=== PATIENT | female | born 1945 ===

== ENCOUNTER 2020-07-29 18:34 | Inpatient (IN) | payer MEDICARE ==
[2020-07-29] MEDS ORDERED: SODIUM CHLORIDE 0.9% 500 ML 500 ML IV STA (19:30)
[2020-07-29] MEDS ORDERED: DILTIAZEM DRIP BOLUS FROM BAG 1 MG SOLN IV ONE (19:31)
[2020-07-29] MEDS ORDERED: HEPARIN SODIUM,PORCINE 5,000 UNIT/ML 1 ML VIAL IV PRN (19:37)
--- NOTE | 2020-07-29 19:37 | ED ---
Weakness HPI - General Chief complaint: Weakness Stated complaint: AFIB Time Seen by Provider: 07/29/20 18:34 Source: patient, EMS Mode of arrival: EMS - History of Present Illness Initial comments: This is a 75-year-old female who was transferred from [facility] after presenting with complaints of progressive weakness going on for the past couple weeks. She hadn't previously been diagnosed with a urinary tract infection was placed on Augmentin and it turns out she was not taking her medication. She did have a cough generally wasn't feeling well. She was short of breath somewhat. Cough is nonproductive. No chest pain. Also sprained some lightheadedness but no syncopal events. No headache or myalgias no fevers chills or sweats. She is found upon evaluation to be in atrial fibrillation with a rapid ventricular response. Additionally she is also found have Covid 19 with the typical imaging findings of bilateral pneumonia. Additionally she was found to be hypoxemic. She was transferred here for further evaluation for both of the above diagnoses. The patient was started on a Cardizem drip was also anticoagulated with heparin and given Rocephin 1 g Complaint: generalized weakness - Related Data Home Medications Medication Instructions Recorded Confirmed Levothyroxine Sodium [Synthroid] 75 mcg PO DAILY 07/29/20 07/29/20 amLODIPine [Norvasc] 5 mg PO DAILY 07/29/20 07/29/20 Allergies Allergy/AdvReac Type Severity Reaction Status Date / Time No Known Allergies Allergy Verified 07/29/20 19:50 Review of Systems ROS Statement: Those systems with pertinent positive or pertinent negative responses have been documented in the HPI. ROS Other: All systems not noted in ROS Statement are negative. Past Medical History Past Medical History: Hypertension, Thyroid Disorder History of Any Multi-Drug Resistant Organisms: None Reported Additional Past Surgical History / Comment(s): colon resection Smoking Status: Never smoker Past Alcohol Use History: None Reported Past Drug Use History: None Reported General Exam - General Exam Comments Initial Comments: This is a well-developed asthenic appearing female who is awake alert oriented 3 General appearance: alert, in no apparent distress Head exam: Present: atraumatic, normocephalic, normal inspection Eye exam: Present: normal appearance, PERRL, EOMI. Absent: scleral icterus, conjunctival injection, periorbital swelling ENT exam: Present: mucous membranes dry Neck exam: Present: normal inspection. Absent: tenderness, meningismus, lymphadenopathy Respiratory exam: Present: decreased breath sounds. Absent: respiratory distress, wheezes, rales, rhonchi, stridor Cardiovascular Exam: Present: tachycardia, irregular rhythm. Absent: systolic murmur, diastolic murmur, rubs, gallop, clicks GI/Abdominal exam: Present: soft, normal bowel sounds. Absent: distended, tenderness, guarding, rebound, rigid Extremities exam: Present: normal inspection, full ROM, normal capillary refill. Absent: tenderness, pedal edema, joint swelling, calf tenderness Back exam: Present: normal inspection Neurological exam: Present: alert, oriented X3, CN II-XII intact Psychiatric exam: Present: normal affect, normal mood Skin exam: Present: warm, dry, intact, normal color. Absent: rash Course Vital Signs 07/29/20 18:40 Temperature 98.0 F Pulse Rate 142 H Respiratory 18 Rate Blood Pressure 93/73 - Reevaluation(s) Reevaluation #1: 07/29/20 20:17 Reevaluation patient patient does have some improvement in her heart rate over the oxygen saturation is still not improved the. Medical Decision Making - Medical Decision Making I did review the materials presented from the sending facility. I did discuss the case with Dr. Harkins's practitioner Quentin also with Dr. Mobley. The patient will be admitted ICU for more intensive therapy cardiology will be consulted - Lab Data Result diagrams: 07/29/20 20:07 Lab Results 07/29/20 Range/Units 20:07 WBC 14.0 H (3.8-10.6) k/uL RBC 4.13 (3.80-5.40) m/uL Hgb 12.0 (11.4-16.0) gm/dL Hct 36.1 (34.0-46.0) % MCV 87.5 (80.0-100.0) fL MCH 29.0 (25.0-35.0) pg MCHC 33.2 (31.0-37.0) g/dL RDW 13.8 (11.5-15.5) % Plt Count 276 (150-450) k/uL MPV 7.9 Neutrophils % 90 % Lymphocytes % 7 % Monocytes % 1 % Eosinophils % 1 % Basophils % 0 % Neutrophils # 12.6 H (1.3-7.7) k/uL Lymphocytes # 1.0 (1.0-4.8) k/uL Monocytes # 0.1 (0-1.0) k/uL Eosinophils # 0.2 (0-0.7) k/uL Basophils # 0.0 (0-0.2) k/uL Critical Care Time Critical Care Time: Yes Total Critical Care Time: 35 Critical Care Time: This is included the initial presentation history physical review of old charting. Also reevaluation the patient's response to therapy assessed with the admitting physician service as well as pulmonary consultation. Initial orders documentation the above Disposition Clinical Impression: Rapid atrial fibrillation, COVID-19, Bilateral pneumonia, Hypoxemia Disposition: ADMITTED IP TO THIS [facility] Condition: Serious Referrals: Gaudencio Mart MD [REFERRING] - 1-2 days
[2020-07-29] MEDS: DILTIAZEM 125 MG in SODIUM CHLORIDE 0.9% 100 ML IV SCH (19:48)
[2020-07-29] MEDS: HEPARIN SOD,PORK IN 0.45% NACL 25,000 UNIT in 0.45% NACL 1 250ML.BAG IV SCH (19:55)
[2020-07-29] MEDS ORDERED: ALBUTEROL HFA INHALER INHALATION STA (20:09)
[2020-07-29 20:15] LABS: Basophils % (A) 0 %; Eosinophils # (A) 0.2 k/uL (0-0.7); Eosinophils % (A) 1 %; HCT 36.1 % (34.0-46.0); Lymphocytes % (A) 7 %; MCHC 33.2 g/dL (31.0-37.0); MCV 87.5 fL (80.0-100.0); Mean Platelet Volume 7.9; Monocytes # (A) 0.1 k/uL (0-1.0); Monocytes % (A) 1 %; Neutrophils # (A) 12.6 k/uL (1.3-7.7); Neutrophils % (A) 90 %; Platelet Count 276 k/uL (150-450); RBC 4.13 m/uL (3.80-5.40); RDW 13.8 % (11.5-15.5)
[2020-07-29] MEDS ORDERED: NALOXONE 0.4 MG/ML 1 ML VIAL IV PRN (20:22)
[2020-07-29] MEDS ORDERED: ACETAMINOPHEN TAB 325 MG TAB PO PRN (20:22)
[2020-07-29 20:46] LABS: INR 1.2 (<1.2); Prothrombin Time 12.1 sec (9.0-12.0)
[2020-07-29 20:51] LABS: Partial Thromboplastin Time 118.7 sec (22.0-30.0)
[2020-07-29] MEDS: SODIUM CHLORIDE 0.9% 1,000 ML IV SCH (21:02)
--- NOTE | 2020-07-29 21:32 | XR ---
EXAMINATION TYPE: XR chest 1V portable DATE OF EXAM: 07/29/2020 COMPARISON: NONE HISTORY: Short of breath TECHNIQUE: Single view FINDINGS: There is diffuse pulmonary airspace edema. Heart size is fairly normal. There is no definit e pleural effusion. There are no hilar masses. There are chest leads. IMPRESSION: Severe pulmonary edema could relate to RDS and is similar to the CT scan earlier today.
[2020-07-30] MEDS ORDERED: ALBUTEROL HFA INHALER INHALATION SCH
[2020-07-30 03:27] LABS: Basophils % (A) 0 %; Eosinophils # (A) 0.1 k/uL (0-0.7); Eosinophils % (A) 1 %; HCT 37.4 % (34.0-46.0); HGB 12.1 gm/dL (11.4-16.0); Lymphocytes # (A) 1.2 k/uL (1.0-4.8); Lymphocytes % (A) 13 %; MCH 28.9 pg (25.0-35.0); MCHC 32.5 g/dL (31.0-37.0); Mean Platelet Volume 8.1; Monocytes # (A) 0.2 k/uL (0-1.0); Monocytes % (A) 2 %; Neutrophils # (A) 8.1 k/uL (1.3-7.7); Neutrophils % (A) 84 %; Platelet Count 232 k/uL (150-450); RDW 13.9 % (11.5-15.5); WBC 9.7 k/uL (3.8-10.6)
[2020-07-30] MEDS: LEVOTHYROXINE 75 MCG TAB PO SCH (07:37)
[2020-07-30] MEDS: ALBUTEROL HFA INHALER INHALATION SCH ×4 (08:23→19:14)
[2020-07-30] MEDS: amLODIPine 5 MG TAB PO SCH (08:44)
[2020-07-30] MEDS ORDERED: FUROSEMIDE 10 MG/ML 4 ML VIAL IV STA (09:43)
[2020-07-30] MEDS: DILTIAZEM 125 MG in SODIUM CHLORIDE 0.9% 100 ML IV SCH ×2 (12:11→21:08)
[2020-07-30] MEDS: SODIUM CHLORIDE 0.9% 1,000 ML IV SCH (12:12)
--- NOTE | 2020-07-30 16:12 | P.CNPUL ---
History of Present Illness Consult date: 07/30/20 Requesting physician: Esther Harkins Reason for consult: pneumonia, other (Covid 19 pneumonitis) Chief complaint: Weakness and shortness of breath. History of present illness: This is a 75-year-old female transferred last night from [facility], patient presented to the hospital with 2 weeks history of progressive weakness, shortness of breath, patient was recently diagnosed with urinary tract infection, and treated recently with Augmentin. Patient has not been taking her medications. In [place], the patient was having some pulmonary symptoms including cough and congestion, cough is described as nonproductive, she had no headaches, no myalgia, no syncopal episodes, no fevers or chills. While in [place], patient developed atrial fibrillation with RVR, and she also tested positive for Covid 19 pneumonitis. Chest x-ray clearly showed extensive bilateral peripheral infiltrates and consolidations. Patient was transferred to [facility], she was treated in the ER with Cardizem drip, patient is waiting for a bed to be admitted to the ICU, she is presently on 15 L high flow nasal cannula, patient converted to sinus rhythm apparently earlier today, she is hemodynamically stable, but considering her oxygen requirement and have significantly abnormal chest x-ray, waiting for a bed to be admitted to the ICU. Patient is not a great historian. WBC count today is 9.7 hemoglobin is 12.1. Influenza screen was negative. Her PTT is 70.5, therapeutic. patient is on heparin because of her atrial fibrillation. Review of Systems Constitutional: Weakness fatigue no fever no chills. HEENT: Negative. Pulmonary: Cough and shortness of breath Cardiac: Palpitations, no chest pain, no syncope. GI: Negative. Genitourinary: Negative. Musculoskeletal: Negative Endocrine: Negative Hematologic: Negative Psychiatric: Negative Neurologic: Negative Skin: Negative Past Medical History Past Medical History: Hypertension, Thyroid Disorder History of Any Multi-Drug Resistant Organisms: None Reported Additional Past Surgical History / Comment(s): colon resection Smoking Status: Never smoker Past Alcohol Use History: None Reported Past Drug Use History: None Reported Medications and Allergies Home Medications Medication Instructions Recorded Confirmed Type Levothyroxine Sodium [Synthroid] 75 mcg PO DAILY 07/29/20 07/29/20 History amLODIPine [Norvasc] 5 mg PO DAILY 07/29/20 07/29/20 History Allergies Allergy/AdvReac Type Severity Reaction Status Date / Time No Known Allergies Allergy Verified 07/29/20 19:50 Physical Exam Vitals: Vital Signs Temp Pulse Resp BP Pulse Ox 07/30/20 13:00 66 28 H 91 L 07/30/20 12:00 120/49 82 L 07/30/20 11:00 116/53 96 07/30/20 10:00 65 30 H 116/94 85 L 07/30/20 09:00 63 29 H 107/53 92 L 07/30/20 08:00 61 24 107/46 90 L 07/30/20 07:00 20 L 24 113/56 93 L 07/30/20 06:15 63 18 113/56 95 07/30/20 04:00 61 18 115/53 95 07/30/20 02:55 62 20 116/57 95 07/30/20 01:53 68 20 115/62 07/30/20 01:09 69 22 118/76 91 L 07/29/20 22:44 66 18 112/65 94 L 07/29/20 19:37 18 07/29/20 18:40 98.0 F 142 H 18 93/73 Intake and Output 07/30/20 07/30/20 07/30/20 06:59 14:59 22:59 Intake Total 393.062 Output Total 970 Balance -576.938 Intake: Intake, IV Titration 193.062 Amount Diltiazem 125 mg In 68.5 Sodium Chloride 0.9% 100 ml @ 10 MG/HR 10 mls/hr IV .[id number] [facility] Rx#: [id number] Heparin Sod,Pork in 0.45% 124.562 NaCl 25,000 unit In 0.45 % NaCl 1 250ml.bag @ 12 UNITS/KG/HR 7.32 mls/hr IV .Q24H [facility] Rx#: [id number] Oral 200 Output: Urine 970 Physical Exam: Revealed a 75-year-old female in no distress. However she is on 15 L high flow nasal cannula. Head: Atraumatic, normocephalic. HEENT:[Neck is supple.] [No neck masses.] [No thyromegaly.] [No JVD.] Chest: [Symmetrical chest expansion, crackles at the bases. Cardiac Exam: [Normal S1 and S2, no S3 gallop, 2/6 systolic murmur thought the precordium.] Abdomen: [Soft, nontender, no megaly, no rebound, no guarding, normal bowel sounds.] Extremities: [No clubbing, trace of bipedal edema, no cyanosis.] Neurological Exam: Alert and oriented 3, no gross focal neurologic deficits. Psychiatric: Normal mood, affect and normal mental status examination. Skin: No rashes. Results - Laboratory Findings CBC and BMP: 07/30/20 02:54 PT/INR, D-dimer PT 12.1 sec (9.0-12.0) H 07/29/20 20:07 INR 1.2 (<1.2) H 07/29/20 20:07 Abnormal lab findings: Abnormal Labs 07/29/20 07/29/20 07/29/20 20:07 20:07 20:07 WBC 14.0 H Neutrophils # 12.6 H PT 12.1 H INR 1.2 H APTT 118.7 H* Troponin I 0.174 H* 07/30/20 07/30/20 07/30/20 02:54 02:54 11:19 WBC Neutrophils # 8.1 H PT INR APTT 80.4 H 70.5 H Troponin I - Diagnostic Findings Chest x-ray: image reviewed (As noted in HPI.) Assessment and Plan Assessment: Impression: Acute hypoxic respiratory failure secondary to CoVID 19 pneumonitis New onset atrial fibrillation with RVR, converted to sinus rhythm while in the emergency room. History of hypertension. History of hypothyroidism. Lifelong nonsmoker. Recommendation: Continue high flow oxygen, and titrate accordingly. Admit to ICU once a bed is available. Covid 19 pneumonitis cocktail. Patient is beyond her period to qualify for him to severe. Continue Decadron. Continue vitamin C and vitamin D. Continue zinc. Continue heparin. Based on the chest x-ray findings, prognosis is guarded, and poor. We'll continue to follow. Time with Patient: Greater than 30
[2020-07-30] MEDS: ASCORBIC ACID 500 MG TAB PO SCH (16:49)
[2020-07-30] MEDS: FAMOTIDINE 20 MG TAB PO SCH (16:49)
[2020-07-30] MEDS: CHOLECALCIFEROL 1,000 UNIT TAB PO SCH (16:50)
[2020-07-30] MEDS: ZINC SULFATE 220 MG CAP PO SCH (16:50)
[2020-07-30] MEDS: DEXAMETHASONE SOD PHOSPHATE 10 MG/ML 1 ML VIAL IV SCH (16:50)
--- NOTE | 2020-07-30 19:33 | P.HPIM ---
History of Present Illness This is a pleasant 75 years old female with past medical history of hypertension, hypothyroidism. Patient could not provide much information so it was taken From staff and records. She presents to [facility]'s with respiratory symptoms and dyspnea associated with some complaint but no chest pain. There she was treated for atrial fibrillation with RVR and she was found to have positive covid 19 test. Patient is afebrile, she is tachypneic with respiratory rate about 26-27, hypoxic with oxygen saturation of 99% on 15 L via nasal cannula. Blood pressure is 106/89. CBC from today is unremarkable. Troponin is elevated 0.17. High lactate dehydrogenase 1276 and C-reactive protein 256. And once is negative. Chest x- ray showing severe pulmonary edema could relate to RDS and is similar to a computed tomography scan earlier today Review of Systems CONSTITUTIONAL: No fever, no malaise, no fatigue. HEENT: No recent visual problems or hearing problems. Denied any sore throat. CARDIOVASCULAR: No orthopnea, PND, no palpitations, no syncope. PULMONARY: No chest wall tenderness, no hemoptysis. GASTROINTESTINAL: No diarrhea, no nausea, no vomiting, no abdominal pain. Normoactive bowel sounds. NEUROLOGICAL: No headaches, no weakness, no numbness. HEMATOLOGICAL: Denies any bleeding or petechiae. GENITOURINARY: Denies any burning micturition, frequency, or urgency. MUSCULOSKELETAL/RHEUMATOLOGICAL: Denies any joint pain, swelling, or any muscle pain. ENDOCRINE: Denies any polyuria or polydipsia. Past Medical History Past Medical History: Hypertension, Thyroid Disorder History of Any Multi-Drug Resistant Organisms: None Reported Additional Past Surgical History / Comment(s): colon resection Smoking Status: Never smoker Past Alcohol Use History: None Reported Past Drug Use History: None Reported Medications and Allergies Home Medications Medication Instructions Recorded Confirmed Type Levothyroxine Sodium [Synthroid] 75 mcg PO DAILY 07/29/20 07/29/20 History amLODIPine [Norvasc] 5 mg PO DAILY 07/29/20 07/29/20 History Allergies Allergy/AdvReac Type Severity Reaction Status Date / Time No Known Allergies Allergy Verified 07/29/20 19:50 Physical Exam Vitals: Vital Signs Temp Pulse Resp BP Pulse Ox 07/30/20 10:00 65 30 H 116/94 85 L 07/30/20 09:00 63 29 H 107/53 92 L 07/30/20 08:00 61 24 107/46 90 L 07/30/20 07:00 20 L 24 113/56 93 L 07/30/20 06:15 63 18 113/56 95 07/30/20 04:00 61 18 115/53 95 07/30/20 02:55 62 20 116/57 95 07/30/20 01:53 68 20 115/62 07/30/20 01:09 69 22 118/76 91 L 07/29/20 22:44 66 18 112/65 94 L 07/29/20 19:37 18 07/29/20 18:40 98.0 F 142 H 18 93/73 Intake and Output 07/29/20 07/30/20 07/30/20 22:59 06:59 14:59 Intake Total 26.833 Output Total 600 Balance 26.833 -600 Intake: Intake, IV Titration 26.833 Amount Diltiazem 125 mg In 26.833 Sodium Chloride 0.9% 100 ml @ 10 MG/HR 10 mls/hr IV .[id number] [facility] Rx#: [id number] Output: Urine 600 Other: Weight 61 kg GENERAL: The patient is alert and lethargic, not in any acute distress. Well developed, well nourished. HEENT: Pupils are round and equally reacting to light. EOMI. No scleral icterus. No conjunctival pallor. Normocephalic, atraumatic. No pharyngeal erythema. No thyromegaly. CARDIOVASCULAR: S1 and S2 present. No murmurs, rubs, or gallops. -PULMONARY: Chest is clear to auscultation, no wheezing. Bilateral crepitation ABDOMEN: Soft, nontender, nondistended, normoactive bowel sounds. No palpable organomegaly. MUSCULOSKELETAL: No joint swelling or deformity. EXTREMITIES: No cyanosis, clubbing, or pedal edema. NEUROLOGICAL: Gross neurological examination did not reveal any focal deficits. SKIN: No rashes. No petechiae Results CBC & Chem 7: 07/30/20 02:54 Labs: Abnormal Lab Results - Last 24 Hours (Table) 07/29/20 07/29/20 07/29/20 Range/Units 20:07 20:07 20:07 WBC 14.0 H (3.8-10.6) k/uL Neutrophils # 12.6 H (1.3-7.7) k/uL PT 12.1 H (9.0-12.0) sec INR 1.2 H (<1.2) APTT 118.7 H* (22.0-30.0) sec Troponin I 0.174 H* (0.000-0.034) ng/mL 07/30/20 07/30/20 Range/Units 02:54 02:54 WBC (3.8-10.6) k/uL Neutrophils # 8.1 H (1.3-7.7) k/uL PT (9.0-12.0) sec INR (<1.2) APTT 80.4 H (22.0-30.0) sec Troponin I (0.000-0.034) ng/mL Assessment and Plan Assessment: -Bilateral Covid 19 pneumonia: Continue with dexamethasone, vitamin C, ascorbic acid,remdesivir and anticoagulation. Pulmonary consult. Patient will be admitted to the ICU for further monitoring and management -Acute hypoxic respiratory failure secondary to above -A. fib and RVR: Continue with heparin drip, currently patient is sinus rhythm. Cardiology consult -Increased inflammatory markers secondary to above and infection -Hypertension -Hypothyroidism DVT prophylaxis on heparin GI prophylaxis: Protonix Prognosis is guarded
[2020-07-30 19:45] LABS: Glucose,Whole Blood 168 mg/dL (75-99)
[2020-07-31] MEDS: HEPARIN SOD,PORK IN 0.45% NACL 25,000 UNIT in 0.45% NACL 1 250ML.BAG IV SCH ×2 (00:30→01:58)
[2020-07-31] MEDS: SODIUM CHLORIDE 0.9% 1,000 ML IV SCH (00:30)
[2020-07-31] MEDS: DILTIAZEM 125 MG in SODIUM CHLORIDE 0.9% 100 ML IV SCH (00:30)
[2020-07-31] MEDS: AZITHROMYCIN 500 MG in SODIUM CHLORIDE 0.9% 250 ML IVPB SCH (02:27)
[2020-07-31 03:26] LABS: ABG HCO3 20 mmol/L (21-25); ABG Oxygen Saturation 81.7 % (94-97); ABG PCO2 31 mmHg (35-45); ABG PH 7.43 (7.35-7.45); ABG TCO2 21 mmol/L (19-24)
[2020-07-31 03:35] LABS: Allen Test Performed? yes
[2020-07-31] MEDS ORDERED: propofoL 100 ML IV ONE (03:38)
[2020-07-31] MEDS ORDERED: NOREPINEPHRIN 4 MG-0.9% NS PMX 4 MG/250 ML ML IV ONE (04:21)
[2020-07-31] MEDS: NOREPINEPHRINE 4 MG in SODIUM CHLORIDE 0.9% 250 ML IV SCH (05:00)
[2020-07-31 05:24] LABS: ABG Base Excess -4.5 mmol/L; ABG HCO3 21 mmol/L (21-25); ABG Oxygen Saturation 94.6 % (94-97); ABG PCO2 36 mmHg (35-45); ABG PH 7.37 (7.35-7.45); ABG PO2 71 mmHg (83-108); ABG TCO2 22 mmol/L (19-24)
[2020-07-31 05:31] LABS: Basophils # (A) 0.1 k/uL (0-0.2); Basophils % (A) 0 %; Eosinophils # (A) 0.2 k/uL (0-0.7); Eosinophils % (A) 1 %; HCT 33.1 % (34.0-46.0); HGB 11.2 gm/dL (11.4-16.0); Lymphocytes # (A) 0.8 k/uL (1.0-4.8); Lymphocytes % (A) 4 %; MCH 29.3 pg (25.0-35.0); MCHC 33.9 g/dL (31.0-37.0); MCV 86.6 fL (80.0-100.0); Mean Platelet Volume 8.1; Monocytes # (A) 0.6 k/uL (0-1.0); Monocytes % (A) 2 %; Neutrophils # (A) 21.5 k/uL (1.3-7.7); Neutrophils % (A) 92 %; Platelet Count 297 k/uL (150-450); RBC 3.82 m/uL (3.80-5.40); RDW 13.6 % (11.5-15.5); WBC 23.3 k/uL (3.8-10.6)
[2020-07-31 06:31] LABS: Allen Test Performed? no
[2020-07-31 06:42] LABS: Calcium 8.1 mg/dL (8.4-10.2); Potassium 2.9 mmol/L (3.5-5.1)
[2020-07-31] MEDS: LEVOTHYROXINE 75 MCG TAB PO SCH (06:56)
[2020-07-31] MEDS: ALBUTEROL HFA INHALER INHALATION SCH ×4 (07:23→20:37)
[2020-07-31] MEDS ORDERED: Potassium Replacement Protocol 1 EACH MISC MISCELLANE PRN ×2 (07:24→18:39)
[2020-07-31] MEDS ORDERED: PANTOPRAZOLE 40 MG/10 ML VIAL IVP SCH (09:00)
[2020-07-31] MEDS: POTASSIUM BICARBONATE/CIT AC 20 MEQ TABLET.EFF NG-TUBE SCH ×3 (09:05→11:19)
[2020-07-31] MEDS: CISATRACURIUM 200 MG in SODIUM CHLORIDE 0.9% 180 ML IV SCH (09:05)
[2020-07-31] MEDS: amLODIPine 5 MG TAB PO SCH (09:05)
[2020-07-31] MEDS: CHOLECALCIFEROL 1,000 UNIT TAB PO SCH (09:06)
[2020-07-31] MEDS: FAMOTIDINE 20 MG TAB PO SCH (09:06)
[2020-07-31] MEDS: ASCORBIC ACID 500 MG TAB PO SCH (09:06)
[2020-07-31] MEDS: CHLORHEXIDINE GLUCONATE 15 ML CUP MUCOUS MEM SCH ×2 (09:06→20:13)
[2020-07-31] MEDS: DEXAMETHASONE SOD PHOSPHATE 10 MG/ML 1 ML VIAL IV SCH (09:06)
[2020-07-31] MEDS: ZINC SULFATE 220 MG CAP PO SCH (09:07)
--- NOTE | 2020-07-31 10:39 | ECHOF ---
Referral Reason:atr fib MEASUREMENTS -------- HEIGHT: 154.9 cm WEIGHT: 55.8 kg BP: 114/49 IVSd: 1.2 cm (0.6 - 1.1) LVIDd: 3.8 cm (3.9 - 5.3) LVPWd: 1.1 cm (0.6 - 1.1) EDV(Teich): 63 ml IVSs: 1.7 cm LVIDs: 2.4 cm LVPWs: 1.7 cm %IVS Thck: 42 % ESV(Teich): 20 ml EF(Teich): 68 % %FS: 37 % SV(Teich): 43 ml LA Diam: 2.8 cm (2.7 - 3.8) RVIDd: 2.8 cm (< 3.3) IVC: 22.13 mm LALs A4C: 5.3 cm LAAs A4C: 13.3 cm LAESV A-L A4C: 28 ml LAESV MOD A4C: 25 ml LALs A2C: 5.4 cm LAAs A2C: 15.3 cm LAESV A-L A2C: 37 ml LAESV MOD A2C: 34 ml LAESV(A-L): 33 ml LAESV Index (A-L): 21.15 ml/m Ao Diam: 3.0 cm (2.0 - 3.7) AV Cusp: 2.1 cm (1.5 - 2.6) EPSS: 0.5 cm MV E Kenny: 0.75 m/s MV DecT: 294 ms MV Dec [place]: 2.6 m/s MV A Kenny: 0.70 m/s MV E/A Ratio: 1.07 MV PHT: 85 ms AV Vmax: 1.08 m/s AV maxP.63 mmHg TR Vmax: 3.20 m/s TR maxP.92 mmHg RAP: 15.00 mmHg RVSP: 55.92 mmHg MV EF SLOPE: 61.12 mm/s (70 - 150) MV EXCURSION: 12.41 mm (> 18.000) FINDINGS -------- Sinus rhythm. This was a technically adequate study. The left ventricular size is normal. There is borderline concentric left ventricular hypertrophy. Overall left ventricular systolic function is low-normal with, an EF between 50 - 55 %. The right ventricle is normal in size. Normal LA size by volume 22+/-6 ml/m2. The right atrial size is normal. Interatrial and interventricular septum intact. The aortic valve is trileaflet, and appears structurally normal. No aortic stenosis or regurgitation. Mild mitral annular calcification present. Moderate mitral regurgitation is present. Moderate tricuspid regurgitation present. There is moderate to severe pulmonary hypertension. The right ventricular systolic pressure, as measured by Doppler, is 55.92mmHg. There is no pulmonic regurgitation present. The aortic root size is normal. The inferior vena cava is dilated with no significant inspiratory collapse which is consistent estima annika right atrial pressure of >15 mmHg. Echo free space may represent effusion or a pericardial fat pad. CONCLUSIONS -------- 1. There is borderline concentric left ventricular hypertrophy. 2. Overall left ventricular systolic function is low-normal with, an EF between 50 - 55 %. 3. Normal LA size by volume 22+/-6 ml/m2. 4. The aortic valve is trileaflet, and appears structurally normal. No aortic stenosis or regurgitati on. 5. Mild mitral annular calcification present. 6. Moderate mitral regurgitation is present. 7. Moderate tricuspid regurgitation present. 8. There is moderate to severe pulmonary hypertension. 9. The inferior vena cava is dilated with no significant inspiratory collapse which is consistent est imated right atrial pressure of >15 mmHg. 10. Echo free space may represent effusion or a pericardial fat pad. KINESIOLOGIST: Concetta Higuera RDCS
[2020-07-31] MEDS: FUROSEMIDE 10 MG/ML 2 ML VIAL IV SCH (10:48)
--- NOTE | 2020-07-31 10:49 | XR ---
EXAMINATION TYPE: XR chest 1V portable DATE OF EXAM: 07/31/2020 CLINICAL HISTORY: Intubation. TECHNIQUE: Portable frontal view of the chest. COMPARISON: 07/29/2020 chest radiograph FINDINGS: Endotracheal tube distal tip 1.8 cm from the evelyn. Enteric tube distal tip over the proj ected area of the stomach, with the side-port near the level of the GE junction. The cardiomediastina l silhouette is within normal limits for size. Diffuse hazy airspace opacities are not significantly changed from 07/29/2020. No pleural effusion. No sizable pneumothorax seen, although the superiormost aspect of the lung apices are at the outer margins of the image. Degenerative changes of the spine. IMPRESSION: 1. Endotracheal tube distal tip 1.8 cm from the evelyn. 2. Enteric tube distal tip over the stomach, with side-port near the level of the GE junction. 3. Diffuse hazy airspace opacities and/or pulmonary edema not significantly changed from 07/29/2020.
--- NOTE | 2020-07-31 11:11 | XR ---
EXAMINATION TYPE: XR chest 1V portable DATE OF EXAM: 07/31/2020 CLINICAL HISTORY: s/p rt ij central line placement. TECHNIQUE: Portable semiupright view of the chest. COMPARISON: 07/31/2020 6:14 AM chest radiograph FINDINGS: The endotracheal tube distal tip is just below the level of the evelyn and overlies the pr oximal left mainstem bronchus. Enteric tube distal tip and side-port overlie the left upper quadrant over the projected area of the stomach. Interval placement of right internal jugular central venous c atheter with distal tip overlying the right atrium. No pneumothorax. No pleural effusion. Unchanged d iffuse hazy airspace opacities of the bilateral lungs. Cardiomediastinal silhouette normal. IMPRESSION: 1. Endotracheal tube distal tip is overlying the proximal left mainstem bronchus. Consider approximat micaela 3.0 cm of retraction. 2. Right internal jugular central venous catheter distal tip overlies the right atrium. Consider retr action. No pneumothorax. 3. Enteric tube distal tip and side-port overlie the stomach. 4. Unchanged bilateral airspace opacities, which may represent pulmonary edema. Dr. Mamta Berkowitz discussed findings with Samantha Jimenez RN, on 07/31/2020 at 11:00 AM, and resul ts were acknowledged.
--- NOTE | 2020-07-31 12:04 | P.CRDCN ---
History of Present Illness Consult date: 07/31/20 History of present illness: This is a 75-year-old female who was transferred from [facility] with complaints of 2 weeks of progressive weakness, shortness of breath and diagnosed to have COVID pneumonia. Prior to that patient was being treated for unit tract infection. While at [facility], patient developed atrial fibrillation with rapid ventricular response. Her chest. Echo showed bilateral infiltrates and consolidation. Patient was intubated in ICU. Subsequently she converted back to sinus rhythm. She is maintaining sinus rhythm. She is off Cardizem drip. She was on Norvasc prior to the admission for high blood pressure, which is being held. Once blood pressure stabilizes, we can start her back on metoprolol 25 mg by mouth twice a day. Patient also may be considered for anticoagulation therapy after all the central lines are placed. Echocardiogram showed normal LV function with moderate mitral and tricuspid regurgitation and moderate to severe pulmonary hypertension. May also consider adding LEANN inhibitor R's, once blood pressure stabilized. This patient is not personally examined. Most of the information is gathered from the nurses and charts and testing results. Review of Systems As per the chart Past Medical History Past Medical History: Hypertension, Thyroid Disorder History of Any Multi-Drug Resistant Organisms: None Reported Additional Past Surgical History / Comment(s): colon resection Smoking Status: Never smoker Past Alcohol Use History: None Reported Past Drug Use History: None Reported Medications and Allergies Home Medications Medication Instructions Recorded Confirmed Type Levothyroxine Sodium [Synthroid] 75 mcg PO DAILY 07/29/20 07/29/20 History amLODIPine [Norvasc] 5 mg PO DAILY 07/29/20 07/29/20 History Allergies Allergy/AdvReac Type Severity Reaction Status Date / Time No Known Allergies Allergy Verified 07/29/20 19:50 Physical Exam Vitals: Vital Signs Temp Pulse Resp BP Pulse Ox 07/31/20 11:00 50 L 20 100 07/31/20 10:45 47 L 34 H 100 07/31/20 10:30 49 L 20 99 07/31/20 10:15 47 L 20 99 07/31/20 10:00 47 L 20 99 07/31/20 09:45 46 L 20 98 07/31/20 09:30 50 L 20 98 07/31/20 09:15 46 L 20 99 07/31/20 09:00 47 L 20 99 07/31/20 08:45 48 L 20 99 07/31/20 08:30 48 L 20 98 07/31/20 08:15 48 L 19 99 07/31/20 08:00 97.5 F L 50 L 7 L 98 07/31/20 07:45 51 L 20 99 07/31/20 07:30 51 L 20 98 07/31/20 07:15 53 L 20 98 07/31/20 07:00 56 L 20 98 07/31/20 06:45 59 L 20 98 07/31/20 06:30 59 L 20 101/52 98 07/31/20 06:15 79 20 101/52 98 07/31/20 06:00 71 12 101/52 07/31/20 05:45 63 2 L 101/52 100 07/31/20 05:30 67 13 100/55 100 07/31/20 05:15 71 20 99/49 99 07/31/20 05:00 76 20 120/55 96 07/31/20 04:45 80 20 110/57 86 L 07/31/20 04:30 85 23 78/67 75 L 07/31/20 04:15 86 26 H 123/50 75 L 07/31/20 04:00 92 20 131/62 73 L 07/31/20 03:45 95 30 H 131/62 84 L 07/31/20 03:30 83 37 H 131/62 85 L 07/31/20 03:00 89 42 H 125/82 84 L 07/31/20 02:00 116 H 38 H 134/80 76 L 07/31/20 01:00 89 32 H 126/60 87 L 07/31/20 00:00 97.6 F 87 30 H 105/55 87 L 07/30/20 23:00 85 12 88 L 07/30/20 22:00 87 33 H 92 L 07/30/20 21:00 80 31 H 90 L 07/30/20 20:24 97.4 F L 80 33 H 124/85 93 L 07/30/20 19:00 97.4 F L 80 47 H 106/89 07/30/20 18:00 97.5 F L 74 27 H 106/89 86 L 07/30/20 17:00 80 43 H 123/63 85 L 07/30/20 16:00 71 26 H 118/72 93 L 07/30/20 15:00 79 120/61 89 L 07/30/20 14:00 66 109/84 92 L 07/30/20 13:00 66 28 H 91 L 07/30/20 12:00 120/49 82 L Intake and Output 07/30/20 07/31/20 07/31/20 22:59 06:59 14:59 Intake Total 84.75 284.117 203.950 Output Total 795 540 375 Balance -710.25 -255.883 -171.050 Intake: IV 40 160 109 Pressure Bag 9 Sodium Chloride 0.9% 1, 40 160 100 000 ml @ 20 mls/hr IV . Q24H RODRIGO Rx#:[id number] Intake, IV Titration 44.75 124.117 94.950 Amount Diltiazem 125 mg In 44.75 44.333 Sodium Chloride 0.9% 100 ml @ 10 MG/HR 10 mls/hr IV .[id number] RODRIGO Rx#: [id number] Heparin Sod,Pork in 0.45% 79.504 NaCl 25,000 unit In 0.45 % NaCl 1 250ml.bag @ 12 UNITS/KG/HR 7.32 mls/hr IV .Q24H RODRIGO Rx#: [id number] Norepinephrine 4 mg In 79.41 Sodium Chloride 0.9% 250 ml @ 0.05 MCG/KG/MIN 11. 621 mls/hr IV .[id number] R[facility]RIGO Rx#:[id number] propofoL 1,000 mg In 0.28 15.540 Empty Bag 1 bag @ Titrate IV .Q0M RODRIGO Rx#: [id number] Output: Urine 795 540 375 Other: Voiding Method Indwelling Catheter Indwelling Catheter Weight 56 kg ABP, PAP, CO, CI - Last 8 Hours Arterial Blood Pressure 111/50 Arterial Blood Pressure 114/52 Arterial Blood Pressure 121/57 Arterial Blood Pressure 110/48 Arterial Blood Pressure 109/48 Arterial Blood Pressure 107/46 Arterial Blood Pressure 109/47 Arterial Blood Pressure 110/46 Arterial Blood Pressure 107/47 Arterial Blood Pressure 107/45 Arterial Blood Pressure 121/50 Arterial Blood Pressure 117/49 Arterial Blood Pressure 110/50 Arterial Blood Pressure 106/48 Arterial Blood Pressure 104/48 Arterial Blood Pressure 103/48 Arterial Blood Pressure 102/47 Arterial Blood Pressure 103/48 Arterial Blood Pressure 114/49 Arterial Blood Pressure 158/67 Arterial Blood Pressure 126/41 Arterial Blood Pressure 114/48 This patient is not personally examined. Patient is intubated and sedated. Lungs apparently show diminished breath sounds. Heart rhythm is ,at this time, regular Results 07/31/20 05:07 07/31/20 05:07 Cardiac Enzymes 07/30/20 Range/Units 02:54 Lactate Dehydrogenase 1276 H (313-618) U/L Coagulation 07/30/20 07/30/20 07/31/20 Range/Units 11:19 20:05 05:07 APTT 70.5 H 47.0 H 46.1 H (22.0-30.0) sec CBC 07/31/20 Range/Units 05:07 WBC 23.3 H (3.8-10.6) k/uL RBC 3.82 (3.80-5.40) m/uL Hgb 11.2 L (11.4-16.0) gm/dL Hct 33.1 L (34.0-46.0) % Plt Count 297 (150-450) k/uL Comprehensive Metabolic Panel 07/31/20 Range/Units 05:07 Sodium 141 (137-145) mmol/L Potassium 2.9 L (3.5-5.1) mmol/L Chloride 113 H (98-107) mmol/L Carbon Dioxide 19 L (22-30) mmol/L BUN 30 H (7-17) mg/dL Creatinine 0.77 (0.52-1.04) mg/dL Glucose 148 H (74-99) mg/dL Calcium 8.1 L (8.4-10.2) mg/dL Current Medications Generic Name Dose Route Start Last Admin Trade Name Freq PRN Reason Stop Dose Admin Acetaminophen 650 mg 07/29/20 20:22 Acetaminophen Tab 325 Mg Tab PO Q4HR PRN Fever and/or Mild Pain Albuterol Sulfate 2 puff 07/30/20 08:00 07/31/20 11:06 Albuterol Hfa Inhaler INHALATION 2 puff RT-QID RODRIGO Administration Apixaban 5 mg 07/31/20 21:00 Apixaban 5 Mg Tab PO BID RODRIGO Ascorbic Acid 500 mg 07/30/20 16:15 07/31/20 09:06 Ascorbic Acid 500 Mg Tab PO 500 mg DAILY RODRIGO Administration Chlorhexidine Gluconate 15 ml 07/31/20 09:00 07/31/20 09:06 Chlorhexidine Gluconate 15 Ml Cup MUCOUS MEM 15 ml BID RODRIGO Administration Cholecalciferol 2,000 unit 07/30/20 16:15 07/31/20 09:06 Cholecalciferol 1,000 Unit Tab PO 2,000 unit DAILY RODRIGO Administration Dexamethasone Sodium Phosphate 6 mg 07/30/20 16:15 07/31/20 09:06 Dexamethasone Sod Phosphate 10 Mg/Ml 1 Ml Vial IV 6 mg DAILY RODRIGO Administration Famotidine 20 mg 07/30/20 16:15 07/31/20 09:06 Famotidine 20 Mg Tab PO 20 mg DAILY RODRIGO Administration Furosemide 20 mg 07/31/20 09:30 07/31/20 10:48 Furosemide 10 Mg/Ml 2 Ml Vial IV 20 mg DAILY RODRIGO Administration Diltiazem HCl 125 mg/ Sodium 125 mls @ 10 mls/hr 07/29/20 19:45 07/31/20 06:00 Chloride IV 0 mg/hr .[id number] RODRIGO 0 mls/hr Infusion 10 MG/HR Sodium Chloride 1,000 mls @ 20 mls/hr 07/29/20 20:30 07/31/20 00:30 Saline 0.9% IV Not Given .Q24H R[facility]RIGO Ceftriaxone Sodium 1 gm/ 50 mls @ 100 mls/hr 07/31/20 01:00 07/31/20 01:57 Sodium Chloride IVPB 100 mls/hr Q24H RODRIGO Administration Azithromycin 500 mg/ Sodium 250 mls @ 250 mls/hr 07/31/20 01:00 07/31/20 02:27 Chloride IVPB 250 mls/hr Q24H RODRIGO Administration Norepinephrine Bitartrate 4 mg 254 mls @ 11.621 mls/hr 07/31/20 05:00 07/31/20 11:50 / Sodium Chloride IV 0.03 mcg/kg/min .[id number] RODRIGO 6.972 mls/hr Titration Protocol 0.05 MCG/KG/MIN Cisatracurium Besylate 200 mg/ 200 mls @ 3.66 mls/hr 07/31/20 05:00 07/31/20 09:05 Sodium Chloride IV Not Given .Q24H RODRIGO Protocol 1 MCG/KG/MIN Propofol 1,000 mg/ IV Solution 100 mls @ 0 mls/hr 07/31/20 03:45 07/31/20 08:21 IV 50 mcg/kg/min .Q0M RODRIGO 16.8 mls/hr Administration Protocol Titrate Levothyroxine Sodium 75 mcg 07/30/20 06:30 07/31/20 06:56 Levothyroxine 75 Mcg Tab PO Not Given DAILY@0630 [facility] Miscellaneous Information 1 each 07/31/20 07:24 Potassium Replacement Protocol 1 Each Misc MISCELLANE DAILY PRN Per Protocol Protocol Naloxone HCl 0.2 mg 07/29/20 20:22 Naloxone 0.4 Mg/Ml 1 Ml Vial IV Q2M PRN Opioid Reversal Pantoprazole Sodium 40 mg 07/31/20 09:00 07/31/20 09:06 Pantoprazole 40 Mg/10 Ml Vial IVP 40 mg DAILY RODRIGO Administration Zinc Sulfate 220 mg 07/30/20 16:15 07/31/20 09:07 Zinc Sulfate 220 Mg Cap PO 220 mg DAILY RODRIGO Administration Intake and Output 07/30/20 07/31/20 07/31/20 22:59 06:59 14:59 Intake Total 84.75 284.117 203.950 Output Total 795 540 375 Balance -710.25 -255.883 -171.050 Intake: IV 40 160 109 Pressure Bag 9 Sodium Chloride 0.9% 1, 40 160 100 000 ml @ 20 mls/hr IV . Q24H [facility]IG[facility] Rx#:[id number] Intake, IV Titration 44.75 124.117 94.950 Amount Diltiazem 125 mg In 44.75 44.333 Sodium Chloride 0.9% 100 ml @ 10 MG/HR 10 mls/hr IV .[id number] R[facility]IG[facility] Rx#: [id number] Heparin Sod,Pork in 0.45% 79.504 NaCl 25,000 unit In 0.45 % NaCl 1 250ml.bag @ 12 UNITS/KG/HR 7.32 mls/hr IV .Q24H [facility]IGO Rx#: [id number] Norepinephrine 4 mg In 79.41 Sodium Chloride 0.9% 250 ml @ 0.05 MCG/KG/MIN 11. 621 mls/hr IV .[id number] [facility] Rx#:[id number] propofoL 1,000 mg In 0.28 15.540 Empty Bag 1 bag @ Titrate IV .Q0M RODRIGO Rx#: [id number] Output: Urine 799 540 375 Other: Voiding Method Indwelling Catheter Indwelling Catheter Weight 56 kg 07/31/20 05:07 07/31/20 05:07 EKG Interpretations (text) Sinus rhythm Assessment and Plan (1) Bilateral pneumonia Current Visit: Yes Status: Acute Code(s): J18.9 - PNEUMONIA, UNSPECIFIED ORGANISM SNOMED Code(s): 884804507 (2) COVID-19 Current Visit: Yes Status: Acute Code(s): U07.1 - COVID-19 SNOMED Code(s): 128244244 (3) Rapid atrial fibrillation Current Visit: Yes Status: Acute Code(s): I48.91 - UNSPECIFIED ATRIAL FIBRI LLATION SNOMED Code(s): 736165699 Plan: Back in sinus rhythm. LV function is preserved. There is evidence of moderate mitral and tricuspid regurgitation and moderate to severe pulmonary hypertension. Suggest that patient may be started on combination of the metoprolol 25 mg by mouth twice a day and lisinopril 5 mg once daily. Once her blood pressure stabilized, She may also be considered for anti-cognition therapy with heparin or oral anticoagulants
--- NOTE | 2020-07-31 15:45 | P.PN ---
Subjective Progress Note Date: 07/31/20 Principal diagnosis: Acute hypoxic respiratory failure secondary to Covid 19 pneumonitis This is a 75-year-old female transferred last night from [facility], patient presented to the hospital with 2 weeks history of progressive weakness, shortness of breath, patient was recently diagnosed with urinary tract infection, and treated recently with Augmentin. Patient has not been taking her medications. In [place], the patient was having some pulmonary symptoms including cough and congestion, cough is described as nonproductive, she had no headaches, no myalgia, no syncopal episodes, no fevers or chills. While in [place], patient developed atrial fibrillation with RVR, and she also tested positive for Covid 19 pneumonitis. Chest x-ray clearly showed extensive b ilateral peripheral infiltrates and consolidations. Patient was transferred to [facility], she was treated in the ER with Cardizem drip, patient is waiting for a bed to be admitted to the ICU, she is presently on 15 L high flow nasal cannula, patient converted to sinus rhythm apparently earlier today, she is hemodynamically stable, but considering her oxygen requirement and have significantly abnormal chest x-ray, waiting for a bed to be admitted to the ICU. Patient is not a great historian. WBC count today is 9.7 hemoglobin is 12.1. Influenza screen was negative. Her PTT is 70.5, therapeutic. patient is on heparin because of her atrial fibrillation. Patient was reevaluated today on 07/31/20, intubated and mechanically ventilated. Her clinical condition deteriorated yesterday, patient had to be intubated and ventilated. Presently on assist control rate of 20, tidal volume is 400, FiO2 is 100%, and PEEP is 10. ABG showed a pO2 of 71 pCO2 of 36 pH of 7.37. Drips include Propofol at 50 mcg/kg/m, heparin drip, 0.9 normal saline at 20 mL per hour, and norepinephrine at 0.05 mcg/kg/m. Presently off Nimbex. No specific changes were made with her ventilator settings. May consider increasing the PEEP. And the patient will receive a unit of convalescent plasma today. Chest x-ray showed bilateral interstitial infiltrates, and the tube was noted to be close to the evelyn, and this will be adjusted accordingly. Right IJ central line was placed and the patient today since she had very poor IV access. WBC count today is 23.3 hemoglobin is 11.2 electrolytes were noted and she had a low potassium of 2.9, being corrected as per protocol. Prior to intubation yesterday, her pO2 was 44 pCO2 was 31 and pH of 7.4 3. Objective - Vital Signs Vital signs: Vital Signs Temp 97.4 F L 07/31/20 15:26 Pulse 54 L 07/31/20 15:26 Resp 20 07/31/20 15:26 BP 121/60 07/31/20 15:26 Pulse Ox 100 07/31/20 15:15 Intake & Output 07/30/20 07/31/20 07/31/20 18:59 06:59 18:59 Intake Total 393.062 368.867 545.630 Output Total 1645 660 455 Balance -1251.938 -291.133 90.630 Weight 56 kg Intake: IV 200 155 Pressure Bag 15 Sodium Chloride 0.9% 1, 200 140 000 ml @ 20 mls/hr IV . Q24H [facility]O Rx#:[id number] Intake, IV Titration 193.062 168.867 194.630 Amount Diltiazem 125 mg In 68.5 89.083 Sodium Chloride 0.9% 100 ml @ 10 MG/HR 10 mls/hr IV .[id number] R[facility]RIGO Rx#: [id number] Heparin Sod,Pork in 0.45% 124.562 79.504 NaCl 25,000 unit In 0.45 % NaCl 1 250ml.bag @ 12 UNITS/KG/HR 7.32 mls/hr IV .Q24H RODRIGO Rx#: [id number] Norepinephrine 4 mg In 79.41 Sodium Chloride 0.9% 250 ml @ 0.05 MCG/KG/MIN 11. 621 mls/hr IV .[id number] R[facility] Rx#:[id number] propofoL 1,000 mg In 0.28 115.220 Empty Bag 1 bag @ Titrate IV .Q0M RODRIGO Rx#: [id number] Oral 200 Blood Product 196 Ffp Pher Conval Covid19 196 Acda 3 Unit [id number] Output: Urine 1645 660 455 Other: Voiding Method Indwelling Catheter Indwelling Catheter ABP, PAP, CO, CI - Last Documented Arterial Blood Pressure 115/52 - Exam Physical Exam: Revealed a 75-year-old female , on mechanical ventilation. Sedated. Head: Atraumatic, normocephalic. Endotracheal tube and orogastric tubes are intact. HEENT:[Neck is supple.] [No neck masses.] [No thyromegaly.] [No JVD.] Chest: [Symmetrical chest expansion, crackles at the bases. Cardiac Exam: Irregular irregular rhythm. [Normal S1 and S2, no S3 gallop, 2/6 systolic murmur thought the precordium.] Abdomen: [Soft, nontender, no megaly, no rebound, no guarding, normal bowel sounds.] Extremities: [No clubbing, trace of bipedal edema, no cyanosis.] Neurological Exam: Sedated, on propofol, could not assess. Psychiatric: Sedated, on propofol, could not assess Skin: No rashes. - Labs CBC & Chem 7: 07/31/20 05:07 07/31/20 05:07 Labs: Abnormal Lab Results - Last 24 Hours (Table) 07/30/20 07/30/20 07/30/20 Range/Units 02:54 02:54 19:43 WBC (3.8-10.6) k/uL Hgb (11.4-16.0) gm/dL Hct (34.0-46.0) % Neutrophils # (1.3-7.7) k/uL Lymphocytes # (1.0-4.8) k/uL APTT (22.0-30.0) sec ABG pCO2 (35-45) mmHg ABG pO2 (83-108) mmHg ABG HCO3 (21-25) mmol/L ABG O2 Saturation (94-97) % Potassium (3.5-5.1) mmol/L Chloride (98-107) mmol/L Carbon Dioxide (22-30) mmol/L BUN (7-17) mg/dL Glucose (74-99) mg/dL POC Glucose (mg/dL) 168 H (75-99) mg/dL Calcium (8.4-10.2) mg/dL Lactate Dehydrogenase 1276 H (313-618) U/L C-Reactive Protein 256.0 H (<10.0) mg/L Procalcitonin 0.84 H (0.02-0.09) ng/mL 07/30/20 07/31/20 07/31/20 Range/Units 20:05 03:19 05:07 WBC 23.3 H (3.8-10.6) k/uL Hgb 11.2 L (11.4-16.0) gm/dL Hct 33.1 L (34.0-46.0) % Neutrophils # 21.5 H (1.3-7.7) k/uL Lymphocytes # 0.8 L (1.0-4.8) k/uL APTT 47.0 H (22.0-30.0) sec ABG pCO2 31 L (35-45) mmHg ABG pO2 44 L* (83-108) mmHg ABG HCO3 20 L (21-25) mmol/L ABG O2 Saturation 81.7 L (94-97) % Potassium (3.5-5.1) mmol/L Chloride (98-107) mmol/L Carbon Dioxide (22-30) mmol/L BUN (7-17) mg/dL Glucose (74-99) mg/dL POC Glucose (mg/dL) (75-99) mg/dL Calcium (8.4-10.2) mg/dL Lactate Dehydrogenase (313-618) U/L C-Reactive Protein (<10.0) mg/L Procalcitonin (0.02-0.09) ng/mL 07/31/20 07/31/20 07/31/20 Range/Units 05:07 05:07 05:22 WBC (3.8-10.6) k/uL Hgb (11.4-16.0) gm/dL Hct (34.0-46.0) % Neutrophils # (1.3-7.7) k/uL Lymphocytes # (1.0-4.8) k/uL APTT 46.1 H (22.0-30.0) sec ABG pCO2 (35-45) mmHg ABG pO2 71 L (83-108) mmHg ABG HCO3 (21-25) mmol/L ABG O2 Saturation (94-97) % Potassium 2.9 L (3.5-5.1) mmol/L Chloride 113 H (98-107) mmol/L Carbon Dioxide 19 L (22-30) mmol/L BUN 30 H (7-17) mg/dL Glucose 148 H (74-99) mg/dL POC Glucose (mg/dL) (75-99) mg/dL Calcium 8.1 L (8.4-10.2) mg/dL Lactate Dehydrogenase (313-618) U/L C-Reactive Protein (<10.0) mg/L Procalcitonin (0.02-0.09) ng/mL Assessment and Plan Assessment: Impression: Acute hypoxic respiratory failure secondary to CoVID 19 pneumonitis, required intubation and mechanical ventilation on 07/30/20. New onset atrial fibrillation with RVR, converted to sinus rhythm while in the emergency room. History of hypertension. History of hypothyroidism. Lifelong nonsmoker. Recommendation: Continue ventilatory support. Continue hemodynamic support. Nutritional support. Transition heparin to Eliquis. Continue the Covid 19 cocktail. Patient is beyond the period to qualify for remdsivir Continue Decadron. Continue vitamin C and vitamin D. Continue zinc. We'll continue to follow. Critical care time is over 30 minutes, not including time for procedures. Time with Patient: Greater than 30
[2020-07-31 16:54] LABS: Glucose,Whole Blood 145 mg/dL (75-99)
--- NOTE | 2020-07-31 17:18 | PCN ---
PROCEDURE NOTE PLACEMENT OF THE RIGHT INTERNAL JUGULAR TRIPLE-LUMEN CATHETER: PREOPERATIVE DIAGNOSIS: Acute hypoxic respiratory failure and COVID-19 pneumonitis. POSTOPERATIVE DIAGNOSIS: Acute hypoxic respiratory failure and COVID-19 pneumonitis. ANESTHESIA USED: Two mL of 1% lidocaine. PROCEDURE: The patient was placed in a supine position, the area of the right cervical region was prepared in a sterile fashion and drapes applied. The area behind the posterior belly of the sternocleidomastoid was anesthetized using lidocaine. Then, a right internal jugular vein was easily cannulated using the posterior approach and a guidewire was placed. The area around the guidewire was dilated. Then a triple-lumen catheter was inserted over the guidewire, and the guidewire was removed. Adequate blood flow was noted in the 3 different ports of the triple-lumen catheter; however, followup chest x- ray showed a triple-lumen catheter was going down into the right atrium, possibly into the right ventricle, hence after the procedure, the catheter was pulled out about 5 cm, secured, sterile dressing applied, no evidence of any complications. MMODL / IJN: [id number] /
[2020-07-31] MEDS ORDERED: POTASSIUM BICARBONATE/CIT AC 20 MEQ TABLET.EFF NG-TUBE SCH (19:00)
[2020-07-31] MEDS: APIXABAN 5 MG TAB PO SCH (20:13)
--- NOTE | 2020-07-31 21:18 | P.PN ---
Subjective This is a pleasant 75 years old female with past medical history of hypertension, hypothyroidism. Patient could not provide much information so it was taken From staff and records. She presents to [facility]'s with respiratory symptoms and dyspnea associated with some complaint but no chest pain. There she was treated for atrial fibrillation with RVR and she was found to have positive covid 19 test. Patient is afebrile, she is tachypneic with respiratory rate about 26-27, hypoxic with oxygen saturation of 99% on 15 L via nasal cannula. Blood pressure is 106/89. CBC from today is unremarkable. Troponin is elevated 0.17. High lactate dehydrogenase 1276 and C-reactive protein 256. And once is negative. Chest x- ray showing severe pulmonary edema could relate to RDS and is similar to a computed tomography scan earlier today 07/31/2020 Patient was admitted with Covid pneumonia and respiratory failure, her condition got deteriorated yesterday and she got intubated and now she is on mechanical ventilation was pulmonary/critical care team monitor and carefully. Also she had A. fib with RVR and converted to sinus rhythm, her Cardizem drip was stopped and her heparin drip was switched liquids. She continued to be on Zithromax and ceftriaxone and vitamins C and zinc Review of systems: N/a Active Medications Generic Name Dose Route Start Last Admin Trade Name Freq PRN Reason Stop Dose Admin Acetaminophen 650 mg 07/29/20 20:22 Acetaminophen Tab 325 Mg Tab PO Q4HR PRN Fever and/or Mild Pain Albuterol Sulfate 2 puff 07/30/20 08:00 07/31/20 20:37 Albuterol Hfa Inhaler INHALATION 2 puff RT-QID RODRIGO Administration Apixaban 5 mg 07/31/20 21:00 07/31/20 20:13 Apixaban 5 Mg Tab PO 5 mg BID RODRIGO Administration Ascorbic Acid 500 mg 07/30/20 16:15 07/31/20 09:06 Ascorbic Acid 500 Mg Tab PO 500 mg DAILY RODRIGO Administration Chlorhexidine Gluconate 15 ml 07/31/20 09:00 07/31/20 20:13 Chlorhexidine Gluconate 15 Ml Cup MUCOUS MEM 15 ml BID RODRIGO Administration Cholecalciferol 2,000 unit 07/30/20 16:15 07/31/20 09:06 Cholecalciferol 1,000 Unit Tab PO 2,000 unit DAILY RODRIGO Administration Dexamethasone Sodium Phosphate 6 mg 07/30/20 16:15 07/31/20 09:06 Dexamethasone Sod Phosphate 10 Mg/Ml 1 Ml Vial IV 6 mg DAILY RODRIGO Administration Famotidine 20 mg 07/30/20 16:15 07/31/20 09:06 Famotidine 20 Mg Tab PO 20 mg DAILY RODRIGO Administration Furosemide 20 mg 07/31/20 09:30 07/31/20 10:48 Furosemide 10 Mg/Ml 2 Ml Vial IV 20 mg DAILY RODRIGO Administration Diltiazem HCl 125 mg/ Sodium 125 mls @ 10 mls/hr 07/29/20 19:45 07/31/20 06:00 Chloride IV 0 mg/hr .[id number] RODRIGO 0 mls/hr Infusion 10 MG/HR Sodium Chloride 1,000 mls @ 20 mls/hr 07/29/20 20:30 07/31/20 00:30 Saline 0.9% IV Not Given .Q24H RODRIGO Ceftriaxone Sodium 1 gm/ 50 mls @ 100 mls/hr 07/31/20 01:00 07/31/20 01:57 Sodium Chloride IVPB 100 mls/hr Q24H RODRIGO Administration Azithromycin 500 mg/ Sodium 250 mls @ 250 mls/hr 07/31/20 01:00 07/31/20 02:27 Chloride IVPB 250 mls/hr Q24H RODRIGO Administration Norepinephrine Bitartrate 4 mg 254 mls @ 11.621 mls/hr 07/31/20 05:00 07/31/20 11:50 / Sodium Chloride IV 0.03 mcg/kg/min .[id number] RODRIGO 6.972 mls/hr Titration Protocol 0.05 MCG/KG/MIN Cisatracurium Besylate 200 mg/ 200 mls @ 3.66 mls/hr 07/31/20 05:00 07/31/20 09:05 Sodium Chloride IV Not Given .Q24H RODRIGO Protocol 1 MCG/KG/MIN Propofol 1,000 mg/ IV Solution 100 mls @ 0 mls/hr 07/31/20 03:45 07/31/20 20:12 IV 50 mcg/kg/min .Q0M RODRIGO 16.8 mls/hr Administration Protocol Titrate Levothyroxine Sodium 75 mcg 07/30/20 06:30 07/31/20 06:56 Levothyroxine 75 Mcg Tab PO Not Given DAILY@0630 [facility] Miscellaneous Information 1 each 07/31/20 07:24 Potassium Replacement Protocol 1 Each Misc MISCELLANE DAILY PRN Per Protocol Protocol Miscellaneous Information 1 each 07/31/20 18:39 Potassium Replacement Protocol 1 Each Misc MISCELLANE DAILY PRN Per Protocol Protocol Naloxone HCl 0.2 mg 07/29/20 20:22 Naloxone 0.4 Mg/Ml 1 Ml Vial IV Q2M PRN Opioid Reversal Zinc Sulfate 220 mg 07/30/20 16:15 07/31/20 09:07 Zinc Sulfate 220 Mg Cap PO 220 mg DAILY RODRIGO Administration Objective - Vital Signs Vital signs: Vital Signs Temp 97.5 F L 07/31/20 08:00 Pulse 50 L 07/31/20 11:00 Resp 20 07/31/20 11:00 BP 101/52 07/31/20 06:30 Pulse Ox 100 07/31/20 11:00 Intake & Output 07/30/20 07/31/20 07/31/20 18:59 06:59 18:59 Intake Total 393.062 368.867 203.950 Output Total 1645 660 375 Balance -1251.938 -291.133 -171.050 Weight 56 kg Intake: IV 200 109 Pressure Bag 9 Sodium Chloride 0.9% 1, 200 100 000 ml @ 20 mls/hr IV . Q24H RODRIGO Rx#:[id number] Intake, IV Titration 193.062 168.867 94.950 Amount Diltiazem 125 mg In 68.5 89.083 Sodium Chloride 0.9% 100 ml @ 10 MG/HR 10 mls/hr IV .[id number] RODRIGO Rx#: [id number] Heparin Sod,Pork in 0.45% 124.562 79.504 NaCl 25,000 unit In 0.45 % NaCl 1 250ml.bag @ 12 UNITS/KG/HR 7.32 mls/hr IV .Q24H RODRIGO Rx#: [id number] Norepinephrine 4 mg In 79.41 Sodium Chloride 0.9% 250 ml @ 0.05 MCG/KG/MIN 11. 621 mls/hr IV .[id number] RODRIGO Rx#:[id number] propofoL 1,000 mg In 0.28 15.540 Empty Bag 1 bag @ Titrate IV .Q0M RODRIGO Rx#: [id number] Oral 200 Output: Urine 1645 660 375 Other: Voiding Method Indwelling Catheter Indwelling Catheter ABP, PAP, CO, CI - Last Documented Arterial Blood Pressure 111/50 - Exam GENERAL: The patient is intubated and sedated HEENT: Pupils are round and equally reacting to light. EOMI. No scleral icterus. No conjunctival pallor. Normocephalic, atraumatic. No pharyngeal erythema. No thyromegaly. CARDIOVASCULAR: S1 and S2 present. No murmurs, rubs, or gallops. PULMONARY: Chest is clear to auscultation, no wheezing or crackles. ABDOMEN: Soft, nontender, nondistended, normoactive bowel sounds. No palpable organomegaly. MUSCULOSKELETAL: No joint swelling or deformity. EXTREMITIES: No cyanosis, clubbing, or pedal edema. NEUROLOGICAL: Gross neurological examination did not reveal any focal deficits. SKIN: No rashes. no petechiae. - Labs CBC & Chem 7: 07/31/20 05:07 07/31/20 18:03 Labs: Abnormal Lab Results - Last 24 Hours (Table) 07/30/20 07/30/20 07/30/20 Range/Units 02:54 02:54 11:19 WBC (3.8-10.6) k/uL Hgb (11.4-16.0) gm/dL Hct (34.0-46.0) % Neutrophils # (1.3-7.7) k/uL Lymphocytes # (1.0-4.8) k/uL APTT 70.5 H (22.0-30.0) sec ABG pCO2 (35-45) mmHg ABG pO2 (83-108) mmHg ABG HCO3 (21-25) mmol/L ABG O2 Saturation (94-97) % Potassium (3.5-5.1) mmol/L Chloride (98-107) mmol/L Carbon Dioxide (22-30) mmol/L BUN (7-17) mg/dL Glucose (74-99) mg/dL POC Glucose (mg/dL) (75-99) mg/dL Calcium (8.4-10.2) mg/dL Lactate Dehydrogenase 1276 H (313-618) U/L C-Reactive Protein 256.0 H (<10.0) mg/L Procalcitonin 0.84 H (0.02-0.09) ng/mL 07/30/20 07/30/20 07/31/20 Range/Units 19:43 20:05 03:19 WBC (3.8-10.6) k/uL Hgb (11.4-16.0) gm/dL Hct (34.0-46.0) % Neutrophils # (1.3-7.7) k/uL Lymphocytes # (1.0-4.8) k/uL APTT 47.0 H (22.0-30.0) sec ABG pCO2 31 L (35-45) mmHg ABG pO2 44 L* (83-108) mmHg ABG HCO3 20 L (21-25) mmol/L ABG O2 Saturation 81.7 L (94-97) % Potassium (3.5-5.1) mmol/L Chloride (98-107) mmol/L Carbon Dioxide (22-30) mmol/L BUN (7-17) mg/dL Glucose (74-99) mg/dL POC Glucose (mg/dL) 168 H (75-99) mg/dL Calcium (8.4-10.2) mg/dL Lactate Dehydrogenase (313-618) U/L C-Reactive Protein (<10.0) mg/L Procalcitonin (0.02-0.09) ng/mL 07/31/20 07/31/20 07/31/20 Range/Units 05:07 05:07 05:07 WBC 23.3 H (3.8-10.6) k/uL Hgb 11.2 L (11.4-16.0) gm/dL Hct 33.1 L (34.0-46.0) % Neutrophils # 21.5 H (1.3-7.7) k/uL Lymphocytes # 0.8 L (1.0-4.8) k/uL APTT 46.1 H (22.0-30.0) sec ABG pCO2 (35-45) mmHg ABG pO2 (83-108) mmHg ABG HCO3 (21-25) mmol/L ABG O2 Saturation (94-97) % Potassium 2.9 L (3.5-5.1) mmol/L Chloride 113 H (98-107) mmol/L Carbon Dioxide 19 L (22-30) mmol/L BUN 30 H (7-17) mg/dL Glucose 148 H (74-99) mg/dL POC Glucose (mg/dL) (75-99) mg/dL Calcium 8.1 L (8.4-10.2) mg/dL Lactate Dehydrogenase (313-618) U/L C-Reactive Protein (<10.0) mg/L Procalcitonin (0.02-0.09) ng/mL 07/31/20 Range/Units 05:22 WBC (3.8-10.6) k/uL Hgb (11.4-16.0) gm/dL Hct (34.0-46.0) % Neutrophils # (1.3-7.7) k/uL Lymphocytes # (1.0-4.8) k/uL APTT (22.0-30.0) sec ABG pCO2 (35-45) mmHg ABG pO2 71 L (83-108) mmHg ABG HCO3 (21-25) mmol/L ABG O2 Saturation (94-97) % Potassium (3.5-5.1) mmol/L Chloride (98-107) mmol/L Carbon Dioxide (22-30) mmol/L BUN (7-17) mg/dL Glucose (74-99) mg/dL POC Glucose (mg/dL) (75-99) mg/dL Calcium (8.4-10.2) mg/dL Lactate Dehydrogenase (313-618) U/L C-Reactive Protein (<10.0) mg/L Procalcitonin (0.02-0.09) ng/mL Assessment and Plan Assessment: -Bilateral Covid 19 pneumonia: Continue with dexamethasone, vitamin C, ascorbic acid,remdesivir and anticoagulation. Pulmonary consult. Patient will be admitted to the ICU for further monitoring and management -Acute hypoxic respiratory failure secondary to above, she is status post intubation and mechanical ventilation with pulmonary team following closely -A. fib and RVR: Continue with heparin drip, currently patient is sinus rhythm. Cardiology consult. Continue with Eliquis per the recommendation -Increased inflammatory markers secondary to above and infection -Hypertension -Hypothyroidism DVT prophylaxis on heparin GI prophylaxis: Protonix Prognosis is guarded
[2020-08-01] MEDS: AZITHROMYCIN 500 MG in SODIUM CHLORIDE 0.9% 250 ML IVPB SCH (01:11)
[2020-08-01] MEDS: DILTIAZEM 125 MG in SODIUM CHLORIDE 0.9% 100 ML IV SCH ×2 (03:11→15:18)
[2020-08-01 04:36] LABS: Basophils # (A) 0.1 k/uL (0-0.2); Basophils % (A) 0 %; Eosinophils # (A) 0.2 k/uL (0-0.7); Eosinophils % (A) 1 %; HCT 31.3 % (34.0-46.0); HGB 10.5 gm/dL (11.4-16.0); Lymphocytes % (A) 7 %; MCH 29.2 pg (25.0-35.0); MCHC 33.6 g/dL (31.0-37.0); MCV 86.8 fL (80.0-100.0); Mean Platelet Volume 8.2; Monocytes # (A) 0.2 k/uL (0-1.0); Monocytes % (A) 2 %; Neutrophils # (A) 12.8 k/uL (1.3-7.7); Neutrophils % (A) 89 %; Platelet Count 266 k/uL (150-450); RDW 14.3 % (11.5-15.5); WBC 14.4 k/uL (3.8-10.6)
[2020-08-01 04:50] LABS: Calcium 7.7 mg/dL (8.4-10.2); Magnesium 2.4 mg/dL (1.6-2.3)
[2020-08-01 05:10] LABS: ABG Base Excess -1.3 mmol/L; ABG HCO3 23 mmol/L (21-25); ABG Oxygen Saturation 99.3 % (94-97); ABG PCO2 34 mmHg (35-45); ABG PH 7.44 (7.35-7.45); ABG PO2 108 mmHg (83-108); ABG TCO2 24 mmol/L (19-24); Allen Test Performed? Yes
--- NOTE | 2020-08-01 06:28 | XR ---
EXAMINATION TYPE: XR chest 1V portable DATE OF EXAM: 08/01/2020 CLINICAL HISTORY: Difficulty breathing progress study. TECHNIQUE: Single AP portable semiupright view of the chest is obtained. COMPARISON: Chest x-ray from one day earlier and older studies. FINDINGS: Slightly improved positioning endotracheal tube currently at aortic knob level approximate ly 2 cm above the evelyn. Consider pulling back 2 to 3 cm to be more ideal position. Stable orogastri c tube. Right internal jugular central venous catheter has been retracted, tip is at cavoatrial junct ion. Persistent mid to lower lung bilateral airspace opacities. No pleural effusion or pneumothorax seen b ilaterally. Cardiac silhouette size stable and within normal limits with atherosclerotic change in th e aortic knob. Osseous structures are intact. IMPRESSION: Persistent bilateral mid to lower lung acute infiltrates and/or edema. No significant gisela nge from one day earlier.
[2020-08-01] MEDS: CISATRACURIUM 200 MG in SODIUM CHLORIDE 0.9% 180 ML IV SCH (06:50)
[2020-08-01] MEDS: NOREPINEPHRINE 4 MG in SODIUM CHLORIDE 0.9% 250 ML IV SCH (06:51)
[2020-08-01] MEDS: ALBUTEROL HFA INHALER INHALATION SCH ×4 (08:10→21:00)
[2020-08-01] MEDS: CHLORHEXIDINE GLUCONATE 15 ML CUP MUCOUS MEM SCH ×2 (08:29→20:10)
[2020-08-01] MEDS: DEXAMETHASONE SOD PHOSPHATE 10 MG/ML 1 ML VIAL IV SCH (08:29)
[2020-08-01] MEDS: ASCORBIC ACID 500 MG TAB PO SCH (08:30)
[2020-08-01] MEDS: APIXABAN 5 MG TAB PO SCH ×2 (08:30→20:10)
[2020-08-01] MEDS: LEVOTHYROXINE 75 MCG TAB PO SCH (08:30)
[2020-08-01] MEDS: FUROSEMIDE 10 MG/ML 2 ML VIAL IV SCH (08:30)
[2020-08-01] MEDS: ZINC SULFATE 220 MG CAP PO SCH (08:30)
[2020-08-01] MEDS: FAMOTIDINE 20 MG TAB PO SCH (08:30)
[2020-08-01] MEDS: CHOLECALCIFEROL 1,000 UNIT TAB PO SCH (08:30)
--- NOTE | 2020-08-01 09:20 | P.PN ---
Subjective Progress Note Date: 08/01/20 Is a 75-year-old female is admitted to the hospital with COVID pneumonia. Patient had a bout of atrial fibrillation with rapid ventricular response. Patient converted back to sinus rhythm. She is maintaining sinus rhythm. Her echocardiogram showed evidence of moderate pulmonary hypertension and moderate mitral regurgitation. The patient was initiated on beta blockers and LEANN inhibitor along with anticoagulant. We'll continue current medical therapy. Chest x-ray continues to show bilateral pneumonia Objective - Vital Signs Vital signs: Vital Signs Temp 97.9 F 08/01/20 04:00 Pulse 47 L 08/01/20 06:00 Resp 20 08/01/20 06:00 BP 112/56 08/01/20 04:30 Pulse Ox 99 08/01/20 06:00 Intake & Output 07/31/20 08/01/20 08/01/20 18:59 06:59 18:59 Intake Total 660.630 749.84 98.28 Output Total 845 330 Balance -184.370 419.84 98.28 Weight 59 kg Intake: IV 270 507 Azithromycin 500 mg In 250 Sodium Chloride 0.9% 250 ml @ 250 mls/hr IVPB Q24H RODRIGO Rx#:[id number] Pressure Bag 30 27 Sodium Chloride 0.9% 1, 240 180 000 ml @ 20 mls/hr IV . Q24H RODRIGO Rx#:[id number] cefTRIAXone 1 gm In 50 Sodium Chloride 0.9% 50 ml @ 100 mls/hr IVPB Q24H RODRIGO Rx#:[id number] Intake, IV Titration 194.630 182.84 98.28 Amount Norepinephrine 4 mg In 79.41 Sodium Chloride 0.9% 250 ml @ 0.05 MCG/KG/MIN 11. 621 mls/hr IV .[id number] RODRIGO Rx#:[id number] propofoL 1,000 mg In 115.220 182.84 98.28 Empty Bag 1 bag @ Titrate IV .Q0M RODRIGO Rx#: [id number] Blood Product 196 Ffp Pher Conval Covid19 196 Acda 3 Unit [id number] Other 60 Output: Urine 845 330 Other: Voiding Method Indwelling Catheter Indwelling Catheter ABP, PAP, CO, CI - Last Documented Arterial Blood Pressure 123/50 - Exam Patient is now possible examined. Patient is intubated and sedated. Heart rhythm is regular - Labs CBC & Chem 7: 08/01/20 04:12 08/01/20 04:12 Labs: Abnormal Lab Results - Last 24 Hours (Table) 07/31/20 08/01/20 08/01/20 Range/Units 16:51 04:12 04:12 WBC 14.4 H (3.8-10.6) k/uL RBC 3.60 L (3.80-5.40) m/uL Hgb 10.5 L (11.4-16.0) gm/dL Hct 31.3 L (34.0-46.0) % Neutrophils # 12.8 H (1.3-7.7) k/uL ABG pCO2 (35-45) mmHg ABG O2 Saturation (94-97) % Chloride 114 H (98-107) mmol/L BUN 37 H (7-17) mg/dL Glucose 139 H (74-99) mg/dL POC Glucose (mg/dL) 145 H (75-99) mg/dL Calcium 7.7 L (8.4-10.2) mg/dL Magnesium 2.4 H (1.6-2.3) mg/dL 08/01/20 Range/Units 05:06 WBC (3.8-10.6) k/uL RBC (3.80-5.40) m/uL Hgb (11.4-16.0) gm/dL Hct (34.0-46.0) % Neutrophils # (1.3-7.7) k/uL ABG pCO2 34 L (35-45) mmHg ABG O2 Saturation 99.3 H (94-97) % Chloride (98-107) mmol/L BUN (7-17) mg/dL Glucose (74-99) mg/dL POC Glucose (mg/dL) (75-99) mg/dL Calcium (8.4-10.2) mg/dL Magnesium (1.6-2.3) mg/dL Assessment and Plan (1) Bilateral pneumonia Current Visit: Yes Status: Acute Code(s): J18.9 - PNEUMONIA, UNSPECIFIED ORGANISM SNOMED Code(s): 814615293 (2) COVID-19 Current Visit: Yes Status: Acute Code(s): U07.1 - COVID-19 SNOMED Code(s): 563625335 (3) Rapid atrial fibrillation Current Visit: Yes Status: Acute Code(s): I48.91 - UNSPECIFIED ATRIAL FIBRILLATION SNOMED Code(s): 074887882 Plan: Continue current medical medical treatment. Patient is intubated and on ventilator support. Getting cocktail for COVID. Prognosis is guarded
--- NOTE | 2020-08-01 14:31 | P.PN ---
Subjective Progress Note Date: 08/01/20 Principal diagnosis: Acute hypoxic respiratory failure secondary to Covid 19 pneumonitis This is a 75-year-old female transferred last night from [facility], patient presented to the hospital with 2 weeks history of progressive weakness, shortness of breath, patient was recently diagnosed with urinary tract infection, and treated recently with Augmentin. Patient has not been taking her medications. In [place], the patient was having some pulmonary symptoms including cough and congestion, cough is described as nonproductive, she had no headaches, no myalgia, no syncopal episodes, no fevers or chills. While in [place], patient developed atrial fibrillation with RVR, and she also tested positive for Covid 19 pneumonitis. Chest x-ray clearly showed extensive b ilateral peripheral infiltrates and consolidations. Patient was transferred to [facility], she was treated in the ER with Cardizem drip, patient is waiting for a bed to be admitted to the ICU, she is presently on 15 L high flow nasal cannula, patient converted to sinus rhythm apparently earlier today, she is hemodynamically stable, but considering her oxygen requirement and have significantly abnormal chest x-ray, waiting for a bed to be admitted to the ICU. Patient is not a great historian. WBC count today is 9.7 hemoglobin is 12.1. Influenza screen was negative. Her PTT is 70.5, therapeutic. patient is on heparin because of her atrial fibrillation. Patient was reevaluated today on 07/31/20, intubated and mechanically ventilated. Her clinical condition deteriorated yesterday, patient had to be intubated and ventilated. Presently on assist control rate of 20, tidal volume is 400, FiO2 is 100%, and PEEP is 10. ABG showed a pO2 of 71 pCO2 of 36 pH of 7.37. Drips include Propofol at 50 mcg/kg/m, heparin drip, 0.9 normal saline at 20 mL per hour, and norepinephrine at 0.05 mcg/kg/m. Presently off Nimbex. No specific changes were made with her ventilator settings. May consider increasing the PEEP. And the patient will receive a unit of convalescent plasma today. Chest x-ray showed bilateral interstitial infiltrates, and the tube was noted to be close to the evelyn, and this will be adjusted accordingly. Right IJ central line was placed and the patient today since she had very poor IV access. WBC count today is 23.3 hemoglobin is 11.2 electrolytes were noted and she had a low potassium of 2.9, being corrected as per protocol. Prior to intubation yesterday, her pO2 was 44 pCO2 was 31 and pH of 7.4 3. Reevaluated today on 08/01/20, remains in the ICU, intubated and mechanically ventilated. Her ventilator settings are assist control rate of 20 tidal volume is 400 FiO2 is 60% and PEEP is 12. ABG showed a pO2 of 108 pCO2 of 34 pH of 7.44 hence cut down her FiO2 to 50%. Patient remains on propofol at 50 mcg/kg/m, patient is off norepinephrine since 7 AM. IV fluids at KVO, patient is receiving enteral feeding. Lasix was given 20 mg IV push for low urine output. Reviewed chest x-ray today, continues to have bilateral interstitial in filtrates especially at the bases bilaterally right more so than left. CBC today showed leukocytosis with WBC of 14.4 hemoglobin is 10.5. Lactulose abnormal BUN is 37 creatinine 0.91. Objective - Vital Signs Vital signs: Vital Signs Temp 97.5 F L 08/01/20 12:00 Pulse 48 L 08/01/20 14:00 Resp 20 08/01/20 14:00 BP 116/55 08/01/20 14:00 Pulse Ox 100 08/01/20 14:00 Intake & Output 07/31/20 08/01/20 08/01/20 18:59 06:59 18:59 Intake Total 660.630 749.84 349.32 Output Total 845 330 615 Balance -184.370 419.84 -265.68 Weight 59 kg 59 kg Intake: IV 270 507 161 Azithromycin 500 mg In 250 Sodium Chloride 0.9% 250 ml @ 250 mls/hr IVPB Q24H RODRIGO Rx#:[id number] Pressure Bag 30 27 21 Sodium Chloride 0.9% 1, 240 180 140 000 ml @ 20 mls/hr IV . Q24H RODRIGO Rx#:[id number] cefTRIAXone 1 gm In 50 Sodium Chloride 0.9% 50 ml @ 100 mls/hr IVPB Q24H RODRIGO Rx#:[id number] Intake, IV Titration 194.630 182.84 173.32 Amount Norepinephrine 4 mg In 79.41 Sodium Chloride 0.9% 250 ml @ 0.05 MCG/KG/MIN 11. 621 mls/hr IV .[id number] RODRIGO Rx#:[id number] propofoL 1,000 mg In 115.220 182.84 173.32 Empty Bag 1 bag @ Titrate IV .Q0M RODRIGO Rx#: [id number] Tube Feeding 15 Blood Product 196 Ffp Pher Conval Covid19 196 Acda 3 Unit [id number] Other 60 Output: Urine 845 330 615 Other: Voiding Method Indwelling Catheter Indwelling Catheter Indwelling Catheter ABP, PAP, CO, CI - Last Documented Arterial Blood Pressure 121/48 - Exam Physical Exam: Revealed a 75-year-old female , on mechanical ventilation. Sedated. Head: Atraumatic, normocephalic. Endotracheal tube and orogastric tubes are intact. HEENT:[Neck is supple.] [No neck masses.] [No thyromegaly.] [No JVD.] Chest: [Symmetrical chest expansion, crackles at the bases. Cardiac Exam: Irregular irregular rhythm. [Normal S1 and S2, no S3 gallop, 2/6 systolic murmur thought the precordium.] Abdomen: [Soft, nontender, no megaly, no rebound, no guarding, normal bowel sounds.] Extremities: [No clubbing, trace of bipedal edema, no cyanosis.] Neurological Exam: Sedated, on propofol, could not assess. Psychiatric: Sedated, on propofol, could not assess Skin: No rashes. - Labs CBC & Chem 7: 08/01/20 04:12 08/01/20 04:12 Labs: Abnormal Lab Results - Last 24 Hours (Table) 07/31/20 08/01/20 08/01/20 Range/Units 16:51 04:12 04:12 WBC 14.4 H (3.8-10.6) k/uL RBC 3.60 L (3.80-5.40) m/uL Hgb 10.5 L (11.4-16.0) gm/dL Hct 31.3 L (34.0-46.0) % Neutrophils # 12.8 H (1.3-7.7) k/uL ABG pCO2 (35-45) mmHg ABG O2 Saturation (94-97) % Chloride 114 H (98-107) mmol/L BUN 37 H (7-17) mg/dL Glucose 139 H (74-99) mg/dL POC Glucose (mg/dL) 145 H (75-99) mg/dL Calcium 7.7 L (8.4-10.2) mg/dL Magnesium 2.4 H (1.6-2.3) mg/dL 08/01/20 Range/Units 05:06 WBC (3.8-10.6) k/uL RBC (3.80-5.40) m/uL Hgb (11.4-16.0) gm/dL Hct (34.0-46.0) % Neutrophils # (1.3-7.7) k/uL ABG pCO2 34 L (35-45) mmHg ABG O2 Saturation 99.3 H (94-97) % Chloride (98-107) mmol/L BUN (7-17) mg/dL Glucose (74-99) mg/dL POC Glucose (mg/dL) (75-99) mg/dL Calcium (8.4-10.2) mg/dL Magnesium (1.6-2.3) mg/dL Assessment and Plan Assessment: Impression: Acute hypoxic respiratory failure secondary to CoVID 19 pneumonitis, required intubation and mechanical ventilation on 07/30/20. New onset atrial fibrillation with RVR, converted to sinus rhythm while in the emergency room. History of hypertension. History of hypothyroidism. Lifelong nonsmoker. Recommendation: Continue ventilatory support. Continue Nutritional support. Continue Eliquis Continue the Covid 19 cocktail. Patient is beyond the period to qualify for remdsivir Continue Decadron. Continue vitamin C and vitamin D. Continue zinc. We'll continue to follow, critical care time is over 30 minutes Time with Patient: Greater than 30
[2020-08-01] MEDS: SODIUM CHLORIDE 0.9% 1,000 ML IV SCH (15:29)
[2020-08-02] MEDS: DILTIAZEM 125 MG in SODIUM CHLORIDE 0.9% 100 ML IV SCH ×2 (01:07→14:03)
[2020-08-02] MEDS: NOREPINEPHRINE 4 MG in SODIUM CHLORIDE 0.9% 250 ML IV SCH ×2 (01:08→23:25)
[2020-08-02] MEDS: AZITHROMYCIN 500 MG in SODIUM CHLORIDE 0.9% 250 ML IVPB SCH (01:48)
--- NOTE | 2020-08-02 04:03 | P.PN ---
Subjective This is a pleasant 75 years old female with past medical history of hypertension, hypothyroidism. Patient could not provide much information so it was taken From staff and records. She presents to [facility]'s with respiratory symptoms and dyspnea associated with some complaint but no chest pain. There she was treated for atrial fibrillation with RVR and she was found to have positive covid 19 test. Patient is afebrile, she is tachypneic with respiratory rate about 26-27, hypoxic with oxygen saturation of 99% on 15 L via nasal cannula. Blood pressure is 106/89. CBC from today is unremarkable. Troponin is elevated 0.17. High lactate dehydrogenase 1276 and C-reactive protein 256. And once is negative. Chest x- ray showing severe pulmonary edema could relate to RDS and is similar to a computed tomography scan earlier today 07/31/2020 Patient was admitted with Covid pneumonia and respiratory failure, her condition got deteriorated yesterday and she got intubated and now she is on mechanical ventilation was pulmonary/critical care team monitor and carefully. Also she had A. fib with RVR and converted to sinus rhythm, her Cardizem drip was stopped and her heparin drip was switched liquids. She continued to be on Zithromax and ceftriaxone and vitamins C and zinc 08/01/2020 Patient is admitted with Covid pneumonia and course is complicated by A. fib and RVR. Patient remains in the ICU in critical condition, she is intubated and on mechanical ventilation with pulmonary/critical care team on the case. Also cartilage informed the case closely Treatments and dexamethasone, liquids, zinc, vitamin C, antibiotics with Zithromax and ceftriaxone. No reemdesivir as per pulmonary team recommendation Today I was contacted by the socially responsible investment adviser and stop that the patient and daughter works in [place] they want patient to be transferred upon the request to [facility] I discussed the case with who declined To accept the patient to be transferred to [facility] Review of systems: N/a Active Medications Generic Name Dose Route Start Last Admin Trade Name Freq PRN Reason Stop Dose Admin Acetaminophen 650 mg 07/29/20 20:22 Acetaminophen Tab 325 Mg Tab PO Q4HR PRN Fever and/or Mild Pain Albuterol Sulfate 2 puff 07/30/20 08:00 08/01/20 21:00 Albuterol Hfa Inhaler INHALATION 2 puff RT-QID RODRIGO Administration Apixaban 5 mg 07/31/20 21:00 08/01/20 20:10 Apixaban 5 Mg Tab PO 5 mg BID RODRIGO Administration Ascorbic Acid 500 mg 07/30/20 16:15 08/01/20 08:30 Ascorbic Acid 500 Mg Tab PO 500 mg DAILY RODRIGO Administration Chlorhexidine Gluconate 15 ml 07/31/20 09:00 08/01/20 20:10 Chlorhexidine Gluconate 15 Ml Cup MUCOUS MEM 15 ml BID RODRIGO Administration Cholecalciferol 2,000 unit 07/30/20 16:15 08/01/20 08:30 Cholecalciferol 1,000 Unit Tab PO 2,000 unit DAILY RODRIGO Administration Dexamethasone Sodium Phosphate 6 mg 07/30/20 16:15 08/01/20 08:29 Dexamethasone Sod Phosphate 10 Mg/Ml 1 Ml Vial IV 6 mg DAILY RODRIGO Administration Famotidine 20 mg 07/30/20 16:15 08/01/20 08:30 Famotidine 20 Mg Tab PO 20 mg DAILY RODRIGO Administration Furosemide 20 mg 07/31/20 09:30 08/01/20 08:30 Furosemide 10 Mg/Ml 2 Ml Vial IV 20 mg DAILY RODRIGO Administration Diltiazem HCl 125 mg/ Sodium 125 mls @ 10 mls/hr 07/29/20 19:45 08/02/20 01:07 Chloride IV Not Given .[id number] RODRIGO 10 MG/HR Sodium Chloride 1,000 mls @ 20 mls/hr 07/29/20 20:30 08/01/20 15:29 Saline 0.9% IV 20 mls/hr .Q24H RODRIGO Administration Ceftriaxone Sodium 1 gm/ 50 mls @ 100 mls/hr 07/31/20 01:00 08/02/20 01:06 Sodium Chloride IVPB 100 mls/hr Q24H RODRIGO Administration Azithromycin 500 mg/ Sodium 250 mls @ 250 mls/hr 07/31/20 01:00 08/02/20 01:48 Chloride IVPB 250 mls/hr Q24H RODRIGO Administration Norepinephrine Bitartrate 4 mg 254 mls @ 11.621 mls/hr 07/31/20 05:00 08/02/20 01:08 / Sodium Chloride IV Not Given .[id number] RODRIGO Protocol 0.05 MCG/KG/MIN Cisatracurium Besylate 200 mg/ 200 mls @ 3.66 mls/hr 07/31/20 05:00 08/01/20 06:50 Sodium Chloride IV Not Given .Q24H RODRIGO Protocol 1 MCG/KG/MIN Propofol 1,000 mg/ IV Solution 100 mls @ 0 mls/hr 07/31/20 03:45 08/02/20 01:52 IV 45 mcg/kg/min .Q0M RODRIGO 15.93 mls/hr Administration Protocol Titrate Levothyroxine Sodium 75 mcg 07/30/20 06:30 08/01/20 08:30 Levothyroxine 75 Mcg Tab PO 75 mcg DAILY@0630 RODRIGO Administration Miscellaneous Information 1 each 07/31/20 07:24 Potassium Replacement Protocol 1 Each Misc MISCELLANE DAILY PRN Per Protocol Protocol Miscellaneous Information 1 each 07/31/20 18:39 Potassium Replacement Protocol 1 Each Misc MISCELLANE DAILY PRN Per Protocol Protocol Naloxone HCl 0.2 mg 07/29/20 20:22 Naloxone 0.4 Mg/Ml 1 Ml Vial IV Q2M PRN Opioid Reversal Zinc Sulfate 220 mg 07/30/20 16:15 08/01/20 08:30 Zinc Sulfate 220 Mg Cap PO 220 mg DAILY RODRIGO Administration Objective - Vital Signs Vital signs: Vital Signs Temp 97.5 F L 08/01/20 12:00 Pulse 51 L 08/01/20 13:00 Resp 20 08/01/20 13:00 BP 116/55 08/01/20 13:00 Pulse Ox 99 08/01/20 13:00 Intake & Output 07/31/20 08/01/20 08/01/20 18:59 06:59 18:59 Intake Total 660.630 749.84 311.32 Output Total 845 330 515 Balance -184.370 419.84 -203.68 Weight 59 kg 59 kg Intake: IV 270 507 138 Azithromycin 500 mg In 250 Sodium Chloride 0.9% 250 ml @ 250 mls/hr IVPB Q24H RODRIGO Rx#:[id number] Pressure Bag 30 27 18 Sodium Chloride 0.9% 1, 240 180 120 000 ml @ 20 mls/hr IV . Q24H RODRIGO Rx#:[id number] cefTRIAXone 1 gm In 50 Sodium Chloride 0.9% 50 ml @ 100 mls/hr IVPB Q24H RODRIGO Rx#:[id number] Intake, IV Titration 194.630 182.84 173.32 Amount Norepinephrine 4 mg In 79.41 Sodium Chloride 0.9% 250 ml @ 0.05 MCG/KG/MIN 11. 621 mls/hr IV .[id number] RODRIGO Rx#:[id number] propofoL 1,000 mg In 115.220 182.84 173.32 Empty Bag 1 bag @ Titrate IV .Q0M RODRIGO Rx#: [id number] Blood Product 196 Ffp Pher Conval Covid19 196 Acda 3 Unit [id number] Other 60 Output: Urine 845 330 515 Other: Voiding Method Indwelling Catheter Indwelling Catheter Indwelling Catheter ABP, PAP, CO, CI - Last Documented Arterial Blood Pressure 121/48 - Exam GENERAL: The patient is intubated and sedated HEENT: Pupils are round and equally reacting to light. EOMI. No scleral icterus. No conjunctival pallor. Normocephalic, atraumatic. No pharyngeal erythema. No thyromegaly. CARDIOVASCULAR: S1 and S2 present. No murmurs, rubs, or gallops. PULMONARY: Chest is clear to auscultation, no wheezing or crackles. ABDOMEN: Soft, nontender, nondistended, normoactive bowel sounds. No palpable organomegaly. MUSCULOSKELETAL: No joint swelling or deformity. EXTREMITIES: No cyanosis, clubbing, or pedal edema. NEUROLOGICAL: Gross neurological examination did not reveal any focal deficits. SKIN: No rashes. no petechiae. - Labs CBC & Chem 7: 08/01/20 04:12 08/01/20 04:12 Labs: Abnormal Lab Results - Last 24 Hours (Table) 07/31/20 08/01/20 08/01/20 Range/Units 16:51 04:12 04:12 WBC 14.4 H (3.8-10.6) k/uL RBC 3.60 L (3.80-5.40) m/uL Hgb 10.5 L (11.4-16.0) gm/dL Hct 31.3 L (34.0-46.0) % Neutrophils # 12.8 H (1.3-7.7) k/uL ABG pCO2 (35-45) mmHg ABG O2 Saturation (94-97) % Chloride 114 H (98-107) mmol/L BUN 37 H (7-17) mg/dL Glucose 139 H (74-99) mg/dL POC Glucose (mg/dL) 145 H (75-99) mg/dL Calcium 7.7 L (8.4-10.2) mg/dL Magnesium 2.4 H (1.6-2.3) mg/dL 08/01/20 Range/Units 05:06 WBC (3.8-10.6) k/uL RBC (3.80-5.40) m/uL Hgb (11.4-16.0) gm/dL Hct (34.0-46.0) % Neutrophils # (1.3-7.7) k/uL ABG pCO2 34 L (35-45) mmHg ABG O2 Saturation 99.3 H (94-97) % Chloride (98-107) mmol/L BUN (7-17) mg/dL Glucose (74-99) mg/dL POC Glucose (mg/dL) (75-99) mg/dL Calcium (8.4-10.2) mg/dL Magnesium (1.6-2.3) mg/dL Assessment and Plan Assessment: -Bilateral Covid 19 pneumonia: Continue with dexamethasone, vitamin C, ascorbic acid,remdesivir and anticoagulation. Pulmonary consult. Patient will be admitted to the ICU for further monitoring and management -Acute hypoxic respiratory failure secondary to above, she is status post intubation and mechanical ventilation with pulmonary team following closely -A. fib and RVR: Continue with heparin drip, currently patient is sinus rhythm. Cardiology consult. Continue with Eliquis per the recommendation -Increased inflammatory markers secondary to above and infection -Hypertension -Hypothyroidism DVT prophylaxis on heparin GI prophylaxis: Protonix Prognosis is guarded
[2020-08-02 04:24] LABS: Basophils # (A) 0.1 k/uL (0-0.2); Basophils % (A) 1 %; Eosinophils # (A) 0.1 k/uL (0-0.7); Eosinophils % (A) 0 %; HCT 28.3 % (34.0-46.0); HGB 9.9 gm/dL (11.4-16.0); Lymphocytes # (A) 0.9 k/uL (1.0-4.8); Lymphocytes % (A) 8 %; MCH 30.1 pg (25.0-35.0); MCHC 34.9 g/dL (31.0-37.0); MCV 86.2 fL (80.0-100.0); Monocytes # (A) 0.3 k/uL (0-1.0); Monocytes % (A) 3 %; Neutrophils # (A) 10.8 k/uL (1.3-7.7); Neutrophils % (A) 87 %; Platelet Count 251 k/uL (150-450); RBC 3.29 m/uL (3.80-5.40); RDW 13.8 % (11.5-15.5); WBC 12.4 k/uL (3.8-10.6)
[2020-08-02 04:34] LABS: Potassium 3.2 mmol/L (3.5-5.1)
[2020-08-02 05:28] LABS: ABG Base Excess 1.6 mmol/L; ABG HCO3 25 mmol/L (21-25); ABG Oxygen Saturation 92.4 % (94-97); ABG PCO2 33 mmHg (35-45); ABG PH 7.49 (7.35-7.45); ABG TCO2 26 mmol/L (19-24); Allen Test Performed? Yes
[2020-08-02 05:32] LABS: ABG PO2 58 mmHg (83-108)
[2020-08-02] MEDS: CISATRACURIUM 200 MG in SODIUM CHLORIDE 0.9% 180 ML IV SCH (06:39)
[2020-08-02] MEDS: LEVOTHYROXINE 75 MCG TAB PO SCH (06:40)
[2020-08-02] MEDS: SODIUM CHLORIDE 0.9% 1,000 ML IV SCH (06:42)
[2020-08-02] MEDS: POTASSIUM BICARBONATE/CIT AC 20 MEQ TABLET.EFF NG-TUBE SCH ×2 (06:43→07:55)
--- NOTE | 2020-08-02 07:15 | XR ---
EXAMINATION TYPE: XR chest 1V portable DATE OF EXAM: 08/02/2020 CLINICAL HISTORY: Difficulty breathing progress study. TECHNIQUE: Single AP portable semiupright view of the chest is obtained. COMPARISON: Chest x-ray from one day earlier and older studies. FINDINGS: Stable low lying endotracheal tube. Stable orogastric tube. Stable Right internal jugular central venous catheter . Persistent bilateral mid to lower lung reticular and alveolar increased opacities. No pleural effusio n or pneumothorax seen bilaterally. Cardiac silhouette size stable and within normal limits with athe rosclerotic change in the aortic knob. Osseous structures are intact. IMPRESSION: Persistent bilateral mid to lower lung acute infiltrates and/or edema. No significant gisela nge from one day earlier.
[2020-08-02] MEDS: ALBUTEROL HFA INHALER INHALATION SCH ×4 (07:46→20:02)
[2020-08-02] MEDS: APIXABAN 5 MG TAB PO SCH ×2 (08:04→20:35)
[2020-08-02] MEDS: DEXAMETHASONE SOD PHOSPHATE 10 MG/ML 1 ML VIAL IV SCH (08:05)
[2020-08-02] MEDS: ASCORBIC ACID 500 MG TAB PO SCH (08:05)
[2020-08-02] MEDS: FAMOTIDINE 20 MG TAB PO SCH (08:05)
[2020-08-02] MEDS: FUROSEMIDE 10 MG/ML 2 ML VIAL IV SCH (08:05)
[2020-08-02] MEDS: CHLORHEXIDINE GLUCONATE 15 ML CUP MUCOUS MEM SCH ×2 (08:05→20:34)
[2020-08-02] MEDS: ZINC SULFATE 220 MG CAP PO SCH (08:05)
[2020-08-02] MEDS: CHOLECALCIFEROL 1,000 UNIT TAB PO SCH (08:05)
--- NOTE | 2020-08-02 09:22 | P.PN ---
Subjective Progress Note Date: 08/02/20 Is a 75-year-old female is admitted to the hospital with COVID pneumonia. Patient had a bout of atrial fibrillation with rapid ventricular response. Patient converted back to sinus rhythm. She is maintaining sinus rhythm. Her echocardiogram showed evidence of moderate pulmonary hypertension and moderate mitral regurgitation. The patient was initiated on beta blockers and LEANN inhibitor along with anticoagulant. We'll continue current medical therapy. Chest x-ray continues to show bilateral pneumonia. 08/02/2020: Patient is admitted to [facility]. Evaluated for management of atrial fibrillation. Patient is intubated and sedated. His blood pressure stable. Heart rate in the 50s. Chest x-ray continues show bilateral infiltrates. Echo Cardigan showed normal LV function. Patient will continue current medical therapy. We'll continue to follow Objective - Vital Signs Vital signs: Vital Signs Temp 97.6 F 08/02/20 08:00 Pulse 49 L 08/02/20 09:00 Resp 20 08/02/20 09:00 BP 110/57 08/02/20 05:00 Pulse Ox 98 08/02/20 09:00 Intake & Output 08/01/20 08/02/20 08/02/20 18:59 06:59 18:59 Intake Total 955.710 1650.246 438.563 Output Total 955 370 120 Balance -328.464 647.246 318.563 Weight 59 kg Intake: IV 253 576 69 Azithromycin 500 mg In 250 Sodium Chloride 0.9% 250 ml @ 250 mls/hr IVPB Q24H RODRIGO Rx#:[id number] Pressure Bag 33 36 9 Sodium Chloride 0.9% 1, 220 240 60 000 ml @ 20 mls/hr IV . Q24H RODRIGO Rx#:[id number] cefTRIAXone 1 gm In 50 Sodium Chloride 0.9% 50 ml @ 100 mls/hr IVPB Q24H RODRIGO Rx#:[id number] Intake, IV Titration 298.536 141.246 99.563 Amount Norepinephrine 4 mg In 32.536 Sodium Chloride 0.9% 250 ml @ 0.05 MCG/KG/MIN 11. 621 mls/hr IV .[id number] RODRIGO Rx#:[id number] propofoL 1,000 mg In 266.00 141.246 99.563 Empty Bag 1 bag @ Titrate IV .Q0M RODRIGO Rx#: [id number] Oral 150 Tube Feeding 75 240 90 Other 60 30 Output: Urine 955 370 120 Other: Voiding Method Indwelling Catheter Indwelling Catheter ABP, PAP, CO, CI - Last Documented Arterial Blood Pressure 123/51 - Exam Patient is now possible examined. Patient is intubated and sedated. Heart rhythm is regular - Labs CBC & Chem 7: 08/02/20 04:00 08/02/20 04:35 Labs: Abnormal Lab Results - Last 24 Hours (Table) 08/02/20 08/02/20 08/02/20 Range/Units 04:00 04:00 05:24 WBC 12.4 H (3.8-10.6) k/uL RBC 3.29 L (3.80-5.40) m/uL Hgb 9.9 L (11.4-16.0) gm/dL Hct 28.3 L (34.0-46.0) % Neutrophils # 10.8 H (1.3-7.7) k/uL Lymphocytes # 0.9 L (1.0-4.8) k/uL ABG pH 7.49 H (7.35-7.45) ABG pCO2 33 L (35-45) mmHg ABG pO2 58 L* (83-108) mmHg ABG Total CO2 26 H (19-24) mmol/L ABG O2 Saturation 92.4 L (94-97) % Potassium 3.2 L (3.5-5.1) mmol/L Chloride 117 H (98-107) mmol/L BUN 42 H (7-17) mg/dL Glucose 144 H (74-99) mg/dL Calcium 7.0 L (8.4-10.2) mg/dL Assessment and Plan (1) Bilateral pneumonia Current Visit: Yes Status: Acute Code(s): J18.9 - PNEUMONIA, UNSPECIFIED ORGANISM SNOMED Code(s): 910371967 (2) COVID-19 Current Visit: Yes Status: Acute Code(s): U07.1 - COVID-19 SNOMED Code(s): 627771095 (3) Rapid atrial fibrillation Current Visit: Yes Status: Acute Code(s): I48.91 - UNSPECIFIED ATRIAL FIBRILLATION SNOMED Code(s): 408037307 Plan: Patient is still intubated and sedated. Chest x-ray shows bilateral pneumonia. Blood pressure and heart rate of stable. LV function is preserved. Continue current medical therapy
--- NOTE | 2020-08-02 13:19 | P.PN ---
Subjective Progress Note Date: 08/02/20 Principal diagnosis: Acute hypoxic respiratory failure secondary to Covid 19 pneumonitis This is a 75-year-old female transferred last night from [facility], patient presented to the hospital with 2 weeks history of progressive weakness, shortness of breath, patient was recently diagnosed with urinary tract infection, and treated recently with Augmentin. Patient has not been taking her medications. In [place], the patient was having some pulmonary symptoms including cough and congestion, cough is described as nonproductive, she had no headaches, no myalgia, no syncopal episodes, no fevers or chills. While in [place], patient developed atrial fibrillation with RVR, and she also tested positive for Covid 19 pneumonitis. Chest x-ray clearly showed extensive b ilateral peripheral infiltrates and consolidations. Patient was transferred to [facility], she was treated in the ER with Cardizem drip, patient is waiting for a bed to be admitted to the ICU, she is presently on 15 L high flow nasal cannula, patient converted to sinus rhythm apparently earlier today, she is hemodynamically stable, but considering her oxygen requirement and have significantly abnormal chest x-ray, waiting for a bed to be admitted to the ICU. Patient is not a great historian. WBC count today is 9.7 hemoglobin is 12.1. Influenza screen was negative. Her PTT is 70.5, therapeutic. patient is on heparin because of her atrial fibrillation. Patient was reevaluated today on 07/31/20, intubated and mechanically ventilated. Her clinical condition deteriorated yesterday, patient had to be intubated and ventilated. Presently on assist control rate of 20, tidal volume is 400, FiO2 is 100%, and PEEP is 10. ABG showed a pO2 of 71 pCO2 of 36 pH of 7.37. Drips include Propofol at 50 mcg/kg/m, heparin drip, 0.9 normal saline at 20 mL per hour, and norepinephrine at 0.05 mcg/kg/m. Presently off Nimbex. No specific changes were made with her ventilator settings. May consider increasing the PEEP. And the patient will receive a unit of convalescent plasma today. Chest x-ray showed bilateral interstitial infiltrates, and the tube was noted to be close to the evelyn, and this will be adjusted accordingly. Right IJ central line was placed and the patient today since she had very poor IV access. WBC count today is 23.3 hemoglobin is 11.2 electrolytes were noted and she had a low potassium of 2.9, being corrected as per protocol. Prior to intubation yesterday, her pO2 was 44 pCO2 was 31 and pH of 7.4 3. Reevaluated today on 08/01/20, remains in the ICU, intubated and mechanically ventilated. Her ventilator settings are assist control rate of 20 tidal volume is 400 FiO2 is 60% and PEEP is 12. ABG showed a pO2 of 108 pCO2 of 34 pH of 7.44 hence cut down her FiO2 to 50%. Patient remains on propofol at 50 mcg/kg/m, patient is off norepinephrine since 7 AM. IV fluids at KVO, patient is receiving enteral feeding. Lasix was given 20 mg IV push for low urine output. Reviewed chest x-ray today, continues to have bilateral interstitial in filtrates especially at the bases bilaterally right more so than left. CBC today showed leukocytosis with WBC of 14.4 hemoglobin is 10.5. Lactulose abnormal BUN is 37 creatinine 0.91. Reevaluated today on 08/02/20, patient remains in the ICU, intubated and mechanically ventilated. Her ventilator settings are assist control rate of 20 tidal volume is 400 FiO2 is 50% and PEEP is 12. ABG today showed a pO2 of 58 pCO2 of 33 pH of 7.49 hence FiO2 was increased to 55%. Patient remains on propofol at 25 mcg/kg/m, she is on enteral feeding vital HP30/30. Peak airway pressure is in the mid 30s, static pressures 27. Chest x-ray continues to show bilateral infiltrates, right more so than left. Echocardiogram showed good LV function. She is now maintaining sinus rhythm, although on admission she came in with atrial fibrillation and RVR. Her echo showed evidence of moderate pulmonary hypertension and moderate mitral regurgitation. Objective - Vital Signs Vital signs: Vital Signs Temp 97.6 F 08/02/20 08:00 Pulse 53 L 08/02/20 11:00 Resp 22 08/02/20 11:00 BP 110/57 08/02/20 05:00 Pulse Ox 96 08/02/20 11:00 Intake & Output 08/01/20 08/02/20 08/02/20 18:59 06:59 18:59 Intake Total 812.612 0706.246 484.563 Output Total 955 370 470 Balance -328.464 647.246 14.563 Weight 59 kg Intake: IV 253 576 115 Azithromycin 500 mg In 250 Sodium Chloride 0.9% 250 ml @ 250 mls/hr IVPB Q24H RODRIGO Rx#:[id number] Pressure Bag 33 36 15 Sodium Chloride 0.9% 1, 220 240 100 000 ml @ 20 mls/hr IV . Q24H RODRIGO Rx#:[id number] cefTRIAXone 1 gm In 50 Sodium Chloride 0.9% 50 ml @ 100 mls/hr IVPB Q24H RODRIGO Rx#:[id number] Intake, IV Titration 298.536 141.246 99.563 Amount Norepinephrine 4 mg In 32.536 Sodium Chloride 0.9% 250 ml @ 0.05 MCG/KG/MIN 11. 621 mls/hr IV .[id number] RODRIGO Rx#:[id number] propofoL 1,000 mg In 266.00 141.246 99.563 Empty Bag 1 bag @ Titrate IV .Q0M RODRIGO Rx#: [id number] Oral 150 Tube Feeding 75 240 90 Other 60 30 Output: Urine 955 370 470 Other: Voiding Method Indwelling Catheter Indwelling Catheter Indwelling Catheter ABP, PAP, CO, CI - Last Documented Arterial Blood Pressure 129/58 - Exam Physical Exam: Revealed a 75-year-old female , on mechanical ventilation. Sedated. Head: Atraumatic, normocephalic. Endotracheal tube and orogastric tubes are in tact. Right IJ central line is intact. HEENT:[Neck is supple.] [No neck masses.] [No thyromegaly.] [No JVD.] Chest: [Symmetrical chest expansion, crackles at the bases. Cardiac Exam: Regular rhythm [Normal S1 and S2, no S3 gallop, 2/6 systolic murmur thought the precordium.] Abdomen: [Soft, nontender, no megaly, no rebound, no guarding, normal bowel sounds.] Extremities: [No clubbing, trace of bipedal edema, no cyanosis.] Neurological Exam: Sedated, on propofol, could not assess. Psychiatric: Sedated, on propofol, could not assess Skin: No rashes. - Labs CBC & Chem 7: 08/02/20 04:00 08/02/20 04:35 Labs: Abnormal Lab Results - Last 24 Hours (Table) 08/02/20 08/02/20 08/02/20 Range/Units 04:00 04:00 05:24 WBC 12.4 H (3.8-10.6) k/uL RBC 3.29 L (3.80-5.40) m/uL Hgb 9.9 L (11.4-16.0) gm/dL Hct 28.3 L (34.0-46.0) % Neutrophils # 10.8 H (1.3-7.7) k/uL Lymphocytes # 0.9 L (1.0-4.8) k/uL ABG pH 7.49 H (7.35-7.45) ABG pCO2 33 L (35-45) mmHg ABG pO2 58 L* (83-108) mmHg ABG Total CO2 26 H (19-24) mmol/L ABG O2 Saturation 92.4 L (94-97) % Potassium 3.2 L (3.5-5.1) mmol/L Chloride 117 H (98-107) mmol/L BUN 42 H (7-17) mg/dL Glucose 144 H (74-99) mg/dL Calcium 7.0 L (8.4-10.2) mg/dL Assessment and Plan Assessment: Impression: Acute hypoxic respiratory failure secondary to CoVID 19 pneumonitis, required intubation and mechanical ventilation on 07/30/20. New onset atrial fibrillation with RVR, converted to sinus rhythm while in the emergency room. Remains in normal sinus rhythm. History of hypertension. History of hypothyroidism. Lifelong nonsmoker. Recommendation: Continue ventilatory support. Continue Nutritional support. Continue Eliquis Continue the Covid 19 cocktail. Patient is beyond the period to qualify for remdsivir Continue Decadron. Continue vitamin C and vitamin D. Continue zinc. Continue GI and DVT prophylaxis. Apparently patient was being considered for transfer to the [facility] because of a granddaughter who works there, and transfer was denied based on the fact that treatment would not change. We'll continue to follow, critical care time is over 30 minutes Time with Patient: Greater than 30
[2020-08-02] MEDS: AZITHROMYCIN 500 MG TAB PO SCH (20:35)
[2020-08-03 04:44] LABS: ABG Base Excess 2.4 mmol/L; ABG HCO3 26 mmol/L (21-25); ABG Oxygen Saturation 98.7 % (94-97); ABG PCO2 34 mmHg (35-45); ABG PH 7.49 (7.35-7.45); ABG PO2 92 mmHg (83-108); ABG TCO2 27 mmol/L (19-24); Allen Test Performed? Yes
[2020-08-03 05:08] LABS: HCT 28.3 % (34.0-46.0); HGB 9.8 gm/dL (11.4-16.0); MCH 30.3 pg (25.0-35.0); MCHC 34.8 g/dL (31.0-37.0); MCV 87.2 fL (80.0-100.0); Platelet Count 243 k/uL (150-450); RBC 3.24 m/uL (3.80-5.40); RDW 14.1 % (11.5-15.5); WBC 12.5 k/uL (3.8-10.6)
[2020-08-03 05:38] LABS: Calcium 7.8 mg/dL (8.4-10.2); Potassium 3.7 mmol/L (3.5-5.1)
[2020-08-03] MEDS ORDERED: POTASSIUM BICARBONATE/CIT AC 20 MEQ TABLET.EFF NG-TUBE SCH (07:00)
[2020-08-03] MEDS: ALBUTEROL HFA INHALER INHALATION SCH ×4 (07:16→21:20)
--- NOTE | 2020-08-03 07:32 | XR ---
EXAMINATION TYPE: XR chest 1V portable DATE OF EXAM: 08/03/2020 COMPARISON: 08/02/2020 HISTORY: Tube placed TECHNIQUE: Single frontal view of the chest is obtained. FINDINGS: ET and NG tube stable. Bilateral patchy infiltrates are stable. No sizable pleural effusio n or pneumothorax. Central line stable. Heart size normal. IMPRESSION: Bilateral multifocal patchy infiltrates are stable.
[2020-08-03] MEDS: FUROSEMIDE 10 MG/ML 2 ML VIAL IV SCH (08:53)
[2020-08-03] MEDS: CHLORHEXIDINE GLUCONATE 15 ML CUP MUCOUS MEM SCH ×2 (08:53→20:10)
[2020-08-03] MEDS: ZINC SULFATE 220 MG CAP PO SCH (08:54)
[2020-08-03] MEDS: FAMOTIDINE 20 MG TAB PO SCH (08:54)
[2020-08-03] MEDS: LEVOTHYROXINE 75 MCG TAB PO SCH (08:54)
[2020-08-03] MEDS: ASCORBIC ACID 500 MG TAB PO SCH (08:54)
[2020-08-03] MEDS: APIXABAN 5 MG TAB PO SCH ×2 (08:54→20:10)
[2020-08-03] MEDS: CHOLECALCIFEROL 1,000 UNIT TAB PO SCH (08:54)
[2020-08-03] MEDS: DEXAMETHASONE SOD PHOSPHATE 10 MG/ML 1 ML VIAL IV SCH (08:55)
[2020-08-03] MEDS: SODIUM CHLORIDE 0.9% 1,000 ML IV SCH ×2 (08:55→20:11)
--- NOTE | 2020-08-03 09:08 | CDI ---
persistent atrial fib Documentation Clarification Form Date: 08/03/2020 08:35:12 AM From: Tameka Sommers RN, CCDS Admit Date: 07/29/2020 08:22:00 PM Patient Name: Janna Tineo Visit Number: [id number] Discharge Date: ATTENTION: The Clinical Documentation Specialists (CDI) and [facility] Coding Staff appreciate your assistance in clarifying documentation. Please respond to the clarification below the line at the bottom and electronically sign. The CDI & [facility] Coding staff will review the response and follow-up if needed. Please note: Queries are made part of the Legal Health Record. If you have any questions, please contact the author of this message via ITS. Dr. Gayla Delgado Atrial Fibrillation is documented in the ED, H/P and Cardiology consult and subsequent progress notes. Please provide your professional opinion on the type of atrial fibrillation you are treating if known. History/Risk Factors: COVID-19 positive, UTI, Hypertension, Thyroid disorder Clinical Indicators: 75-year-old female transferred to [facility] from [facility] with complaints of progressive weakness, shortness of breath, cough is nonproductive. No chest pain. She is found upon evaluation to be in atrial fibrillation with a rapid ventricular response. She was hypoxemic. 07/29 Vital signs on admission: 93/73 142 18 98.0 07/31 ECHO: Sinus rhythm. There is borderline concentric left ventricular hypertrophy. Overall left ventricular systolic function is low-normal with, an EF between 50-55 % There is moderate to severe pulmonary hypertension. Treatment: ICU/Telemetry monitoring .9NS 500mls bolus Cardizem drip 06/28 (DC) Heparin drip 06/28 (DC) Eliquis 5 mg po BID 07/31-9 In your professional opinion, can you please clarify the type of Atrial Fibrillation, if known? Chronic/Permanent Paroxysmal Persistent Other, please specify Unable to determine (Last Revision: December 2017) MTDD
[2020-08-03] MEDS: NOREPINEPHRINE 4 MG in SODIUM CHLORIDE 0.9% 250 ML IV SCH (15:20)
--- NOTE | 2020-08-03 16:36 | P.PN ---
Subjective Progress Note Date: 08/03/20 Is a 75-year-old female is admitted to the hospital with COVID pneumonia. Patient had a bout of atrial fibrillation with rapid ventricular response. Patient converted back to sinus rhythm. She is maintaining sinus rhythm. Her echocardiogram showed evidence of moderate pulmonary hypertension and moderate mitral regurgitation. The patient was initiated on beta blockers and LEANN inhibitor along with anticoagulant. We'll continue current medical therapy. Chest x-ray continues to show bilateral pneumonia. 08/02/2020: Patient is admitted to [facility] pneumonia. Evaluated for management of atrial fibrillation. Patient is intubated and sedated. His blood pressure stable. Heart rate in the 50s. Chest x-ray continues show bilateral infiltrates. Echo Cardigan showed normal LV function. Patient will continue current medical therapy. We'll continue to follow. 08/03/2020: This patient is being treated for covid pneumonia and respiratory failure. Patient had a bout of persistent atrial fibrillation which was acute. Patient is in sinus rhythm and has been sinus bradycardia. Patient is off rate control medication . Patient is on and decortication therapy. Prognosis is guarded. We'll follow as needed Objective - Vital Signs Vital signs: Vital Signs Temp 97.9 F 08/03/20 12:00 Pulse 50 L 08/03/20 16:00 Resp 20 08/03/20 16:00 BP 110/57 08/02/20 05:00 Pulse Ox 99 08/03/20 16:00 Intake & Output 08/02/20 08/03/20 08/03/20 18:59 06:59 18:59 Intake Total 985.563 943.968 840 Output Total 865 360 615 Balance 120.563 583.968 225 Weight 59 kg Intake: IV 276 326 230 Pressure Bag 36 36 30 Sodium Chloride 0.9% 1, 240 240 200 000 ml @ 20 mls/hr IV . Q24H [facility] Rx#:[id number] cefTRIAXone 1 gm In 50 Sodium Chloride 0.9% 50 ml @ 100 mls/hr IVPB Q24H [facility] Rx#:[id number] Intake, IV Titration 199.563 167.968 100 Amount propofoL 1,000 mg In 199.563 167.968 100 Empty Bag 1 bag @ Titrate IV .Q0M [facility] Rx#: [id number] Oral 150 150 Tube Feeding 300 360 300 Other 60 90 60 Output: Urine 865 360 615 Other: Voiding Method Indwelling Catheter Indwelling Catheter ABP, PAP, CO, CI - Last Documented Arterial Blood Pressure 150/61 - Labs CBC & Chem 7: 08/03/20 04:25 08/03/20 04:25 Labs: Abnormal Lab Results - Last 24 Hours (Table) 08/03/20 08/03/20 08/03/20 Range/Units 04:25 04:25 04:38 WBC 12.5 H (3.8-10.6) k/uL RBC 3.24 L (3.80-5.40) m/uL Hgb 9.8 L (11.4-16.0) gm/dL Hct 28.3 L (34.0-46.0) % ABG pH 7.49 H (7.35-7.45) ABG pCO2 34 L (35-45) mmHg ABG HCO3 26 H (21-25) mmol/L ABG Total CO2 27 H (19-24) mmol/L ABG O2 Saturation 98.7 H (94-97) % Chloride 114 H (98-107) mmol/L BUN 56 H (7-17) mg/dL Glucose 134 H (74-99) mg/dL Calcium 7.8 L (8.4-10.2) mg/dL Assessment and Plan (1) Bilateral pneumonia Current Visit: Yes Status: Acute Code(s): J18.9 - PNEUMONIA, UNSPECIFIED ORGANISM SNOMED Code(s): 838038062 (2) COVID-19 Current Visit: Yes Status: Acute Code(s): U07.1 - COVID-19 SNOMED Code(s): 112923787 (3) Rapid atrial fibrillation Current Visit: Yes Status: Acute Code(s): I48.91 - UNSPECIFIED ATRIAL FIBRILLATION SNOMED Code(s): 480213270 Plan: Patient was admitted with pneumonia and persistent atrial fibrillation. Back in sinus rhythm. Still on ventilatory support. It. Prognosis is guarded. We'll follow as needed
--- NOTE | 2020-08-03 18:42 | PN ---
PROGRESS NOTE PULMONARY/CRITICAL CARE PROGRESS NOTE: DATE OF SERVICE: August 03, 2020 Critical care time 34 minutes. INTERVAL HISTORY: This is a 75-year-old female who was admitted on July 29 for Covid pneumonia, and also atrial fibrillation with rapid ventricular response. Because of worsening respiratory status and hypoxemia, she was intubated on July 31. She remains on the ventilator. She is on volume assist-control mode rate of 20, tidal volume 400, FiO2 50%, PEEP of 12. Blood gases show pO2 of 92, pCO2 of 34, and a pH 7.49. Gases are consistent with a mild respiratory alkalosis. The patient is on propofol 40 mcg/kg per minute, saline at 20 mL an hour and Vital high-protein at 30 which is goal. The patient did receive convalescence plasma on July 31. She did not receive Remdesivir. Today, we are going to drop the PEEP from 12-8. Currently, she had an uneventful night according to the nurse. In addition, she has a history of hypothyroidism, essential hypertension, and atrial fibrillation with RVR. PHYSICAL EXAMINATION: VITAL SIGNS: Current vital signs are reviewed. Temp is 97.8, heart rate 50, respiratory rate 20. Blood pressure 115/48, saturations are 98%. GENERAL: Appears in no acute distress. HEENT: Examination is grossly unremarkable. There is an orally placed endotracheal tube and NG tube. NECK: Supple. Full range of motion. No adenopathy, thyromegaly or neck vein distention. CARDIOVASCULAR: Examination reveals regular rhythm and rate. Heart rate 50 beats per minute. S1, S2 normal. Heart sounds are distant. LUNGS: Reveal diffuse coarse rhonchi. Breath sounds equal. No wheezes or crackles. ABDOMEN: Soft. Bowel sounds are heard. EXTREMITIES are intact. No cyanosis, clubbing, or edema. SKIN: Without rash. NEUROLOGIC: Examination cannot be adequately assessed. LABS: Reviewed. White count 12.5, hemoglobin 9.8, hematocrit 28.3, platelet count 343,000, PO2 92, pCO2 of 34, and pH 7.49. Sodium 142, potassium 3.7, chloride 114, CO2 26, anion gap is 3, BUN and creatinine 56 and 0.5, suggesting prerenal azotemia. Microbiology is currently negative. The most recent chest x-ray dated August 03 shows bilateral multifocal patchy airspace disease. CURRENT MEDICATIONS: Reviewed. The patient is on Tylenol, albuterol inhaler, Eliquis, vitamin C, Zithromax, Rocephin, chlorhexidine, vitamin D3, Decadron, Pepcid, Lasix, levothyroxine, Narcan, norepinephrine, potassium replacement, propofol, saline IV and zinc. ASSESSMENT: 1. Acute hypoxemic respiratory failure secondary to COVID-19 pneumonitis and pneumonia, status post intubation and mechanical ventilation on July 31. 2. New onset atrial fibrillation with RVR, well controlled. 3. History of hypertension. 4. Hypothyroidism. 5. Lifelong nonsmoker. 6. Mild respiratory alkalosis. PLAN: The patient will continue on the ventilatory support. The PEEP was dropped from 12-8. Tomorrow we will go ahead and try some pressors support and CPAP. Additional recommendations and suggestions are forthcoming. The patient has received convalescence plasma. She did not receive Remdesivir. Additional recommendations and suggestions are forthcoming. Unnecessary medications were discontinued. We will continue to follow. MMODL / IJN: [id number] /
--- NOTE | 2020-08-03 19:12 | P.PN ---
Subjective This is a pleasant 75 years old female with past medical history of hypertension, hypothyroidism. Patient could not provide much information so it was taken From staff and records. She presents to [facility]'s with respiratory symptoms and dyspnea associated with some complaint but no chest pain. There she was treated for atrial fibrillation with RVR and she was found to have positive covid 19 test. Patient is afebrile, she is tachypneic with respiratory rate about 26-27, hypoxic with oxygen saturation of 99% on 15 L via nasal cannula. Blood pressure is 106/89. CBC from today is unremarkable. Troponin is elevated 0.17. High lactate dehydrogenase 1276 and C-reactive protein 256. And once is negative. Chest x- ray showing severe pulmonary edema could relate to RDS and is similar to a computed tomography scan earlier today 07/31/2020 Patient was admitted with Covid pneumonia and respiratory failure, her condition got deteriorated yesterday and she got intubated and now she is on mechanical ventilation was pulmonary/critical care team monitor and carefully. Also she had A. fib with RVR and converted to sinus rhythm, her Cardizem drip was stopped and her heparin drip was switched liquids. She continued to be on Zithromax and ceftriaxone and vitamins C and zinc 08/01/2020 Patient is admitted with Covid pneumonia and course is complicated by A. fib and RVR. Patient remains in the ICU in critical condition, she is intubated and on mechanical ventilation with pulmonary/critical care team on the case. Also cartilage informed the case closely Treatments and dexamethasone, liquids, zinc, vitamin C, antibiotics with Zithromax and ceftriaxone. No reemdesivir as per pulmonary team recommendation Today I was contacted by the social welfare clerk and stop that the patient and daughter works in [place] they want patient to be transferred upon the request to [facility] I discussed the case with who declined To accept the patient to be transferred to [facility] 08/02/2020 Patient is in the ICU for bilateral covid Pneumonia, she is intubated and on mechanical ventilation. Her heart rate atrial fibrillation was converted to sinus rhythm and currently her own in the low 50s. Blood pressure is just above 100. Patient does not need support by pressors. Leukocytosis is improving, BMP is unremarkable. Influenza virus is negative. Chest x-ray showed persistent bilateral mid to lower lung acute infiltrate and/or edema. No significant change from one day earlier Patient remains on dexamethasone, Eliquis and broad-spectrum antibiotics. Review of systems: N/a Active Medications Generic Name Dose Route Start Last Admin Trade Name Freq PRN Reason Stop Dose Admin Acetaminophen 650 mg 07/29/20 20:22 Acetaminophen Tab 325 Mg Tab PO Q4HR PRN Fever and/or Mild Pain Albuterol Sulfate 2 puff 07/30/20 08:00 08/01/20 21:00 Albuterol Hfa Inhaler INHALATION 2 puff RT-QID [facility] Administration Apixaban 5 mg 07/31/20 21:00 08/01/20 20:10 Apixaban 5 Mg Tab PO 5 mg BID R[facility]RIGO Administration Ascorbic Acid 500 mg 07/30/20 16:15 08/01/20 08:30 Ascorbic Acid 500 Mg Tab PO 500 mg DAILY R[facility]O Administration Chlorhexidine Gluconate 15 ml 07/31/20 09:00 08/01/20 20:10 Chlorhexidine Gluconate 15 Ml Cup MUCOUS MEM 15 ml BID R[facility]RIGO Administration Cholecalciferol 2,000 unit 07/30/20 16:15 08/01/20 08:30 Cholecalciferol 1,000 Unit Tab PO 2,000 unit DAILY R[facility]RIGO Administration Dexamethasone Sodium Phosphate 6 mg 07/30/20 16:15 08/01/20 08:29 Dexamethasone Sod Phosphate 10 Mg/Ml 1 Ml Vial IV 6 mg DAILY [facility]O Administration Famotidine 20 mg 07/30/20 16:15 08/01/20 08:30 Famotidine 20 Mg Tab PO 20 mg DAILY [facility]RIGO Administration Furosemide 20 mg 07/31/20 09:30 08/01/20 08:30 Furosemide 10 Mg/Ml 2 Ml Vial IV 20 mg DAILY R[facility]IGO Administration Diltiazem HCl 125 mg/ Sodium 125 mls @ 10 mls/hr 07/29/20 19:45 08/02/20 01 :07 Chloride IV Not Given .[id number] [facility]O 10 MG/HR Sodium Chloride 1,000 mls @ 20 mls/hr 07/29/20 20:30 08/01/20 15:29 Saline 0.9% IV 20 mls/hr .Q24H [facility]O Administration Ceftriaxone Sodium 1 gm/ 50 mls @ 100 mls/hr 07/31/20 01:00 08/02/20 01:06 Sodium Chloride IVPB 100 mls/hr Q24H [facility] Administration Azithromycin 500 mg/ Sodium 250 mls @ 250 mls/hr 07/31/20 01:00 08/02/20 01:48 Chloride IVPB 250 mls/hr Q24H [facility] Administration Norepinephrine Bitartrate 4 mg 254 mls @ 11.621 mls/hr 07/31/20 05:00 08/02/20 01:08 / Sodium Chloride IV Not Given .[id number] [facility] Protocol 0.05 MCG/KG/MIN Cisatracurium Besylate 200 mg/ 200 mls @ 3.66 mls/hr 07/31/20 05:00 08/01/20 06:50 Sodium Chloride IV Not Given .Q24H [facility] Protocol 1 MCG/KG/MIN Propofol 1,000 mg/ IV Solution 100 mls @ 0 mls/hr 07/31/20 03:45 08/02/20 01:52 IV 45 mcg/kg/min .Q0M [facility] 15.93 mls/hr Administration Protocol Titrate Levothyroxine Sodium 75 mcg 07/30/20 06:30 08/01/20 08:30 Levothyroxine 75 Mcg Tab PO 75 mcg DAILY@0630 R[facility]RIGO Administration Miscellaneous Information 1 each 07/31/20 07:24 Potassium Replacement Protocol 1 Each Misc MISCELLANE DAILY PRN Per Protocol Protocol Miscellaneous Information 1 each 07/31/20 18:39 Potassium Replacement Protocol 1 Each Misc MISCELLANE DAILY PRN Per Protocol Protocol Naloxone HCl 0.2 mg 07/29/20 20:22 Naloxone 0.4 Mg/Ml 1 Ml Vial IV Q2M PRN Opioid Reversal Zinc Sulfate 220 mg 07/30/20 16:15 08/01/20 08:30 Zinc Sulfate 220 Mg Cap PO 220 mg DAILY R[facility]IGO Administration Objective - Vital Signs Vital signs: Vital Signs Temp 98.1 F 08/02/20 16:00 Pulse 48 L 08/02/20 16:00 Resp 20 08/02/20 16:00 BP 110/57 08/02/20 05:00 Pulse Ox 95 08/02/20 16:00 Intake & Output 08/01/20 08/02/20 08/02/20 18:59 06:59 18:59 Intake Total 893.397 7162.246 879.563 Output Total 955 370 775 Balance -328.464 647.246 104.563 Weight 59 kg 59 kg Intake: IV 253 576 230 Azithromycin 500 mg In 250 Sodium Chloride 0.9% 250 ml @ 250 mls/hr IVPB Q24H [facility] Rx#:[id number] Pressure Bag 33 36 30 Sodium Chloride 0.9% 1, 220 240 200 000 ml @ 20 mls/hr IV . Q24H [facility] Rx#:[id number] cefTRIAXone 1 gm In 50 Sodium Chloride 0.9% 50 ml @ 100 mls/hr IVPB Q24H [facility] Rx#:[id number] Intake, IV Titration 298.536 141.246 199.563 Amount Norepinephrine 4 mg In 32.536 Sodium Chloride 0.9% 250 ml @ 0.05 MCG/KG/MIN 11. 621 mls/hr IV .[id number] [facility] Rx#:[id number] propofoL 1,000 mg In 266.00 141.246 199.563 Empty Bag 1 bag @ Titrate IV .Q0M [facility] Rx#: [id number] Oral 150 Tube Feeding 75 240 240 Other 60 60 Output: Urine 955 370 775 Other: Voiding Method Indwelling Catheter Indwelling Catheter Indwelling Catheter ABP, PAP, CO, CI - Last Documented Arterial Blood Pressure 114/51 - Exam GENERAL: The patient is intubated and sedated HEENT: Pupils are round and equally reacting to light. EOMI. No scleral icterus. No conjunctival pallor. Normocephalic, atraumatic. No pharyngeal erythema. No thyromegaly. CARDIOVASCULAR: S1 and S2 present. No murmurs, rubs, or gallops. PULMONARY: Chest is clear to auscultation, no wheezing or crackles. ABDOMEN: Soft, nontender, nondistended, normoactive bowel sounds. No palpable organomegaly. MUSCULOSKELETAL: No joint swelling or deformity. EXTREMITIES: No cyanosis, clubbing, or pedal edema. NEUROLOGICAL: Gross neurological examination did not reveal any focal deficits. SKIN: No rashes. no petechiae. - Labs CBC & Chem 7: 08/03/20 04:25 08/03/20 04:25 Labs: Abnormal Lab Results - Last 24 Hours (Table) 08/02/20 08/02/20 08/02/20 Range/Units 04:00 04:00 05:24 WBC 12.4 H (3.8-10.6) k/uL RBC 3.29 L (3.80-5.40) m/uL Hgb 9.9 L (11.4-16.0) gm/dL Hct 28.3 L (34.0-46.0) % Neutrophils # 10.8 H (1.3-7.7) k/uL Lymphocytes # 0.9 L (1.0-4.8) k/uL ABG pH 7.49 H (7.35-7.45) ABG pCO2 33 L (35-45) mmHg ABG pO2 58 L* (83-108) mmHg ABG Total CO2 26 H (19-24) mmol/L ABG O2 Saturation 92.4 L (94-97) % Potassium 3.2 L (3.5-5.1) mmol/L Chloride 117 H (98-107) mmol/L BUN 42 H (7-17) mg/dL Glucose 144 H (74-99) mg/dL Calcium 7.0 L (8.4-10.2) mg/dL Assessment and Plan Assessment: -Bilateral Covid 19 pneumonia: Continue with dexamethasone, vitamin C, ascorbic acid,remdesivir and anticoagulation. Pulmonary consult. Patient will be admitted to the ICU for further monitoring and management -Acute hypoxic respiratory failure secondary to above, she is status post intubation and mechanical ventilation with pulmonary team following closely -A. fib and RVR: Continue with heparin drip, currently patient is sinus rhythm. Cardiology consult. Continue with Eliquis per the recommendation -Increased inflammatory markers secondary to above and infection -Hypertension -Hypothyroidism DVT prophylaxis on heparin GI prophylaxis: Protonix Prognosis is guarded
--- NOTE | 2020-08-03 19:16 | P.PN ---
Subjective This is a pleasant 75 years old female with past medical history of hypertension, hypothyroidism. Patient could not provide much information so it was taken From staff and records. She presents to [facility]'s with respiratory symptoms and dyspnea associated with some complaint but no chest pain. There she was treated for atrial fibrillation with RVR and she was found to have positive covid 19 test. Patient is afebrile, she is tachypneic with respiratory rate about 26-27, hypoxic with oxygen saturation of 99% on 15 L via nasal cannula. Blood pressure is 106/89. CBC from today is unremarkable. Troponin is elevated 0.17. High lactate dehydrogenase 1276 and C-reactive protein 256. And once is negative. Chest x- ray showing severe pulmonary edema could relate to RDS and is similar to a computed tomography scan earlier today 07/31/2020 Patient was admitted with Covid pneumonia and respiratory failure, her condition got deteriorated yesterday and she got intubated and now she is on mechanical ventilation was pulmonary/critical care team monitor and carefully. Also she had A. fib with RVR and converted to sinus rhythm, her Cardizem drip was stopped and her heparin drip was switched liquids. She continued to be on Zithromax and ceftriaxone and vitamins C and zinc 08/01/2020 Patient is admitted with Covid pneumonia and course is complicated by A. fib and RVR. Patient remains in the ICU in critical condition, she is intubated and on mechanical ventilation with pulmonary/critical care team on the case. Also cartilage informed the case closely Treatments and dexamethasone, liquids, zinc, vitamin C, antibiotics with Zithromax and ceftriaxone. No reemdesivir as per pulmonary team recommendation Today I was contacted by the social media specialist and stop that the patient and daughter works in [place] they want patient to be transferred upon the request to [facility] I discussed the case with who declined To accept the patient to be transferred to [facility] 08/02/2020 Patient is in the ICU for bilateral covid Pneumonia, she is intubated and on mechanical ventilation. Her heart rate atrial fibrillation was converted to sinus rhythm and currently her own in the low 50s. Blood pressure is just above 100. Patient does not need support by pressors. Leukocytosis is improving, BMP is unremarkable. Influenza virus is negative. Chest x-ray showed persistent bilateral mid to lower lung acute infiltrate and/or edema. No significant change from one day earlier Patient remains on dexamethasone, Eliquis and broad-spectrum antibiotics. Patient in the ICU intubated, pulmonary/critical care team are planning CPAP tomorrow, PEEP dropped. Other than that, change from yesterday, her heart rate shown bradycardia although in sinus rhythm therefore Cardizem and beta blockers were stopped, patient kept on Eliquis for her A. fib and cardiology team signed off. Patient on Zithromax, ceftriaxone, dexamethasone no remdesivir . she is status convescalnet plasam as well Review of systems: N/a Active Medications Generic Name Dose Route Start Last Admin Trade Name Freq PRN Reason Stop Dose Admin Acetaminophen 650 mg 07/29/20 20:22 Acetaminophen Tab 325 Mg Tab PO Q4HR PRN Fever and/or Mild Pain Albuterol Sulfate 2 puff 07/30/20 08:00 08/03/20 15:54 Albuterol Hfa Inhaler INHALATION 2 puff RT-QID RODRIGO Administration Apixaban 5 mg 07/31/20 21:00 08/03/20 08:54 Apixaban 5 Mg Tab PO 5 mg BID RODRIGO Administration Ascorbic Acid 500 mg 07/30/20 16:15 08/03/20 08:54 Ascorbic Acid 500 Mg Tab PO 500 mg DAILY RODRIGO Administration Azithromycin 500 mg 08/02/20 21:00 08/02/20 20:35 Azithromycin 500 Mg Tab PO 500 mg HS RODRIGO Administration Chlorhexidine Gluconate 15 ml 07/31/20 09:00 08/03/20 08:53 Chlorhexidine Gluconate 15 Ml Cup MUCOUS MEM 15 ml BID RODRIGO Administration Cholecalciferol 2,000 unit 07/30/20 16:15 08/03/20 08:54 Cholecalciferol 1,000 Unit Tab PO 2,000 unit DAILY RODRIGO Administration Dexamethasone Sodium Phosphate 6 mg 07/30/20 16:15 08/03/20 08:55 Dexamethasone Sod Phosphate 10 Mg/Ml 1 Ml Vial IV 6 mg DAILY RODRIGO Administration Famotidine 20 mg 07/30/20 16:15 08/03/20 08:54 Famotidine 20 Mg Tab PO 20 mg DAILY RODRIGO Administration Furosemide 20 mg 07/31/20 09:30 08/03/20 08:53 Furosemide 10 Mg/Ml 2 Ml Vial IV 20 mg DAILY RODRIGO Administration Sodium Chloride 1,000 mls @ 20 mls/hr 07/29/20 20:30 08/03/20 08:55 Saline 0.9% IV 20 mls/hr .Q24H R[facility]O Administration Ceftriaxone Sodium 1 gm/ 50 mls @ 100 mls/hr 07/31/20 01:00 08/03/20 00:25 Sodium Chloride IVPB 100 mls/hr Q24H R[facility]O Administration Propofol 1,000 mg/ IV Solution 100 mls @ 0 mls/hr 07/31/20 03:45 08/03/20 15:55 IV 40 mcg/kg/min .Q0M RODRIGO 14.16 mls/hr Administration Protocol Titrate Levothyroxine Sodium 75 mcg 07/30/20 06:30 08/03/20 08:54 Levothyroxine 75 Mcg Tab PO 75 mcg DAILY@0630 RODRIGO Administration Miscellaneous Information 1 each 07/31/20 07:24 Potassium Replacement Protocol 1 Each Misc MISCELLANE DAILY PRN Per Protocol Protocol Miscellaneous Information 1 each 07/31/20 18:39 Potassium Replacement Protocol 1 Each Misc MISCELLANE DAILY PRN Per Protocol Protocol Naloxone HCl 0.2 mg 07/29/20 20:22 Naloxone 0.4 Mg/Ml 1 Ml Vial IV Q2M PRN Opioid Reversal Zinc Sulfate 220 mg 07/30/20 16:15 08/03/20 08:54 Zinc Sulfate 220 Mg Cap PO 220 mg DAILY RODRIGO Administration Objective - Vital Signs Vital signs: Vital Signs Temp 97.9 F 08/03/20 12:00 Pulse 47 L 08/03/20 18:00 Resp 20 08/03/20 18:00 BP 110/57 08/02/20 05:00 Pulse Ox 99 08/03/20 18:00 Intake & Output 08/03/20 08/03/20 08/04/20 06:59 18:59 06:59 Intake Total 943.968 946 Output Total 360 690 Balance 583.968 256 Intake: IV 326 276 Pressure Bag 36 36 Sodium Chloride 0.9% 1, 240 240 000 ml @ 20 mls/hr IV . Q24H [facility] Rx#:[id number] cefTRIAXone 1 gm In 50 Sodium Chloride 0.9% 50 ml @ 100 mls/hr IVPB Q24H [facility] Rx#:[id number] Intake, IV Titration 167.968 100 Amount propofoL 1,000 mg In 167.968 100 Empty Bag 1 bag @ Titrate IV .Q0M [facility] Rx#: [id number] Oral 150 Tube Feeding 360 360 Other 90 60 Output: Urine 360 690 Other: Voiding Method Indwelling Catheter Indwelling Catheter ABP, PAP, CO, CI - Last Documented Arterial Blood Pressure 138/55 - Exam GENERAL: The patient is intubated and sedated HEENT: Pupils are round and equally reacting to light. EOMI. No scleral icterus. No conjunctival pallor. Normocephalic, atraumatic. No pharyngeal erythema. No thyromegaly. CARDIOVASCULAR: S1 and S2 present. No murmurs, rubs, or gallops. PULMONARY: Chest is clear to auscultation, no wheezing or crackles. ABDOMEN: Soft, nontender, nondistended, normoactive bowel sounds. No palpable organomegaly. MUSCULOSKELETAL: No joint swelling or deformity. EXTREMITIES: No cyanosis, clubbing, or pedal edema. NEUROLOGICAL: Gross neurological examination did not reveal any focal deficits. SKIN: No rashes. no petechiae. - Labs CBC & Chem 7: 08/03/20 04:25 08/03/20 04:25 Labs: Abnormal Lab Results - Last 24 Hours (Table) 08/03/20 08/03/20 08/03/20 Range/Units 04:25 04:25 04:38 WBC 12.5 H (3.8-10.6) k/uL RBC 3.24 L (3.80-5.40) m/uL Hgb 9.8 L (11.4-16.0) gm/dL Hct 28.3 L (34.0-46.0) % ABG pH 7.49 H (7.35-7.45) ABG pCO2 34 L (35-45) mmHg ABG HCO3 26 H (21-25) mmol/L ABG Total CO2 27 H (19-24) mmol/L ABG O2 Saturation 98.7 H (94-97) % Chloride 114 H (98-107) mmol/L BUN 56 H (7-17) mg/dL Glucose 134 H (74-99) mg/dL Calcium 7.8 L (8.4-10.2) mg/dL Assessment and Plan Assessment: -Bilateral Covid 19 pneumonia: Continue with dexamethasone, vitamin C, ascorbic acid,remdesivir and anticoagulation. Pulmonary consult. Patient will be admitted to the ICU for further monitoring and management -Acute hypoxic respiratory failure secondary to above, she is status post intubation and mechanical ventilation with pulmonary team following closely -A. fib and RVR: Continue with heparin drip, currently patient is sinus rhythm. Cardiology consult. Continue with Eliquis per the recommendation -Increased inflammatory markers secondary to above and infection -Hypertension -Hypothyroidism DVT prophylaxis on heparin GI prophylaxis: Protonix Prognosis is guarded
[2020-08-03] MEDS: AZITHROMYCIN 500 MG TAB PO SCH (20:10)
[2020-08-03] MEDS ORDERED: POTASSIUM CHLORIDE 20 MEQ in WATER FOR INJECTION 1 100ML.BAG IVPB STA (21:51)
[2020-08-04 00:13] LABS: Glucose,Whole Blood 120 mg/dL (75-99)
[2020-08-04 04:34] LABS: HCT 28.6 % (34.0-46.0); MCH 30.9 pg (25.0-35.0); MCHC 34.8 g/dL (31.0-37.0); MCV 88.8 fL (80.0-100.0); Mean Platelet Volume 7.8; Platelet Count 227 k/uL (150-450); RBC 3.22 m/uL (3.80-5.40); RDW 14.6 % (11.5-15.5); WBC 12.7 k/uL (3.8-10.6)
[2020-08-04 04:51] LABS: ALT 51 U/L (4-34); AST 70 U/L (14-36); African American GFR (CKD) >90 (>60 ml/min/1.73 sqM); Albumin 2.2 g/dL (3.5-5.0); Alkaline Phosphatase 150 U/L (38-126); Anion Gap 0 mmol/L; Blood Urea Nitrogen 50 mg/dL (7-17); Calcium 7.7 mg/dL (8.4-10.2); Carbon Dioxide 28 mmol/L (22-30); Chloride 116 mmol/L (98-107); Glucose 94 mg/dL (74-99); Non-African American GFR(CKD) 84 (>60 ml/min/1.73 sqM); Sodium 144 mmol/L (137-145); Total Bilirubin 0.2 mg/dL (0.2-1.3); Total Protein 4.9 g/dL (6.3-8.2)
[2020-08-04 05:37] LABS: ABG HCO3 28 mmol/L (21-25); ABG Oxygen Saturation 97.4 % (94-97); ABG PCO2 37 mmHg (35-45); ABG PH 7.48 (7.35-7.45); ABG PO2 80 mmHg (83-108); ABG TCO2 29 mmol/L (19-24); Allen Test Performed? Yes
[2020-08-04] MEDS: LEVOTHYROXINE 75 MCG TAB PO SCH (06:07)
[2020-08-04] MEDS: ALBUTEROL HFA INHALER INHALATION SCH ×4 (07:40→21:33)
[2020-08-04] MEDS: FAMOTIDINE 20 MG TAB PO SCH (07:54)
[2020-08-04] MEDS: APIXABAN 5 MG TAB PO SCH ×2 (07:54→19:51)
[2020-08-04] MEDS: ZINC SULFATE 220 MG CAP PO SCH (07:54)
[2020-08-04] MEDS: CHOLECALCIFEROL 1,000 UNIT TAB PO SCH (07:54)
[2020-08-04] MEDS: CHLORHEXIDINE GLUCONATE 15 ML CUP MUCOUS MEM SCH ×2 (07:54→19:51)
[2020-08-04] MEDS: ASCORBIC ACID 500 MG TAB PO SCH (07:55)
[2020-08-04] MEDS: DEXAMETHASONE SOD PHOSPHATE 10 MG/ML 1 ML VIAL IV SCH (07:55)
[2020-08-04] MEDS: FUROSEMIDE 10 MG/ML 2 ML VIAL IV SCH (07:55)
--- NOTE | 2020-08-04 08:19 | XR ---
EXAMINATION TYPE: XR chest 1V portable DATE OF EXAM: 08/04/2020 COMPARISON: Prior chest x-ray 08/03/2020 HISTORY: Intubated TECHNIQUE: Single frontal view of the chest is obtained. FINDINGS: Endotracheal tube and NG tube are overlying appropriate positions. Bilateral airspace dise ase persists. Right jugular central venous catheter shows the distal tip near the cavoatrial junction level. No evident pneumothorax or sizable effusion. Cardiac mediastinal silhouette, pulmonary vascul arity and richard are unchanged. Aorta is dense. IMPRESSION: Correlate for pneumonia, edema
[2020-08-04 08:39] LABS: ABG PO2 44 mmHg (83-108)
--- NOTE | 2020-08-04 11:49 | PN ---
PROGRESS NOTE PULMONARY/CRITICAL CARE PROGRESS NOTE: DATE OF SERVICE: 08/04/2020 Critical care time is 33 minutes. This is a 75-year-old female who was admitted back on July 29 for COVID pneumonia and also atrial fibrillation with RVR. Because of worsening respiratory status and hypoxemia, she was intubated 2 days later on July 31. Today we did a daily interruption of sedation with a spontaneous breathing trial at PSV 8, CPAP of 5. Unfortunately she failed. Currently, she remains on the volume assist-control mode, rate of 20, tidal volume 400, FiO2 of 50%, PEEP of 8. Blood gases show a PO2 of 80, pCO2 of 37, pH of 7.45. Currently, the patient is on propofol at 30 mcg/kg per minute, saline at 20 mL an hour and Vital high-protein at goal which is 30 mL an hour. All-in-all, the patient is doing reasonably well. She did receive convalescent plasma on July 31. She did not receive Remdesivir. Current vital signs are reviewed, temperature is 97.7, heart rate 64, respiratory rate 22, blood pressure 137/52, and saturations are 96%. Appears in no acute distress. HEENT: Examination is grossly unremarkable. NECK: Supple, full range of motion. No adenopathy. Neck veins are flat. She does have an orally placed endotracheal tube and NG tube. CARDIOVASCULAR: Examination reveals regular rhythm and rate. Heart rate 64. S1, S2 normal. Heart sounds are distant. LUNGS: Reveal diffuse coarse rhonchi. Breath sounds equal. No crackles. ABDOMEN: Soft, bowel sounds are heard. EXTREMITIES: Intact. No edema. SKIN: Without rash. NEUROLOGIC: Examination is difficult to assess given her current level of sedation. LABS: Reviewed. White count 12.7, hemoglobin 10, hematocrit 28.6, platelet count normal, blood gases have been noted. PO2 of 80, pCO2 of 37, pH of 7.45. Sodium 144, potassium chloride 116, CO2 is 28, anion gap is 0. BUN and creatinine were 15 and 0.7. Microbiology is currently negative. The most recent chest x-ray from the first shows bilateral airspace disease. CURRENT MEDICATIONS: Reviewed. She is currently on Tylenol, albuterol inhaler, Eliquis, vitamin C, Zithromax, Rocephin, chlorhexidine, vitamin D3, Decadron, famotidine, Lasix, levothyroxine, Narcan, potassium replacement, Diprivan, and zinc. ASSESSMENT: 1. Acute hypoxemic respiratory failure, secondary to COVID-19 pneumonitis and pneumonia, status post intubation and mechanical ventilation on July 31, 2020. 2. New onset atrial fibrillation, with RVR, controlled. 3. Failed spontaneous breathing trial, August 04, 2020. 4. History of hypertension. 5. Hypothyroidism. 6. Lifelong nonsmoker. 7. Mild respiratory alkalosis. PLAN: The patient's PEEP was dropped yesterday from 12 down to 8. She did have a spontaneous breathing trial today. Unfortunately, she did not do very well. Will continue to follow. She is on enteral nutrition at goal. Propofol is being used for sedation. Blood gases are reasonable. Electrolytes and other blood tests are reviewed. Additional recommendations and suggestions are forthcoming. Prognosis is guarded. Critical care time 33 minutes. MMODL / IJN: [id number] /
--- NOTE | 2020-08-04 19:44 | P.PN ---
Subjective This is a pleasant 75 years old female with past medical history of hypertension, hypothyroidism. Patient could not provide much information so it was taken From staff and records. She presents to [facility]'s with respiratory symptoms and dyspnea associated with some complaint but no chest pain. There she was treated for atrial fibrillation with RVR and she was found to have positive covid 19 test. Patient is afebrile, she is tachypneic with respiratory rate about 26-27, hypoxic with oxygen saturation of 99% on 15 L via nasal cannula. Blood pressure is 106/89. CBC from today is unremarkable. Troponin is elevated 0.17. High lactate dehydrogenase 1276 and C-reactive protein 256. And once is negative. Chest x- ray showing severe pulmonary edema could relate to RDS and is similar to a computed tomography scan earlier today 07/31/2020 Patient was admitted with Covid pneumonia and respiratory failure, her condition got deteriorated yesterday and she got intubated and now she is on mechanical ventilation was pulmonary/critical care team monitor and carefully. Also she had A. fib with RVR and converted to sinus rhythm, her Cardizem drip was stopped and her heparin drip was switched liquids. She continued to be on Zithromax and ceftriaxone and vitamins C and zinc 08/01/2020 Patient is admitted with Covid pneumonia and course is complicated by A. fib and RVR. Patient remains in the ICU in critical condition, she is intubated and on mechanical ventilation with pulmonary/critical care team on the case. Also cartilage informed the case closely Treatments and dexamethasone, liquids, zinc, vitamin C, antibiotics with Zithromax and ceftriaxone. No reemdesivir as per pulmonary team recommendation Today I was contacted by the social work nurse and stop that the patient and daughter works in [place] they want patient to be transferred upon the request to [facility] I discussed the case with who declined To accept the patient to be transferred to [facility] 08/02/2020 Patient is in the ICU for bilateral covid Pneumonia, she is intubated and on mechanical ventilation. Her heart rate atrial fibrillation was converted to sinus rhythm and currently her own in the low 50s. Blood pressure is just above 100. Patient does not need support by pressors. Leukocytosis is improving, BMP is unremarkable. Influenza virus is negative. Chest x-ray showed persistent bilateral mid to lower lung acute infiltrate and/or edema. No significant change from one day earlier Patient remains on dexamethasone, Eliquis and broad-spectrum antibiotics. Patient in the ICU intubated, pulmonary/critical care team are planning CPAP tomorrow, PEEP dropped. Other than that, change from yesterday, her heart rate shown bradycardia although in sinus rhythm therefore Cardizem and beta blockers were stopped, patient kept on Eliquis for her A. fib and cardiology team signed off. Patient on Zithromax, ceftriaxone, dexamethasone no remdesivir . she is status convescalnet plasam as well 08/04/20 Patient is still on mechanical ventilation, pulmonary/critical care team trying breathing for the patient but with no success today Other than that She'll continue with same treatment of steroids, Eliquis, azithromycin and ceftriaxone. No Cardizem or beta blockers for bradycardia. However heart rate is improved today to 60-70. WBC trending down to 12 K Review of systems: N/a Active Medications Generic Name Dose Route Start Last Admin Trade Name Freq PRN Reason Stop Dose Admin Acetaminophen 650 mg 07/29/20 20:22 Acetaminophen Tab 325 Mg Tab PO Q4HR PRN Fever and/or Mild Pain Albuterol Sulfate 2 puff 07/30/20 08:00 08/04/20 16:16 Albuterol Hfa Inhaler INHALATION 2 puff RT-QID RODRIGO Administration Apixaban 5 mg 07/31/20 21:00 08/04/20 07:54 Apixaban 5 Mg Tab PO 5 mg BID RODRIGO Administration Ascorbic Acid 500 mg 07/30/20 16:15 08/04/20 07:55 Ascorbic Acid 500 Mg Tab PO 500 mg DAILY RODRIGO Administration Azithromycin 500 mg 08/02/20 21:00 08/03/20 20:10 Azithromycin 500 Mg Tab PO 500 mg HS RODRIGO Administration Chlorhexidine Gluconate 15 ml 07/31/20 09:00 08/04/20 07:54 Chlorhexidine Gluconate 15 Ml Cup MUCOUS MEM 15 ml BID RODRIGO Administration Cholecalciferol 2,000 unit 07/30/20 16:15 08/04/20 07:54 Cholecalciferol 1,000 Unit Tab PO 2,000 unit DAILY RODRIGO Administration Dexamethasone Sodium Phosphate 6 mg 07/30/20 16:15 08/04/20 07:55 Dexamethasone Sod Phosphate 10 Mg/Ml 1 Ml Vial IV 6 mg DAILY RODRIGO Administration Famotidine 20 mg 07/30/20 16:15 08/04/20 07:54 Famotidine 20 Mg Tab PO 20 mg DAILY RODRIGO Administration Furosemide 20 mg 07/31/20 09:30 08/04/20 07:55 Furosemide 10 Mg/Ml 2 Ml Vial IV 20 mg DAILY RODRIGO Administration Sodium Chloride 1,000 mls @ 20 mls/hr 07/29/20 20:30 08/03/20 20:11 Saline 0.9% IV 20 mls/hr .Q24H RODRIGO Administration Ceftriaxone Sodium 1 gm/ 50 mls @ 100 mls/hr 07/31/20 01:00 08/04/20 00:37 Sodium Chloride IVPB 100 mls/hr Q24H RODRIGO Administration Propofol 1,000 mg/ IV Solution 100 mls @ 0 mls/hr 07/31/20 03:45 08/04/20 12 :35 IV 30 mcg/kg/min .Q0M RODRIGO 10.62 mls/hr Administration Protocol Titrate Levothyroxine Sodium 75 mcg 07/30/20 06:30 08/04/20 06:07 Levothyroxine 75 Mcg Tab PO 75 mcg DAILY@0630 RODRIGO Administration Miscellaneous Information 1 each 07/31/20 07:24 Potassium Replacement Protocol 1 Each Misc MISCELLANE DAILY PRN Per Protocol Protocol Miscellaneous Information 1 each 07/31/20 18:39 Potassium Replacement Protocol 1 Each Misc MISCELLANE DAILY PRN Per Protocol Protocol Naloxone HCl 0.2 mg 07/29/20 20:22 Naloxone 0.4 Mg/Ml 1 Ml Vial IV Q2M PRN Opioid Reversal Zinc Sulfate 220 mg 07/30/20 16:15 08/04/20 07:54 Zinc Sulfate 220 Mg Cap PO 220 mg DAILY RODRIGO Administration Objective - Vital Signs Vital signs: Vital Signs Temp 97.6 F 08/04/20 16:00 Pulse 70 08/04/20 18:00 Resp 20 08/04/20 18:00 BP 110/57 08/02/20 05:00 Pulse Ox 99 08/04/20 18:00 Intake & Output 08/03/20 08/04/20 08/04/20 18:59 06:59 18:59 Intake Total 946 913.32 533.532 Output Total 690 555 925 Balance 256 358.32 -391.468 Weight 59 kg 59 kg Intake: IV 276 276 184 Pressure Bag 36 36 24 Sodium Chloride 0.9% 1, 240 240 160 000 ml @ 20 mls/hr IV . Q24H RODRIGO Rx#:[id number] Intake, IV Titration 100 187.32 79.532 Amount propofoL 1,000 mg In 100 187.32 79.532 Empty Bag 1 bag @ Titrate IV .Q0M RODRIGO Rx#: [id number] Oral 150 Tube Feeding 360 360 210 Other 60 90 60 Output: Urine 690 555 925 Other: Voiding Method Indwelling Catheter Indwelling Catheter Indwelling Catheter ABP, PAP, CO, CI - Last Documented Arterial Blood Pressure 115/51 - Exam GENERAL: The patient is intubated and sedated HEENT: Pupils are round and equally reacting to light. EOMI. No scleral icterus. No conjunctival pallor. Normocephalic, atraumatic. No pharyngeal erythema. No thyromegaly. CARDIOVASCULAR: S1 and S2 present. No murmurs, rubs, or gallops. PULMONARY: Chest is clear to auscultation, no wheezing or crackles. ABDOMEN: Soft, nontender, nondistended, normoactive bowel sounds. No palpable organomegaly. MUSCULOSKELETAL: No joint swelling or deformity. EXTREMITIES: No cyanosis, clubbing, or pedal edema. NEUROLOGICAL: Gross neurological examination did not reveal any focal deficits. SKIN: No rashes. no petechiae. - Labs CBC & Chem 7: 08/04/20 03:45 08/04/20 03:45 Labs: Abnormal Lab Results - Last 24 Hours (Table) 07/31/20 08/04/20 08/04/20 Range/Units 03:19 00:12 03:45 WBC 12.7 H (3.8-10.6) k/uL RBC 3.22 L (3.80-5.40) m/uL Hgb 10.0 L (11.4-16.0) gm/dL Hct 28.6 L (34.0-46.0) % ABG pH (7.35-7.45) ABG pO2 44 L* (83-108) mmHg ABG HCO3 (21-25) mmol/L ABG Total CO2 (19-24) mmol/L ABG O2 Saturation (94-97) % Chloride (98-107) mmol/L BUN (7-17) mg/dL POC Glucose (mg/dL) 120 H (75-99) mg/dL Calcium (8.4-10.2) mg/dL AST (14-36) U/L ALT (4-34) U/L Alkaline Phosphatase (38-126) U/L Total Protein (6.3-8.2) g/dL Albumin (3.5-5.0) g/dL 08/04/20 08/04/20 Range/Units 03:45 05:30 WBC (3.8-10.6) k/uL RBC (3.80-5.40) m/uL Hgb (11.4-16.0) gm/dL Hct (34.0-46.0) % ABG pH 7.48 H (7.35-7.45) ABG pO2 80 L (83-108) mmHg ABG HCO3 28 H (21-25) mmol/L ABG Total CO2 29 H (19-24) mmol/L ABG O2 Saturation 97.4 H (94-97) % Chloride 116 H (98-107) mmol/L BUN 50 H (7-17) mg/dL POC Glucose (mg/dL) (75-99) mg/dL Calcium 7.7 L (8.4-10.2) mg/dL AST 70 H (14-36) U/L ALT 51 H (4-34) U/L Alkaline Phosphatase 150 H (38-126) U/L Total Protein 4.9 L (6.3-8.2) g/dL Albumin 2.2 L (3.5-5.0) g/dL Assessment and Plan Assessment: -Bilateral Covid 19 pneumonia: Continue with dexamethasone, vitamin C, ascorbic acid,remdesivir and anticoagulation. Pulmonary consult. Patient will be admitted to the ICU for further monitoring and management -Acute hypoxic respiratory failure secondary to above, she is status post intubation and mechanical ventilation with pulmonary team following closely -A. fib and RVR: Continue with heparin drip, currently patient is sinus rhythm. Cardiology consult. Continue with Eliquis per the recommendation -Increased inflammatory markers secondary to above and infection -Hypertension -Hypothyroidism DVT prophylaxis on heparin GI prophylaxis: Protonix Prognosis is guarded
[2020-08-04] MEDS: AZITHROMYCIN 500 MG TAB PO SCH (19:51)
[2020-08-04] MEDS: SODIUM CHLORIDE 0.9% 1,000 ML IV SCH (19:52)
[2020-08-05 04:25] LABS: Basophils # (A) 0.1 k/uL (0-0.2); Basophils % (A) 1 %; Eosinophils # (A) 0.2 k/uL (0-0.7); Eosinophils % (A) 1 %; HCT 29.6 % (34.0-46.0); HGB 9.8 gm/dL (11.4-16.0); Lymphocytes # (A) 1.7 k/uL (1.0-4.8); Lymphocytes % (A) 11 %; MCH 29.5 pg (25.0-35.0); MCV 89.4 fL (80.0-100.0); Mean Platelet Volume 8.2; Monocytes # (A) 0.4 k/uL (0-1.0); Monocytes % (A) 3 %; Neutrophils # (A) 12.2 k/uL (1.3-7.7); Neutrophils % (A) 83 %; Platelet Count 267 k/uL (150-450); RBC 3.31 m/uL (3.80-5.40); RDW 15.4 % (11.5-15.5); WBC 14.8 k/uL (3.8-10.6)
[2020-08-05 04:35] LABS: ALT 47 U/L (4-34); AST 52 U/L (14-36); African American GFR (CKD) >90 (>60 ml/min/1.73 sqM); Albumin 2.3 g/dL (3.5-5.0); Alkaline Phosphatase 133 U/L (38-126); Anion Gap 0 mmol/L; Blood Urea Nitrogen 45 mg/dL (7-17); Calcium 7.8 mg/dL (8.4-10.2); Carbon Dioxide 30 mmol/L (22-30); Chloride 116 mmol/L (98-107); Glucose 96 mg/dL (74-99); LDH 974 U/L (313-618); Non-African American GFR(CKD) 82 (>60 ml/min/1.73 sqM); Potassium 3.7 mmol/L (3.5-5.1); Sodium 146 mmol/L (137-145); Total Bilirubin 0.3 mg/dL (0.2-1.3); Total Protein 5.1 g/dL (6.3-8.2)
[2020-08-05] MEDS ORDERED: POTASSIUM BICARBONATE/CIT AC 20 MEQ TABLET.EFF PO ONE (05:01)
[2020-08-05] MEDS: LEVOTHYROXINE 75 MCG TAB PO SCH (05:33)
[2020-08-05 05:54] LABS: ABG Base Excess 4.4 mmol/L; ABG HCO3 28 mmol/L (21-25); ABG Oxygen Saturation 96.2 % (94-97); ABG PCO2 38 mmHg (35-45); ABG PH 7.48 (7.35-7.45); ABG PO2 73 mmHg (83-108); ABG TCO2 29 mmol/L (19-24); Allen Test Performed? Yes
[2020-08-05 06:57] LABS: C Reactive Protein 59.5 mg/L (<10.0)
[2020-08-05] MEDS: ALBUTEROL HFA INHALER INHALATION SCH ×4 (07:57→20:59)
--- NOTE | 2020-08-05 08:46 | XR ---
EXAMINATION TYPE: XR chest 1V portable DATE OF EXAM: 08/05/2020 COMPARISON: 08/04/2020 HISTORY: Tube placement TECHNIQUE: Single frontal view of the chest is obtained. FINDINGS: ET and NG tube stable. Central line stable. A patchy bilateral areas of infiltrate are see n with the heart size normal. Hypertrophic change of the spine. No pneumothorax. Tiny bilateral effus ions not excluded. IMPRESSION: Stable x-ray demonstrating patchy bilateral infiltrates correlate for pneumonia.
[2020-08-05] MEDS: CHOLECALCIFEROL 1,000 UNIT TAB PO SCH (08:58)
[2020-08-05] MEDS: FUROSEMIDE 10 MG/ML 2 ML VIAL IV SCH (08:58)
[2020-08-05] MEDS: ASCORBIC ACID 500 MG TAB PO SCH (08:58)
[2020-08-05] MEDS: FAMOTIDINE 20 MG TAB PO SCH (08:58)
[2020-08-05] MEDS: ZINC SULFATE 220 MG CAP PO SCH (08:58)
[2020-08-05] MEDS: APIXABAN 5 MG TAB PO SCH (08:58)
[2020-08-05] MEDS: CHLORHEXIDINE GLUCONATE 15 ML CUP MUCOUS MEM SCH (08:59)
[2020-08-05] MEDS: DEXAMETHASONE SOD PHOSPHATE 10 MG/ML 1 ML VIAL IV SCH (08:59)
--- NOTE | 2020-08-05 10:06 | P.PN ---
Subjective Progress Note Date: 08/05/20 Principal diagnosis: Acute hypoxic respiratory failure secondary to CoVID 19 pneumonitis This is a 75-year-old female transferred last night from [facility], patient presented to the hospital with 2 weeks history of progressive weakness, shortness of breath, patient was recently diagnosed with urinary tract infection, and treated recently with Augmentin. Patient has not been taking her medications. In [place], the patient was having some pulmonary symptoms including cough and congestion, cough is described as nonproductive, she had no headaches, no myalgia, no syncopal episodes, no fevers or chills. While in [place], patient developed atrial fibrillation with RVR, and she also tested positive for Covid 19 pneumonitis. Chest x-ray clearly showed extensive b ilateral peripheral infiltrates and consolidations. Patient was transferred to [facility], she was treated in the ER with Cardizem drip, patient is waiting for a bed to be admitted to the ICU, she is presently on 15 L high flow nasal cannula, patient converted to sinus rhythm apparently earlier today, she is hemodynamically stable, but considering her oxygen requirement and have significantly abnormal chest x-ray, waiting for a bed to be admitted to the ICU. Patient is not a great historian. WBC count today is 9.7 hemoglobin is 12.1. Influenza screen was negative. Her PTT is 70.5, therapeutic. patient is on heparin because of her atrial fibrillation. Patient was reevaluated today on 07/31/20, intubated and mechanically ventilated. Her clinical condition deteriorated yesterday, patient had to be intubated and ventilated. Presently on assist control rate of 20, tidal volume is 400, FiO2 is 100%, and PEEP is 10. ABG showed a pO2 of 71 pCO2 of 36 pH of 7.37. Drips include Propofol at 50 mcg/kg/m, heparin drip, 0.9 normal saline at 20 mL per hour, and norepinephrine at 0.05 mcg/kg/m. Presently off Nimbex. No specific changes were made with her ventilator settings. May consider increasing the PEEP. And the patient will receive a unit of convalescent plasma today. Chest x-ray showed bilateral interstitial infiltrates, and the tube was noted to be close to the evelyn, and this will be adjusted accordingly. Right IJ central line was placed and the patient today since she had very poor IV access. WBC count today is 23.3 hemoglobin is 11.2 electrolytes were noted and she had a low potassium of 2.9, being corrected as per protocol. Prior to intubation yesterday, her pO2 was 44 pCO2 was 31 and pH of 7.4 3. Reevaluated today on 08/01/20, remains in the ICU, intubated and mechanically ventilated. Her ventilator settings are assist control rate of 20 tidal volume is 400 FiO2 is 60% and PEEP is 12. ABG showed a pO2 of 108 pCO2 of 34 pH of 7.44 hence cut down her FiO2 to 50%. Patient remains on propofol at 50 mcg/kg/m, patient is off norepinephrine since 7 AM. IV fluids at KVO, patient is receiving enteral feeding. Lasix was given 20 mg IV push for low urine output. Reviewed chest x-ray today, continues to have bilateral interstitial in filtrates especially at the bases bilaterally right more so than left. CBC today showed leukocytosis with WBC of 14.4 hemoglobin is 10.5. Lactulose abnormal BUN is 37 creatinine 0.91. Reevaluated today on 08/02/20, patient remains in the ICU, intubated and mechanically ventilated. Her ventilator settings are assist control rate of 20 tidal volume is 400 FiO2 is 50% and PEEP is 12. ABG today showed a pO2 of 58 pCO2 of 33 pH of 7.49 hence FiO2 was increased to 55%. Patient remains on propofol at 25 mcg/kg/m, she is on enteral feeding vital HP30/30. Peak airway pressure is in the mid 30s, static pressures 27. Chest x-ray continues to show bilateral infiltrates, right more so than left. Echocardiogram showed good LV function. She is now maintaining sinus rhythm, although on admission she came in with atrial fibrillation and RVR. Her echo showed evidence of moderate pulmonary hypertension and moderate mitral regurgitation. The patient is seen today 08/05/2020 in follow-up in the intensive care unit. She remains intubated on the mechanical ventilator settings of assist control at a rate of 20, tidal volume 400, FiO2 50% and a PEEP of 8. Morning blood gases reveal a pO2 of 73, pCO2 38, pH 7.48. Sedated on propofol at 25 mcg/kg/m. 0.9 normal saline at 20 ML's per hour. She is being nourished with vital HP at 37 mL per hour which is goal. She has been receiving daily interruption of sedation and spontaneous breathing trials. She'll be placed on pressure support of 8 and a CPAP of 5. White count 14.8. Hemoglobin 9.8. Sodium 146. Potassium 3.7. Creatinine 0.72. Currently on ceftriaxone and azithromycin. Anticoagulated with Eliquis. Remains on vitamins C, D, Decadron, Pepcid, zinc Objective - Vital Signs Vital signs: Vital Signs Temp 98.4 F 08/05/20 04:00 Pulse 71 08/05/20 07:00 Resp 22 08/05/20 07:00 BP 110/57 08/02/20 05:00 Pulse Ox 93 L 08/05/20 07:00 Intake & Output 08/04/20 08/05/20 08/05/20 18:59 06:59 18:59 Intake Total 773.532 970.893 112.923 Output Total 1115 680 80 Balance -341.468 290.893 32.923 Weight 59 kg 57.5 kg Intake: IV 276 276 23 Pressure Bag 36 36 3 Sodium Chloride 0.9% 1, 240 240 20 000 ml @ 20 mls/hr IV . Q24H RODRIGO Rx#:[id number] Intake, IV Titration 79.532 160.893 52.923 Amount propofoL 1,000 mg In 79.532 160.893 52.923 Empty Bag 1 bag @ Titrate IV .Q0M RODRIGO Rx#: [id number] Tube Feeding 358 444 37 Other 60 90 Output: Urine 1115 680 80 Other: Voiding Method Indwelling Catheter Indwelling Catheter ABP, PAP, CO, CI - Last Documented Arterial Blood Pressure 120/42 - Exam GENERAL EXAM: Intubated, sedated 75-year-old female patient, in no apparent distress. HEAD: Normocephalic. EYES: Sluggish reaction of pupils, equal size. NOSE: Clear with pink turbinates. THROAT: Oral endotracheal and gastric tube secured in place No erythema or exudates. NECK: No masses, no JVD. CHEST: No chest wall deformity. LUNGS: Equal air entry with basilar crackles CVS: S1 and S2 normal with no audible murmur, regular rhythm. ABDOMEN: No hepatosplenomegaly, normal bowel sounds, no guarding or rigidity. SPINE: No scoliosis or deformity SKIN: No rashes CENTRAL NERVOUS SYSTEM: Intubated, sedated. No focal deficits, tone is normal in all 4 extremities. EXTREMITIES: There is no peripheral edema. No clubbing, no cyanosis. Peripheral pulses are intact. - Labs CBC & Chem 7: 08/05/20 03:40 08/05/20 03:40 Labs: Abnormal Lab Results - Last 24 Hours (Table) 08/04/20 08/05/20 08/05/20 Range/Units 03:45 03:40 03:40 WBC 14.8 H (3.8-10.6) k/uL RBC 3.31 L (3.80-5.40) m/uL Hgb 9.8 L (11.4-16.0) gm/dL Hct 29.6 L (34.0-46.0) % Neutrophils # 12.2 H (1.3-7.7) k/uL ABG pH (7.35-7.45) ABG pO2 (83-108) mmHg ABG HCO3 (21-25) mmol/L ABG Total CO2 (19-24) mmol/L Sodium 146 H (137-145) mmol/L Chloride 116 H (98-107) mmol/L BUN 45 H (7-17) mg/dL Calcium 7.8 L (8.4-10.2) mg/dL AST 52 H (14-36) U/L ALT 47 H (4-34) U/L Alkaline Phosphatase 133 H (38-126) U/L Lactate Dehydrogenase 974 H (313-618) U/L C-Reactive Protein 59.5 H (<10.0) mg/L Total Protein 5.1 L (6.3-8.2) g/dL Albumin 2.3 L (3.5-5.0) g/dL Procalcitonin 0.14 H (0.02-0.09) ng/mL 08/05/20 Range/Units 05:48 WBC (3.8-10.6) k/uL RBC (3.80-5.40) m/uL Hgb (11.4-16.0) gm/dL Hct (34.0-46.0) % Neutrophils # (1.3-7.7) k/uL ABG pH 7.48 H (7.35-7.45) ABG pO2 73 L (83-108) mmHg ABG HCO3 28 H (21-25) mmol/L ABG Total CO2 29 H (19-24) mmol/L Sodium (137-145) mmol/L Chloride (98-107) mmol/L BUN (7-17) mg/dL Calcium (8.4-10.2) mg/dL AST (14-36) U/L ALT (4-34) U/L Alkaline Phosphatase (38-126) U/L Lactate Dehydrogenase (313-618) U/L C-Reactive Protein (<10.0) mg/L Total Protein (6.3-8.2) g/dL Albumin (3.5-5.0) g/dL Procalcitonin (0.02-0.09) ng/mL Assessment and Plan Assessment: Acute hypoxic respiratory failure secondary to CoVID 19 pneumonitis, required intubation and mechanical ventilation on 07/30/20. She was beyond the window to be qualified for Remdesivir. Did receive convalescent plasma New onset atrial fibrillation with RVR, converted to sinus rhythm while in the emergency room. Remains in normal sinus rhythm. History of hypertension. History of hypothyroidism. Lifelong nonsmoker. Plan: The patient was seen and evaluated by Dr. Watson Chest x-ray, ABGs and labs reviewed Tidal volume decreased to 350 We'll give a daily interruption of sedation Plan for weaning trial and a pressure support of 8 and CPAP of 5 We'll continue to follow and make further recommendations based on her clinical status Critical care time 38 minutes I, the cosigning physician, performed a history & physical examination of the patient. Lungs sounds with crackles in the bilateral posterior bases. Maintaining good O2 saturations in the 90s on 50% FiO2 and a PEEP of 8 I discussed the assessment and plan of care with my nurse practitioner, Jesenia Varma. I attest to the above note as dictated by her.
[2020-08-05 11:25] LABS: Ferritin 328.5 ng/mL (10.0-291.0)
[2020-08-05 11:38] LABS: ABG Base Excess 6.6 mmol/L; ABG HCO3 29 mmol/L (21-25); ABG Oxygen Saturation 97.1 % (94-97); ABG PCO2 36 mmHg (35-45); ABG PH 7.52 (7.35-7.45); ABG PO2 77 mmHg (83-108); ABG TCO2 31 mmol/L (19-24)
[2020-08-05 11:39] LABS: Allen Test Performed? no
[2020-08-05 15:23] LABS: Glucose,Whole Blood 135 mg/dL (75-99)
[2020-08-05] MEDS ORDERED: CLEVIDIPINE BUTYRATE 25 MG/50 ML VIAL IV ONE (15:35)
[2020-08-05] MEDS: CLEVIDIPINE BUTYRATE 25 MG in EMPTY BAG 1 BAG IV SCH (16:19)
--- NOTE | 2020-08-05 16:30 | CT ---
EXAMINATION TYPE: CT brain wo con DATE OF EXAM: 08/05/2020 COMPARISON: None HISTORY: 75-year-old female New onset left sided weakness and facial droop. TECHNIQUE: Examination was done in axial plane without intravenous contrast. Coronal and sagittal r econstructions performed. CT DLP: 1231.4 mGycm Automated exposure control for dose reduction was used. FINDINGS: There is focal hypodensity within the right cerebellar hemisphere, asymmetric to the other side, uncl ear if this represents skull base artifact. Refer to axial image 24. There is no evidence of acute intracranial hemorrhage, mass, mass-effect, or extra-axial fluid colle ction. There is no effacement of cerebral sulci or basal subarachnoid cisterns. Mild ventricular prominence, Art ratio at 0.29, likely secondary to central cerebral atrophy. There is no midline shift. Perez-white matter distinction is preserved. Moderate patchy periventricular white matter hypodensities. Mild cerebral cortical volume loss. There are mild atherosclerotic calcifications within the carotid siphons. Partially empty sella incid entally noted. Paranasal sinuses and mastoid air cells well pneumatized. Orbits and globes are intact. IMPRESSION: 1. Asymmetric hypodensity within the right cerebellar hemisphere may reflect skull base artifact rath er than subacute infarct. Given patient's symptoms, consider MRI. 2. Mild generalized atrophy and mild to moderate burden of chronic small vessel ischemic disease. No acute intracranial hemorrhage or midline shift.
--- NOTE | 2020-08-05 18:41 | P.PN ---
Subjective This is a pleasant 75 years old female with past medical history of hypertension, hypothyroidism. Patient could not provide much information so it was taken From staff and records. She presents to [facility] with respiratory symptoms and dyspnea associated with some complaint but no chest pain. There she was treated for atrial fibrillation with RVR and she was found to have positive covid 19 test. Patient is afebrile, she is tachypneic with respiratory rate about 26-27, hypoxic with oxygen saturation of 99% on 15 L via nasal cannula. Blood pressure is 106/89. CBC from today is unremarkable. Troponin is elevated 0.17. High lactate dehydrogenase 1276 and C-reactive protein 256. And once is negative. Chest x- ray showing severe pulmonary edema could relate to RDS and is similar to a computed tomography scan earlier today 07/31/2020 Patient was admitted with Covid pneumonia and respiratory failure, her condition got deteriorated yesterday and she got intubated and now she is on mechanical ventilation was pulmonary/critical care team monitor and carefully. Also she had A. fib with RVR and converted to sinus rhythm, her Cardizem drip was stopped and her heparin drip was switched liquids. She continued to be on Zithromax and ceftriaxone and vitamins C and zinc 08/01/2020 Patient is admitted with Covid pneumonia and course is complicated by A. fib and RVR. Patient remains in the ICU in critical condition, she is intubated and on mechanical ventilation with pulmonary/critical care team on the case. Also cartilage informed the case closely Treatments and dexamethasone, liquids, zinc, vitamin C, antibiotics with Zithromax and ceftriaxone. No reemdesivir as per pulmonary team recommendation Today I was contacted by the social work assistant and stop that the patient and daughter works in [place] they want patient to be transferred upon the request to [facility] I discussed the case with who declined To accept the patient to be transferred to [facility] 08/02/2020 Patient is in the ICU for bilateral covid Pneumonia, she is intubated and on mechanical ventilation. Her heart rate atrial fibrillation was converted to sinus rhythm and currently her own in the low 50s. Blood pressure is just above 100. Patient does not need support by pressors. Leukocytosis is improving, BMP is unremarkable. Influenza virus is negative. Chest x-ray showed persistent bilateral mid to lower lung acute infiltrate and/or edema. No significant change from one day earlier Patient remains on dexamethasone, Eliquis and broad-spectrum antibiotics. Patient in the ICU intubated, pulmonary/critical care team are planning CPAP tomorrow, PEEP dropped. Other than that, change from yesterday, her heart rate shown bradycardia although in sinus rhythm therefore Cardizem and beta blockers were stopped, patient kept on Eliquis for her A. fib and cardiology team signed off. Patient on Zithromax, ceftriaxone, dexamethasone no remdesivir . she is status convescalnet plasam as well 08/04/20 Patient is still on mechanical ventilation, pulmonary/critical care team trying breathing for the patient but with no success today Other than that She'll continue with same treatment of steroids, Eliquis, azithromycin and ceftriaxone. No Cardizem or beta blockers for bradycardia. However heart rate is improved today to 60-70. WBC trending down to 12 K 08/05/20 pt is extubated today by pulmonary team , after extubation she started having stroke like ,left arm weakness, lip and left eye droop , and possible leg weakness, CT of brain is negative for stroke and CTA of the brain is ordered and is pending , neurologist was consulted who ordered MRI of the brain tomorrow. pt is currently saturating on 5 L/m of oxygen Eliquis was held by consultants while she remains on dexamethasone, stress and Zithromax. Chest x-ray looks stable Patient is followed closely by pulmonary/critical care team Review of systems: N/a Active Medications Generic Name Dose Route Start Last Admin Trade Name Freq PRN Reason Stop Dose Admin Acetaminophen 650 mg 07/29/20 20:22 Acetaminophen Tab 325 Mg Tab PO Q4HR PRN Fever and/or Mild Pain Albuterol Sulfate 2 puff 07/30/20 08:00 08/05/20 16:30 Albuterol Hfa Inhaler INHALATION 2 puff RT-QID RODRIGO Administration Ascorbic Acid 500 mg 07/30/20 16:15 08/05/20 08:58 Ascorbic Acid 500 Mg Tab PO 500 mg DAILY RODRIGO Administration Azithromycin 500 mg 08/02/20 21:00 08/04/20 19:51 Azithromycin 500 Mg Tab PO 500 mg HS RODRIGO Administration Cholecalciferol 2,000 unit 07/30/20 16:15 08/05/20 08:58 Cholecalciferol 1,000 Unit Tab PO 2,000 unit DAILY RODIRGO Administration Dexamethasone Sodium Phosphate 6 mg 07/30/20 16:15 08/05/20 08:59 Dexamethasone Sod Phosphate 10 Mg/Ml 1 Ml Vial IV 6 mg DAILY RODRIGO Administration Famotidine 20 mg 07/30/20 16:15 08/05/20 08:58 Famotidine 20 Mg Tab PO 20 mg DAILY RODRIGO Administration Furosemide 20 mg 07/31/20 09:30 08/05/20 08:58 Furosemide 10 Mg/Ml 2 Ml Vial IV 20 mg DAILY RODRIGO Administration Sodium Chloride 1,000 mls @ 20 mls/hr 07/29/20 20:30 08/04/20 19:52 Saline 0.9% IV 20 mls/hr .Q24H RODRIGO Administration Ceftriaxone Sodium 1 gm/ 50 mls @ 100 mls/hr 07/31/20 01:00 08/05/20 00:23 Sodium Chloride IVPB 100 mls/hr Q24H RODRIGO Administration Clevidipine 25 mg/ IV Solution 50 mls @ 2 mls/hr 08/05/20 15:45 08/05/20 16:19 IV Not Given .Q24H RODRIGO Protocol 1 MG/HR Levothyroxine Sodium 75 mcg 07/30/20 06:30 08/05/20 05:33 Levothyroxine 75 Mcg Tab PO 75 mcg DAILY@0630 RODRIGO Administration Miscellaneous Information 1 each 07/31/20 07:24 Potassium Replacement Protocol 1 Each Misc MISCELLANE DAILY PRN Per Protocol Protocol Miscellaneous Information 1 each 07/31/20 18:39 Potassium Replacement Protocol 1 Each Misc MISCELLANE DAILY PRN Per Protocol Protocol Naloxone HCl 0.2 mg 07/29/20 20:22 Naloxone 0.4 Mg/Ml 1 Ml Vial IV Q2M PRN Opioid Reversal Zinc Sulfate 220 mg 07/30/20 16:15 08/05/20 08:58 Zinc Sulfate 220 Mg Cap PO 220 mg DAILY RODRIGO Administration Objective - Vital Signs Vital signs: Vital Signs Temp 98.3 F 08/05/20 16:15 Pulse 86 08/05/20 16:15 Resp 18 08/05/20 16:15 BP 127/50 08/05/20 16:15 Pulse Ox 94 L 08/05/20 16:15 Intake & Output 08/04/20 08/05/20 08/05/20 18:59 06:59 18:59 Intake Total 773.532 970.893 444.349 Output Total 2459 215 9533 Balance -341.468 290.893 -1225.651 Weight 59 kg 57.5 kg Intake: IV 276 276 230 Pressure Bag 36 36 30 Sodium Chloride 0.9% 1, 240 240 200 000 ml @ 20 mls/hr IV . Q24H RODRIGO Rx#:[id number] Intake, IV Titration 79.532 160.893 66.349 Amount propofoL 1,000 mg In 79.532 160.893 66.349 Empty Bag 1 bag @ Titrate IV .Q0M RODRIGO Rx#: [id number] Tube Feeding 358 444 148 Other 60 90 Output: Urine 9675 921 5762 Other: Voiding Method Indwelling Catheter Indwelling Catheter Indwelling Catheter ABP, PAP, CO, CI - Last Documented Arterial Blood Pressure 147/58 - Exam -GENERAL: The patient is generally weak HEENT: Pupils are round and equally reacting to light. EOMI. No scleral icterus. No conjunctival pallor. Normocephalic, atraumatic. No pharyngeal erythema. No thyromegaly. CARDIOVASCULAR: S1 and S2 present. No murmurs, rubs, or gallops. PULMONARY: Chest is clear to auscultation, no wheezing or crackles. ABDOMEN: Soft, nontender, nondistended, normoactive bowel sounds. No palpable organomegaly. MUSCULOSKELETAL: No joint swelling or deformity. EXTREMITIES: No cyanosis, clubbing, or pedal edema. -NEUROLOGICAL: Left facial droop with left arm weakness. SKIN: No rashes. no petechiae. - Labs CBC & Chem 7: 08/05/20 03:40 08/05/20 03:40 Labs: Abnormal Lab Results - Last 24 Hours (Table) 08/04/20 08/05/20 08/05/20 Range/Units 03:45 03:40 03:40 WBC 14.8 H (3.8-10.6) k/uL RBC 3.31 L (3.80-5.40) m/uL Hgb 9.8 L (11.4-16.0) gm/dL Hct 29.6 L (34.0-46.0) % Neutrophils # 12.2 H (1.3-7.7) k/uL ABG pH (7.35-7.45) ABG pO2 (83-108) mmHg ABG HCO3 (21-25) mmol/L ABG Total CO2 (19-24) mmol/L ABG O2 Saturation (94-97) % Sodium 146 H (137-145) mmol/L Chloride 116 H (98-107) mmol/L BUN 45 H (7-17) mg/dL POC Glucose (mg/dL) (75-99) mg/dL Calcium 7.8 L (8.4-10.2) mg/dL Ferritin 328.5 H (10.0-291.0) ng/mL AST 52 H (14-36) U/L ALT 47 H (4-34) U/L Alkaline Phosphatase 133 H (38-126) U/L Lactate Dehydrogenase 974 H (313-618) U/L C-Reactive Protein 59.5 H (<10.0) mg/L Total Protein 5.1 L (6.3-8.2) g/dL Albumin 2.3 L (3.5-5.0) g/dL Procalcitonin 0.14 H (0.02-0.09) ng/mL 08/05/20 08/05/20 08/05/20 Range/Units 05:48 11:36 15:21 WBC (3.8-10.6) k/uL RBC (3.80-5.40) m/uL Hgb (11.4-16.0) gm/dL Hct (34.0-46.0) % Neutrophils # (1.3-7.7) k/uL ABG pH 7.48 H 7.52 H (7.35-7.45) ABG pO2 73 L 77 L (83-108) mmHg ABG HCO3 28 H 29 H (21-25) mmol/L ABG Total CO2 29 H 31 H (19-24) mmol/L ABG O2 Saturation 97.1 H (94-97) % Sodium (137-145) mmol/L Chloride (98-107) mmol/L BUN (7-17) mg/dL POC Glucose (mg/dL) 135 H (75-99) mg/dL Calcium (8.4-10.2) mg/dL Ferritin (10.0-291.0) ng/mL AST (14-36) U/L ALT (4-34) U/L Alkaline Phosphatase (38-126) U/L Lactate Dehydrogenase (313-618) U/L C-Reactive Protein (<10.0) mg/L Total Protein (6.3-8.2) g/dL Albumin (3.5-5.0) g/dL Procalcitonin (0.02-0.09) ng/mL Assessment and Plan Assessment: -Bilateral Covid 19 pneumonia: Continue with dexamethasone, vitamin C, ascorbic acid,remdesivir and anticoagulation. Pulmonary consult. She is status post extubation -Acute hypoxic respiratory failure secondary to above -Possible stroke with left arm and left eye and lip droop -A. fib and RVR, patient rate is controlled. [facility] -Increased inflammatory markers secondary to above and infection -Hypertension -Hypothyroidism DVT prophylaxis. Eliquis is on hold GI prophylaxis: Protonix Prognosis is guarded
--- NOTE | 2020-08-05 19:06 | CT ---
EXAMINATION TYPE: CT angio head neck DATE OF EXAM: 08/05/2020 COMPARISON: None HISTORY: Left sided weakness and speech. CT DLP: 366.9 mGycm Automated exposure control for dose reduction was used. CONTRAST: Performed with IV Contrast, patient injected with 65 mL of Isovue 370. There are 3-D post processed images. There is normal branching pattern of the great vessels on the aortic arch. Thoracic aorta is atheroma tous. There is variable plaque formation at the aortic arch. There is arterial flow in both subclavia n arteries. There is arterial flow in the common internal and external carotid arteries bilaterally. There is wide patency of the carotid artery bifurcations. There is arterial flow in both vertebral ar teries. There is arterial flow in the vertebrobasilar artery system. There is no evidence of carotid or vertebral artery aneurysm or dissection. There is arterial flow in the anterior middle and posterior cerebral arteries. There is no evidence o f intracranial aneurysm or neovascularity. There is no mass effect. There is no evidence of intracran ial arterial stenosis. There is normal contrast opacification of the venous sinuses. IMPRESSION: Negative CT angiogram of the neck. Negative CT angiogram of the brain.
--- NOTE | 2020-08-05 19:32 | P.CNNES ---
History of Present Illness Consult date: 08/05/20 Requesting physician: Lennox Watson Reason for Consult: left facial droop and arm weakness History of Present Illness: This is a 75-year-old woman with medical history of hypertension, hypothyroidism who was transferred from to [facility] for the escalation of treatment for atrial fibrillation with RVR on 07/29/20. As well as that she was recently tested positive for Covid 19 pneumonitis at outside facility. History was obtained from medical records since on able to obtain it from the patient. She initially presented to outside hospital ([facility]) with history of progressive weakness, shortness of breath and was recently diagnosed with urinary tract infection. In [facility], the patient was having some pulmonary symptoms and she was tested positive for COVID 19 pneumonitis. She also develop ed atrial fibrillation with RVR. Neurology is consulted because of new onset weakness over the face and arm noticed around 320 on the 08/05/2020. Per the patient nurse the patient was intubated on a ventilator and her last neuro exam was around 1155 where she was extubated around that time. At that time she had no focal deficit but she sounded a horse and her language could not be understood unknown if it's a result of her extubation and that she was on the intubated for a period of time are not. Around 320pm today, the nurse noticed that that the patient was having left-sided weakness including the face. CT of the head was ordered by the ICU team and it was reported as asymmetric hypodensity within the right cerebellar hemisphere may reflect skull base artifact rather than subacute infarct. Given the patient's symptoms consider MRI. Mild generalized atrophy and mild to moderate burden of chronic small vessel ischemic disease. No acute intracranial hemorrhage or midline shift. Patient was on Eliquis 5 mg twice a day and her last dose was today at 858. As a result the ICU team decided not to the activity the stroke pager. Echocardiogram on 07/31/2020 is a reported as left ventricle systolic function is low normal with ejection fraction of 50-55%. A borderline concentric left ventricular hypertrophy. Normal left atrial size. Moderate severe pulmonary hypertension. Workup in the hospital: Patient's hemoglobin on presentation was 5.0 and the last hemoglobin was today is 9.8. P serum glucose today is 96 at. Last serum glucose around 1521 is 135. AST today is 52 ALT is 47 TT last 3 days 46.1 which was on the 07 31 2020 Review of Systems Review of system is limited but the per positive and negative per HPI. Past Medical History Past Medical History: Hypertension, Thyroid Disorder History of Any Multi-Drug Resistant Organisms: None Reported Additional Past Surgical History / Comment(s): colon resection Smoking Status: Never smoker Past Alcohol Use History: None Reported Past Drug Use History: None Reported Medications and Allergies Home Medications Medication Instructions Recorded Confirmed Type Levothyroxine Sodium [Synthroid] 75 mcg PO DAILY 07/29/20 07/29/20 History amLODIPine [Norvasc] 5 mg PO DAILY 07/29/20 07/29/20 History Allergies Allergy/AdvReac Type Severity Reaction Status Date / Time No Known Allergies Allergy Verified 07/29/20 19:50 Physical Examination - Vital Signs Vital Signs: Vital Signs Temp Pulse Resp BP Pulse Ox 08/05/20 16:15 98.3 F 86 18 127/50 94 L 08/05/20 15:45 98 22 90 L 08/05/20 15:30 111 H 24 93 L 08/05/20 15:15 81 19 94 L 08/05/20 15:00 86 12 92 L 08/05/20 14:00 76 14 95 08/05/20 13:00 79 13 94 L 08/05/20 12:00 36.7 F L 96 27 H 94 L 08/05/20 11:00 92 26 H 93 L 08/05/20 10:00 79 28 H 95 08/05/20 09:00 81 21 94 L 08/05/20 08:00 98.4 F 64 20 95 08/05/20 07:00 71 22 93 L 08/05/20 06:00 65 21 96 08/05/20 05:00 65 20 96 08/05/20 04:00 98.4 F 60 20 97 08/05/20 03:00 64 22 97 08/05/20 02:00 56 L 20 95 08/05/20 01:00 68 26 H 99 08/05/20 00:17 60 20 99 08/05/20 00:00 98.2 F 63 20 97 08/04/20 23:00 60 20 96 08/04/20 22:00 66 21 98 08/04/20 21:00 56 L 20 98 08/04/20 20:00 98 F 53 L 20 99 Intake and Output 12/02/20 12/02/20 12/02/20 06:59 14:59 22:59 Intake Total 623.19 398.349 46 Output Total 495 1550 120 Balance 128.19 -1151.651 -74 Intake: IV 184 184 46 Pressure Bag 24 24 6 Sodium Chloride 0.9% 1, 160 160 40 000 ml @ 20 mls/hr IV . Q24H RODRIGO Rx#:[id number] Intake, IV Titration 83.19 66.349 Amount propofoL 1,000 mg In 83.19 66.349 Empty Bag 1 bag @ Titrate IV .Q0M RODRIGO Rx#: [id number] Tube Feeding 296 148 Other 60 Output: Urine 495 1550 120 Other: Voiding Method Indwelling Catheter Indwelling Catheter Indwelling Catheter Weight 57.5 kg ABP, PAP, CO, CI - Last 8 Hours Arterial Blood Pressure 147/58 Arterial Blood Pressure 164/68 Arterial Blood Pressure 172/72 Arterial Blood Pressure 160/63 Arterial Blood Pressure 151/58 Arterial Blood Pressure 141/55 Arterial Blood Pressure 144/56 Arterial Blood Pressure 155/64 GENERAL: The patient is lying in bed and is not in acute distress. CHEST: The heart rate is regular rate rhythm. No murmurs to auscultation. LUNG: Clear to auscultation bilaterally no wheezing noted throughout. Not labored breathing. ABDOMEN/GI: Bowel sounds present in all 4 quadrants. No tenderness to palpation throughout. NEUROLOGICAL: Higher mental function: The patient is awake, alert, oriented to self and time. I was not responding for me upon asked her where she was at. Patient is following commands. No neglect. Regarding the ACAs it was really hard the the determine but that she was a vocalizing but very slow. She wasn't making paraphasic error again the language was limited. Cranial nerves: The pupils are round, equal 3-4mm and reactive to ligh. Visual barrera are full to confrontation throughout. Extraocular movement is intact no nystagmus is noted. Could not assess the patient facial sensation because of lack of cooperation. There appears to be mild left nasolabial flattening. Has significant dysarthria (not sure if due to stroke or extubation). Motor: Gait is deferred that. The strength and she was able to lift up upper and lower extremity above gravity without any drift and it was symmetrical. Handgrip does seem 5 out of 5 bilaterally. Normal tone and bulk. Cerebellum: Unable to assess because of cooperation. Sensation: Unable to assess because of coopeation. Reflexes (right/left): 1+ throughout. Plantars are mute bilaterally. NIH stroke scale: 4 (1 left facial, 1 language, 2 dysarthria, sensation unbale to assess and ataxia unable to assess because lack of cooperation) Results - Laboratory Findings CBC and BMP: 08/05/20 03:40 08/05/20 03:40 Abnormal Lab Findings: Abnormal Labs 07/29/20 07/29/20 07/29/20 20:07 20:07 20:07 WBC 14.0 H RBC Hgb Hct Neutrophils # 12.6 H Lymphocytes # PT 12.1 H INR 1.2 H APTT 118.7 H* ABG pH ABG pCO2 ABG pO2 ABG HCO3 ABG Total CO2 ABG O2 Saturation Sodium Potassium Chloride Carbon Dioxide BUN Glucose POC Glucose (mg/dL) Calcium Magnesium Ferritin AST ALT Alkaline Phosphatase Lactate Dehydrogenase Troponin I 0.174 H* C-Reactive Protein Total Protein Albumin Procalcitonin 07/30/20 07/30/20 07/30/20 02:54 02:54 02:54 WBC RBC Hgb Hct Neutrophils # 8.1 H Lymphocytes # PT INR APTT 80.4 H ABG pH ABG pCO2 ABG pO2 ABG HCO3 ABG Total CO2 ABG O2 Saturation Sodium Potassium Chloride Carbon Dioxide BUN Glucose POC Glucose (mg/dL) Calcium Magnesium Ferritin AST ALT Alkaline Phosphatase Lactate Dehydrogenase Troponin I C-Reactive Protein Total Protein Albumin Procalcitonin 0.84 H 07/30/20 07/30/20 07/30/20 02:54 11:19 19:43 WBC RBC Hgb Hct Neutrophils # Lymphocytes # PT INR APTT 70.5 H ABG pH ABG pCO2 ABG pO2 ABG HCO3 ABG Total CO2 ABG O2 Saturation Sodium Potassium Chloride Carbon Dioxide BUN Glucose POC Glucose (mg/dL) 168 H Calcium Magnesium Ferritin AST ALT Alkaline Phosphatase Lactate Dehydrogenase 1276 H Troponin I C-Reactive Protein 256.0 H Total Protein Albumin Procalcitonin 07/30/20 07/31/20 07/31/20 20:05 03:19 05:07 WBC 23.3 H RBC Hgb 11.2 L Hct 33.1 L Neutrophils # 21.5 H Lymphocytes # 0.8 L PT INR APTT 47.0 H ABG pH ABG pCO2 31 L ABG pO2 44 L* ABG HCO3 20 L ABG Total CO2 ABG O2 Saturation 81.7 L Sodium Potassium Chloride Carbon Dioxide BUN Glucose POC Glucose (mg/dL) Calcium Magnesium Ferritin AST ALT Alkaline Phosphatase Lactate Dehydrogenase Troponin I C-Reactive Protein Total Protein Albumin Procalcitonin 07/31/20 07/31/20 07/31/20 05:07 05:07 05:22 WBC RBC Hgb Hct Neutrophils # Lymphocytes # PT INR APTT 46.1 H ABG pH ABG pCO2 ABG pO2 71 L ABG HCO3 ABG Total CO2 ABG O2 Saturation Sodium Potassium 2.9 L Chloride 113 H Carbon Dioxide 19 L BUN 30 H Glucose 148 H POC Glucose (mg/dL) Calcium 8.1 L Magnesium Ferritin AST ALT Alkaline Phosphatase Lactate Dehydrogenase Troponin I C-Reactive Protein Total Protein Albumin Procalcitonin 07/31/20 08/01/20 08/01/20 16:51 04:12 04:12 WBC 14.4 H RBC 3.60 L Hgb 10.5 L Hct 31.3 L Neutrophils # 12.8 H Lymphocytes # PT INR APTT ABG pH ABG pCO2 ABG pO2 ABG HCO3 ABG Total CO2 ABG O2 Saturation Sodium Potassium Chloride 114 H Carbon Dioxide BUN 37 H Glucose 139 H POC Glucose (mg/dL) 145 H Calcium 7.7 L Magnesium 2.4 H Ferritin AST ALT Alkaline Phosphatase Lactate Dehydrogenase Troponin I C-Reactive Protein Total Protein Albumin Procalcitonin 08/01/20 08/02/20 08/02/20 05:06 04:00 04:00 WBC 12.4 H RBC 3.29 L Hgb 9.9 L Hct 28.3 L Neutrophils # 10.8 H Lymphocytes # 0.9 L PT INR APTT ABG pH ABG pCO2 34 L ABG pO2 ABG HCO3 ABG Total CO2 ABG O2 Saturation 99.3 H Sodium Potassium 3.2 L Chloride 117 H Carbon Dioxide BUN 42 H Glucose 144 H POC Glucose (mg/dL) Calcium 7.0 L Magnesium Ferritin AST ALT Alkaline Phosphatase Lactate Dehydrogenase Troponin I C-Reactive Protein Total Protein Albumin Procalcitonin 08/02/20 08/03/20 08/03/20 05:24 04:25 04:25 WBC 12.5 H RBC 3.24 L Hgb 9.8 L Hct 28.3 L Neutrophils # Lymphocytes # PT INR APTT ABG pH 7.49 H ABG pCO2 33 L ABG pO2 58 L* ABG HCO3 ABG Total CO2 26 H ABG O2 Saturation 92.4 L Sodium Potassium Chloride 114 H Carbon Dioxide BUN 56 H Glucose 134 H POC Glucose (mg/dL) Calcium 7.8 L Magnesium Ferritin AST ALT Alkaline Phosphatase Lactate Dehydrogenase Troponin I C-Reactive Protein Total Protein Albumin Procalcitonin 08/03/20 08/04/20 08/04/20 04:38 00:12 03:45 WBC 12.7 H RBC 3.22 L Hgb 10.0 L Hct 28.6 L Neutrophils # Lymphocytes # PT INR APTT ABG pH 7.49 H ABG pCO2 34 L ABG pO2 ABG HCO3 26 H ABG Total CO2 27 H ABG O2 Saturation 98.7 H Sodium Potassium Chloride Carbon Dioxide BUN Glucose POC Glucose (mg/dL) 120 H Calcium Magnesium Ferritin AST ALT Alkaline Phosphatase Lactate Dehydrogenase Troponin I C-Reactive Protein Total Protein Albumin Procalcitonin 08/04/20 08/04/20 08/04/20 03:45 03:45 05:30 WBC RBC Hgb Hct Neutrophils # Lymphocytes # PT INR APTT ABG pH 7.48 H ABG pCO2 ABG pO2 80 L ABG HCO3 28 H ABG Total CO2 29 H ABG O2 Saturation 97.4 H Sodium Potassium Chloride 116 H Carbon Dioxide BUN 50 H Glucose POC Glucose (mg/dL) Calcium 7.7 L Magnesium Ferritin AST 70 H ALT 51 H Alkaline Phosphatase 150 H Lactate Dehydrogenase Troponin I C-Reactive Protein Total Protein 4.9 L Albumin 2.2 L Procalcitonin 0.14 H 08/05/20 08/05/20 08/05/20 03:40 03:40 05:48 WBC 14.8 H RBC 3.31 L Hgb 9.8 L Hct 29.6 L Neutrophils # 12.2 H Lymphocytes # PT INR APTT ABG pH 7.48 H ABG pCO2 ABG pO2 73 L ABG HCO3 28 H ABG Total CO2 29 H ABG O2 Saturation Sodium 146 H Potassium Chloride 116 H Carbon Dioxide BUN 45 H Glucose POC Glucose (mg/dL) Calcium 7.8 L Magnesium Ferritin 328.5 H AST 52 H ALT 47 H Alkaline Phosphatase 133 H Lactate Dehydrogenase 974 H Troponin I C-Reactive Protein 59.5 H Total Protein 5.1 L Albumin 2.3 L Procalcitonin 08/05/20 08/05/20 11:36 15:21 WBC RBC Hgb Hct Neutrophils # Lymphocytes # PT INR APTT ABG pH 7.52 H ABG pCO2 ABG pO2 77 L ABG HCO3 29 H ABG Total CO2 31 H ABG O2 Saturation 97.1 H Sodium Potassium Chloride Carbon Dioxide BUN Glucose POC Glucose (mg/dL) 135 H Calcium Magnesium Ferritin AST ALT Alkaline Phosphatase Lactate Dehydrogenase Troponin I C-Reactive Protein Total Protein Albumin Procalcitonin Assessment and Plan Assessment: This is a 75-year-old woman that was transferred from outside facility because of the escalation of treatment for atrial fibrillation with RVR as well as that she had a positive Covid 19. Acute left sided weakness---improving except for possible left nasolabial flattening. Likely due to ischemic stroke especially with a history of atrial fibrillation. Dysarthria and unsure due to patient being intubated for a period of time and goes a extubated today versus stroke Atrial fibrillation on the Eliquis 5mg bid Covid 19 pneumonitis History of hypothyroidism History of hypertension Lifelong nonsmoker Plan: Ordered CTA of the head and neck stat. Patient did not receive that TPA since the patient was on Eliquis annular symptoms were improving. I ordered the urgent MRI of the brain. I I stopped Eliquis 5 mg twice a day because of concern of a stroke. And I'll start the patient on aspirin 81 mg and Plavix 75 mg. If MRI the brain is negative for stroke then we'll restart the patient on Eliquis. I started the patient on Lipitor 40 mg daily PT/OT and TOWN MANAGER are consulted. Orderd Lipid panel. The plan was discussed with the patient nurse. Thank you for the consultation. Giorgi Watson M.D. Neuro-hospitalist
[2020-08-05] MEDS ORDERED: ATORVASTATIN 40 MG TAB PO SCH (21:00)
[2020-08-05] MEDS: AZITHROMYCIN 500 MG TAB PO SCH (21:01)
[2020-08-06] MEDS: SODIUM CHLORIDE 0.9% 1,000 ML IV SCH (00:31)
[2020-08-06 05:11] LABS: Basophils # (A) 0.1 k/uL (0-0.2); Basophils % (A) 1 %; Eosinophils # (A) 0.1 k/uL (0-0.7); Eosinophils % (A) 1 %; HCT 29.7 % (34.0-46.0); HGB 10.2 gm/dL (11.4-16.0); Lymphocytes # (A) 1.4 k/uL (1.0-4.8); Lymphocytes % (A) 9 %; MCH 30.4 pg (25.0-35.0); MCHC 34.2 g/dL (31.0-37.0); MCV 88.9 fL (80.0-100.0); Mean Platelet Volume 7.6; Monocytes # (A) 0.4 k/uL (0-1.0); Monocytes % (A) 3 %; Neutrophils # (A) 13.8 k/uL (1.3-7.7); Neutrophils % (A) 86 %; Platelet Count 255 k/uL (150-450); RBC 3.35 m/uL (3.80-5.40)
[2020-08-06 05:20] LABS: D-Dimer 2.9 mg/L FEU (<0.60)
[2020-08-06 05:29] LABS: ALT 50 U/L (4-34); AST 70 U/L (14-36); African American GFR (CKD) >90 (>60 ml/min/1.73 sqM); Albumin 2.8 g/dL (3.5-5.0); Alkaline Phosphatase 160 U/L (38-126); Anion Gap 2 mmol/L; Blood Urea Nitrogen 28 mg/dL (7-17); Calcium 8.6 mg/dL (8.4-10.2); Carbon Dioxide 31 mmol/L (22-30); Chloride 109 mmol/L (98-107); Glucose 91 mg/dL (74-99); LDH 1637 U/L (313-618); Non-African American GFR(CKD) 88 (>60 ml/min/1.73 sqM); Potassium 3.7 mmol/L (3.5-5.1); Sodium 142 mmol/L (137-145); Total Bilirubin 0.4 mg/dL (0.2-1.3); Total Protein 5.9 g/dL (6.3-8.2)
[2020-08-06 05:32] LABS: Cholesterol 190 mg/dL (<200); HDL Cholesterol 34 mg/dL (40-60); LDL Cholesterol,Calculated 101 mg/dL (0-99); Triglycerides 273 mg/dL (<150)
[2020-08-06 05:44] LABS: C Reactive Protein 185.5 mg/L (<10.0)
[2020-08-06] MEDS: LEVOTHYROXINE 75 MCG TAB PO SCH (06:55)
[2020-08-06] MEDS ORDERED: Potassium Replacement Protocol 1 EACH MISC MISCELLANE PRN (07:41)
[2020-08-06] MEDS: ALBUTEROL HFA INHALER INHALATION SCH ×5 (08:05→22:17)
[2020-08-06] MEDS ORDERED: CLOPIDOGREL 75 MG TAB PO SCH (09:00)
[2020-08-06] MEDS ORDERED: ASPIRIN 81 MG PO SCH (09:00)
--- NOTE | 2020-08-06 09:09 | XR ---
EXAMINATION TYPE: XR chest 1V portable DATE OF EXAM: 08/06/2020 COMPARISON: Prior chest x-ray 08/05/2020 HISTORY: Extubated, abnormal chest x-ray TECHNIQUE: Single frontal view of the chest is obtained. FINDINGS: Endotracheal tube and NG tube have been removed. Right jugular central venous catheter is stable. Bilateral patchy airspace disease persists. Heart size is stable. No evident pneumothorax or pleural effusion. Aorta is dense. IMPRESSION: Interval extubation, correlate for pneumonia.
[2020-08-06] MEDS ORDERED: ACETAMINOPHEN IV (For NPO) 1,000 MG in EMPTY BAG 1 BAG IVPB PRN (09:20)
[2020-08-06] MEDS: POTASSIUM CHLORIDE 10 MEQ in WATER FOR INJECTION 1 100ML.BAG IVPB SCH ×2 (09:40→10:38)
[2020-08-06 09:56] LABS: Ferritin 457.4 ng/mL (10.0-291.0)
--- NOTE | 2020-08-06 10:29 | P.PN ---
Subjective Progress Note Date: 08/06/20 Principal diagnosis: Acute hypoxic respiratory failure secondary to CoVID 19 pneumonitis This is a 75-year-old female transferred last night from [facility], patient presented to the hospital with 2 weeks history of progressive weakness, shortness of breath, patient was recently diagnosed with urinary tract infection, and treated recently with Augmentin. Patient has not been taking her medications. In [place], the patient was having some pulmonary symptoms including cough and congestion, cough is described as nonproductive, she had no headaches, no myalgia, no syncopal episodes, no fevers or chills. While in [place], patient developed atrial fibrillation with RVR, and she also tested positive for Covid 19 pneumonitis. Chest x-ray clearly showed extensive b ilateral peripheral infiltrates and consolidations. Patient was transferred to [facility], she was treated in the ER with Cardizem drip, patient is waiting for a bed to be admitted to the ICU, she is presently on 15 L high flow nasal cannula, patient converted to sinus rhythm apparently earlier today, she is hemodynamically stable, but considering her oxygen requirement and have significantly abnormal chest x-ray, waiting for a bed to be admitted to the ICU. Patient is not a great historian. WBC count today is 9.7 hemoglobin is 12.1. Influenza screen was negative. Her PTT is 70.5, therapeutic. patient is on heparin because of her atrial fibrillation. Patient was reevaluated today on 07/31/20, intubated and mechanically ventilated. Her clinical condition deteriorated yesterday, patient had to be intubated and ventilated. Presently on assist control rate of 20, tidal volume is 400, FiO2 is 100%, and PEEP is 10. ABG showed a pO2 of 71 pCO2 of 36 pH of 7.37. Drips include Propofol at 50 mcg/kg/m, heparin drip, 0.9 normal saline at 20 mL per hour, and norepinephrine at 0.05 mcg/kg/m. Presently off Nimbex. No specific changes were made with her ventilator settings. May consider increasing the PEEP. And the patient will receive a unit of convalescent plasma today. Chest x-ray showed bilateral interstitial infiltrates, and the tube was noted to be close to the evelyn, and this will be adjusted accordingly. Right IJ central line was placed and the patient today since she had very poor IV access. WBC count today is 23.3 hemoglobin is 11.2 electrolytes were noted and she had a low potassium of 2.9, being corrected as per protocol. Prior to intubation yesterday, her pO2 was 44 pCO2 was 31 and pH of 7.4 3. Reevaluated today on 08/01/20, remains in the ICU, intubated and mechanically ventilated. Her ventilator settings are assist control rate of 20 tidal volume is 400 FiO2 is 60% and PEEP is 12. ABG showed a pO2 of 108 pCO2 of 34 pH of 7.44 hence cut down her FiO2 to 50%. Patient remains on propofol at 50 mcg/kg/m, patient is off norepinephrine since 7 AM. IV fluids at KVO, patient is receiving enteral feeding. Lasix was given 20 mg IV push for low urine output. Reviewed chest x-ray today, continues to have bilateral interstitial in filtrates especially at the bases bilaterally right more so than left. CBC today showed leukocytosis with WBC of 14.4 hemoglobin is 10.5. Lactulose abnormal BUN is 37 creatinine 0.91. Reevaluated today on 08/02/20, patient remains in the ICU, intubated and mechanically ventilated. Her ventilator settings are assist control rate of 20 tidal volume is 400 FiO2 is 50% and PEEP is 12. ABG today showed a pO2 of 58 pCO2 of 33 pH of 7.49 hence FiO2 was increased to 55%. Patient remains on propofol at 25 mcg/kg/m, she is on enteral feeding vital HP30/30. Peak airway pressure is in the mid 30s, static pressures 27. Chest x-ray continues to show bilateral infiltrates, right more so than left. Echocardiogram showed good LV function. She is now maintaining sinus rhythm, although on admission she came in with atrial fibrillation and RVR. Her echo showed evidence of moderate pulmonary hypertension and moderate mitral regurgitation. The patient is seen today 08/05/2020 in follow-up in the intensive care unit. She remains intubated on the mechanical ventilator settings of assist control at a rate of 20, tidal volume 400, FiO2 50% and a PEEP of 8. Morning blood gases reveal a pO2 of 73, pCO2 38, pH 7.48. Sedated on propofol at 25 mcg/kg/m. 0.9 normal saline at 20 ML's per hour. She is being nourished with vital HP at 37 mL per hour which is goal. She has been receiving daily interruption of sedation and spontaneous breathing trials. She'll be placed on pressure support of 8 and a CPAP of 5. White count 14.8. Hemoglobin 9.8. Sodium 146. Potassium 3.7. Creatinine 0.72. Currently on ceftriaxone and azithromycin. Anticoagulated with Eliquis. Remains on vitamins C, D, Decadron, Pepcid, zinc The patient is seen today 08/06/2020 in follow-up in the intensive care unit. She was extubated yesterday. She is currently on 6 L high flow nasal cannula maintain O2 saturations in the 90s. Chest x-ray continues to revealed bilateral patchy airspace disease. No evidence of pneumothorax. She is 0.9 and 20 ML's per hour. [place] proximal at 1 mg per hour. There was some concerns regarding left-sided weakness and facial droop yesterday. CT of the brain reveals asy mmetric hypodensity within the right cerebellar hemisphere possibly reflecting artifact versus subacute infarct. CT angiogram was negative of the neck and brain. MRI is pending. Neurology had been consulted. She did this daily swallow evaluation as well. White count 16.0. Hemoglobin 10.2. D-dimer 2.90. Sodium 142. Potassium 3.7. Creatinine 0.62. Ferritin 457. LDH 1637. C- reactive protein 185. Objective - Vital Signs Vital signs: Vital Signs Temp 97.6 F 08/06/20 04:00 Pulse 70 08/06/20 07:00 Resp 19 08/06/20 07:00 BP 132/53 08/06/20 07:00 Pulse Ox 92 L 08/06/20 07:00 Intake & Output 08/05/20 08/06/20 08/06/20 18:59 06:59 18:59 Intake Total 490.349 326 23 Output Total 1870 1175 125 Balance -1379.651 -849 -102 Weight 53.5 kg Intake: IV 276 326 23 Ceftriaxone (Rocephin 50 50 ml) Pressure Bag 36 36 3 Sodium Chloride 0.9% 1, 240 240 20 000 ml @ 20 mls/hr IV . Q24H RODRIGO Rx#:[id number] Intake, IV Titration 66.349 Amount propofoL 1,000 mg In 66.349 Empty Bag 1 bag @ Titrate IV .Q0M RODRIGO Rx#: [id number] Tube Feeding 148 Output: Urine 1870 1175 125 Other: Voiding Method Indwelling Catheter Indwelling Catheter ABP, PAP, CO, CI - Last Documented Arterial Blood Pressure 148/60 - Exam GENERAL EXAM: Alert, extremely weak 75-year-old female patient, on 6 L nasal cannula, in no apparent distress. HEAD: Normocephalic. EYES: Sluggish reaction of pupils, equal size. NOSE: Clear with pink turbinates. THROAT: Oral endotracheal and gastric tube secured in place No erythema or exudates. NECK: No masses, no JVD. CHEST: No chest wall deformity. LUNGS: Equal air entry with basilar crackles CVS: S1 and S2 normal with no audible murmur, regular rhythm. ABDOMEN: No hepatosplenomegaly, normal bowel sounds, no guarding or rigidity. SPINE: No scoliosis or deformity SKIN: No rashes CENTRAL NERVOUS SYSTEM: Extremely weak with left-sided facial droop, bilateral weakness, tone is normal in all 4 extremities. EXTREMITIES: There is no peripheral edema. No clubbing, no cyanosis. Peripheral pulses are intact. - Labs CBC & Chem 7: 08/06/20 04:40 08/06/20 04:40 Labs: Abnormal Lab Results - Last 24 Hours (Table) 08/05/20 08/05/20 08/05/20 Range/Units 03:40 11:36 15:21 WBC (3.8-10.6) k/uL RBC (3.80-5.40) m/uL Hgb (11.4-16.0) gm/dL Hct (34.0-46.0) % Neutrophils # (1.3-7.7) k/uL Fibrinogen (200-500) mg/dL D-Dimer (<0.60) mg/L FEU ABG pH 7.52 H (7.35-7.45) ABG pO2 77 L (83-108) mmHg ABG HCO3 29 H (21-25) mmol/L ABG Total CO2 31 H (19-24) mmol/L ABG O2 Saturation 97.1 H (94-97) % Chloride (98-107) mmol/L Carbon Dioxide (22-30) mmol/L BUN (7-17) mg/dL POC Glucose (mg/dL) 135 H (75-99) mg/dL Ferritin 328.5 H (10.0-291.0) ng/mL AST (14-36) U/L ALT (4-34) U/L Alkaline Phosphatase (38-126) U/L Lactate Dehydrogenase (313-618) U/L C-Reactive Protein (<10.0) mg/L Total Protein (6.3-8.2) g/dL Albumin (3.5-5.0) g/dL Triglycerides (<150) mg/dL LDL Cholesterol, Calc (0-99) mg/dL HDL Cholesterol (40-60) mg/dL 08/06/20 08/06/20 08/06/20 Range/Units 04:40 04:40 04:40 WBC 16.0 H (3.8-10.6) k/uL RBC 3.35 L (3.80-5.40) m/uL Hgb 10.2 L (11.4-16.0) gm/dL Hct 29.7 L (34.0-46.0) % Neutrophils # 13.8 H (1.3-7.7) k/uL Fibrinogen 565 H (200-500) mg/dL D-Dimer 2.90 H (<0.60) mg/L FEU ABG pH (7.35-7.45) ABG pO2 (83-108) mmHg ABG HCO3 (21-25) mmol/L ABG Total CO2 (19-24) mmol/L ABG O2 Saturation (94-97) % Chloride (98-107) mmol/L Carbon Dioxide (22-30) mmol/L BUN (7-17) mg/dL POC Glucose (mg/dL) (75-99) mg/dL Ferritin (10.0-291.0) ng/mL AST (14-36) U/L ALT (4-34) U/L Alkaline Phosphatase (38-126) U/L Lactate Dehydrogenase (313-618) U/L C-Reactive Protein (<10.0) mg/L Total Protein (6.3-8.2) g/dL Albumin (3.5-5.0) g/dL Triglycerides 273 H (<150) mg/dL LDL Cholesterol, Calc 101 H (0-99) mg/dL HDL Cholesterol 34 L (40-60) mg/dL 08/06/20 Range/Units 04:40 WBC (3.8-10.6) k/uL RBC (3.80-5.40) m/uL Hgb (11.4-16.0) gm/dL Hct (34.0-46.0) % Neutrophils # (1.3-7.7) k/uL Fibrinogen (200-500) mg/dL D-Dimer (<0.60) mg/L FEU ABG pH (7.35-7.45) ABG pO2 (83-108) mmHg ABG HCO3 (21-25) mmol/L ABG Total CO2 (19-24) mmol/L ABG O2 Saturation (94-97) % Chloride 109 H (98-107) mmol/L Carbon Dioxide 31 H (22-30) mmol/L BUN 28 H (7-17) mg/dL POC Glucose (mg/dL) (75-99) mg/dL Ferritin 457.4 H (10.0-291.0) ng/mL AST 70 H (14-36) U/L ALT 50 H (4-34) U/L Alkaline Phosphatase 160 H (38-126) U/L Lactate Dehydrogenase 1637 H (313-618) U/L C-Reactive Protein 185.5 H (<10.0) mg/L Total Protein 5.9 L (6.3-8.2) g/dL Albumin 2.8 L (3.5-5.0) g/dL Triglycerides (<150) mg/dL LDL Cholesterol, Calc (0-99) mg/dL HDL Cholesterol (40-60) mg/dL Assessment and Plan Assessment: Acute hypoxic respiratory failure secondary to CoVID 19 pneumonitis, required intubation and mechanical ventilation on 07/30/20. She was beyond the window to be qualified for Remdesivir. Did receive convalescent plasma. Extubated on 08/05/2020, currently on 6 L nasal cannula. Chest x-ray continues to show bilateral patchy infiltrates Altered mental status with extreme weakness more so on the left, being evaluated by neurology. MRI of the brain pending. New onset atrial fibrillation with RVR, converted to sinus rhythm while in the e mergency room. Remains in normal sinus rhythm. History of hypertension. History of hypothyroidism. Lifelong nonsmoker. Plan: The patient was seen and evaluated by Dr. Watson Chest x-ray and labs reviewed Extubated yesterday On 6 L nasal cannula Titrate the FiO2 as tolerated IV fluids to D5.9 at 75 ML's per hour as the patient is unable to swallow at this point Neurology is on the case, MRI of the brain pending Prognosis is guarded We'll continue to follow and make further recommendations based on her clinical status Critical care time 38 minutes I, the cosigning physician, performed a history & physical examination of the patient. Lungs sounds with crackles in the bilateral posterior bases. Maintaining good O2 saturations in the 90s on 6 L/m per nasal cannula I di scussed the assessment and plan of care with my nurse practitioner, Jesenia Varma. I attest to the above note as dictated by her.
[2020-08-06] MEDS: DEXTROSE 5%-0.9% NACL 1,000 ML IV SCH (10:39)
[2020-08-06] MEDS: DEXAMETHASONE SOD PHOSPHATE 10 MG/ML 1 ML VIAL IV SCH (10:39)
[2020-08-06] MEDS: FUROSEMIDE 10 MG/ML 2 ML VIAL IV SCH (10:39)
[2020-08-06] MEDS: FAMOTIDINE 20 MG/2 ML VIAL IV SCH ×2 (10:42→20:18)
[2020-08-06] MEDS: LEVOTHYROXINE IVP 100 MCG/5 ML VIAL IV SCH (10:42)
[2020-08-06] MEDS ORDERED: LORazepam 2 MG/ML INJ IV ONE (11:30)
--- NOTE | 2020-08-06 13:16 | MR ---
MR brain without contrast HISTORY: Left-sided weakness Multiplanar multisequence imaging through the brain Correlation CT brain 08/05/2020 There is no restricted diffusion. Cortical atrophy is noted. Periventricular white matter shows hyper intensity on inversion recovery T2-weighted sequences, some additional scattered hyperintensities are present in the subcortical white matter towards the convexities. No hemorrhage or hydrocephalus. Orb its show symmetric appearance. Paranasal sinuses and mastoid air cells are remarkable for minimal inf lammatory change in the mastoids on the right. The corpus callosum, cervical medullary junction, cere bellopontine angles are within normal limits. There is a partially empty sella. There are normal vasc ular flow voids. IMPRESSION: Age-related atrophy and chronic small vessel ischemic changes. Additional findings above.
--- NOTE | 2020-08-06 16:24 | P.PN ---
Subjective Progress Note Date: 08/06/20 Patient was seen at bedside. The per the patient nurse and she stated that the patient has no focal deficits that she noticed. She said that she got a hold of family members and that she was told that the patient had that scarring in her throat as a result she has difficulty speaking and the has dysarthria as a result. Objective - Vital Signs Vital signs: Vital Signs Temp 98.6 F 08/06/20 16:00 Pulse 60 08/06/20 16:00 Resp 22 08/06/20 16:00 BP 121/46 08/06/20 11:00 Pulse Ox 99 08/06/20 16:00 Intake & Output 08/05/20 08/06/20 08/06/20 18:59 06:59 18:59 Intake Total 490.349 326 737 Output Total 1870 1175 785 Balance -1379.651 -849 -48 Weight 53.5 kg Intake: IV 276 326 737 Ceftriaxone (Rocephin 50 50 ml) Dextrose 5%-0.9% NaCl 1, 450 000 ml @ 75 mls/hr IV . [id number] RODRIGO Rx#:[id number] Potassium Chloride 10 meq 200 In Water For Injection 1 100ml.bag @ 100 mls/hr IVPB Q1H RODRIGO Rx#: [id number] Pressure Bag 36 36 27 Sodium Chloride 0.9% 1, 240 240 60 000 ml @ 20 mls/hr IV . Q24H RODRIGO Rx#:[id number] Intake, IV Titration 66.349 Amount propofoL 1,000 mg In 66.349 Empty Bag 1 bag @ Titrate IV .Q0M RODRIGO Rx#: [id number] Tube Feeding 148 Output: Urine 1870 1175 785 Other: Voiding Method Indwelling Catheter Indwelling Catheter Indwelling Catheter ABP, PAP, CO, CI - Last Documented Arterial Blood Pressure 157/64 - Exam GENERAL: The patient is lying in bed and not in acute distress. NEUROLOGICAL: Higher mental function: The patient is awake, alert, oriented to self and time. Patient is following simple commands but seems to be slow in responding to questions.. Patient is a hypophonic. She has a hard time getting the words out (per the patient's nurse family members notified her that the patient has scarring in her throat and as a result she has a difficulty in the verbalizing the). No neglect. Cranial nerves: The pupils are round, equal 3-4mm and reactive to light. Visual barrera are full to confrontation throughout. Extraocular movement is intact and no nystagmus is noted. No facial weakness is noted the bilaterally. Has moderate dysarthria. Motor: Gait is deferred that. The strength and she was able to lift up upper and lower extremity above gravity without any drift and it was symmetrical. Handgrip does seem 5 out of 5 bilaterally. Patient's tones seems to be decreased throughout. Cerebellum: Unable to assess because of cooperation. Sensation: Unable to assess because of coopeation. Reflexes (right/left): 1+ throughout. Plantars are mute bilaterally. - Labs CBC & Chem 7: 08/06/20 04:40 08/06/20 04:40 Labs: Abnormal Lab Results - Last 24 Hours (Table) 08/06/20 08/06/20 08/06/20 Range/Units 04:40 04:40 04:40 WBC 16.0 H (3.8-10.6) k/uL RBC 3.35 L (3.80-5.40) m/uL Hgb 10.2 L (11.4-16.0) gm/dL Hct 29.7 L (34.0-46.0) % Neutrophils # 13.8 H (1.3-7.7) k/uL Fibrinogen 565 H (200-500) mg/dL D-Dimer 2.90 H (<0.60) mg/L FEU Chloride (98-107) mmol/L Carbon Dioxide (22-30) mmol/L BUN (7-17) mg/dL Ferritin (10.0-291.0) ng/mL AST (14-36) U/L ALT (4-34) U/L Alkaline Phosphatase (38-126) U/L Lactate Dehydrogenase (313-618) U/L C-Reactive Protein (<10.0) mg/L Total Protein (6.3-8.2) g/dL Albumin (3.5-5.0) g/dL Triglycerides 273 H (<150) mg/dL LDL Cholesterol, Calc 101 H (0-99) mg/dL HDL Cholesterol 34 L (40-60) mg/dL 08/06/20 Range/Units 04:40 WBC (3.8-10.6) k/uL RBC (3.80-5.40) m/uL Hgb (11.4-16.0) gm/dL Hct (34.0-46.0) % Neutrophils # (1.3-7.7) k/uL Fibrinogen (200-500) mg/dL D-Dimer (<0.60) mg/L FEU Chloride 109 H (98-107) mmol/L Carbon Dioxide 31 H (22-30) mmol/L BUN 28 H (7-17) mg/dL Ferritin 457.4 H (10.0-291.0) ng/mL AST 70 H (14-36) U/L ALT 50 H (4-34) U/L Alkaline Phosphatase 160 H (38-126) U/L Lactate Dehydrogenase 1637 H (313-618) U/L C-Reactive Protein 185.5 H (<10.0) mg/L Total Protein 5.9 L (6.3-8.2) g/dL Albumin 2.8 L (3.5-5.0) g/dL Triglycerides (<150) mg/dL LDL Cholesterol, Calc (0-99) mg/dL HDL Cholesterol (40-60) mg/dL Assessment and Plan Assessment: This is a 75-year-old woman that was transferred from outside facility because of the escalation of treatment for atrial fibrillation with RVR as well as that she had a positive Covid 19. Transient ischemic attack: Acute left sided weakness. Etiology: cardioemoblic especially with a history of atrial fibrillation. Dysarthria, hypophonia and limited language (per family members that she had an old scar in the throat and that relayed to Patient's nurse) Atrial fibrillation on the Eliquis 5mg bid Covid 19 pneumonitis History of hypothyroidism History of hypertension Lifelong nonsmoker Plan: CTA of the head and neck: Reported as negative CT angiogram of the the brain and the neck. MR the brain is reported as no restricted diffusion. Age-related atrophy and chronic small vessel ischemic changes at. Additional finding above. Patient did not receive that TPA since the patient was on Eliquis annular symptoms were improving. Yesterday I stopped Eliquis 5 mg twice a day because of the concern of stroke. And I started the patient on aspirin and Plavix 75 mg daily. Because the patient did not have any stroke on the MRI I recommended the for the Eliquis to be restarted. And as a result he stopped the aspirin and Plavix since the Eliquis was restarted. Notified that the cardiology team to reevaluate the patient and the patient possibly had transischemic attack. I recommend either a change in anticoagula tion to the different one or consider adding aspirin in addition to the Eliquis but will defer the management to the cardiology team. Continue Lipitor 40 mg daily PT/OT and PROGRAM PROPOSALS COORDINATOR are consulted. Lipid panel: Triglyceride is 273, cholesterol is 190, LDLs 101 and HDL is 34. LDL goal for stroke is the less than 70. Upon discharge the patient is to follow up with a neurologist within the 2 weeks. The plan was discussed with the patient nurse. Giorgi Watson M.D. Neuro-hospitalist Time with Patient: Less than 30
[2020-08-06] MEDS: CLEVIDIPINE BUTYRATE 25 MG in EMPTY BAG 1 BAG IV SCH ×2 (16:29→22:07)
[2020-08-06] MEDS ORDERED: HEPARIN SODIUM,PORCINE 5,000 UNIT/ML 1 ML VIAL IV ONE (18:28)
[2020-08-06] MEDS ORDERED: HEPARIN SODIUM,PORCINE 5,000 UNIT/ML 1 ML VIAL IV PRN (18:28)
[2020-08-06 19:11] LABS: Basophils % (A) 0 %; Eosinophils % (A) 0 %; HCT 30.7 % (34.0-46.0); HGB 10.1 gm/dL (11.4-16.0); Lymphocytes # (A) 0.8 k/uL (1.0-4.8); Lymphocytes % (A) 6 %; MCH 29.4 pg (25.0-35.0); MCHC 32.9 g/dL (31.0-37.0); MCV 89.3 fL (80.0-100.0); Mean Platelet Volume 7.6; Monocytes # (A) 0.3 k/uL (0-1.0); Monocytes % (A) 2 %; Neutrophils # (A) 12.4 k/uL (1.3-7.7); Neutrophils % (A) 91 %; Platelet Count 256 k/uL (150-450); RBC 3.44 m/uL (3.80-5.40); RDW 14.9 % (11.5-15.5); WBC 13.6 k/uL (3.8-10.6)
[2020-08-06 19:20] LABS: INR 0.9 (<1.2); Partial Thromboplastin Time 23.7 sec (22.0-30.0); Prothrombin Time 9.5 sec (9.0-12.0)
[2020-08-06] MEDS: HEPARIN SOD,PORK IN 0.45% NACL 25,000 UNIT in 0.45% NACL 1 250ML.BAG IV SCH (20:20)
[2020-08-06] MEDS ORDERED: APIXABAN 2.5 MG TABLET PO SCH (21:00)
--- NOTE | 2020-08-06 22:29 | P.PN ---
Subjective This is a pleasant 75 years old female with past medical history of hypertension, hypothyroidism. Patient could not provide much information so it was taken From staff and records. She presents to [facility] with respiratory symptoms and dyspnea associated with some complaint but no chest pain. There she was treated for atrial fibrillation with RVR and she was found to have positive covid 19 test. Patient is afebrile, she is tachypneic with respiratory rate about 26-27, hypoxic with oxygen saturation of 99% on 15 L via nasal cannula. Blood pressure is 106/89. CBC from today is unremarkable. Troponin is elevated 0.17. High lactate dehydrogenase 1276 and C-reactive protein 256. And once is negative. Chest x- ray showing severe pulmonary edema could relate to RDS and is similar to a computed tomography scan earlier today 07/31/2020 Patient was admitted with Covid pneumonia and respiratory failure, her condition got deteriorated yesterday and she got intubated and now she is on mechanical ventilation was pulmonary/critical care team monitor and carefully. Also she had A. fib with RVR and converted to sinus rhythm, her Cardizem drip was stopped and her heparin drip was switched liquids. She continued to be on Zithromax and ceftriaxone and vitamins C and zinc 08/01/2020 Patient is admitted with Covid pneumonia and course is complicated by A. fib and RVR. Patient remains in the ICU in critical condition, she is intubated and on mechanical ventilation with pulmonary/critical care team on the case. Also cartilage informed the case closely Treatments and dexamethasone, liquids, zinc, vitamin C, antibiotics with Zithromax and ceftriaxone. No reemdesivir as per pulmonary team recommendation Today I was contacted by the social media intern and stop that the patient and daughter works in [place] they want patient to be transferred upon the request to [facility] I discussed the case with who declined To accept the patient to be transferred to [facility] 08/02/2020 Patient is in the ICU for bilateral covid Pneumonia, she is intubated and on mechanical ventilation. Her heart rate atrial fibrillation was converted to sinus rhythm and currently her own in the low 50s. Blood pressure is just above 100. Patient does not need support by pressors. Leukocytosis is improving, BMP is unremarkable. Influenza virus is negative. Chest x-ray showed persistent bilateral mid to lower lung acute infiltrate and/or edema. No significant change from one day earlier Patient remains on dexamethasone, Eliquis and broad-spectrum antibiotics. Patient in the ICU intubated, pulmonary/critical care team are planning CPAP tomorrow, PEEP dropped. Other than that, change from yesterday, her heart rate shown bradycardia although in sinus rhythm therefore Cardizem and beta blockers were stopped, patient kept on Eliquis for her A. fib and cardiology team signed off. Patient on Zithromax, ceftriaxone, dexamethasone no remdesivir . she is status convescalnet plasam as well 08/04/20 Patient is still on mechanical ventilation, pulmonary/critical care team trying breathing for the patient but with no success today Other than that She'll continue with same treatment of steroids, Eliquis, azithromycin and ceftriaxone. No Cardizem or beta blockers for bradycardia. However heart rate is improved today to 60-70. WBC trending down to 12 K 08/05/20 pt is extubated today by pulmonary team , after extubation she started having stroke like ,left arm weakness, lip and left eye droop , and possible leg weakness, CT of brain is negative for stroke and CTA of the brain is ordered and is pending , neurologist was consulted who ordered MRI of the brain tomorrow. pt is currently saturating on 5 L/m of oxygen Eliquis was held by consultants while she remains on dexamethasone, stress and Zithromax. Chest x-ray looks stable Patient is followed closely by pulmonary/critical care team 08/06/2020 Patient is status extubation currently on 6 L oxygen. Pulmonary team discontinue with vitamin C and zinc and this continue with Zithromax and ceftriaxone. Patient is kept on dexamethasone Her left side weakness improved, neurology on the case MRI of the brain did not show stroke. Anticoagulation resumed with heparin drip per cardiology team for now D-dimer is 2.9, WBC 13 K. Heart rate is 60-70 sinus rhythm. Review of systems CONSTITUTIONAL: No fever, no malaise, no fatigue. HEENT: No recent visual problems or hearing problems. Denied any sore throat. CARDIOVASCULAR: No orthopnea, PND, no palpitations, no syncope. PULMONARY: No shortness of breath, no cough, no hemoptysis. GASTROINTESTINAL: No diarrhea, no nausea, no vomiting, no abdominal pain. Normoactive bowel sounds. NEUROLOGICAL: No headaches, no weakness, no numbness. Active Medications Generic Name Dose Route Start Last Admin Trade Name Freq PRN Reason Stop Dose Admin Albuterol Sulfate 2 puff 07/30/20 08:00 08/06/20 22:17 Albuterol Hfa Inhaler INHALATION Not Given RT-QID RODRIGO Dexamethasone Sodium Phosphate 6 mg 07/30/20 16:15 08/06/20 10:39 Dexamethasone Sod Phosphate 10 Mg/Ml 1 Ml Vial IV 6 mg DAILY RODRIGO Administration Famotidine 20 mg 08/06/20 09:30 08/06/20 20:18 Famotidine 20 Mg/2 Ml Vial IV 20 mg Q12HR RODRIGO Administration Furosemide 20 mg 07/31/20 09:30 08/06/20 10:39 Furosemide 10 Mg/Ml 2 Ml Vial IV 20 mg DAILY RODRIGO Administration Heparin Sodium (Porcine) 0 unit 08/06/20 18:28 Heparin Sodium,Porcine 5,000 Unit/Ml 1 Ml Vial IV PER PROTOCOL PRN Low PTT Protocol Clevidipine 25 mg/ IV Solution 50 mls @ 2 mls/hr 08/05/20 15:45 08/06/20 22:07 IV 2 mg/hr .Q24H RODRIGO 4 mls/hr Administration Protocol 1 MG/HR Acetaminophen 1,000 mg/ IV 100 mls @ 400 mls/hr 08/06/20 09:20 Solution IVPB 08/07/20 06:14 Q6HR PRN Fever and/ or Pain Dextrose/Sodium Chloride 1,000 mls @ 75 mls/hr 08/06/20 09:30 08/06/20 10:39 Dextrose 5%-Ns Iv Soln IV 75 mls/hr .[id number] RODRIGO Administration Heparin Sodium/Sodium Chloride 250 mls @ 6.42 mls/hr 08/06/20 18:30 08/06/20 20:20 25,000 unit/ Sodium Chloride IV 12 units/kg/hr .Q24H RODRIGO 6.42 mls/hr Administration Protocol 12 UNITS/KG/HR Levothyroxine Sodium 50 mcg 08/06/20 09:30 08/06/20 10:42 Levothyroxine Ivp 100 Mcg/5 Ml Vial IV 50 mcg DAILY RODRIGO Administration Miscellaneous Information 1 each 07/31/20 07:24 Potassium Replacement Protocol 1 Each Misc MISCELLANE DAILY PRN Per Protocol Protocol Miscellaneous Information 1 each 07/31/20 18:39 Potassium Replacement Protocol 1 Each [facility] MISCELLANE DAILY PRN Per Protocol Protocol Miscellaneous Information 1 each 08/06/20 07:41 Potassium Replacement Protocol 1 Each [facility] MISCELLANE DAILY PRN Per Protocol Protocol Objective - Vital Signs Vital signs: Vital Signs Temp 98.1 F 08/06/20 13:00 Pulse 65 08/06/20 15:00 Resp 30 H 08/06/20 15:00 BP 121/46 08/06/20 11:00 Pulse Ox 99 08/06/20 15:00 Intake & Output 08/05/20 08/06/20 08/06/20 18:59 06:59 18:59 Intake Total 490.349 326 737 Output Total 1870 1175 785 Balance -1379.651 -849 -48 Weight 53.5 kg Intake: IV 276 326 737 Ceftriaxone (Rocephin 50 50 ml) Dextrose 5%-0.9% NaCl 1, 450 000 ml @ 75 mls/hr IV . [id number] RODRIGO Rx#:[id number] Potassium Chloride 10 meq 200 In Water For Injection 1 100ml.bag @ 100 mls/hr IVPB Q1H RODRIGO Rx#: [id number] Pressure Bag 36 36 27 Sodium Chloride 0.9% 1, 240 240 60 000 ml @ 20 mls/hr IV . Q24H RODRIGO Rx#:[id number] Intake, IV Titration 66.349 Amount propofoL 1,000 mg In 66.349 Empty Bag 1 bag @ Titrate IV .Q0M RODRIGO Rx#: [id number] Tube Feeding 148 Output: Urine 1870 1175 785 Other: Voiding Method Indwelling Catheter Indwelling Catheter ABP, PAP, CO, CI - Last Documented Arterial Blood Pressure 155/65 - Exam -GENERAL: The patient is generally weak HEENT: Pupils are round and equally reacting to light. EOMI. No scleral icterus. No conjunctival pallor. Normocephalic, atraumatic. No pharyngeal erythema. No thyromegaly. CARDIOVASCULAR: S1 and S2 present. No murmurs, rubs, or gallops. PULMONARY: Chest is clear to auscultation, no wheezing or crackles. ABDOMEN: Soft, nontender, nondistended, normoactive bowel sounds. No palpable organomegaly. MUSCULOSKELETAL: No joint swelling or deformity. EXTREMITIES: No cyanosis, clubbing, or pedal edema. -NEUROLOGICAL: Left facial droop with left arm weakness. SKIN: No rashes. no petechiae. - Labs CBC & Chem 7: 08/06/20 18:45 08/06/20 04:40 Labs: Abnormal Lab Results - Last 24 Hours (Table) 08/06/20 08/06/20 08/06/20 Range/Units 04:40 04:40 04:40 WBC 16.0 H (3.8-10.6) k/uL RBC 3.35 L (3.80-5.40) m/uL Hgb 10.2 L (11.4-16.0) gm/dL Hct 29.7 L (34.0-46.0) % Neutrophils # 13.8 H (1.3-7.7) k/uL Fibrinogen 565 H (200-500) mg/dL D-Dimer 2.90 H (<0.60) mg/L FEU Chloride (98-107) mmol/L Carbon Dioxide (22-30) mmol/L BUN (7-17) mg/dL Ferritin (10.0-291.0) ng/mL AST (14-36) U/L ALT (4-34) U/L Alkaline Phosphatase (38-126) U/L Lactate Dehydrogenase (313-618) U/L C-Reactive Protein (<10.0) mg/L Total Protein (6.3-8.2) g/dL Albumin (3.5-5.0) g/dL Triglycerides 273 H (<150) mg/dL LDL Cholesterol, Calc 101 H (0-99) mg/dL HDL Cholesterol 34 L (40-60) mg/dL 08/06/20 Range/Units 04:40 WBC (3.8-10.6) k/uL RBC (3.80-5.40) m/uL Hgb (11.4-16.0) gm/dL Hct (34.0-46.0) % Neutrophils # (1.3-7.7) k/uL Fibrinogen (200-500) mg/dL D-Dimer (<0.60) mg/L FEU Chloride 109 H (98-107) mmol/L Carbon Dioxide 31 H (22-30) mmol/L BUN 28 H (7-17) mg/dL Ferritin 457.4 H (10.0-291.0) ng/mL AST 70 H (14-36) U/L ALT 50 H (4-34) U/L Alkaline Phosphatase 160 H (38-126) U/L Lactate Dehydrogenase 1637 H (313-618) U/L C-Reactive Protein 185.5 H (<10.0) mg/L Total Protein 5.9 L (6.3-8.2) g/dL Albumin 2.8 L (3.5-5.0) g/dL Triglycerides (<150) mg/dL LDL Cholesterol, Calc (0-99) mg/dL HDL Cholesterol (40-60) mg/dL Assessment and Plan Assessment: -Bilateral Covid 19 pneumonia: Continue with dexamethasone, and anticoagulation. Pulmonary consult. She is status post extubation -Acute hypoxic respiratory failure secondary to above -TIA with left arm and left eye and lip droop . -A. fib and RVR, patient rate is controlled. Currently on heparin drip -Increased inflammatory markers secondary to above and infection -Hypertension -Hypothyroidism DVT prophylaxis. Eliquis is on hold, and patient is currently on heparin drip GI prophylaxis: Protonix Prognosis is guarded
[2020-08-07 04:21] LABS: Basophils # (A) 0.1 k/uL (0-0.2); Basophils % (A) 0 %; Eosinophils # (A) 0.1 k/uL (0-0.7); Eosinophils % (A) 1 %; HCT 30.3 % (34.0-46.0); HGB 10.5 gm/dL (11.4-16.0); Lymphocytes # (A) 1.5 k/uL (1.0-4.8); Lymphocytes % (A) 9 %; MCH 30.9 pg (25.0-35.0); MCHC 34.8 g/dL (31.0-37.0); MCV 88.8 fL (80.0-100.0); Mean Platelet Volume 7.8; Monocytes # (A) 0.4 k/uL (0-1.0); Monocytes % (A) 3 %; Neutrophils # (A) 14.4 k/uL (1.3-7.7); Neutrophils % (A) 87 %; Platelet Count 264 k/uL (150-450); RBC 3.41 m/uL (3.80-5.40); RDW 14.9 % (11.5-15.5); WBC 16.6 k/uL (3.8-10.6)
[2020-08-07 04:34] LABS: D-Dimer 1.97 mg/L FEU (<0.60); Partial Thromboplastin Time 56.5 sec (22.0-30.0)
[2020-08-07 04:57] LABS: ALT 40 U/L (4-34); AST 52 U/L (14-36); African American GFR (CKD) >90 (>60 ml/min/1.73 sqM); Albumin 2.8 g/dL (3.5-5.0); Alkaline Phosphatase 146 U/L (38-126); Anion Gap 1 mmol/L; Blood Urea Nitrogen 23 mg/dL (7-17); Calcium 8.4 mg/dL (8.4-10.2); Carbon Dioxide 30 mmol/L (22-30); Chloride 108 mmol/L (98-107); Glucose 109 mg/dL (74-99); Non-African American GFR(CKD) >90 (>60 ml/min/1.73 sqM); Potassium 3.6 mmol/L (3.5-5.1); Sodium 139 mmol/L (137-145); Total Bilirubin 0.4 mg/dL (0.2-1.3); Total Protein 6.2 g/dL (6.3-8.2)
[2020-08-07 05:08] LABS: LDH 1839 U/L (313-618)
[2020-08-07 05:50] LABS: C Reactive Protein 201.8 mg/L (<10.0)
[2020-08-07] MEDS: POTASSIUM CHLORIDE 10 MEQ in WATER FOR INJECTION 1 100ML.BAG IVPB SCH ×2 (07:18→08:02)
[2020-08-07] MEDS: DEXTROSE 5%-0.9% NACL 1,000 ML IV SCH ×2 (07:59→17:51)
[2020-08-07] MEDS: FAMOTIDINE 20 MG/2 ML VIAL IV SCH ×2 (08:03→20:25)
[2020-08-07] MEDS: FUROSEMIDE 10 MG/ML 2 ML VIAL IV SCH (08:03)
[2020-08-07] MEDS: DEXAMETHASONE SOD PHOSPHATE 10 MG/ML 1 ML VIAL IV SCH (08:03)
[2020-08-07] MEDS: LEVOTHYROXINE IVP 100 MCG/5 ML VIAL IV SCH (08:03)
[2020-08-07] MEDS: ALBUTEROL HFA INHALER INHALATION SCH ×4 (08:05→20:29)
--- NOTE | 2020-08-07 09:15 | XR ---
EXAMINATION TYPE: XR chest 1V portable DATE OF EXAM: 08/07/2020 COMPARISON: Prior chest x-ray 08/06/2020 HISTORY: Pneumonia TECHNIQUE: Single frontal view of the chest is obtained. FINDINGS: Bilateral airspace disease shows a similar appearance. Central venous catheter is stable. No pneumothorax or pleural effusion. Heart is stable. IMPRESSION: Essentially stable exam. Correlate for pneumonia.
[2020-08-07 09:52] LABS: Ferritin 565.9 ng/mL (10.0-291.0)
--- NOTE | 2020-08-07 10:50 | PN ---
PROGRESS NOTE PULMONARY/CRITICAL CARE PROGRESS NOTE: DATE OF SERVICE: 08/07/2020 This is a 75-year-old female who was initially admitted to the hospital on July 29, 2020. She was admitted with a diagnosis of COVID-19 pneumonitis/pneumonia with severe hypoxemic respiratory failure. She was intubated on July 30. She was successfully extubated on August 05. Currently, she is resting comfortably in the ICU. Unfortunately, her oxygen requirements have gone up. She is on 10 L high flow. Her chest x-ray has worsened. She is on Cleviprex for blood pressure control, 2 mg an hour. She is getting D5 of 0.9 at 75 mL an hour and heparin via weight-based protocol. She did have an MRI yesterday which showed no acute abnormalities. Currently, she is profoundly weak. The patient is poorly responsive, but does respond appropriately. I did ask her about return to mechanical ventilation. She said she would not want to be on mechanical ventilation. In addition, she has a history of new onset atrial fibrillation with RVR, hypertension, hypothyroidism, and she is a lifelong nonsmoker. Current vital signs are reviewed, temperature 97.9, heart rate 64, respiratory rate 18, blood pressure 120/43, saturations 97% on the 10 L high flow. Appears quite lethargic and sleepy. Very weak appearing. HEENT: Examination is grossly unremarkable. Nasal cannula in place. NECK: Supple, full range of motion. No adenopathy. Neck veins are flat. CARDIOVASCULAR: Examination reveals regular rhythm and rate. Heart rate 70 beats per minute. S1, S2 normal. LUNGS: Reveal coarse rhonchi. Breath sounds are diminished. ABDOMEN: Soft, bowel sounds are heard. EXTREMITIES: Intact. Mild edema. SKIN: Without rash. NEUROLOGIC: Examination is difficult to assess. She does have profound muscle weakness of all 4 extremities. She does respond appropriately when spoken to. LABS: Reviewed. White count 16.6, hemoglobin 10.5, hematocrit 30.3, platelet count 264,000, PT, INR, PTT normal. Most recent PTT is 56.5. Her D-dimer is 1.97. Sodium 139, potassium 3.6, chloride is 108, CO2 is 30, anion gap is 1. BUN and creatinine were 23 and 0.56. AST 52, ALT 40, LDH is 18 39. C-reactive protein 201.8 . Microbiology is negative. Chest x-ray shows diffuse bilateral infiltrates, likely a bit worse than they were the day before. CURRENT MEDICATIONS: Reviewed. The patient is on albuterol inhaler, Cleviprex, Decadron, IV fluids, Pepcid, Lasix, IV heparin, levothyroxine, Ativan, and potassium replacement. ASSESSMENT: 1. Acute hypoxemic respiratory failure secondary to COVID-19 pneumonitis, with admission on July 29, intubation for respiratory failure on 07/30, and successful extubation on August 05, 2020. 2. Bilateral patchy infiltrates consistent with COVID-19 pneumonitis, a bit worse, with worsening oxygen requirement. 3. Mental status changes, which may relate to metabolic encephalopathy. 4. New onset atrial fibrillation, currently on IV heparin. 5. Essential hypertension. 6. Hypothyroidism. 7. Lifelong nonsmoker. PLAN: The patient's oxygen requirements have gone up. Her x-ray is a bit worse. She is profoundly weak. When I asked her about whether or not she wants to go back on life support, she states no. She is currently on Cleviprex for blood pressure control. The patient has profound muscle weakness of all 4 extremities. She remains on IV heparin. I did try calling Marixa, the granddaughter to speak more about code status with her. Apparently she is the medical decision maker for this patient. We left a message to call the ICU. No additional recommendations are made. MRA showed nothing acute. MMODL / IJN: [id number] /
--- NOTE | 2020-08-07 13:16 | P.PN ---
Subjective Progress Note Date: 08/07/20 He was seen at bedside and the she is about the same the headache compared to yesterday. There is no further left-sided weakness or any new weakness. No facial weakness noted by the nurse. Objective - Vital Signs Vital signs: Vital Signs Temp 97.9 F 08/07/20 08:00 Pulse 68 08/07/20 10:00 Resp 16 08/07/20 10:00 BP 121/46 08/06/20 11:00 Pulse Ox 98 08/07/20 10:00 Intake & Output 08/06/20 08/07/20 08/07/20 18:59 06:59 18:59 Intake Total 1055 897.333 490 Output Total 965 965 685 Balance 90 -67.667 -195 Weight 64 kg 64 kg Intake: IV 1055 858 490 Dextrose 5%-0.9% NaCl 1, 750 825 375 000 ml @ 75 mls/hr IV . [id number] RODRIGO Rx#:[id number] Potassium Chloride 10 meq 200 100 In Water For Injection 1 100ml.bag @ 100 mls/hr IVPB Q1H RODRIGO Rx#: [id number] Pressure Bag 45 33 15 Sodium Chloride 0.9% 1, 60 000 ml @ 20 mls/hr IV . Q24H RODRIGO Rx#:[id number] Intake, IV Titration 39.333 Amount Clevidipine Butyrate 25 39.333 mg In Empty Bag 1 bag @ 1 MG/HR 2 mls/hr IV .Q24H RODRIGO Rx#:[id number] Output: Urine 965 965 685 Other: Voiding Method Indwelling Catheter Indwelling Catheter Indwelling Catheter ABP, PAP, CO, CI - Last Documented Arterial Blood Pressure 123/45 - Exam GENERAL: The patient is lying in bed and not in acute distress. NEUROLOGICAL: Higher mental function: The patient is drowsy but awake and able to voice. O riented to self and time. Not place. Patient is following simple commands but s slow in responding to questions (slightly better today compared to yesterday).. Patient is a hypophonic. She has a hard time getting the words out (per the patient's nurse family members notified her that the patient has scarring in her throat and as a result she has a difficulty in the verbalizing the). No neglect. Cranial nerves: The pupils are round, equal 3-4mm and reactive to light. Visual barrera are full to confrontation throughout. Extraocular movement is intact and no nystagmus is noted. No facial weakness is noted the bilaterally. Has moderate dysarthria. Motor: Gait is deferred that. The strength and she was able to lift up upper and lower extremity above gravity without any drift and it was symmetrical. Handgrip does seem 5 out of 5 bilaterally. Palate patient had the a slight wrist drop but was able to lift it up above gravity and had a strength of a 4+. No spontaneous movement noted. Cerebellum: Unable to assess because of cooperation. Sensation: Unable to assess because of coopeation. Reflexes (right/left): 1+ throughout. Plantars are mute bilaterally. - Labs CBC & Chem 7: 08/07/20 04:00 08/07/20 04:00 Labs: Abnormal Lab Results - Last 24 Hours (Table) 08/06/20 08/06/20 08/07/20 Range/Units 18:45 23:45 04:00 WBC 13.6 H 16.6 H (3.8-10.6) k/uL RBC 3.44 L 3.41 L (3.80-5.40) m/uL Hgb 10.1 L 10.5 L (11.4-16.0) gm/dL Hct 30.7 L 30.3 L (34.0-46.0) % Neutrophils # 12.4 H 14.4 H (1.3-7.7) k/uL Lymphocytes # 0.8 L (1.0-4.8) k/uL APTT (22.0-30.0) sec D-Dimer (<0.60) mg/L FEU Chloride (98-107) mmol/L BUN (7-17) mg/dL Glucose (74-99) mg/dL Ferritin (10.0-291.0) ng/mL AST (14-36) U/L ALT (4-34) U/L Alkaline Phosphatase (38-126) U/L Lactate Dehydrogenase (313-618) U/L C-Reactive Protein (<10.0) mg/L Total Protein (6.3-8.2) g/dL Albumin (3.5-5.0) g/dL Stool Occult Blood Positive H (Negative) 08/07/20 08/07/20 Range/Units 04:00 04:00 WBC (3.8-10.6) k/uL RBC (3.80-5.40) m/uL Hgb (11.4-16.0) gm/dL Hct (34.0-46.0) % Neutrophils # (1.3-7.7) k/uL Lymphocytes # (1.0-4.8) k/uL APTT 56.5 H (22.0-30.0) sec D-Dimer 1.97 H (<0.60) mg/L FEU Chloride 108 H (98-107) mmol/L BUN 23 H (7-17) mg/dL Glucose 109 H (74-99) mg/dL Ferritin 565.9 H (10.0-291.0) ng/mL AST 52 H (14-36) U/L ALT 40 H (4-34) U/L Alkaline Phosphatase 146 H (38-126) U/L Lactate Dehydrogenase 1839 H (313-618) U/L C-Reactive Protein 201.8 H (<10.0) mg/L Total Protein 6.2 L (6.3-8.2) g/dL Albumin 2.8 L (3.5-5.0) g/dL Stool Occult Blood (Negative) Assessment and Plan Assessment: This is a 75-year-old woman that was transferred from outside facility because of the escalation of treatment for atrial fibrillation with RVR as well as that she had a positive Covid 19. Transient ischemic attack: Acute left sided weakness. Etiology: cardioemoblic especially with a history of atrial fibrillation. 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 Atrial fibrillation on the Eliquis 5mg bid Covid 19 pneumonitis History of hypothyroidism History of hypertension Lifelong nonsmoker Plan: CTA of the head and neck: Reported as negative CT angiogram of the the brain and the neck. MR the brain is reported as no restricted diffusion. Age-related atrophy and chronic small vessel ischemic changes at. Additional finding above. Patient did not receive that TPA since the patient was on Eliquis annular symptoms were improving. Patient is on Eliquis 5 mg twice a day which was stopped by cardiology. Cardiology started the patient on heparin drip. From a neurology perspective either foot cardiology team the since there is a possibility that the patient had transischemic attack and she was on Eliquis, to consider either adding aspirin 81mg or changing to a different anticoagulation. I'll defer the management to the cardiology team Continue Lipitor 40 mg daily PT/OT and MORPHOLOGIST are consulted. Lipid panel: Triglyceride is 273, cholesterol is 190, LDLs 101 and HDL is 34. LDL goal for stroke is the less than 70. Regarding the patient mild the right wrist drop which is concerning for possible radial neuropathy. Recommend the EMG with nerve conduction study as an outpatient. Upon discharge the patient is to follow up with a neurologist within the 2 weeks. The plan was discussed with the patient nurse. There is no further neurological workup needed. We'll sign off. Please reconsult if needed. Giorgi Watson M.D. Neuro-hospitalist Time with Patient: Less than 30
[2020-08-07] MEDS: HEPARIN SOD,PORK IN 0.45% NACL 25,000 UNIT in 0.45% NACL 1 250ML.BAG IV SCH (17:51)
[2020-08-08] MEDS: DEXTROSE 5%-0.9% NACL 1,000 ML IV SCH ×2 (03:00→12:01)
[2020-08-08 05:08] LABS: Basophils # (A) 0.1 k/uL (0-0.2); Basophils % (A) 0 %; Eosinophils # (A) 0.1 k/uL (0-0.7); Eosinophils % (A) 0 %; HCT 30.3 % (34.0-46.0); HGB 10.4 gm/dL (11.4-16.0); Lymphocytes # (A) 1.4 k/uL (1.0-4.8); Lymphocytes % (A) 7 %; MCH 30.1 pg (25.0-35.0); MCHC 34.3 g/dL (31.0-37.0); MCV 87.7 fL (80.0-100.0); Mean Platelet Volume 7.6; Monocytes # (A) 0.5 k/uL (0-1.0); Monocytes % (A) 2 %; Neutrophils # (A) 18.8 k/uL (1.3-7.7); Neutrophils % (A) 90 %; Platelet Count 272 k/uL (150-450); RBC 3.46 m/uL (3.80-5.40); RDW 14.6 % (11.5-15.5); WBC 20.9 k/uL (3.8-10.6)
[2020-08-08] MEDS: CLEVIDIPINE BUTYRATE 25 MG in EMPTY BAG 1 BAG IV SCH (05:21)
[2020-08-08 05:24] LABS: D-Dimer 2.99 mg/L FEU (<0.60); Partial Thromboplastin Time 46.6 sec (22.0-30.0)
[2020-08-08 06:02] LABS: ALT 36 U/L (4-34); AST 44 U/L (14-36); African American GFR (CKD) >90 (>60 ml/min/1.73 sqM); Albumin 2.7 g/dL (3.5-5.0); Alkaline Phosphatase 179 U/L (38-126); Anion Gap 5 mmol/L; Blood Urea Nitrogen 19 mg/dL (7-17); Calcium 8.2 mg/dL (8.4-10.2); Carbon Dioxide 25 mmol/L (22-30); Chloride 107 mmol/L (98-107); Glucose 82 mg/dL (74-99); LDH 1823 U/L (313-618); Non-African American GFR(CKD) >90 (>60 ml/min/1.73 sqM); Sodium 137 mmol/L (137-145); Total Bilirubin 0.5 mg/dL (0.2-1.3); Total Protein 5.9 g/dL (6.3-8.2)
[2020-08-08 06:34] LABS: C Reactive Protein 142.5 mg/L (<10.0)
--- NOTE | 2020-08-08 07:49 | XR ---
EXAMINATION TYPE: XR chest 1V portable DATE OF EXAM: 08/08/2020 Comparison: 08/07/2020 Clinical History: 75-year-old female follow-up pneumonia Findings: Right IJ CVC tip in the upper right atrium. Heart upper limits of normal in size. Scattered atheroscl erotic calcifications within the aorta. Confluent airspace opacity especially in the periphery of the left greater than right mid and lower lungs. No sizable effusion. Impression: Continued airspace disease left greater than right mid and lower lungs without significant change.
[2020-08-08] MEDS: POTASSIUM CHLORIDE 20 MEQ in WATER FOR INJECTION 1 100ML.BAG IVPB SCH ×2 (07:54→08:15)
[2020-08-08] MEDS: DEXAMETHASONE SOD PHOSPHATE 10 MG/ML 1 ML VIAL IV SCH (08:14)
[2020-08-08] MEDS: FAMOTIDINE 20 MG/2 ML VIAL IV SCH ×2 (08:14→20:30)
[2020-08-08] MEDS: LEVOTHYROXINE IVP 100 MCG/5 ML VIAL IV SCH (08:14)
[2020-08-08] MEDS: FUROSEMIDE 10 MG/ML 2 ML VIAL IV SCH (08:14)
[2020-08-08] MEDS: HEPARIN SOD,PORK IN 0.45% NACL 25,000 UNIT in 0.45% NACL 1 250ML.BAG IV SCH (08:16)
[2020-08-08] MEDS: ALBUTEROL HFA INHALER INHALATION SCH ×4 (09:10→21:01)
[2020-08-08 10:12] LABS: Ferritin 544.9 ng/mL (10.0-291.0)
--- NOTE | 2020-08-08 10:54 | P.PN ---
Subjective Progress Note Date: 08/08/20 Principal diagnosis: Acute hypoxic respiratory failure secondary to CoVID 19 pneumonitis This is a 75-year-old female transferred last night from [facility], patient presented to the hospital with 2 weeks history of progressive weakness, shortness of breath, patient was recently diagnosed with urinary tract infection, and treated recently with Augmentin. Patient has not been taking her medications. In [place], the patient was having some pulmonary symptoms including cough and congestion, cough is described as nonproductive, she had no headaches, no myalgia, no syncopal episodes, no fevers or chills. While in [place], patient developed atrial fibrillation with RVR, and she also tested positive for Covid 19 pneumonitis. Chest x-ray clearly showed extensive b ilateral peripheral infiltrates and consolidations. Patient was transferred to [facility], she was treated in the ER with Cardizem drip, patient is waiting for a bed to be admitted to the ICU, she is presently on 15 L high flow nasal cannula, patient converted to sinus rhythm apparently earlier today, she is hemodynamically stable, but considering her oxygen requirement and have significantly abnormal chest x-ray, waiting for a bed to be admitted to the ICU. Patient is not a great historian. WBC count today is 9.7 hemoglobin is 12.1. Influenza screen was negative. Her PTT is 70.5, therapeutic. patient is on heparin because of her atrial fibrillation. Patient was reevaluated today on 07/31/20, intubated and mechanically ventilated. Her clinical condition deteriorated yesterday, patient had to be intubated and ventilated. Presently on assist control rate of 20, tidal volume is 400, FiO2 is 100%, and PEEP is 10. ABG showed a pO2 of 71 pCO2 of 36 pH of 7.37. Drips include Propofol at 50 mcg/kg/m, heparin drip, 0.9 normal saline at 20 mL per hour, and norepinephrine at 0.05 mcg/kg/m. Presently off Nimbex. No specific changes were made with her ventilator settings. May consider increasing the PEEP. And the patient will receive a unit of convalescent plasma today. Chest x-ray showed bilateral interstitial infiltrates, and the tube was noted to be close to the evelyn, and this will be adjusted accordingly. Right IJ central line was placed and the patient today since she had very poor IV access. WBC count today is 23.3 hemoglobin is 11.2 electrolytes were noted and she had a low potassium of 2.9, being corrected as per protocol. Prior to intubation yesterday, her pO2 was 44 pCO2 was 31 and pH of 7.4 3. Reevaluated today on 08/01/20, remains in the ICU, intubated and mechanically ventilated. Her ventilator settings are assist control rate of 20 tidal volume is 400 FiO2 is 60% and PEEP is 12. ABG showed a pO2 of 108 pCO2 of 34 pH of 7.44 hence cut down her FiO2 to 50%. Patient remains on propofol at 50 mcg/kg/m, patient is off norepinephrine since 7 AM. IV fluids at KVO, patient is receiving enteral feeding. Lasix was given 20 mg IV push for low urine output. Reviewed chest x-ray today, continues to have bilateral interstitial in filtrates especially at the bases bilaterally right more so than left. CBC today showed leukocytosis with WBC of 14.4 hemoglobin is 10.5. Lactulose abnormal BUN is 37 creatinine 0.91. Reevaluated today on 08/02/20, patient remains in the ICU, intubated and mechanically ventilated. Her ventilator settings are assist control rate of 20 tidal volume is 400 FiO2 is 50% and PEEP is 12. ABG today showed a pO2 of 58 pCO2 of 33 pH of 7.49 hence FiO2 was increased to 55%. Patient remains on propofol at 25 mcg/kg/m, she is on enteral feeding vital HP30/30. Peak airway pressure is in the mid 30s, static pressures 27. Chest x-ray continues to show bilateral infiltrates, right more so than left. Echocardiogram showed good LV function. She is now maintaining sinus rhythm, although on admission she came in with atrial fibrillation and RVR. Her echo showed evidence of moderate pulmonary hypertension and moderate mitral regurgitation. The patient is seen today 08/05/2020 in follow-up in the intensive care unit. She remains intubated on the mechanical ventilator settings of assist control at a rate of 20, tidal volume 400, FiO2 50% and a PEEP of 8. Morning blood gases reveal a pO2 of 73, pCO2 38, pH 7.48. Sedated on propofol at 25 mcg/kg/m. 0.9 normal saline at 20 ML's per hour. She is being nourished with vital HP at 37 mL per hour which is goal. She has been receiving daily interruption of sedation and spontaneous breathing trials. She'll be placed on pressure support of 8 and a CPAP of 5. White count 14.8. Hemoglobin 9.8. Sodium 146. Potassium 3.7. Creatinine 0.72. Currently on ceftriaxone and azithromycin. Anticoagulated with Eliquis. Remains on vitamins C, D, Decadron, Pepcid, zinc The patient is seen today 08/06/2020 in follow-up in the intensive care unit. She was extubated yesterday. She is currently on 6 L high flow nasal cannula maintain O2 saturations in the 90s. Chest x-ray continues to revealed bilateral patchy airspace disease. No evidence of pneumothorax. She is 0.9 and 20 ML's per hour. [facility] proximal at 1 mg per hour. There was some concerns regarding left-sided weakness and facial droop yesterday. CT of the brain reveals asy mmetric hypodensity within the right cerebellar hemisphere possibly reflecting artifact versus subacute infarct. CT angiogram was negative of the neck and brain. MRI is pending. Neurology had been consulted. She did this daily swallow evaluation as well. White count 16.0. Hemoglobin 10.2. D-dimer 2.90. Sodium 142. Potassium 3.7. Creatinine 0.62. Ferritin 457. LDH 1637. C- reactive protein 185. The patient is seen today 08/08/2020 in follow-up in the intensive care unit. She remains extubated and maintaining O2 saturations in the 90s on 15 L high flow nasal cannula. She is still on clever proximal at 2 mg per hour, heparin drip per weight base protocol. D5.9 at 75 ML's per hour. Chest x-ray continues to show bilateral airspace disease left greater than right in the mid and lower lung barrera without any significant change. She is status post convalescent plasma. She was outside the window for Remdesivir. She is continued on Pepcid. Dr. Joshi had spoken with the patient's yesterday at length. She is currently a DO NOT RESUSCITATE/DO NOT INTUBATE CODE STATUS. She has failed swallow evaluation. We'll plan for nasogastric tube insertion for nutrition. White count 20.9. Hemoglobin 10.4. D-dimer 2.99. Fibrinogen 591. Sodium 137. Potassium 3.0. Creatinine 0.53. LDH 1823. C-reactive protein 142. Objective - Vital Signs Vital signs: Vital Signs Temp 98 F 08/08/20 04:00 Pulse 97 08/08/20 09:00 Resp 10 L 08/08/20 09:00 BP 121/46 08/06/20 11:00 Pulse Ox 94 L 08/08/20 09:11 Intake & Output 08/07/20 08/08/20 08/08/20 18:59 06:59 18:59 Intake Total 1036 1235.2 739.692 Output Total 1035 900 505 Balance 1 335.2 234.692 Weight 64 kg 65 kg Intake: IV 1036 1202 509 Dextrose 5%-0.9% NaCl 1, 900 1160 300 000 ml @ 100 mls/hr IV . Q10H RODRIGO Rx#:[id number] Potassium Chloride 10 meq 100 200 In Water For Injection 1 100ml.bag @ 100 mls/hr IVPB Q1H RODRIGO Rx#: [id number] Pressure Bag 36 42 9 Intake, IV Titration 33.2 230.692 Amount Clevidipine Butyrate 25 33.2 mg In Empty Bag 1 bag @ 1 MG/HR 2 mls/hr IV .Q24H RODRIGO Rx#:[id number] Heparin Sod,Pork in 0.45% 230.692 NaCl 25,000 unit In 0.45 % NaCl 1 250ml.bag @ 12 UNITS/KG/HR 6.42 mls/hr IV .Q24H RODRIGO Rx#: [id number] Output: Urine 1035 900 505 Other: Voiding Method Indwelling Catheter Indwelling Catheter ABP, PAP, CO, CI - Last Documented Arterial Blood Pressure 132/57 - Exam GENERAL EXAM: Alert, extremely weak 75-year-old female patient, on 15 L high flow nasal cannula, in no apparent distress. HEAD: Normocephalic. EYES: Sluggish reaction of pupils, equal size. NOSE: Clear with pink turbinates. THROAT: No erythema or exudates. NECK: No masses, no JVD. CHEST: No chest wall deformity. LUNGS: Equal air entry with basilar crackles CVS: S1 and S2 normal with no audible murmur, regular rhythm. ABDOMEN: No hepatosplenomegaly, normal bowel sounds, no guarding or rigidity. SPINE: No scoliosis or deformity SKIN: No rashes CENTRAL NERVOUS SYSTEM: Extremely weak, bilateral weakness, tone is normal in all 4 extremities. EXTREMITIES: There is no peripheral edema. No clubbing, no cyanosis. Peripheral pulses are intact. - Labs CBC & Chem 7: 08/08/20 04:39 08/08/20 04:39 Labs: Abnormal Lab Results - Last 24 Hours (Table) 08/08/20 08/08/20 08/08/20 Range/Units 04:39 04:39 04:39 WBC 20.9 H (3.8-10.6) k/uL RBC 3.46 L (3.80-5.40) m/uL Hgb 10.4 L (11.4-16.0) gm/dL Hct 30.3 L (34.0-46.0) % Neutrophils # 18.8 H (1.3-7.7) k/uL APTT 46.6 H (22.0-30.0) sec Fibrinogen 591 H (200-500) mg/dL D-Dimer 2.99 H (<0.60) mg/L FEU Potassium 3.0 L (3.5-5.1) mmol/L BUN 19 H (7-17) mg/dL Calcium 8.2 L (8.4-10.2) mg/dL Ferritin 544.9 H (10.0-291.0) ng/mL AST 44 H (14-36) U/L ALT 36 H (4-34) U/L Alkaline Phosphatase 179 H (38-126) U/L Lactate Dehydrogenase 1823 H (313-618) U/L C-Reactive Protein 142.5 H (<10.0) mg/L Total Protein 5.9 L (6.3-8.2) g/dL Albumin 2.7 L (3.5-5.0) g/dL Assessment and Plan Assessment: Acute hypoxic respiratory failure secondary to CoVID 19 pneumonitis, required intubation and mechanical ventilation on 07/30/20. She was beyond the window to be qualified for Remdesivir. Did receive convalescent plasma. Extubated on 08/05/2020, currently on 15 L nasal cannula. Chest x-ray continues to show bilateral patchy infiltrates Altered mental status with extreme weakness more so on the left, being evaluated by neurology. New onset atrial fibrillation with RVR, converted to sinus rhythm while in the emergency room. Remains in normal sinus rhythm. History of hypertension. History of hypothyroidism. Lifelong nonsmoker. Plan: The patient was seen and evaluated by Dr. Watson He did have an extended conversation with the patient's yesterday She is a DO NOT RESUSCITATE/DO NOT INTUBATE CODE STATUS do not to be reintubated Chest x-ray and labs reviewed Titrate the FiO2 as tolerated Discontinue the arterial line Place nasogastric tube for nutrition Prognosis is guarded We'll continue to follow and make further recommendations based on her clinical status Critical care time 35 minutes I, the cosigning physician, performed a history & physical examination of the patient. Lungs sounds with crackles in the bilateral posterior bases. Maintaining good O2 saturations in the 90s on 15 L/m per nasal cannula I discussed the assessment and plan of care with my nurse practitioner, Jesenia Varma. I attest to the above note as dictated by her. Time with Patient: Greater than 30
--- NOTE | 2020-08-08 12:40 | P.PN ---
Subjective This is a pleasant 75 years old female with past medical history of hypertension, hypothyroidism. Patient could not provide much information so it was taken From staff and records. She presents to [facility]'s with respiratory symptoms and dyspnea associated with some complaint but no chest pain. There she was treated for atrial fibrillation with RVR and she was found to have positive covid 19 test. Patient is afebrile, she is tachypneic with respiratory rate about 26-27, hypoxic with oxygen saturation of 99% on 15 L via nasal cannula. Blood pressure is 106/89. CBC from today is unremarkable. Troponin is elevated 0.17. High lactate dehydrogenase 1276 and C-reactive protein 256. And once is negative. Chest x- ray showing severe pulmonary edema could relate to RDS and is similar to a computed tomography scan earlier today 07/31/2020 Patient was admitted with Covid pneumonia and respiratory failure, her condition got deteriorated yesterday and she got intubated and now she is on mechanical ventilation was pulmonary/critical care team monitor and carefully. Also she had A. fib with RVR and converted to sinus rhythm, her Cardizem drip was stopped and her heparin drip was switched liquids. She continued to be on Zithromax and ceftriaxone and vitamins C and zinc 08/01/2020 Patient is admitted with Covid pneumonia and course is complicated by A. fib and RVR. Patient remains in the ICU in critical condition, she is intubated and on mechanical ventilation with pulmonary/critical care team on the case. Also cartilage informed the case closely Treatments and dexamethasone, liquids, zinc, vitamin C, antibiotics with Zithromax and ceftriaxone. No reemdesivir as per pulmonary team recommendation Today I was contacted by the social secretary and stop that the patient and daughter works in [place] they want patient to be transferred upon the request to [facility] I discussed the case with who declined To accept the patient to be transferred to [facility] 08/02/2020 Patient is in the ICU for bilateral covid Pneumonia, she is intubated and on mechanical ventilation. Her heart rate atrial fibrillation was converted to sinus rhythm and currently her own in the low 50s. Blood pressure is just above 100. Patient does not need support by pressors. Leukocytosis is improving, BMP is unremarkable. Influenza virus is negative. Chest x-ray showed persistent bilateral mid to lower lung acute infiltrate and/or edema. No significant change from one day earlier Patient remains on dexamethasone, Eliquis and broad-spectrum antibiotics. Patient in the ICU intubated, pulmonary/critical care team are planning CPAP tomorrow, PEEP dropped. Other than that, change from yesterday, her heart rate shown bradycardia although in sinus rhythm therefore Cardizem and beta blockers were stopped, patient kept on Eliquis for her A. fib and cardiology team signed off. Patient on Zithromax, ceftriaxone, dexamethasone no remdesivir . she is status convescalnet plasam as well 08/04/20 Patient is still on mechanical ventilation, pulmonary/critical care team trying breathing for the patient but with no success today Other than that She'll continue with same treatment of steroids, Eliquis, azithromycin and ceftriaxone. No Cardizem or beta blockers for bradycardia. However heart rate is improved today to 60-70. WBC trending down to 12 K 08/05/20 pt is extubated today by pulmonary team , after extubation she started having stroke like ,left arm weakness, lip and left eye droop , and possible leg weakness, CT of brain is negative for stroke and CTA of the brain is ordered and is pending , neurologist was consulted who ordered MRI of the brain tomorrow. pt is currently saturating on 5 L/m of oxygen Eliquis was held by consultants while she remains on dexamethasone, stress and Zithromax. Chest x-ray looks stable Patient is followed closely by pulmonary/critical care team 08/06/2020 Patient is status extubation currently on 6 L oxygen. Pulmonary team discontinue with vitamin C and zinc and this continue with Zithromax and ceftriaxone. Patient is kept on dexamethasone Her left side weakness improved, neurology on the case MRI of the brain did not show stroke. Anticoagulation resumed with heparin drip per cardiology team for now D-dimer is 2.9, WBC 13 K. Heart rate is 60-70 sinus rhythm. 08/07/2020 Patient is awake and alert, calm in the ICU. She is currently on the liter per minute oxygen via high flow cannula Patient weakness and facial droop has resolved. Neurology team signed off. Respiratory status is slightly worse. Pulmonary team R following the case closely and they discussed and further management plan with the patient and family, please refer to their note for more details. In the meantime she remains on dexamethasone, heparin drip and bronchodilator Review of systems CONSTITUTIONAL: No fever, no malaise, no fatigue. HEENT: No recent visual problems or hearing problems. Denied any sore throat. CARDIOVASCULAR: No orthopnea, PND, no palpitations, no syncope. PULMONARY: No shortness of breath, no cough, no hemoptysis. GASTROINTESTINAL: No diarrhea, no nausea, no vomiting, no abdominal pain. Normoactive bowel sounds. NEUROLOGICAL: No headaches, no weakness, no numbness. Active Medications Generic Name Dose Route Start Last Admin Trade Name Freq PRN Reason Stop Dose Admin Albuterol Sulfate 2 puff 07/30/20 08:00 08/08/20 09:10 Albuterol Hfa Inhaler INHALATION 2 puff RT-QID RODRIGO Administration Dexamethasone Sodium Phosphate 6 mg 07/30/20 16:15 08/08/20 08:14 Dexamethasone Sod Phosphate 10 Mg/Ml 1 Ml Vial IV 6 mg DAILY RODRIGO Administration Famotidine 20 mg 08/06/20 09:30 08/08/20 08:14 Famotidine 20 Mg/2 Ml Vial IV 20 mg Q12HR RODRIGO Administration Heparin Sodium (Porcine) 0 unit 08/06/20 18:28 Heparin Sodium,Porcine 5,000 Unit/Ml 1 Ml Vial IV PER PROTOCOL PRN Low PTT Protocol Clevidipine 25 mg/ IV Solution 50 mls @ 2 mls/hr 08/05/20 15:45 08/08/20 05:21 IV 2 mg/hr .Q24H RODRIGO 4 mls/hr Administration Protocol 1 MG/HR Dextrose/Sodium Chloride 1,000 mls @ 100 mls/hr 08/06/20 09:30 08/08/20 12:01 Dextrose 5%-Ns Iv Soln IV 100 mls/hr .Q10H RODRIGO Administration Heparin Sodium/Sodium Chloride 250 mls @ 6.42 mls/hr 08/06/20 18:30 08/08/20 08:16 25,000 unit/ Sodium Chloride IV 12 units/kg/hr .Q24H RODRIGO 6.42 mls/hr Administration Protocol 12 UNITS/KG/HR Levothyroxine Sodium 50 mcg 08/06/20 09:30 08/08/20 08:14 Levothyroxine Ivp 100 Mcg/5 Ml Vial IV 50 mcg DAILY RODRIGO Administration Miscellaneous Information 1 each 08/06/20 07:41 Potassium Replacement Protocol 1 Each Misc MISCELLANE DAILY PRN Per Protocol Protocol Objective - Vital Signs Vital signs: Vital Signs Temp 97.9 F 08/07/20 12:00 Pulse 64 08/07/20 13:00 Resp 15 08/07/20 13:00 BP 121/46 08/06/20 11:00 Pulse Ox 99 08/07/20 13:12 Intake & Output 08/06/20 08/07/20 08/07/20 18:59 06:59 18:59 Intake Total 1055 897.333 646 Output Total 965 965 885 Balance 90 -67.667 -239 Weight 64 kg 64 kg Intake: IV 1055 858 646 Dextrose 5%-0.9% NaCl 1, 750 825 525 000 ml @ 75 mls/hr IV . [id number] RODRIGO Rx#:[id number] Potassium Chloride 10 meq 200 100 In Water For Injection 1 100ml.bag @ 100 mls/hr IVPB Q1H RODRIGO Rx#: [id number] Pressure Bag 45 33 21 Sodium Chloride 0.9% 1, 60 000 ml @ 20 mls/hr IV . Q24H RODRIGO Rx#:[id number] Intake, IV Titration 39.333 Amount Clevidipine Butyrate 25 39.333 mg In Empty Bag 1 bag @ 1 MG/HR 2 mls/hr IV .Q24H RODRIGO Rx#:[id number] Output: Urine 965 965 885 Other: Voiding Method Indwelling Catheter Indwelling Catheter Indwelling Catheter ABP, PAP, CO, CI - Last Documented Arterial Blood Pressure 110/35 - Exam -GENERAL: The patient is generally weak HEENT: Pupils are round and equally reacting to light. EOMI. No scleral icterus. No conjunctival pallor. Normocephalic, atraumatic. No pharyngeal erythema. No thyromegaly. CARDIOVASCULAR: S1 and S2 present. No murmurs, rubs, or gallops. PULMONARY: Chest is clear to auscultation, no wheezing or crackles. ABDOMEN: Soft, nontender, nondistended, normoactive bowel sounds. No palpable organomegaly. MUSCULOSKELETAL: No joint swelling or deformity. EXTREMITIES: No cyanosis, clubbing, or pedal edema. -NEUROLOGICAL: Left facial droop with left arm weakness. SKIN: No rashes. no petechiae. - Labs CBC & Chem 7: 08/08/20 04:39 08/08/20 04:39 Labs: Abnormal Lab Results - Last 24 Hours (Table) 08/06/20 08/06/20 08/07/20 Range/Units 18:45 23:45 04:00 WBC 13.6 H 16.6 H (3.8-10.6) k/uL RBC 3.44 L 3.41 L (3.80-5.40) m/uL Hgb 10.1 L 10.5 L (11.4-16.0) gm/dL Hct 30.7 L 30.3 L (34.0-46.0) % Neutrophils # 12.4 H 14.4 H (1.3-7.7) k/uL Lymphocytes # 0.8 L (1.0-4.8) k/uL APTT (22.0-30.0) sec D-Dimer (<0.60) mg/L FEU Chloride (98-107) mmol/L BUN (7-17) mg/dL Glucose (74-99) mg/dL Ferritin (10.0-291.0) ng/mL AST (14-36) U/L ALT (4-34) U/L Alkaline Phosphatase (38-126) U/L Lactate Dehydrogenase (313-618) U/L C-Reactive Protein (<10.0) mg/L Total Protein (6.3-8.2) g/dL Albumin (3.5-5.0) g/dL Stool Occult Blood Positive H (Negative) 08/07/20 08/07/20 Range/Units 04:00 04:00 WBC (3.8-10.6) k/uL RBC (3.80-5.40) m/uL Hgb (11.4-16.0) gm/dL Hct (34.0-46.0) % Neutrophils # (1.3-7.7) k/uL Lymphocytes # (1.0-4.8) k/uL APTT 56.5 H (22.0-30.0) sec D-Dimer 1.97 H (<0.60) mg/L FEU Chloride 108 H (98-107) mmol/L BUN 23 H (7-17) mg/dL Glucose 109 H (74-99) mg/dL Ferritin 565.9 H (10.0-291.0) ng/mL AST 52 H (14-36) U/L ALT 40 H (4-34) U/L Alkaline Phosphatase 146 H (38-126) U/L Lactate Dehydrogenase 1839 H (313-618) U/L C-Reactive Protein 201.8 H (<10.0) mg/L Total Protein 6.2 L (6.3-8.2) g/dL Albumin 2.8 L (3.5-5.0) g/dL Stool Occult Blood (Negative) Assessment and Plan Assessment: -Bilateral Covid 19 pneumonia: Continue with dexamethasone, and anticoagulation. Pulmonary consult. She is status post extubation -Acute hypoxic respiratory failure secondary to above -TIA with left arm and left eye and lip droop . Completely resolved and neurology signed off -A. fib and RVR, patient rate is controlled. Currently on heparin drip -Increased inflammatory markers secondary to above and infection -Hypertension -Hypothyroidism DVT prophylaxis. Eliquis is on hold, and patient is currently on heparin drip GI prophylaxis: Protonix Prognosis is guarded
--- NOTE | 2020-08-08 13:09 | XR ---
EXAMINATION TYPE: XR chest 1V portable DATE OF EXAM: 08/08/2020 Comparison: Earlier today Clinical History: 75-year-old female tube placement Findings: NG tube is below the GE junction. However, the sidehole is located above the GE junction. Recommend a dvancement by 7 cm further into the stomach. Right IJ CVC tip in the upper right atrium. Patient rotated towards the left. Heart normal size. Cons olidation in the mid and lower lung overall similar. Impression: 1. Recommend further advancement of the NG tube by 7 cm so that the side hole enters the stomach. 2. Continued airspace disease mid and lower lungs.
--- NOTE | 2020-08-08 15:10 | XR ---
EXAMINATION TYPE: XR chest 1V portable DATE OF EXAM: 08/08/2020 COMPARISON: Today HISTORY: Check tube placement TECHNIQUE: FINDINGS: There is nasogastric tube with the tip in the distal stomach. There is right jugular cathet er with tip in the superior vena cava. There is patchy bilateral pulmonary infiltrates in the periphe ry of both lungs. There is airspace consolidation. There are chest leads. There is no definite heart failure. There is no significant pleural fluid. IMPRESSION: Bilateral pneumonia is unchanged compared to exam 2 hours ago.
[2020-08-08] MEDS ORDERED: ACETAMINOPHEN TAB 325 MG TAB PO PRN (16:55)
--- NOTE | 2020-08-08 17:20 | P.PN ---
Subjective Progress Note Date: 08/08/20 Principal diagnosis: Acute hypoxic respiratory failure secondary to COVID 19 [place] This patient was cared for during of federal and state declared state of emergency secondary to COVID 19 On 08/08/2020 - Mrs. Tineo is a 75-year-old female with a past medical history of hypertension, hypothyroidism admitted to the hospital for acute shortness of breath. Patient was found to have atrial fibrillation with RVR and was positive for Covid 19. Patient was then mechanically ventilated on 07/31/2020. She was successfully extubated on 08/05/2020. Status extubation patient had strokelike symptoms for which neurology was consulted. She had a CT of the brain which did not show stroke. Patient has been followed by multiple consultants including pulmonary, cardiology, neurology. Patient is seen and examined in the ICU today. Patient is confused, review of systems could not be done. Patient had a swallow evaluation done and failed. So she had an NG tube placed for nutrition today. Currently the patient is on 10 L high flow oxygen saturating at 96-99%. Heart rate around 80s to 90s, respiratory rate 20' s blood pressure 1 43 / 63. On reviewing the patient's labs white count of 20.9, hemoglobin 10.4. Sodium 137, percussion 3, when necessary 19, creatinine 0.53. Active Medications Acetaminophen (Acetaminophen Tab 325 Mg Tab) 650 mg PO Q4HR PRN PRN Reason: Fever and/ or Pain Albuterol Sulfate (Albuterol Hfa Inhaler) 2 puff INHALATION RT-QID [facility] Last Admin: 08/08/20 16:59 Dose: 2 puff Documented by: Amlodipine Besylate (Amlodipine 5 Mg Tab) 5 mg PO DAILY [facility] Apixaban (Apixaban 5 Mg Tab) 2.5 mg PO BID [facility] Aspirin (Aspirin 81 Mg) 81 mg PO DAILY [facility] Atorvastatin Calcium (Atorvastatin 40 Mg Tab) 40 mg PO HS [facility] Dexamethasone Sodium Phosphate (Dexamethasone Sod Phosphate 10 Mg/Ml 1 Ml Vial) 6 mg IV DAILY [facility] Last Admin: 08/08/20 08:14 Dose: 6 mg Documented by: Famotidine (Famotidine 20 Mg/2 Ml Vial) 20 mg IV Q12HR [facility] Last Admin: 08/08/20 08:14 Dose: 20 mg Documented by: Heparin Sodium (Porcine) (Heparin Sodium,Porcine 5,000 Unit/Ml 1 Ml Vial) 0 unit IV PER PROTOCOL PRN; Protocol PRN Reason: Low PTT Clevidipine 25 mg/ IV Solution 50 mls @ 2 mls/hr IV .Q24H [facility]; Protocol Last Admin: 08/08/20 05:21 Dose: 2 mg/hr, 4 mls/hr Documented by: Dextrose/Sodium Chloride (Dextrose 5%-Ns Iv Soln) 1,000 mls @ 100 mls/hr IV .Q10H [facility] Last Admin: 08/08/20 12:01 Dose: 100 mls/hr Documented by: Heparin Sodium/Sodium Chloride (25,000 unit/ Sodium Chloride) 250 mls @ 6.42 mls/hr IV .Q24H [facility]; Protocol Last Admin: 08/08/20 08:16 Dose: 12 units/kg/hr, 6.42 mls/hr Documented by: Levothyroxine Sodium (Levothyroxine 75 Mcg Tab) 75 mcg PO DAILY@0630 [facility] Miscellaneous Information (Potassium Replacement Protocol 1 Each Misc) 1 each MISCELLANE DAILY PRN; Protocol PRN Reason: Per Protocol Objective - Vital Signs Vital signs: Vital Signs Temp 98.0 F 08/08/20 12:00 Pulse 89 08/08/20 16:00 Resp 16 08/08/20 16:00 BP 143/63 08/08/20 16:00 Pulse Ox 96 08/08/20 16:00 Intake & Output 08/07/20 08/08/20 08/08/20 18:59 06:59 18:59 Intake Total 1036 1235.2 1470.692 Output Total 2360 512 8432 Balance 1 335.2 100.692 Weight 64 kg 65 kg 65 kg Intake: IV 1036 1202 1230 Dextrose 5%-0.9% NaCl 1, 900 1160 1000 000 ml @ 100 mls/hr IV . Q10H [facility] Rx#:[id number] Potassium Chloride 10 meq 100 200 In Water For Injection 1 100ml.bag @ 100 mls/hr IVPB Q1H [facility] Rx#: [id number] Pressure Bag 36 42 30 Intake, IV Titration 33.2 230.692 Amount Clevidipine Butyrate 25 33.2 mg In Empty Bag 1 bag @ 1 MG/HR 2 mls/hr IV .Q24H [facility] Rx#:[id number] Heparin Sod,Pork in 0.45% 230.692 NaCl 25,000 unit In 0.45 % NaCl 1 250ml.bag @ 12 UNITS/KG/HR 6.42 mls/hr IV .Q24H [facility] Rx#: [id number] Tube Feeding 10 Output: Urine 1439 208 4610 Other: Voiding Method Indwelling Catheter Indwelling Catheter Indwelling Catheter ABP, PAP, CO, CI - Last Documented Arterial Blood Pressure 143/61 - Exam - Exam -GENERAL: The patient is generally weak and confused HEENT: No pallor, No icterus CARDIOVASCULAR: S1 and S2 present. No murmurs, rubs, or gallops. PULMONARY: Chest is clear to auscultation, no wheezing or crackles. ABDOMEN: Soft, nontender, nondistended, normoactive bowel sounds. No palpable organomegaly. MUSCULOSKELETAL: No joint swelling or deformity. EXTREMITIES: No cyanosis, clubbing, or pedal edema. -NEUROLOGICAL: No facial weakness, difficult to assess as she is confused but no focal deficits on gross exam SKIN: No rashes. no petechiae. - Labs CBC & Chem 7: 08/08/20 04:39 08/08/20 04:39 Labs: Abnormal Lab Results - Last 24 Hours (Table) 08/08/20 08/08/20 08/08/20 Range/Units 04:39 04:39 04:39 WBC 20.9 H (3.8-10.6) k/uL RBC 3.46 L (3.80-5.40) m/uL Hgb 10.4 L (11.4-16.0) gm/dL Hct 30.3 L (34.0-46.0) % Neutrophils # 18.8 H (1.3-7.7) k/uL APTT 46.6 H (22.0-30.0) sec Fibrinogen 591 H (200-500) mg/dL D-Dimer 2.99 H (<0.60) mg/L FEU Potassium 3.0 L (3.5-5.1) mmol/L BUN 19 H (7-17) mg/dL Calcium 8.2 L (8.4-10.2) mg/dL Ferritin 544.9 H (10.0-291.0) ng/mL AST 44 H (14-36) U/L ALT 36 H (4-34) U/L Alkaline Phosphatase 179 H (38-126) U/L Lactate Dehydrogenase 1823 H (313-618) U/L C-Reactive Protein 142.5 H (<10.0) mg/L Total Protein 5.9 L (6.3-8.2) g/dL Albumin 2.7 L (3.5-5.0) g/dL Assessment and Plan Assessment: Assessment and Plan -Bilateral Covid 19 pneumonia: Continue with dexamethasone, and anticoagulation. Pulmonary on board and following the patient closely. She is status post extubation -Acute hypoxic respiratory failure secondary to above - status post extubation on 08/05/2020 -TIA with left arm and left eye and lip droop . Completely resolved and neurology signed off -A. fib and RVR, patient rate is controlled. Currently on heparin drip , could possibly change to her liquids as the patient has Dobboff now, as per cardiology recommendations -Increased inflammatory markers secondary to above and infection -Hypertension -Failed swallow evaluation - currently on Dobbhoff -Hypothyroidism DVT prophylaxis / GI prophylaxis Prognosis is guarded Plan: As the patient's family requested a transfer to [facility], I called [facility] and the patient was not approved for transfer. This will be conveyed to the family. Otherwise continue with the rest of her current medical management. Overall prognosis is guarded. Time with Patient: Greater than 30 (Spoke with transfer team at [facility])
[2020-08-08] MEDS: ATORVASTATIN 40 MG TAB PO SCH (20:30)
[2020-08-08] MEDS ORDERED: amLODIPine 5 MG TAB PO SCH (21:00)
[2020-08-08] MEDS ORDERED: APIXABAN 2.5 MG TABLET PO SCH (21:00)
[2020-08-09] MEDS: DEXTROSE 5%-0.9% NACL 1,000 ML IV SCH ×4 (00:27→21:24)
[2020-08-09 04:45] LABS: Basophils # (A) 0.1 k/uL (0-0.2); Basophils % (A) 1 %; Eosinophils # (A) 0.1 k/uL (0-0.7); Eosinophils % (A) 1 %; Lymphocytes # (A) 1.5 k/uL (1.0-4.8); Lymphocytes % (A) 10 %; MCH 29.2 pg (25.0-35.0); MCHC 33.3 g/dL (31.0-37.0); MCV 87.8 fL (80.0-100.0); Mean Platelet Volume 7.7; Monocytes # (A) 0.4 k/uL (0-1.0); Monocytes % (A) 3 %; Neutrophils # (A) 11.8 k/uL (1.3-7.7); Neutrophils % (A) 85 %; Platelet Count 264 k/uL (150-450); RBC 3.42 m/uL (3.80-5.40); RDW 14.5 % (11.5-15.5)
[2020-08-09 04:58] LABS: D-Dimer 2.97 mg/L FEU (<0.60); Partial Thromboplastin Time 46.2 sec (22.0-30.0)
[2020-08-09 05:26] LABS: ALT 47 U/L (4-34); AST 68 U/L (14-36); African American GFR (CKD) >90 (>60 ml/min/1.73 sqM); Albumin 2.5 g/dL (3.5-5.0); Alkaline Phosphatase 245 U/L (38-126); Anion Gap 2 mmol/L; Blood Urea Nitrogen 20 mg/dL (7-17); Calcium 7.8 mg/dL (8.4-10.2); Carbon Dioxide 26 mmol/L (22-30); Chloride 105 mmol/L (98-107); Glucose 111 mg/dL (74-99); LDH 1342 U/L (313-618); Magnesium 1.9 mg/dL (1.6-2.3); Non-African American GFR(CKD) 89 (>60 ml/min/1.73 sqM); Potassium 3.2 mmol/L (3.5-5.1); Sodium 133 mmol/L (137-145); Total Bilirubin 0.4 mg/dL (0.2-1.3); Total Protein 5.3 g/dL (6.3-8.2)
[2020-08-09 05:56] LABS: C Reactive Protein 179.8 mg/L (<10.0)
[2020-08-09] MEDS: LEVOTHYROXINE 75 MCG TAB PO SCH (06:39)
[2020-08-09] MEDS: ALBUTEROL HFA INHALER INHALATION SCH ×5 (08:03→19:51)
[2020-08-09] MEDS: FAMOTIDINE 20 MG/2 ML VIAL IV SCH ×2 (08:07→20:57)
[2020-08-09] MEDS: DEXAMETHASONE SOD PHOSPHATE 10 MG/ML 1 ML VIAL IV SCH (08:07)
[2020-08-09] MEDS: MAGNESIUM SULFATE-D5W PMX 1 GM in DEXTROSE/WATER 1 100ML.BAG IVPB SCH ×2 (08:07→10:16)
[2020-08-09] MEDS: ASPIRIN 81 MG PO SCH (08:07)
[2020-08-09] MEDS: POTASSIUM BICARBONATE/CIT AC 20 MEQ TABLET.EFF NG-TUBE SCH ×2 (08:08→10:17)
[2020-08-09 10:18] LABS: Ferritin 513.2 ng/mL (10.0-291.0)
--- NOTE | 2020-08-09 13:10 | P.PN ---
Subjective Progress Note Date: 08/09/20 Principal diagnosis: Acute hypoxic respiratory failure secondary to CoVID 19 pneumonitis This is a 75-year-old female transferred last night from [facility], patient presented to the hospital with 2 weeks history of progressive weakness, shortness of breath, patient was recently diagnosed with urinary tract infection, and treated recently with Augmentin. Patient has not been taking her medications. In [place], the patient was having some pulmonary symptoms including cough and congestion, cough is described as nonproductive, she had no headaches, no myalgia, no syncopal episodes, no fevers or chills. While in [place], patient developed atrial fibrillation with RVR, and she also tested positive for Covid 19 pneumonitis. Chest x-ray clearly showed extensive b ilateral peripheral infiltrates and consolidations. Patient was transferred to [facility], she was treated in the ER with Cardizem drip, patient is waiting for a bed to be admitted to the ICU, she is presently on 15 L high flow nasal cannula, patient converted to sinus rhythm apparently earlier today, she is hemodynamically stable, but considering her oxygen requirement and have significantly abnormal chest x-ray, waiting for a bed to be admitted to the ICU. Patient is not a great historian. WBC count today is 9.7 hemoglobin is 12.1. Influenza screen was negative. Her PTT is 70.5, therapeutic. patient is on heparin because of her atrial fibrillation. Patient was reevaluated today on 07/31/20, intubated and mechanically ventilated. Her clinical condition deteriorated yesterday, patient had to be intubated and ventilated. Presently on assist control rate of 20, tidal volume is 400, FiO2 is 100%, and PEEP is 10. ABG showed a pO2 of 71 pCO2 of 36 pH of 7.37. Drips include Propofol at 50 mcg/kg/m, heparin drip, 0.9 normal saline at 20 mL per hour, and norepinephrine at 0.05 mcg/kg/m. Presently off Nimbex. No specific changes were made with her ventilator settings. May consider increasing the PEEP. And the patient will receive a unit of convalescent plasma today. Chest x-ray showed bilateral interstitial infiltrates, and the tube was noted to be close to the evelyn, and this will be adjusted accordingly. Right IJ central line was placed and the patient today since she had very poor IV access. WBC count today is 23.3 hemoglobin is 11.2 electrolytes were noted and she had a low potassium of 2.9, being corrected as per protocol. Prior to intubation yesterday, her pO2 was 44 pCO2 was 31 and pH of 7.4 3. Reevaluated today on 08/01/20, remains in the ICU, intubated and mechanically ventilated. Her ventilator settings are assist control rate of 20 tidal volume is 400 FiO2 is 60% and PEEP is 12. ABG showed a pO2 of 108 pCO2 of 34 pH of 7.44 hence cut down her FiO2 to 50%. Patient remains on propofol at 50 mcg/kg/m, patient is off norepinephrine since 7 AM. IV fluids at KVO, patient is receiving enteral feeding. Lasix was given 20 mg IV push for low urine output. Reviewed chest x-ray today, continues to have bilateral interstitial in filtrates especially at the bases bilaterally right more so than left. CBC today showed leukocytosis with WBC of 14.4 hemoglobin is 10.5. Lactulose abnormal BUN is 37 creatinine 0.91. Reevaluated today on 08/02/20, patient remains in the ICU, intubated and mechanically ventilated. Her ventilator settings are assist control rate of 20 tidal volume is 400 FiO2 is 50% and PEEP is 12. ABG today showed a pO2 of 58 pCO2 of 33 pH of 7.49 hence FiO2 was increased to 55%. Patient remains on propofol at 25 mcg/kg/m, she is on enteral feeding vital HP30/30. Peak airway pressure is in the mid 30s, static pressures 27. Chest x-ray continues to show bilateral infiltrates, right more so than left. Echocardiogram showed good LV function. She is now maintaining sinus rhythm, although on admission she came in with atrial fibrillation and RVR. Her echo showed evidence of moderate pulmonary hypertension and moderate mitral regurgitation. The patient is seen today 08/05/2020 in follow-up in the intensive care unit. She remains intubated on the mechanical ventilator settings of assist control at a rate of 20, tidal volume 400, FiO2 50% and a PEEP of 8. Morning blood gases reveal a pO2 of 73, pCO2 38, pH 7.48. Sedated on propofol at 25 mcg/kg/m. 0.9 normal saline at 20 ML's per hour. She is being nourished with vital HP at 37 mL per hour which is goal. She has been receiving daily interruption of sedation and spontaneous breathing trials. She'll be placed on pressure support of 8 and a CPAP of 5. White count 14.8. Hemoglobin 9.8. Sodium 146. Potassium 3.7. Creatinine 0.72. Currently on ceftriaxone and azithromycin. Anticoagulated with Eliquis. Remains on vitamins C, D, Decadron, Pepcid, zinc The patient is seen today 08/06/2020 in follow-up in the intensive care unit. She was extubated yesterday. She is currently on 6 L high flow nasal cannula maintain O2 saturations in the 90s. Chest x-ray continues to revealed bilateral patchy airspace disease. No evidence of pneumothorax. She is 0.9 and 20 ML's per hour. [place] proximal at 1 mg per hour. There was some concerns regarding left-sided weakness and facial droop yesterday. CT of the brain reveals asy mmetric hypodensity within the right cerebellar hemisphere possibly reflecting artifact versus subacute infarct. CT angiogram was negative of the neck and brain. MRI is pending. Neurology had been consulted. She did this daily swallow evaluation as well. White count 16.0. Hemoglobin 10.2. D-dimer 2.90. Sodium 142. Potassium 3.7. Creatinine 0.62. Ferritin 457. LDH 1637. C- reactive protein 185. The patient is seen today 08/08/2020 in follow-up in the intensive care unit. She remains extubated and maintaining O2 saturations in the 90s on 15 L high flow nasal cannula. She is still on clever proximal at 2 mg per hour, heparin drip per weight base protocol. D5.9 at 75 ML's per hour. Chest x-ray continues to show bilateral airspace disease left greater than right in the mid and lower lung barrera without any significant change. She is status post convalescent plasma. She was outside the window for Remdesivir. She is continued on Pepcid. Dr. Watson had spoken with the patient's yesterday at length. She is currently a DO NOT RESUSCITATE/DO NOT INTUBATE CODE STATUS. She has failed swallow evaluation. We'll plan for nasogastric tube insertion for nutrition. White count 20.9. Hemoglobin 10.4. D-dimer 2.99. Fibrinogen 591. Sodium 137. Potassium 3.0. Creatinine 0.53. LDH 1823. C-reactive protein 142. The patient is seen today 08/09/2020 in follow-up in the intensive care unit. She is currently sitting up in bed. Awake. Currently requiring 15 L of high flow nasal cannula to maintain O2 saturation in the 90s. She has been quite weak and inability to swallow. She is being nourished with TwoCal at 30 MLS per hour which is her goal. She is on D5.9 normal saline at ML's per hour. White count 14.0. Hemoglobin 10.0. D-dimer 2.97. Sodium 133. Potassium 3.2. Creatinine 0.60. Ferritin 513. LDH 1342. C-reactive protein 179. She remains on a heparin drip. Clevidipine has been titrated off. Objective - Vital Signs Vital signs: Vital Signs Temp 97.9 F 08/09/20 08:00 Pulse 74 08/09/20 10:00 Resp 25 H 08/09/20 10:00 BP 98/44 08/09/20 10:00 Pulse Ox 89 L 08/09/20 10:00 Intake & Output 08/08/20 08/09/20 08/09/20 18:59 06:59 18:59 Intake Total 9478.636 2065 632 Output Total 1570 1025 350 Balance 160.959 278 282 Weight 65 kg Intake: IV 1436 1133 512 Dextrose 5%-0.9% NaCl 1, 1200 1100 300 000 ml @ 100 mls/hr IV . Q10H [facility] Rx#:[id number] Magnesium Sulfate-D5w Pmx 200 1 gm In Dextrose/Water 1 100ml.bag @ 100 mls/hr IVPB Q1H [facility] Rx#: [id number] Potassium Chloride 10 meq 200 In Water For Injection 1 100ml.bag @ 100 mls/hr IVPB Q1H [facility] Rx#: [id number] Pressure Bag 36 33 12 Intake, IV Titration 264.959 Amount Clevidipine Butyrate 25 34.267 mg In Empty Bag 1 bag @ 1 MG/HR 2 mls/hr IV .Q24H [facility] Rx#:[id number] Heparin Sod,Pork in 0.45% 230.692 NaCl 25,000 unit In 0.45 % NaCl 1 250ml.bag @ 12 UNITS/KG/HR 6.42 mls/hr IV .Q24H [facility] Rx#: [id number] Tube Feeding 30 170 90 Other 30 Output: Urine 1570 1025 350 Other: Voiding Method Indwelling Catheter Indwelling Catheter ABP, PAP, CO, CI - Last Documented Arterial Blood Pressure 143/61 - Exam GENERAL EXAM: Alert, extremely weak 75-year-old female patient, on 10 L high flow nasal cannula, in no apparent distress. HEAD: Normocephalic. EYES: Sluggish reaction of pupils, equal size. NOSE: Clear with pink turbinates. THROAT: No erythema or exudates. NECK: No masses, no JVD. CHEST: No chest wall deformity. LUNGS: Equal air entry with basilar crackles CVS: S1 and S2 normal with no audible murmur, regular rhythm. ABDOMEN: No hepatosplenomegaly, normal bowel sounds, no guarding or rigidity. SPINE: No scoliosis or deformity SKIN: No rashes CENTRAL NERVOUS SYSTEM: Extremely weak, bilateral weakness, tone is normal in all 4 extremities. EXTREMITIES: There is no peripheral edema. No clubbing, no cyanosis. Peripheral pulses are intact. - Labs CBC & Chem 7: 08/09/20 04:37 08/09/20 04:37 Labs: Abnormal Lab Results - Last 24 Hours (Table) 08/09/20 08/09/20 08/09/20 Range/Units 04:37 04:37 04:37 WBC 14.0 H (3.8-10.6) k/uL RBC 3.42 L (3.80-5.40) m/uL Hgb 10.0 L (11.4-16.0) gm/dL Hct 30.0 L (34.0-46.0) % Neutrophils # 11.8 H (1.3-7.7) k/uL APTT 46.2 H (22.0-30.0) sec D-Dimer 2.97 H (<0.60) mg/L FEU Sodium 133 L (137-145) mmol/L Potassium 3.2 L (3.5-5.1) mmol/L BUN 20 H (7-17) mg/dL Glucose 111 H (74-99) mg/dL Calcium 7.8 L (8.4-10.2) mg/dL Ferritin 513.2 H (10.0-291.0) ng/mL AST 68 H (14-36) U/L ALT 47 H (4-34) U/L Alkaline Phosphatase 245 H (38-126) U/L Lactate Dehydrogenase 1342 H (313-618) U/L C-Reactive Protein 179.8 H (<10.0) mg/L Total Protein 5.3 L (6.3-8.2) g/dL Albumin 2.5 L (3.5-5.0) g/dL Assessment and Plan Assessment: Acute hypoxic respiratory failure secondary to CoVID 19 pneumonitis, required intubation and mechanical ventilation on 07/30/20. She was beyond the window to be qualified for Remdesivir. Did receive convalescent plasma. Extubated on 08/05/2020, currently on 15 L nasal cannula. Chest x-ray continues to show bilateral patchy infiltrates Altered mental status with extreme weakness more so on the left, being evaluated by neurology. New onset atrial fibrillation with RVR, converted to sinus rhythm while in the emergency room. Remains in normal sinus rhythm. History of hypertension. History of hypothyroidism. Lifelong nonsmoker. Plan: The patient was seen and evaluated by Dr. Watson He did have an extended conversation with the patient's on 08/07/2020 She is a DO NOT RESUSCITATE/DO NOT INTUBATE CODE STATUS not to be reintubated Today, the nursing staff informs us that the does not recall that conversation They have also tried to have her transferred to [facility] 2 and she was denied We will have the attending speak with the from now on Prognosis is guarded She has completed her 10 days of Decadron. We'll add 60mg every 6 hours of IV Solu-Medrol We'll continue to follow and make further recommendations based on her clinical status Critical care time 38 minutes I, the cosigning physician, performed a history & physical examination of the pa everton. Lungs sounds with crackles in the bilateral posterior bases. Maintaining good O2 saturations in the 90s on 15 L/m per nasal cannula I discussed the assessment and plan of care with my nurse practitioner, Jesenia Varma. I attest to the above note as dictated by her.
[2020-08-09] MEDS: CLEVIDIPINE BUTYRATE 25 MG in EMPTY BAG 1 BAG IV SCH (17:51)
[2020-08-09] MEDS: HEPARIN SOD,PORK IN 0.45% NACL 25,000 UNIT in 0.45% NACL 1 250ML.BAG IV SCH (17:52)
--- NOTE | 2020-08-09 17:57 | PN ---
PROGRESS NOTE Janna is a 75-year-old lady who was admitted to the hospital with Covid pneumonia and has had runs of paroxysmal atrial fibrillation, was initially on Eliquis, subsequently was placed on IV heparin. I have been asked to see her again to switch her back to the Eliquis. She is currently extubated but has failed swallow evaluation, but has an NG tube. On exam she is in sinus rhythm. Heart rate is 74 beats per minute. Blood pressure is 98/44, respiratory rate is 25. Labs show a hemoglobin of 10, platelet count is 264, creatinine is 0.6. ASSESSMENT: 1. Covid pneumonia. 2. Paroxysmal atrial fibrillation. PLAN: Patient will resume the Eliquis. MMODL / IJN: [id number] /
[2020-08-09] MEDS: APIXABAN 2.5 MG TABLET PO SCH (20:57)
[2020-08-09] MEDS: amLODIPine 5 MG TAB PO SCH (20:57)
[2020-08-09] MEDS: ATORVASTATIN 40 MG TAB PO SCH (20:57)
--- NOTE | 2020-08-09 22:11 | P.PN ---
Subjective Progress Note Date: 08/09/20 Principal diagnosis: Acute hypoxic respiratory failure secondary to COVID 19 [place]nem[place] This patient was cared for during of federal and state declared state of emergency secondary to COVID 19 On 08/08/2020 - Mrs. Tineo is a 75-year-old female with a past medical history of hypertension, hypothyroidism admitted to the hospital for acute shortness of breath. Patient was found to have atrial fibrillation with RVR and was positive for Covid 19. Patient was then mechanically ventilated on 07/31/2020. She was successfully extubated on 08/05/2020. Status extubation patient had strokelike symptoms for which neurology was consulted. She had a CT of the brain which did not show stroke. Patient has been followed by multiple consultants including pulmonary, cardiology, neurology. Patient is seen and examined in the ICU today. Patient is confused, review of systems could not be done. Patient had a swallow evaluation done and failed. So she had an NG tube placed for nutrition today. Currently the patient is on 10 L high flow oxygen saturating at 96-99%. Heart rate around 80s to 90s, respiratory rate 20' s blood pressure 1 43 / 63. On reviewing the patient's labs white count of 20.9, hemoglobin 10.4. Sodium 137, percussion 3, when necessary 19, creatinine 0.53. On 08/09/2020- patient was seen and examined in the ICU. Patient is comfortably lying in bed on 15 L of high flow nasal cannula and maintaining saturations slightly above 90s. Compared to yesterday patient is less responsive. For her nutritional status patient is being managed on D5 0.9 normal saline. Patient has been discontinued off heparin drip and resumed on Eliquis as per cardiology recommendation. On reviewing the labs white count of 14.1 hemoglobin 10 platelets 264. Sodium 133, potassium 3.2, chloride 105, bicarb 26. BUN 20, creatinine 0.60. Active Medications Acetaminophen (Acetaminophen Tab 325 Mg Tab) 650 mg PO Q4HR PRN PRN Reason: Fever and/ or Pain Albuterol Sulfate (Albuterol Hfa Inhaler) 2 puff INHALATION RT-QID [facility] Last Admin: 08/09/20 19:51 Dose: Not Given Documented by: Amlodipine Besylate (Amlodipine 5 Mg Tab) 5 mg PO HS [facility] Last Admin: 08/09/20 20:57 Dose: 5 mg Documented by: Apixaban (Apixaban 2.5 Mg Tablet) 2.5 mg PO BID [facility] Last Admin: 08/09/20 20:57 Dose: 2.5 mg Documented by: Aspirin (Aspirin 81 Mg) 81 mg PO DAILY [facility] Last Admin: 08/09/20 08:07 Dose: 81 mg Documented by: Atorvastatin Calcium (Atorvastatin 40 Mg Tab) 40 mg PO HS [facility] Last Admin: 08/09/20 20:57 Dose: 40 mg Documented by: Dexamethasone Sodium Phosphate (Dexamethasone Sod Phosphate 10 Mg/Ml 1 Ml Vial) 6 mg IV DAILY [facility] Last Admin: 08/09/20 08:07 Dose: 6 mg Documented by: Famotidine (Famotidine 20 Mg/2 Ml Vial) 20 mg IV Q12HR [facility] Last Admin: 08/09/20 20:57 Dose: 20 mg Documented by: Clevidipine 25 mg/ IV Solution 50 mls @ 2 mls/hr IV .Q24H [facility]; Protocol Last Admin: 08/09/20 17:51 Dose: Not Given Documented by: Dextrose/Sodium Chloride (Dextrose 5%-Ns Iv Soln) 1,000 mls @ 50 mls/hr IV . Q20H [facility] Last Admin: 08/09/20 21:24 Dose: 50 mls/hr Documented by: Levothyroxine Sodium (Levothyroxine 75 Mcg Tab) 75 mcg PO DAILY@0630 [facility] Last Admin: 08/09/20 06:39 Dose: 75 mcg Documented by: Miscellaneous Information (Potassium Replacement Protocol 1 Each Misc) 1 each MISCELLANE DAILY PRN; Protocol PRN Reason: Per Protocol Objective - Vital Signs Vital signs: Vital Signs Temp 97.9 F 08/09/20 08:00 Pulse 74 08/09/20 10:00 Resp 25 H 08/09/20 10:00 BP 98/44 08/09/20 10:00 Pulse Ox 89 L 08/09/20 10:00 Intake & Output 08/08/20 08/09/20 08/09/20 18:59 06:59 18:59 Intake Total 9710.596 7375 632 Output Total 1570 1025 350 Balance 160.959 278 282 Weight 65 kg Intake: IV 1436 1133 512 Dextrose 5%-0.9% NaCl 1, 1200 1100 300 000 ml @ 100 mls/hr IV . Q10H [facility] Rx#:[id number] Magnesium Sulfate-D5w Pmx 200 1 gm In Dextrose/Water 1 100ml.bag @ 100 mls/hr IVPB Q1H [facility] Rx#: [id number] Potassium Chloride 10 meq 200 In Water For Injection 1 100ml.bag @ 100 mls/hr IVPB Q1H [facility] Rx#: [id number] Pressure Bag 36 33 12 Intake, IV Titration 264.959 Amount Clevidipine Butyrate 25 34.267 mg In Empty Bag 1 bag @ 1 MG/HR 2 mls/hr IV .Q24H [facility] Rx#:[id number] Heparin Sod,Pork in 0.45% 230.692 NaCl 25,000 unit In 0.45 % NaCl 1 250ml.bag @ 12 UNITS/KG/HR 6.42 mls/hr IV .Q24H [facility] Rx#: [id number] Tube Feeding 30 170 90 Other 30 Output: Urine 1570 1025 350 Other: Voiding Method Indwelling Catheter Indwelling Catheter ABP, PAP, CO, CI - Last Documented Arterial Blood Pressure 143/61 - Exam - Exam -GENERAL: The patient is generally weak and confused,less responsive compared to yesterday HEENT: No pallor, No icterus CARDIOVASCULAR: S1 and S2 present. No murmurs, rubs, or gallops. PULMONARY: Chest is clear to auscultation, no wheezing or crackles. ABDOMEN: Soft, nontender, nondistended, normoactive bowel sounds. No palpable organomegaly. MUSCULOSKELETAL: No joint swelling or deformity. EXTREMITIES: No cyanosis, clubbing, or pedal edema. -NEUROLOGICAL: No facial weakness, difficult to assess as she is confused but no focal deficits on gross exam SKIN: No rashes. no petechiae. - Labs CBC & Chem 7: 08/09/20 04:37 08/09/20 04:37 Labs: Abnormal Lab Results - Last 24 Hours (Table) 08/09/20 08/09/20 08/09/20 Range/Units 04:37 04:37 04:37 WBC 14.0 H (3.8-10.6) k/uL RBC 3.42 L (3.80-5.40) m/uL Hgb 10.0 L (11.4-16.0) gm/dL Hct 30.0 L (34.0-46.0) % Neutrophils # 11.8 H (1.3-7.7) k/uL APTT 46.2 H (22.0-30.0) sec D-Dimer 2.97 H (<0.60) mg/L FEU Sodium 133 L (137-145) mmol/L Potassium 3.2 L (3.5-5.1) mmol/L BUN 20 H (7-17) mg/dL Glucose 111 H (74-99) mg/dL Calcium 7.8 L (8.4-10.2) mg/dL Ferritin 513.2 H (10.0-291.0) ng/mL AST 68 H (14-36) U/L ALT 47 H (4-34) U/L Alkaline Phosphatase 245 H (38-126) U/L Lactate Dehydrogenase 1342 H (313-618) U/L C-Reactive Protein 179.8 H (<10.0) mg/L Total Protein 5.3 L (6.3-8.2) g/dL Albumin 2.5 L (3.5-5.0) g/dL Assessment and Plan Assessment: Assessment and Plan -Bilateral Covid 19 pneumonia: Continue with dexamethasone, and anticoagulation. Pulmonary on board and following the patient closely. She is status post extubation -Acute hypoxic respiratory failure secondary to above - status post extubation on 08/05/2020 -TIA with left arm and left eye and lip droop . Completely resolved and neurology signed off -A. fib and RVR, patient rate is controlled. Currently on heparin drip , could possibly change to her liquids as the patient has Dobboff now, as per cardiology recommendations -Increased inflammatory markers secondary to above and infection -Hypertension -Failed swallow evaluation - currently on Dobbhoff -Hypothyroidism DVT prophylaxis / GI prophylaxis Prognosis is guarded Plan: As per discussion with the nursing staff, there was confusion regarding her CODE STATUS. The earlier notes states that patient's discussed and she was made DNR but there has been said he could not recall that conversation. They also wanted to transfer the patient to [facility] but was denied. So I had a detailed discussion with Mr. Tineo and his daughter today and they stated that they want her to be a full code, even though I explained to them about the prognosis which is poor. This was communicated to the nursing staff in the ICU. Patient will be continued on the rest of her current medication regimen.Further recommendations depending on the progress of the patient.
[2020-08-10 04:26] LABS: Basophils % (A) 0 %; Eosinophils % (A) 0 %; HCT 30.4 % (34.0-46.0); Lymphocytes # (A) 1.2 k/uL (1.0-4.8); Lymphocytes % (A) 7 %; MCH 29.8 pg (25.0-35.0); MCHC 33.1 g/dL (31.0-37.0); MCV 90.3 fL (80.0-100.0); Mean Platelet Volume 8.2; Monocytes # (A) 0.4 k/uL (0-1.0); Monocytes % (A) 2 %; Neutrophils # (A) 16.2 k/uL (1.3-7.7); Neutrophils % (A) 90 %; Platelet Count 250 k/uL (150-450); RBC 3.37 m/uL (3.80-5.40); RDW 14.9 % (11.5-15.5)
[2020-08-10 04:34] LABS: African American GFR (CKD) >90 (>60 ml/min/1.73 sqM); Anion Gap 5 mmol/L; Blood Urea Nitrogen 32 mg/dL (7-17); Calcium 7.5 mg/dL (8.4-10.2); Carbon Dioxide 25 mmol/L (22-30); Chloride 107 mmol/L (98-107); Glucose 88 mg/dL (74-99); Magnesium 2.6 mg/dL (1.6-2.3); Non-African American GFR(CKD) 85 (>60 ml/min/1.73 sqM); Potassium 3.8 mmol/L (3.5-5.1); Sodium 137 mmol/L (137-145)
[2020-08-10] MEDS: LEVOTHYROXINE 75 MCG TAB PO SCH (05:57)
[2020-08-10] MEDS ORDERED: POTASSIUM BICARBONATE/CIT AC 20 MEQ TABLET.EFF NG-TUBE SCH (06:00)
--- NOTE | 2020-08-10 07:36 | P.PN ---
Subjective Progress Note Date: 08/10/20 5-year-old female patient post acute hypoxic respiratory failure requiring intubation mechanical ventilation secondary to community related pneumonitis/pneumonia. The patient required intubation mechanical ventilation 07/30/2020. The patient was extubated on 08/05/2022 high flow oxygen currently she is on 15 L of oxygen by nasal cannula. Chest x-ray still showing diffuse patchy bilateral pulmonary infiltrates. The patient during the course developed some altered mentation and generalized weakness more so on the left and the patient is currently being evaluated by neurology. The patient underwent a angiogram of the brain and it was essentially negative. There was age-related atrophy and chronic small vessel ischemic changes. The patient also developed a new onset atrial fibrillation with rapid ventricular response and she converted back into normal sinus rhythm. She has hypertension and hypothyroidism as comorbid conditions. The patient remains awake and is having some difficulty in swallowing. The patient's is being nourished with enteral feeding at the rate of 30 mL an hour via an NGT. The patient is on D5 normal saline maintenance fluids at 50 mL an hour.. She remains on IV heparin. She is off the clevidipine drip. The patient's LDH level has been dropping and is down to 1300. The CRP has been fluctuating and currently is at 179. The patient's remains on Decadron 6 mg IV every 24 hours. The patient's received convalescent plasma. She remains on Cleviprex drip for blood pressure control. on today's evaluation the patient remains confused. She was switched to 100% nonrebreather facemask. No chest x-ray was done today. Chest x-ray from yesterday showed diffuse bilateral pulmonary infiltrates peripheral mainly in the right lower lobe and the left upper lobe area. There is some also in the lower lobes. The patient is a triple lumen catheter. NG tube is in place for enteral feeding and nutritional support. The patient is currently in the 100% nonrebreather facemask patient was switched from high flow oxygen. She is breathing comfortably. She is confused. Neurologic exam is nonfocal. Objective - Vital Signs Vital signs: Vital Signs Temp 97.6 F 08/10/20 00:00 Pulse 85 08/10/20 07:00 Resp 13 08/10/20 07:00 BP 124/52 08/10/20 07:00 Pulse Ox 96 08/10/20 07:00 Intake & Output 08/09/20 08/10/20 08/10/20 18:59 06:59 18:59 Intake Total 1323 1366.47 Output Total 840 520 Balance 483 846.47 Weight 65 kg Intake: IV 903 650 Dextrose 5%-0.9% NaCl 1, 700 650 000 ml @ 50 mls/hr IV . Q20H [facility] Rx#:[id number] Magnesium Sulfate-D5w Pmx 200 1 gm In Dextrose/Water 1 100ml.bag @ 100 mls/hr IVPB Q1H [facility] Rx#: [id number] Pressure Bag 3 Intake, IV Titration 236.47 Amount Heparin Sod,Pork in 0.45% 236.47 NaCl 25,000 unit In 0.45 % NaCl 1 250ml.bag @ 12 UNITS/KG/HR 6.42 mls/hr IV .Q24H [facility] Rx#: [id number] Tube Feeding 330 390 Other 90 90 Output: Urine 840 520 Other: Voiding Method Indwelling Catheter Indwelling Catheter ABP, PAP, CO, CI - Last Documented Arterial Blood Pressure 143/61 - Exam GENERAL EXAM: Alert, extremely weak 75-year-old female patient, 100 NRB, in no apparent distress. HEAD: Normocephalic. EYES: Sluggish reaction of pupils, equal size. NOSE: Clear with pink turbinates. THROAT: No erythema or exudates. NECK: No masses, no JVD. CHEST: No chest wall deformity. LUNGS: Equal air entry with basilar crackles CVS: S1 and S2 normal with no audible murmur, regular rhythm. ABDOMEN: No hepatosplenomegaly, normal bowel sounds, no guarding or rigidity. SPINE: No scoliosis or deformity SKIN: No rashes CENTRAL NERVOUS SYSTEM: Extremely weak, bilateral weakness, tone is normal in all 4 extremities.the patient is able to converse. She is confused. She has global weakness in all 4 extremities. No neck stiffness. EXTREMITIES: There is no peripheral edema. No clubbing, no cyanosis. Peripheral pulses are intact. - Labs CBC & Chem 7: 08/10/20 03:17 08/10/20 03:17 Labs: Abnormal Lab Results - Last 24 Hours (Table) 08/09/20 08/10/20 08/10/20 Range/Units 04:37 03:17 03:17 WBC 18.0 H (3.8-10.6) k/uL RBC 3.37 L (3.80-5.40) m/uL Hgb 10.0 L (11.4-16.0) gm/dL Hct 30.4 L (34.0-46.0) % Neutrophils # 16.2 H (1.3-7.7) k/uL BUN 32 H (7-17) mg/dL Calcium 7.5 L (8.4-10.2) mg/dL Magnesium 2.6 H (1.6-2.3) mg/dL Ferritin 513.2 H (10.0-291.0) ng/mL Assessment and Plan Plan: 1 Acute hypoxic respiratory failure secondary to CoVID 19 pneumonitis, required intubation and mechanical ventilation on 07/30/20. She was beyond the window to be qualified for Remdesivir. Did receive convalescent plasma. Extubated on 08/05/2020, currently She was switched to 100%NRB. Chest x-ray continues to show bilateral patchy infiltrates 2 Altered mental status with extreme weakness more so on the left, being evaluated by neurology. The CT angiogram was negative and the patient has some chronic ischemic changes. Neurologic exam is nonfocal point in time. The patient continues to be altered and the patient is confused. Neurologic exam is nonfocal. She has global weakness in all 4 extremities. 3 New onset atrial fibrillation with RVR, converted to sinus rhythm while in the emergency room. Remains in normal sinus rhythm. The patient is currently on Eliquis. Rate is controlled. The patient is also on aspirin. 4 History of hypertension. 5 History of hypothyroidism. 6 enteral feeding for nutritional support through an NG tube. 7 diarrhea, rule out possibility of C. diff colitis. Plan: conversation with the patient's on 08/07/2020 and the patient is a DO NOT RESUSCITATE/DO NOT INTUBATE CODE STATUS not to be reintubated but, subsequently, the nursing staff informed us that the does not recall that conversation They have also tried to have her transferred to [facility] and she was denied stool for C. diff D5.9 at the rate of 50 mL an hour. She is also taking enteral feeding for nutritional support with [facility] at a rate of 30 mL's an hour which is goal for her. Prognosis is guarded keep the patient on 100% nonrebreather facemask. Neurology is on the case regarding the altered mentation. She is on IV Decadron. We'll continue to follow and make further recommendations based on her clinical status
[2020-08-10] MEDS: ALBUTEROL HFA INHALER INHALATION SCH ×4 (07:55→20:18)
[2020-08-10] MEDS: APIXABAN 2.5 MG TABLET PO SCH ×2 (08:17→20:27)
[2020-08-10] MEDS: DEXAMETHASONE SOD PHOSPHATE 10 MG/ML 1 ML VIAL IV SCH (08:17)
[2020-08-10] MEDS: ASPIRIN 81 MG PO SCH (08:17)
[2020-08-10] MEDS: FAMOTIDINE 20 MG/2 ML VIAL IV SCH ×2 (08:17→20:28)
--- NOTE | 2020-08-10 12:26 | PN ---
PROGRESS NOTE Mrs Janna Tineo is a lady who had developed atrial fibrillation and she is now back in sinus rhythm. She has been placed on Eliquis 2.5 mg b.i.d. She also has some occult blood in the stool. With this being the situation, the Eliquis dose apparently was not kept at 5, instead it is 2.5. However, she is maintaining sinus rhythm, hemodynamically stable. She has a lot of other comorbid conditions including COVID pneumonia as well. I am recommending that we continue her current medical regimen and I will see her as needed during her hospitalization. Prognosis remains guarded. MMODL / IJN: [id number] /
[2020-08-10] MEDS: CLEVIDIPINE BUTYRATE 25 MG in EMPTY BAG 1 BAG IV SCH (13:08)
[2020-08-10 13:21] LABS: Glucose,Whole Blood 121 mg/dL (75-99)
[2020-08-10 18:06] LABS: Glucose,Whole Blood 67 mg/dL (75-99)
[2020-08-10] MEDS ORDERED: DEXTROSE 50% SYRINGE 50 ML IVP ONE (18:06)
[2020-08-10 18:25] LABS: Glucose,Whole Blood 89 mg/dL (75-99)
[2020-08-10] MEDS: amLODIPine 5 MG TAB PO SCH (20:27)
[2020-08-10] MEDS: ATORVASTATIN 40 MG TAB PO SCH (20:28)
--- NOTE | 2020-08-10 21:57 | P.PN ---
Subjective Progress Note Date: 08/10/20 Principal diagnosis: Acute hypoxic respiratory failure secondary to COVID 19 [place] This patient was cared for during of federal and state declared state of emergency secondary to COVID 19 On 08/08/2020 - Mrs. Tineo is a 75-year-old female with a past medical history of hypertension, hypothyroidism admitted to the hospital for acute shortness of breath. Patient was found to have atrial fibrillation with RVR and was positive for Covid 19. Patient was then mechanically ventilated on 07/31/2020. She was successfully extubated on 08/05/2020. Status extubation patient had strokelike symptoms for which neurology was consulted. She had a CT of the brain which did not show stroke. Patient has been followed by multiple consultants including pulmonary, cardiology, neurology. Patient is seen and examined in the ICU today. Patient is confused, review of systems could not be done. Patient had a swallow evaluation done and failed. So she had an NG tube placed for nutrition today. Currently the patient is on 10 L high flow oxygen saturating at 96-99%. Heart rate around 80s to 90s, respiratory rate 20' s blood pressure 1 43 / 63. On reviewing the patient's labs white count of 20.9, hemoglobin 10.4. Sodium 137, percussion 3, when necessary 19, creatinine 0.53. On 08/09/2020- patient was seen and examined in the ICU. Patient is comfortably lying in bed on 15 L of high flow nasal cannula and maintaining saturations slightly above 90s. Compared to yesterday patient is less responsive. For her nutritional status patient is being managed on D5 0.9 normal saline. Patient has been discontinued off heparin drip and resumed on Eliquis as per cardiology recommendation. On reviewing the labs white count of 14.1 hemoglobin 10 platelets 264. Sodium 133, potassium 3.2, chloride 105, bicarb 26. BUN 20, creatinine 0.60. On 08/10/2020 -patient was seen and examined in the ICU. She is currently on 100% nonrebreather facemask and still confused. She is in soft restraints as the patient keeps pulling her face mask. Sitter at the bedside. On reviewing the vitals patient's temperature is 97.2, heart rate 81, respiratory rate in 20- 30 s, nonlabored and blood pressure 110 x 55. On reviewing the patient's labs white count of 18, hemoglobin 10, platelets 250. Electrolytes within normal limits. C. difficile came back positive. Active Medications Acetaminophen (Acetaminophen Tab 325 Mg Tab) 650 mg PO Q4HR PRN PRN Reason: Fever and/ or Pain Albuterol Sulfate (Albuterol Hfa Inhaler) 2 puff INHALATION RT-QID [facility] Last Admin: 08/10/20 20:18 Dose: Not Given Documented by: Amlodipine Besylate (Amlodipine 5 Mg Tab) 5 mg PO HS [facility] Last Admin: 08/10/20 20:27 Dose: 5 mg Documented by: Apixaban (Apixaban 2.5 Mg Tablet) 2.5 mg PO BID [facility] Last Admin: 08/10/20 20:27 Dose: 2.5 mg Documented by: Aspirin (Aspirin 81 Mg) 81 mg PO DAILY [facility] Last Admin: 08/10/20 08:17 Dose: 81 mg Documented by: Atorvastatin Calcium (Atorvastatin 40 Mg Tab) 40 mg PO HS [facility] Last Admin: 08/10/20 20:28 Dose: 40 mg Documented by: Dexamethasone Sodium Phosphate (Dexamethasone Sod Phosphate 10 Mg/Ml 1 Ml Vial) 6 mg IV DAILY [facility] Last Admin: 08/10/20 08:17 Dose: 6 mg Documented by: Famotidine (Famotidine 20 Mg/2 Ml Vial) 20 mg IV Q12HR [facility] Last Admin: 08/10/20 20:28 Dose: 20 mg Documented by: Clevidipine 25 mg/ IV Solution 50 mls @ 2 mls/hr IV .Q24H [facility]; Protocol Last Admin: 08/10/20 13:08 Dose: Not Given Documented by: Dextrose/Sodium Chloride (Dextrose 5%-Ns Iv Soln) 1,000 mls @ 50 mls/hr IV .Q20H [facility] Last Admin: 08/09/20 21:24 Dose: 50 mls/hr Documented by: Levothyroxine Sodium (Levothyroxine 75 Mcg Tab) 75 mcg PO DAILY@0630 [facility] Last Admin: 08/10/20 05:57 Dose: 75 mcg Documented by: Miscellaneous Information (Potassium Replacement Protocol 1 Each Misc) 1 each MISCELLANE DAILY PRN; Protocol PRN Reason: Per Protocol Vancomycin HCl (Vancomycin Oral Solution 250 Mg/5 Ml Bottle) 250 mg PO Q6HR [facility] Objective - Vital Signs Vital signs: Vital Signs Temp 97.7 F 08/10/20 08:00 Pulse 73 08/10/20 10:00 Resp 24 08/10/20 10:00 BP 113/51 08/10/20 10:00 Pulse Ox 100 08/10/20 10:00 Intake & Output 08/09/20 08/10/20 08/10/20 18:59 06:59 18:59 Intake Total 1323 1366.47 30 Output Total 840 520 Balance 483 846.47 30 Weight 65 kg Intake: IV 903 650 Dextrose 5%-0.9% NaCl 1, 700 650 000 ml @ 50 mls/hr IV . Q20H [facility] Rx#:[id number] Magnesium Sulfate-D5w Pmx 200 1 gm In Dextrose/Water 1 100ml.bag @ 100 mls/hr IVPB Q1H [facility] Rx#: [id number] Pressure Bag 3 Intake, IV Titration 236.47 Amount Heparin Sod,Pork in 0.45% 236.47 NaCl 25,000 unit In 0.45 % NaCl 1 250ml.bag @ 12 UNITS/KG/HR 6.42 mls/hr IV .Q24H [facility] Rx#: [id number] Tube Feeding 330 390 30 Other 90 90 Output: Urine 840 520 Other: Voiding Method Indwelling Catheter Indwelling Catheter Indwelling Catheter ABP, PAP, CO, CI - Last Documented Arterial Blood Pressure 143/61 - Exam - Exam Sitter at bed side -GENERAL: The patient is generally weak and confused HEENT: No pallor, No icterus CARDIOVASCULAR: S1 and S2 present. No murmurs, rubs, or gallops. PULMONARY: Chest is clear to auscultation, no wheezing or crackles. ABDOMEN: Soft, nontender, nondistended, normoactive bowel sounds. MUSCULOSKELETAL: No joint swelling or deformity. EXTREMITIES: mild pedal edema. -NEUROLOGICAL: No facial weakness, difficult to assess as she is confused but no focal deficits on gross exam SKIN: No rashes. no petechiae. - Labs CBC & Chem 7: 08/10/20 03:17 08/10/20 03:17 Labs: Abnormal Lab Results - Last 24 Hours (Table) 08/10/20 08/10/20 Range/Units 03:17 03:17 WBC 18.0 H (3.8-10.6) k/uL RBC 3.37 L (3.80-5.40) m/uL Hgb 10.0 L (11.4-16.0) gm/dL Hct 30.4 L (34.0-46.0) % Neutrophils # 16.2 H (1.3-7.7) k/uL BUN 32 H (7-17) mg/dL Calcium 7.5 L (8.4-10.2) mg/dL Magnesium 2.6 H (1.6-2.3) mg/dL Assessment and Plan Assessment: Assessment and Plan -Bilateral Covid 19 pneumonia: Continue with dexamethasone, and anticoagulation. Pulmonary on board and following the patient closely. She is status post extubation -Acute hypoxic respiratory failure secondary to above - status post extubation on 08/05/2020 - C difficle diarrhea -TIA with left arm and left eye and lip droop . Completely resolved and neurology signed off -A. fib and RVR, patient rate is controlled. Currently on heparin drip , could possibly change to her liquids as the patient has Dobboff now, as per cardiology recommendations -Increased inflammatory markers secondary to above and infection -Hypertension -Failed swallow evaluation - currently on Dobbhoff -Hypothyroidism DVT prophylaxis / GI prophylaxis Prognosis is guarded Plan: As c diff came back positive , she was started on Vancomycin through the NG tube. As per discussion with the nursing staff, there was confusion regarding her CODE STATUS. The earlier notes states that patient's discussed and she was made DNR but there has been said he could not recall that conversation. They also wanted to transfer the patient to [facility] but was denied. So I had a detailed discussion with Mr. Tineo and his daughter today and they stated that they want her to be a full code, even though I explained to them about the prognosis which is poor. This was communicated to the nursing staff in the ICU. Patient will be continued on the rest of her current medication regimen.Further recommendations depending on the progress of the patient.
[2020-08-10] MEDS: DEXTROSE 5%-0.9% NACL 1,000 ML IV SCH (23:28)
[2020-08-10] MEDS: VANCOMYCIN ORAL SOLUTION 250 MG/5 ML BOTTLE PO SCH (23:29)
[2020-08-11] MEDS ORDERED: DEXTROSE 50% SYRINGE 50 ML IVP ONE ×2 (00:24→06:14)
[2020-08-11 00:36] LABS: Glucose,Whole Blood 207 mg/dL (75-99)
[2020-08-11 01:53] LABS: Glucose,Whole Blood 113 mg/dL (75-99)
[2020-08-11 01:53] LABS: Glucose,Whole Blood 60 mg/dL (75-99)
[2020-08-11 01:55] LABS: Glucose,Whole Blood 91 mg/dL (75-99)
[2020-08-11 03:58] LABS: Glucose,Whole Blood 77 mg/dL (75-99)
[2020-08-11 04:51] LABS: HCT 31.3 % (34.0-46.0); HGB 10.1 gm/dL (11.4-16.0); Hypochromasia Slight; MCHC 32.3 g/dL (31.0-37.0); MCV 92.7 fL (80.0-100.0); Mean Platelet Volume 7.9; Platelet Count 266 k/uL (150-450); RBC 3.38 m/uL (3.80-5.40); RDW 15.2 % (11.5-15.5)
[2020-08-11 05:09] LABS: D-Dimer 7.48 mg/L FEU (<0.60); INR 0.9 (<1.2); Prothrombin Time 9.8 sec (9.0-12.0)
[2020-08-11 05:14] LABS: ALT 143 U/L (4-34); AST 99 U/L (14-36); African American GFR (CKD) >90 (>60 ml/min/1.73 sqM); Albumin 2.3 g/dL (3.5-5.0); Alkaline Phosphatase 328 U/L (38-126); Anion Gap 3 mmol/L; Blood Urea Nitrogen 25 mg/dL (7-17); C Reactive Protein 82.6 mg/L (<10.0); Calcium 7.6 mg/dL (8.4-10.2); Carbon Dioxide 27 mmol/L (22-30); Chloride 109 mmol/L (98-107); Glucose 95 mg/dL (74-99); LDH 1418 U/L (313-618); Magnesium 2.1 mg/dL (1.6-2.3); Non-African American GFR(CKD) >90 (>60 ml/min/1.73 sqM); Potassium 3.5 mmol/L (3.5-5.1); Sodium 139 mmol/L (137-145); Total Bilirubin 0.3 mg/dL (0.2-1.3)
[2020-08-11] MEDS: LEVOTHYROXINE 75 MCG TAB PO SCH (06:00)
[2020-08-11] MEDS: VANCOMYCIN ORAL SOLUTION 250 MG/5 ML BOTTLE PO SCH ×4 (06:00→23:49)
[2020-08-11] MEDS: POTASSIUM BICARBONATE/CIT AC 20 MEQ TABLET.EFF NG-TUBE SCH ×2 (06:07→06:46)
[2020-08-11 06:13] LABS: Glucose,Whole Blood 50 mg/dL (75-99)
[2020-08-11 07:02] LABS: Glucose,Whole Blood 129 mg/dL (75-99)
--- NOTE | 2020-08-11 07:49 | P.PN ---
Subjective Progress Note Date: 08/11/20 5-year-old female patient post acute hypoxic respiratory failure requiring intubation mechanical ventilation secondary to community related pneumonitis/pneumonia. The patient required intubation mechanical ventilation 07/30/2020. The patient was extubated on 08/05/2022 high flow oxygen currently she is on 15 L of oxygen by nasal cannula. Chest x-ray still showing diffuse patchy bilateral pulmonary infiltrates. The patient during the course developed some altered mentation and generalized weakness more so on the left and the patient is currently being evaluated by neurology. The patient underwent a angiogram of the brain and it was essentially negative. There was age-related atrophy and chronic small vessel ischemic changes. The patient also developed a new onset atrial fibrillation with rapid ventricular response and she converted back into normal sinus rhythm. She has hypertension and hypothyroidism as comorbid conditions. The patient remains awake and is having some difficulty in swallowing. The patient's is being nourished with enteral feeding at the rate of 30 mL an hour via an NGT. The patient is on D5 normal saline maintenance fluids at 50 mL an hour.. She remains on IV heparin. She is off the clevidipine drip. The patient's LDH level has been dropping and is down to 1300. The CRP has been fluctuating and currently is at 179. The patient's remains on Decadron 6 mg IV every 24 hours. The patient's received convalescent plasma. She remains on Cleviprex drip for blood pressure control. on today's evaluation the patient remains confused. She was switched to 100% nonrebreather facemask. No chest x-ray was done today. Chest x-ray from yesterday showed dif fuse bilateral pulmonary infiltrates peripheral mainly in the right lower lobe and the left upper lobe area. There is some also in the lower lobes. The patient is a triple lumen catheter. NG tube is in place for enteral feeding and nutritional support. The patient is currently in the 100% nonrebreather facemask patient was switched from high flow oxygen. She is breathing comfortably. She is confused. Neurologic exam is nonfocal. on today's evaluation of 08/11/2020, the patient's 100% nonrebreather facemask. His chest x-ray still showing diffuse airspace disease bilaterally, peripher ally. the NG tube has been in a good location. The patient is receiving enteral feeding for nutritional support. . The patient is on TwoCal HN and the patient is tolerating diet without any major problems. No major change in her mentation for now and the patient continued to be lethargic.the patient had a few bouts of hypoglycemia yesterday, she was given D50 and currently she is on D5 0.9 at the rate of 75 mL an hour. The patient is currently in a normal sinus rhythm. The patient is taken metoprolol 25 mg on a daily basis and the patient is on long- term anticoagulation with Eliquis. The patient is also on Decadron 6 mg on a daily basis. No signs of any significant respiratory distress and she is resting comfortably in bed. Still quite hypoxic and 100% nonrebreather facemask. No major change in her condition since yesterday.tthe patient was also diagnosed having C. diff colitis as the patient was having diarrhea. She was started on oral vancomycin. No fever for now. The white cell count today is 22. Objective - Vital Signs Vital signs: Vital Signs Temp 96.9 F L 08/11/20 00:00 Pulse 123 H 08/11/20 07:00 Resp 31 H 08/11/20 07:00 BP 125/53 08/11/20 07:00 Pulse Ox 93 L 08/11/20 07:00 Intake & Output 08/10/20 08/11/20 08/11/20 18:59 06:59 18:59 Intake Total 640 1095 105 Output Total 551 544 50 Balance 89 551 55 Weight 65 kg 62 kg Intake: IV 550 675 75 Dextrose 5%-0.9% NaCl 1, 550 675 75 000 ml @ 50 mls/hr IV . Q20H [facility] Rx#:[id number] Tube Feeding 90 330 30 Other 90 Output: Urine 551 544 50 Other: Voiding Method Indwelling Catheter Indwelling Catheter # Bowel Movements 1 ABP, PAP, CO, CI - Last Documented Arterial Blood Pressure 143/61 - Exam GENERAL EXAM: Alert, extremely weak 75-year-old female patient, 100 NRB, in no apparent distress. HEAD: Normocephalic. EYES: Sluggish reaction of pupils, equal size. NOSE: Clear with pink turbinates. THROAT: No erythema or exudates. NECK: No masses, no JVD. CHEST: No chest wall deformity. LUNGS: Equal air entry with basilar crackles CVS: S1 and S2 normal with no audible murmur, regular rhythm. ABDOMEN: No hepatosplenomegaly, normal bowel sounds, no guarding or rigidity. SPINE: No scoliosis or deformity SKIN: No rashes CENTRAL NERVOUS SYSTEM: Extremely weak, bilateral weakness, tone is normal in all 4 extremities.the patient is able to converse. She is confused. She has global weakness in all 4 extremities. No neck stiffness. EXTREMITIES: There is no peripheral edema. No clubbing, no cyanosis. Peripheral pulses are intact. - Labs CBC & Chem 7: 08/11/20 04:27 08/11/20 04:27 Labs: Abnormal Lab Results - Last 24 Hours (Table) 08/10/20 08/10/20 08/10/20 Range/Units 13:08 13:19 18:04 WBC (3.8-10.6) k/uL RBC (3.80-5.40) m/uL Hgb (11.4-16.0) gm/dL Hct (34.0-46.0) % Fibrinogen (200-500) mg/dL D-Dimer (<0.60) mg/L FEU Chloride (98-107) mmol/L BUN (7-17) mg/dL POC Glucose (mg/dL) 121 H 67 L (75-99) mg/dL Calcium (8.4-10.2) mg/dL AST (14-36) U/L ALT (4-34) U/L Alkaline Phosphatase (38-126) U/L Lactate Dehydrogenase (313-618) U/L C-Reactive Protein (<10.0) mg/L Total Protein (6.3-8.2) g/dL Albumin (3.5-5.0) g/dL C. difficile (EIA) Intrp Positive A (Negative) 08/11/20 08/11/20 08/11/20 Range/Units 00:34 01:49 01:51 WBC (3.8-10.6) k/uL RBC (3.80-5.40) m/uL Hgb (11.4-16.0) gm/dL Hct (34.0-46.0) % Fibrinogen (200-500) mg/dL D-Dimer (<0.60) mg/L FEU Chloride (98-107) mmol/L BUN (7-17) mg/dL POC Glucose (mg/dL) 207 H 60 L 113 H (75-99) mg/dL Calcium (8.4-10.2) mg/dL AST (14-36) U/L ALT (4-34) U/L Alkaline Phosphatase (38-126) U/L Lactate Dehydrogenase (313-618) U/L C-Reactive Protein (<10.0) mg/L Total Protein (6.3-8.2) g/dL Albumin (3.5-5.0) g/dL C. difficile (EIA) Intrp (Negative) 08/11/20 08/11/20 08/11/20 Range/Units 04:27 04:27 04:27 WBC 22.0 H (3.8-10.6) k/uL RBC 3.38 L (3.80-5.40) m/uL Hgb 10.1 L (11.4-16.0) gm/dL Hct 31.3 L (34.0-46.0) % Fibrinogen 535 H (200-500) mg/dL D-Dimer 7.48 H (<0.60) mg/L FEU Chloride 109 H (98-107) mmol/L BUN 25 H (7-17) mg/dL POC Glucose (mg/dL) (75-99) mg/dL Calcium 7.6 L (8.4-10.2) mg/dL AST 99 H (14-36) U/L ALT 143 H (4-34) U/L Alkaline Phosphatase 328 H (38-126) U/L Lactate Dehydrogenase 1418 H (313-618) U/L C-Reactive Protein 82.6 H (<10.0) mg/L Total Protein 5.0 L (6.3-8.2) g/dL Albumin 2.3 L (3.5-5.0) g/dL C. difficile (EIA) Intrp (Negative) 08/11/20 08/11/20 Range/Units 06:09 07:00 WBC (3.8-10.6) k/uL RBC (3.80-5.40) m/uL Hgb (11.4-16.0) gm/dL Hct (34.0-46.0) % Fibrinogen (200-500) mg/dL D-Dimer (<0.60) mg/L FEU Chloride (98-107) mmol/L BUN (7-17) mg/dL POC Glucose (mg/dL) 50 L 129 H (75-99) mg/dL Calcium (8.4-10.2) mg/dL AST (14-36) U/L ALT (4-34) U/L Alkaline Phosphatase (38-126) U/L Lactate Dehydrogenase (313-618) U/L C-Reactive Protein (<10.0) mg/L Total Protein (6.3-8.2) g/dL Albumin (3.5-5.0) g/dL C. difficile (EIA) Intrp (Negative) Assessment and Plan Plan: 1 Acute hypoxic respiratory failure secondary to CoVID 19 pneumonitis, required intubation and mechanical ventilation on 07/30/20. She was beyond the window to be qualified for Remdesivir. Did receive convalescent plasma. Extubated on 08/05/2020, currently She was switched to 100%NRB. Chest x-ray continues to show bilateral patchy infiltrates. The patient remains in the 100% nonrebreather facemask. 2 Altered mental status with extreme weakness more so on the left, being evaluated by neurology. The CT angiogram was negative and the patient has some chronic ischemic changes. Neurologic exam is nonfocal point in time. The patient continues to be altered and the patient is confused. Neurologic exam is nonfocal. She has global weakness in all 4 extremities.on today's evaluation, she is able occasional to follow some simple commands. She is unable to hold a conversation yet. 3 New onset atrial fibrillation with RVR, converted to sinus rhythm while in the emergency room. Remains in normal sinus rhythm. The patient is currently on Eliquis. Rate is controlled. The patient is also on aspirin. 4 History of hypertension. 5 History of hypothyroidism. 6 enteral feeding for nutritional support through an NG tube. 7 diarrhea, C. diff colitis.the patient was started on oral vancomycin for positive C. diff colitis. Plan: conversation with the patient's on 08/07/2020 and the patient is a DO NOT RESUSCITATE/DO NOT INTUBATE CODE STATUS not to be reintubated but, subsequently, the nursing staff informed us that the does not recall that conversation They have also tried to have her transferred to [facility] and she was denied stool for C. diff D5.9 at the rate of 75 mL an hour. She is also taking enteral feeding for nutritional support with TwoCalHN at a rate of 30 mL's an hour which is goal for her. Prognosis is guarded, no changes in her condition, no major changes the chest x- ray findings on today's evaluation, she 700% nonrebreather facemask started onHe'll vancomycin keep the patient on 100% nonrebreather facemask. Neurology is on the case regarding the altered mentation. She is on IV Decadron. We'll continue to follow and make further recommendations based on her clinical status
[2020-08-11] MEDS: ALBUTEROL HFA INHALER INHALATION SCH ×4 (09:09→20:19)
[2020-08-11] MEDS: FAMOTIDINE 20 MG/2 ML VIAL IV SCH (09:14)
[2020-08-11] MEDS: METOPROLOL TARTRATE 25 MG TAB PO SCH (09:14)
[2020-08-11] MEDS: ASPIRIN 81 MG PO SCH (09:14)
[2020-08-11] MEDS: APIXABAN 2.5 MG TABLET PO SCH ×2 (09:14→21:41)
[2020-08-11] MEDS: DEXAMETHASONE SOD PHOSPHATE 10 MG/ML 1 ML VIAL IV SCH (09:14)
--- NOTE | 2020-08-11 09:19 | XR ---
EXAMINATION TYPE: XR chest 1V portable DATE OF EXAM: 08/11/2020 COMPARISON: Chest x-ray 08/08/2020 HISTORY: Covid pneumonia TECHNIQUE: Single frontal view of the chest is obtained. FINDINGS: Bilateral airspace disease is again seen. Orogastric tube, right jugular central venous ca theter are stable. Cardiac mediastinal silhouette is unchanged. Aorta is dense. No evident pneumothor ax or pleural effusion. IMPRESSION: Bilateral pneumonia, follow-up recommended
[2020-08-11 09:22] LABS: Glucose,Whole Blood 122 mg/dL (75-99)
--- NOTE | 2020-08-11 09:22 | PN ---
PROGRESS NOTE Mrs Tineo is in sinus rhythm today. We will add metoprolol 25 mg daily to her regimen. She is comfortable, resting. Seems to be doing a little better today. We will continue current medical regimen and from a cardiac standpoint, I will see her as needed. DEANNA / LUDIN: [id number] /
[2020-08-11 09:46] LABS: % Iron Saturation 11.31 (12.00-45.00); Ferritin 375.3 ng/mL (10.0-291.0); Iron 25 ug/dL (50-170); Total Iron Binding Capacity 221 ug/dL (228-460)
[2020-08-11 11:53] LABS: Glucose,Whole Blood 92 mg/dL (75-99)
--- NOTE | 2020-08-11 12:42 | P.PN ---
Subjective This is a pleasant 75 years old female with past medical history of hypertension, hypothyroidism. Patient could not provide much information so it was taken From staff and records. She presents to [facility]'s with respiratory symptoms and dyspnea associated with some complaint but no chest pain. There she was treated for atrial fibrillation with RVR and she was found to have positive covid 19 test. Patient is afebrile, she is tachypneic with respiratory rate about 26-27, hypoxic with oxygen saturation of 99% on 15 L via nasal cannula. Blood pressure is 106/89. CBC from today is unremarkable. Troponin is elevated 0.17. High lactate dehydrogenase 1276 and C-reactive protein 256. And once is negative. Chest x- ray showing severe pulmonary edema could relate to RDS and is similar to a computed tomography scan earlier today 07/31/2020 Patient was admitted with Covid pneumonia and respiratory failure, her condition got deteriorated yesterday and she got intubated and now she is on mechanical ventilation was pulmonary/critical care team monitor and carefully. Also she had A. fib with RVR and converted to sinus rhythm, her Cardizem drip was stopped and her heparin drip was switched liquids. She continued to be on Zithromax and ceftriaxone and vitamins C and zinc 08/01/2020 Patient is admitted with Covid pneumonia and course is complicated by A. fib and RVR. Patient remains in the ICU in critical condition, she is intubated and on mechanical ventilation with pulmonary/critical care team on the case. Also cartilage informed the case closely Treatments and dexamethasone, liquids, zinc, vitamin C, antibiotics with Zithromax and ceftriaxone. No reemdesivir as per pulmonary team recommendation Today I was contacted by the social group worker and stop that the patient and daughter works in [place] they want patient to be transferred upon the request to [facility] I discussed the case with who declined To accept the patient to be transferred to [facility] 08/02/2020 Patient is in the ICU for bilateral covid Pneumonia, she is intubated and on mechanical ventilation. Her heart rate atrial fibrillation was converted to sinus rhythm and currently her own in the low 50s. Blood pressure is just above 100. Patient does not need support by pressors. Leukocytosis is improving, BMP is unremarkable. Influenza virus is negative. Chest x-ray showed persistent bilateral mid to lower lung acute infiltrate and/or edema. No significant change from one day earlier Patient remains on dexamethasone, Eliquis and broad-spectrum antibiotics. Patient in the ICU intubated, pulmonary/critical care team are planning CPAP tomorrow, PEEP dropped. Other than that, change from yesterday, her heart rate shown bradycardia although in sinus rhythm therefore Cardizem and beta blockers were stopped, patient kept on Eliquis for her A. fib and cardiology team signed off. Patient on Zithromax, ceftriaxone, dexamethasone no remdesivir . she is status convescalnet plasam as well 08/04/20 Patient is still on mechanical ventilation, pulmonary/critical care team trying breathing for the patient but with no success today Other than that She'll continue with same treatment of steroids, Eliquis, azithromycin and ceftriaxone. No Cardizem or beta blockers for bradycardia. However heart rate is improved today to 60-70. WBC trending down to 12 K 08/05/20 pt is extubated today by pulmonary team , after extubation she started having stroke like ,left arm weakness, lip and left eye droop , and possible leg weakness, CT of brain is negative for stroke and CTA of the brain is ordered and is pending , neurologist was consulted who ordered MRI of the brain tomorrow. pt is currently saturating on 5 L/m of oxygen Eliquis was held by consultants while she remains on dexamethasone, stress and Zithromax. Chest x-ray looks stable Patient is followed closely by pulmonary/critical care team 08/06/2020 Patient is status extubation currently on 6 L oxygen. Pulmonary team discontinue with vitamin C and zinc and this continue with Zithromax and ceftriaxone. Patient is kept on dexamethasone Her left side weakness improved, neurology on the case MRI of the brain did not show stroke. Anticoagulation resumed with heparin drip per cardiology team for now D-dimer is 2.9, WBC 13 K. Heart rate is 60-70 sinus rhythm. 08/07/2020 Patient is awake and alert, calm in the ICU. She is currently on the liter per minute oxygen via high flow cannula Patient weakness and facial droop has resolved. Neurology team signed off. Respiratory status is slightly worse. Pulmonary team R following the case closely and they discussed and further management plan with the patient and family, please refer to their note for more details. In the meantime she remains on dexamethasone, heparin drip and bronchodilator 08/11/2020 Patient remains in the ICU and some respiratory distress, she is tachypneic at 22-30 breath per minute, she needs 15 L of oxygen via nonrebreather. And she remains on the same treatment for her Covid pneumonia with dexamethasone, Eliquis and albuterol. Also she is on D5 normal saline at 75 mL/h for episodes of hypoglycemia yesterday. Also she is on oral vancomycin for C. diff colitis Review of systems CONSTITUTIONAL: No fever, no malaise, no fatigue. HEENT: No recent visual problems or hearing problems. Denied any sore throat. CARDIOVASCULAR: No orthopnea, PND, no palpitations, no syncope. PULMONARY: No shortness of breath, no cough, no hemoptysis. GASTROINTESTINAL: No diarrhea, no nausea, no vomiting, no abdominal pain. Normoactive bowel sounds. NEUROLOGICAL: No headaches, no weakness, no numbness. Active Medications Generic Name Dose Route Start Last Admin Trade Name Freq PRN Reason Stop Dose Admin Acetaminophen 650 mg 08/08/20 16:55 Acetaminophen Tab 325 Mg Tab PO Q4HR PRN Fever and/ or Pain Albuterol Sulfate 2 puff 07/30/20 08:00 08/11/20 09:09 Albuterol Hfa Inhaler INHALATION Not Given RT-QID RODRIGO Amlodipine Besylate 5 mg 08/09/20 21:00 08/10/20 20:27 Amlodipine 5 Mg Tab PO 5 mg HS RODRIGO Administration Apixaban 2.5 mg 08/09/20 21:00 08/11/20 09:14 Apixaban 2.5 Mg Tablet PO 2.5 mg BID RODRIGO Administration Aspirin 81 mg 08/09/20 09:00 08/11/20 09:14 Aspirin 81 Mg PO 81 mg DAILY RODRIGO Administration Atorvastatin Calcium 40 mg 08/08/20 21:00 08/10/20 20:28 Atorvastatin 40 Mg Tab PO 40 mg HS RODRIGO Administration Dexamethasone Sodium Phosphate 6 mg 07/30/20 16:15 08/11/20 09:14 Dexamethasone Sod Phosphate 10 Mg/Ml 1 Ml Vial IV 6 mg DAILY RODRIGO Administration Famotidine 20 mg 08/11/20 21:00 Famotidine 20 Mg Tab PO Q12HR [facility] Clevidipine 25 mg/ IV Solution 50 mls @ 2 mls/hr 08/05/20 15:45 08/10/20 13:08 IV Not Given .Q24H [facility] Protocol 1 MG/HR Dextrose/Sodium Chloride 1,000 mls @ 75 mls/hr 08/06/20 09:30 08/10/20 23:28 Dextrose 5%-Ns Iv Soln IV 50 mls/hr .[id number] R[facility] Administration Levothyroxine Sodium 75 mcg 08/09/20 06:30 08/11/20 06:00 Levothyroxine 75 Mcg Tab PO 75 mcg DAILY@0630 RODRIGO Administration Metoprolol Tartrate 25 mg 08/11/20 09:00 08/11/20 09:14 Metoprolol Tartrate 25 Mg Tab PO 25 mg DAILY RODRIGO Administration Miscellaneous Information 1 each 08/06/20 07:41 Potassium Replacement Protocol 1 Each Misc MISCELLANE DAILY PRN Per Protocol Protocol Vancomycin HCl 250 mg 08/11/20 00:00 08/11/20 11:36 Vancomycin Oral Solution 250 Mg/5 Ml Bottle PO 250 mg Q6HR RODR[facility]O Administration Objective - Vital Signs Vital signs: Vital Signs Temp 98.0 F 08/11/20 12:00 Pulse 72 08/11/20 12:00 Resp 30 H 08/11/20 12:00 BP 110/46 08/11/20 12:00 Pulse Ox 99 08/11/20 12:00 Intake & Output 08/10/20 08/11/20 08/11/20 18:59 06:59 18:59 Intake Total 640 1095 510 Output Total 551 544 321 Balance 89 551 189 Weight 65 kg 62 kg Intake: IV 550 675 450 Dextrose 5%-0.9% NaCl 1, 550 675 450 000 ml @ 75 mls/hr IV . [id number] [facility] Rx#:[id number] Tube Feeding 90 330 60 Other 90 Output: Urine 551 544 321 Other: Voiding Method Indwelling Catheter Indwelling Catheter Indwelling Catheter # Bowel Movements 1 ABP, PAP, CO, CI - Last Documented Arterial Blood Pressure 143/61 - Exam -GENERAL: The patient is generally weak HEENT: Pupils are round and equally reacting to light. EOMI. No scleral icterus. No conjunctival pallor. Normocephalic, atraumatic. No pharyngeal erythema. No thyromegaly. CARDIOVASCULAR: S1 and S2 present. No murmurs, rubs, or gallops. PULMONARY: Chest is clear to auscultation, no wheezing or crackles. ABDOMEN: Soft, nontender, nondistended, normoactive bowel sounds. No palpable organomegaly. MUSCULOSKELETAL: No joint swelling or deformity. EXTREMITIES: No cyanosis, clubbing, or pedal edema. -NEUROLOGICAL: Left facial droop with left arm weakness. SKIN: No rashes. no petechiae. - Labs CBC & Chem 7: 08/11/20 04:27 08/11/20 11:11 Labs: Abnormal Lab Results - Last 24 Hours (Table) 08/10/20 08/10/20 08/10/20 Range/Units 13:08 13:19 18:04 WBC (3.8-10.6) k/uL RBC (3.80-5.40) m/uL Hgb (11.4-16.0) gm/dL Hct (34.0-46.0) % Fibrinogen (200-500) mg/dL D-Dimer (<0.60) mg/L FEU Chloride (98-107) mmol/L BUN (7-17) mg/dL POC Glucose (mg/dL) 121 H 67 L (75-99) mg/dL Calcium (8.4-10.2) mg/dL Iron (50-170) ug/dL TIBC (228-460) ug/dL % Saturation (12.00-45.00) Ferritin (10.0-291.0) ng/mL AST (14-36) U/L ALT (4-34) U/L Alkaline Phosphatase (38-126) U/L Lactate Dehydrogenase (313-618) U/L C-Reactive Protein (<10.0) mg/L Total Protein (6.3-8.2) g/dL Albumin (3.5-5.0) g/dL C. difficile (EIA) Intrp Positive A (Negative) 08/11/20 08/11/20 08/11/20 Range/Units 00:34 01:49 01:51 WBC (3.8-10.6) k/uL RBC (3.80-5.40) m/uL Hgb (11.4-16.0) gm/dL Hct (34.0-46.0) % Fibrinogen (200-500) mg/dL D-Dimer (<0.60) mg/L FEU Chloride (98-107) mmol/L BUN (7-17) mg/dL POC Glucose (mg/dL) 207 H 60 L 113 H (75-99) mg/dL Calcium (8.4-10.2) mg/dL Iron (50-170) ug/dL TIBC (228-460) ug/dL % Saturation (12.00-45.00) Ferritin (10.0-291.0) ng/mL AST (14-36) U/L ALT (4-34) U/L Alkaline Phosphatase (38-126) U/L Lactate Dehydrogenase (313-618) U/L C-Reactive Protein (<10.0) mg/L Total Protein (6.3-8.2) g/dL Albumin (3.5-5.0) g/dL C. difficile (EIA) Intrp (Negative) 08/11/20 08/11/20 08/11/20 Range/Units 04:27 04:27 04:27 WBC 22.0 H (3.8-10.6) k/uL RBC 3.38 L (3.80-5.40) m/uL Hgb 10.1 L (11.4-16.0) gm/dL Hct 31.3 L (34.0-46.0) % Fibrinogen 535 H (200-500) mg/dL D-Dimer 7.48 H (<0.60) mg/L FEU Chloride 109 H (98-107) mmol/L BUN 25 H (7-17) mg/dL POC Glucose (mg/dL) (75-99) mg/dL Calcium 7.6 L (8.4-10.2) mg/dL Iron 25 L (50-170) ug/dL TIBC 221 L (228-460) ug/dL % Saturation 11.31 L (12.00-45.00) Ferritin 375.3 H (10.0-291.0) ng/mL AST 99 H (14-36) U/L ALT 143 H (4-34) U/L Alkaline Phosphatase 328 H (38-126) U/L Lactate Dehydrogenase 1418 H (313-618) U/L C-Reactive Protein 82.6 H (<10.0) mg/L Total Protein 5.0 L (6.3-8.2) g/dL Albumin 2.3 L (3.5-5.0) g/dL C. difficile (EIA) Intrp (Negative) 08/11/20 08/11/20 08/11/20 Range/Units 06:09 07:00 09:20 WBC (3.8-10.6) k/uL RBC (3.80-5.40) m/uL Hgb (11.4-16.0) gm/dL Hct (34.0-46.0) % Fibrinogen (200-500) mg/dL D-Dimer (<0.60) mg/L FEU Chloride (98-107) mmol/L BUN (7-17) mg/dL POC Glucose (mg/dL) 50 L 129 H 122 H (75-99) mg/dL Calcium (8.4-10.2) mg/dL Iron (50-170) ug/dL TIBC (228-460) ug/dL % Saturation (12.00-45.00) Ferritin (10.0-291.0) ng/mL AST (14-36) U/L ALT (4-34) U/L Alkaline Phosphatase (38-126) U/L Lactate Dehydrogenase (313-618) U/L C-Reactive Protein (<10.0) mg/L Total Protein (6.3-8.2) g/dL Albumin (3.5-5.0) g/dL C. difficile (EIA) Intrp (Negative) Assessment and Plan Assessment: -Bilateral Covid 19 pneumonia: Continue with dexamethasone, and anticoagulation. Pulmonary consult. She is status post extubation -Acute hypoxic respiratory failure secondary to above -TIA with left arm and left eye and lip droop . Completely resolved and neurology signed off -A. fib and RVR, patient rate is controlled. Currently on Eliquis, metoprolol is admitted by cardiology team -Increased inflammatory markers secondary to above and infection -Hypertension -Hypothyroidism DVT prophylaxis. Eliquis GI prophylaxis: Protonix Prognosis is guarded
[2020-08-11] MEDS: CLEVIDIPINE BUTYRATE 25 MG in EMPTY BAG 1 BAG IV SCH (14:11)
[2020-08-11 14:24] LABS: Glucose,Whole Blood 110 mg/dL (75-99)
[2020-08-11 17:35] LABS: Glucose,Whole Blood 118 mg/dL (75-99)
[2020-08-11] MEDS: amLODIPine 5 MG TAB PO SCH (21:40)
[2020-08-11] MEDS: DEXTROSE 5%-0.9% NACL 1,000 ML IV SCH (21:40)
[2020-08-11] MEDS: ATORVASTATIN 40 MG TAB PO SCH (21:41)
[2020-08-11] MEDS: FAMOTIDINE 20 MG TAB PO SCH (21:41)
[2020-08-11 22:03] LABS: Glucose,Whole Blood 71 mg/dL (75-99)
[2020-08-12 01:49] LABS: Glucose,Whole Blood 120 mg/dL (75-99)
[2020-08-12 04:07] LABS: Basophils % (A) 0 %; Eosinophils % (A) 0 %; HCT 26.1 % (34.0-46.0); Hypochromasia Moderate; Lymphocytes # (A) 0.8 k/uL (1.0-4.8); Lymphocytes % (A) 5 %; MCH 30.7 pg (25.0-35.0); MCHC 32.9 g/dL (31.0-37.0); MCV 93.5 fL (80.0-100.0); Mean Platelet Volume 7.8; Monocytes # (A) 0.5 k/uL (0-1.0); Monocytes % (A) 3 %; Neutrophils # (A) 15.3 k/uL (1.3-7.7); Neutrophils % (A) 91 %; Platelet Count 248 k/uL (150-450); RBC 2.79 m/uL (3.80-5.40); RDW 15.2 % (11.5-15.5); WBC 16.8 k/uL (3.8-10.6)
[2020-08-12 04:22] LABS: HGB 8.6 gm/dL (11.4-16.0)
[2020-08-12 04:33] LABS: ALT 103 U/L (4-34); AST 62 U/L (14-36); African American GFR (CKD) >90 (>60 ml/min/1.73 sqM); Albumin 2.1 g/dL (3.5-5.0); Alkaline Phosphatase 266 U/L (38-126); Anion Gap 1 mmol/L; Blood Urea Nitrogen 26 mg/dL (7-17); C Reactive Protein 84.1 mg/L (<10.0); Calcium 7.5 mg/dL (8.4-10.2); Carbon Dioxide 27 mmol/L (22-30); Chloride 112 mmol/L (98-107); Creatine Kinase 20 U/L (30-135); Glucose 106 mg/dL (74-99); LDH 1256 U/L (313-618); Magnesium 2.1 mg/dL (1.6-2.3); Non-African American GFR(CKD) >90 (>60 ml/min/1.73 sqM); Potassium 4.2 mmol/L (3.5-5.1); Sodium 140 mmol/L (137-145); Total Bilirubin 0.3 mg/dL (0.2-1.3); Total Protein 4.5 g/dL (6.3-8.2)
[2020-08-12 04:53] LABS: D-Dimer 5.86 mg/L FEU (<0.60); INR 0.9 (<1.2); Prothrombin Time 9.8 sec (9.0-12.0)
[2020-08-12 05:42] LABS: Glucose,Whole Blood 102 mg/dL (75-99)
[2020-08-12] MEDS: VANCOMYCIN ORAL SOLUTION 250 MG/5 ML BOTTLE PO SCH ×4 (06:07→23:15)
[2020-08-12] MEDS: LEVOTHYROXINE 75 MCG TAB PO SCH (06:07)
--- NOTE | 2020-08-12 07:29 | P.PN ---
Subjective Progress Note Date: 08/12/20 5-year-old female patient post acute hypoxic respiratory failure requiring intubation mechanical ventilation secondary to community related pneumonitis/pneumonia. The patient required intubation mechanical ventilation 07/30/2020. The patient was extubated on 08/05/2022 high flow oxygen currently she is on 15 L of oxygen by nasal cannula. Chest x-ray still showing diffuse patchy bilateral pulmonary infiltrates. The patient during the course developed some altered mentation and generalized weakness more so on the left and the patient is currently being evaluated by neurology. The patient underwent a angiogram of the brain and it was essentially negative. There was age-related atrophy and chronic small vessel ischemic changes. The patient also developed a new onset atrial fibrillation with rapid ventricular response and she converted back into normal sinus rhythm. She has hypertension and hypothyroidism as comorbid conditions. The patient remains awake and is having some difficulty in swallowing. The patient's is being nourished with enteral feeding at the rate of 30 mL an hour via an NGT. The patient is on D5 normal saline maintenance fluids at 50 mL an hour.. She remains on IV heparin. She is off the clevidipine drip. The patient's LDH level has been dropping and is down to 1300. The CRP has been fluctuating and currently is at 179. The patient's remains on Decadron 6 mg IV every 24 hours. The patient's received convalescent plasma. She remains on Cleviprex drip for blood pressure control. on today's evaluation the patient remains confused. She was switched to 100% nonrebreather facemask. No chest x-ray was done today. Chest x-ray from yesterday showed dif fuse bilateral pulmonary infiltrates peripheral mainly in the right lower lobe and the left upper lobe area. There is some also in the lower lobes. The patient is a triple lumen catheter. NG tube is in place for enteral feeding and nutritional support. The patient is currently in the 100% nonrebreather facemask patient was switched from high flow oxygen. She is breathing comfortably. She is confused. Neurologic exam is nonfocal. on today's evaluation of 08/11/2020, the patient's 100% nonrebreather facemask. His chest x-ray still showing diffuse airspace disease bilaterally, peripher ally. the NG tube has been in a good location. The patient is receiving enteral feeding for nutritional support. . The patient is on TwoCal HN and the patient is tolerating diet without any major problems. No major change in her mentation for now and the patient continued to be lethargic.the patient had a few bouts of hypoglycemia yesterday, she was given D50 and currently she is on D5 0.9 at the rate of 75 mL an hour. The patient is currently in a normal sinus rhythm. The patient is taken metoprolol 25 mg on a daily basis and the patient is on long- term anticoagulation with Eliquis. The patient is also on Decadron 6 mg on a daily basis. No signs of any significant respiratory distress and she is resting comfortably in bed. Still quite hypoxic and 100% nonrebreather facemask. No major change in her condition since yesterday.tthe patient was also diagnosed having C. diff colitis as the patient was having diarrhea. She was started on oral vancomycin. No fever for now. The white cell count today is 22. oon 08/12/2020, the patient seems to be a bit more awake and alert compared to yesterday. She is 700% nonrebreather facemask. Her pulse ox is 99%. Nevertheless, she desaturates whenever she comes off the mask. Her chest x-ray still showing dense bilaterally consolidation perihilar more so in the right lower lobe and the left perihilar area. This is the chest x-ray from yesterday and the follow-up chest x-rays to be done today. Meanwhile, the patient is still receiving enteral feeding for nutritional support and she is taking TwoCal and she is at goal of 30 mL an hour. IV fluids form of D5 normal state rate of 75 mL an hour. Her blood work shows a white cell count of 16.8 which is improved compared to yesterday. D-dimer is down to 5.8 and the renal function is stable. In terms of her inflammatory markers, the LDH is down to 1256 and the CRP is down to 84. The patient also has a positive C. diff colitis. The patient is currently on oral vancomycin. She has no fecal management system and she has bowel movements that are few and there are improving. No fever for now. Objective - Vital Signs Vital signs: Vital Signs Temp 98.6 F 08/12/20 04:00 Pulse 85 08/12/20 07:00 Resp 16 08/12/20 07:00 BP 131/49 08/12/20 07:00 Pulse Ox 99 08/12/20 07:00 Intake & Output 08/11/20 08/12/20 08/12/20 18:59 06:59 18:59 Intake Total 1095 1155 105 Output Total 615 780 100 Balance 480 375 5 Weight 65.5 kg Intake: IV 975 825 75 Dextrose 5%-0.9% NaCl 1, 975 825 75 000 ml @ 75 mls/hr IV . [id number] [facility] Rx#:[id number] Tube Feeding 120 330 30 Output: Urine 615 780 100 Other: Voiding Method Indwelling Catheter Indwelling Catheter # Bowel Movements 2 1 ABP, PAP, CO, CI - Last Documented Arterial Blood Pressure 143/61 - Exam GENERAL EXAM: Alert, extremely weak 75-year-old female patient, 100 NRB, in no apparent distress.the patient also has an NG tube in place. HEAD: Normocephalic. EYES: Sluggish reaction of pupils, equal size. NOSE: Clear with pink turbinates. THROAT: No erythema or exudates. NECK: No masses, no JVD. CHEST: No chest wall deformity. LUNGS: Equal air entry with basilar crackles CVS: S1 and S2 normal with no audible murmur, regular rhythm. ABDOMEN: No hepatosplenomegaly, normal bowel sounds, no guarding or rigidity. SPINE: No scoliosis or deformity SKIN: No rashes CENTRAL NERVOUS SYSTEM: Extremely weak, bilateral weakness, tone is normal in all 4 extremities.the patient is able to converse. She is confused. She has global weakness in all 4 extremities. No neck stiffness. EXTREMITIES: There is no peripheral edema. No clubbing, no cyanosis. Peripheral pulses are intact. - Labs CBC & Chem 7: 08/12/20 03:34 08/12/20 03:34 Labs: Abnormal Lab Results - Last 24 Hours (Table) 08/11/20 08/11/20 08/11/20 Range/Units 04:27 09: 14:23 WBC (3.8-10.6) k/uL RBC (3.80-5.40) m/uL Hgb (11.4-16.0) gm/dL Hct (34.0-46.0) % Neutrophils # (1.3-7.7) k/uL Lymphocytes # (1.0-4.8) k/uL D-Dimer (<0.60) mg/L FEU Chloride (98-107) mmol/L BUN (7-17) mg/dL Creatinine (0.52-1.04) mg/dL Glucose (74-99) mg/dL POC Glucose (mg/dL) 122 H 110 H (75-99) mg/dL Calcium (8.4-10.2) mg/dL Iron 25 L (50-170) ug/dL TIBC 221 L (228-460) ug/dL % Saturation 11.31 L (12.00-45.00) Ferritin 375.3 H (10.0-291.0) ng/mL AST (14-36) U/L ALT (4-34) U/L Alkaline Phosphatase (38-126) U/L Lactate Dehydrogenase (313-618) U/L Creatine Kinase (30-135) U/L C-Reactive Protein (<10.0) mg/L Total Protein (6.3-8.2) g/dL Albumin (3.5-5.0) g/dL 08/11/20 08/11/20 08/12/20 Range/Units 17:34 22:01 01:47 WBC (3.8-10.6) k/uL RBC (3.80-5.40) m/uL Hgb (11.4-16.0) gm/dL Hct (34.0-46.0) % Neutrophils # (1.3-7.7) k/uL Lymphocytes # (1.0-4.8) k/uL D-Dimer (<0.60) mg/L FEU Chloride (98-107) mmol/L BUN (7-17) mg/dL Creatinine (0.52-1.04) mg/dL Glucose (74-99) mg/dL POC Glucose (mg/dL) 118 H 71 L 120 H (75-99) mg/dL Calcium (8.4-10.2) mg/dL Iron (50-170) ug/dL TIBC (228-460) ug/dL % Saturation (12.00-45.00) Ferritin (10.0-291.0) ng/mL AST (14-36) U/L ALT (4-34) U/L Alkaline Phosphatase (38-126) U/L Lactate Dehydrogenase (313-618) U/L Creatine Kinase (30-135) U/L C-Reactive Protein (<10.0) mg/L Total Protein (6.3-8.2) g/dL Albumin (3.5-5.0) g/dL 08/12/20 08/12/20 08/12/20 Range/Units 03:34 03:34 03:34 WBC 16.8 H (3.8-10.6) k/uL RBC 2.79 L (3.80-5.40) m/uL Hgb 8.6 L D (11.4-16.0) gm/dL Hct 26.1 L (34.0-46.0) % Neutrophils # 15.3 H (1.3-7.7) k/uL Lymphocytes # 0.8 L (1.0-4.8) k/uL D-Dimer 5.86 H (<0.60) mg/L FEU Chloride 112 H (98-107) mmol/L BUN 26 H (7-17) mg/dL Creatinine 0.46 L (0.52-1.04) mg/dL Glucose 106 H (74-99) mg/dL POC Glucose (mg/dL) (75-99) mg/dL Calcium 7.5 L (8.4-10.2) mg/dL Iron (50-170) ug/dL TIBC (228-460) ug/dL % Saturation (12.00-45.00) Ferritin (10.0-291.0) ng/mL AST 62 H (14-36) U/L ALT 103 H (4-34) U/L Alkaline Phosphatase 266 H (38-126) U/L Lactate Dehydrogenase 1256 H (313-618) U/L Creatine Kinase 20 L (30-135) U/L C-Reactive Protein 84.1 H (<10.0) mg/L Total Protein 4.5 L (6.3-8.2) g/dL Albumin 2.1 L (3.5-5.0) g/dL 08/12/20 Range/Units 05:40 WBC (3.8-10.6) k/uL RBC (3.80-5.40) m/uL Hgb (11.4-16.0) gm/dL Hct (34.0-46.0) % Neutrophils # (1.3-7.7) k/uL Lymphocytes # (1.0-4.8) k/uL D-Dimer (<0.60) mg/L FEU Chloride (98-107) mmol/L BUN (7-17) mg/dL Creatinine (0.52-1.04) mg/dL Glucose (74-99) mg/dL POC Glucose (mg/dL) 102 H (75-99) mg/dL Calcium (8.4-10.2) mg/dL Iron (50-170) ug/dL TIBC (228-460) ug/dL % Saturation (12.00-45.00) Ferritin (10.0-291.0) ng/mL AST (14-36) U/L ALT (4-34) U/L Alkaline Phosphatase (38-126) U/L Lactate Dehydrogenase (313-618) U/L Creatine Kinase (30-135) U/L C-Reactive Protein (<10.0) mg/L Total Protein (6.3-8.2) g/dL Albumin (3.5-5.0) g/dL Assessment and Plan Plan: 1 Acute hypoxic respiratory failure secondary to CoVID 19 pneumonitis, required intubation and mechanical ventilation on 07/30/20. She was beyond the window to be qualified for Remdesivir. Did receive convalescent plasma. Extubated on 08/05/2020, currently She was switched to 100%NRB. Chest x-ray continues to show bilateral patchy infiltrates. The patient remains in the 100% nonrebreather facemask.the oxygenation is stable with a pulse ox of 99% on room air on today's evaluation. A follow-up checks is a from this morning is still pending and this will be ordered. We can try a partial nonrebreather at a later stage if her saturation remains adequate. Inflammatory markers are still high although slightly improved compared to yesterday. She remains on Decadron 6 mg IV on a daily basis. 2 Altered mental status with extreme weakness more so on the left, being evaluated by neurology. The CT angiogram was negative and the patient has some chronic ischemic changes. Neurologic exam is nonfocal point in time. The patient continues to be altered and the patient is confused. Neurologic exam is nonfocal. She has global weakness in all 4 extremities.on today's evaluation, she is able occasional to follow some simple commands. on today's evaluation, we are able to do some limited conversation with her which is much improved compared to yesterday. 3 New onset atrial fibrillation with RVR, converted to sinus rhythm while in the emergency room. Remains in normal sinus rhythm. The patient is currently on Eliquis. Rate is controlled. The patient is also on aspirin. 4 History of hypertension. 5 History of hypothyroidism. 6 enteral feeding for nutritional support through an NG tube. 7 diarrhea, C. diff colitis.the patient was started on oral vancomycin for positive C. diff colitis. Plan: continue monitor the mental status Keep NG tube feeding for nutritional support conversation with the patient's on 08/07/2020 and the patient is a DO NOT RESUSCITATE/DO NOT INTUBATE CODE STATUS not to be reintubated but, subsequently, the nursing staff informed us that the does not recall that conversation They have also tried to have her transferred to [facility] and she was denied stool for C. diffis positive and the patient is currently on oral vancomycin D5.9 at the rate of 75 mL an hour. She is also taking enteral feeding for nutritional support with TwoCalHN at a rate of 30 mL's an hour which is goal for her. Prognosis is guarded, no changes in her condition, no major changes the chest x- ray findings on today's evaluation, she 700% nonrebreather facemask keep the patient on 100% nonrebreather facemask.we'll may try a partial nonrebreather the later stage Neurology is on the case regarding the altered mentation.there is some improvement in the mental status and the patient will be monitored very closely She is on IV Decadron. We'll continue to follow and make further recommendations based on her clinical status. Her condition is very borderline. She continues to pull on her mask and she will desaturate. As such I'd rather have it in the ICU for now. Repeat inflammatory markers tomorrow. Repeat chest x-ray today and tomorrow. We'll continue to follow.
[2020-08-12] MEDS ORDERED: FUROSEMIDE 10 MG/ML 2 ML VIAL IV STA (07:31)
--- NOTE | 2020-08-12 07:59 | XR ---
EXAMINATION TYPE: XR chest 1V portable DATE OF EXAM: 08/12/2020 COMPARISON: Prior chest x-ray 08/11/2020 HISTORY: Covid pneumonia TECHNIQUE: Single frontal view of the chest is obtained. FINDINGS: Orogastric tube, right jugular central venous catheter are stable, there is bilateral airs pace disease. No pneumothorax or pleural effusion. Heart is stable. Aorta is dense. IMPRESSION: Correlate for pneumonia.
[2020-08-12] MEDS: DEXAMETHASONE SOD PHOSPHATE 10 MG/ML 1 ML VIAL IV SCH (08:39)
[2020-08-12] MEDS: FAMOTIDINE 20 MG TAB PO SCH ×2 (08:39→21:01)
[2020-08-12] MEDS: APIXABAN 2.5 MG TABLET PO SCH ×2 (08:39→21:01)
[2020-08-12] MEDS: ASPIRIN 81 MG PO SCH (08:39)
[2020-08-12] MEDS: METOPROLOL TARTRATE 25 MG TAB PO SCH (08:39)
[2020-08-12] MEDS: DEXTROSE 5%-0.9% NACL 1,000 ML IV SCH ×2 (08:40→21:05)
[2020-08-12] MEDS: ALBUTEROL HFA INHALER INHALATION SCH ×4 (08:45→21:53)
[2020-08-12 10:27] LABS: Glucose,Whole Blood 144 mg/dL (75-99)
[2020-08-12 11:17] LABS: Ferritin 283.9 ng/mL (10.0-291.0)
[2020-08-12] MEDS: CLEVIDIPINE BUTYRATE 25 MG in EMPTY BAG 1 BAG IV SCH (14:17)
[2020-08-12 17:44] LABS: Glucose,Whole Blood 174 mg/dL (75-99)
--- NOTE | 2020-08-12 20:58 | P.PN ---
Subjective This is a pleasant 75 years old female with past medical history of hypertension, hypothyroidism. Patient could not provide much information so it was taken From staff and records. She presents to [facility]'s with respiratory symptoms and dyspnea associated with some complaint but no chest pain. There she was treated for atrial fibrillation with RVR and she was found to have positive covid 19 test. Patient is afebrile, she is tachypneic with respiratory rate about 26-27, hypoxic with oxygen saturation of 99% on 15 L via nasal cannula. Blood pressure is 106/89. CBC from today is unremarkable. Troponin is elevated 0.17. High lactate dehydrogenase 1276 and C-reactive protein 256. And once is negative. Chest x- ray showing severe pulmonary edema could relate to RDS and is similar to a computed tomography scan earlier today 07/31/2020 Patient was admitted with Covid pneumonia and respiratory failure, her condition got deteriorated yesterday and she got intubated and now she is on mechanical ventilation was pulmonary/critical care team monitor and carefully. Also she had A. fib with RVR and converted to sinus rhythm, her Cardizem drip was stopped and her heparin drip was switched liquids. She continued to be on Zithromax and ceftriaxone and vitamins C and zinc 08/01/2020 Patient is admitted with Covid pneumonia and course is complicated by A. fib and RVR. Patient remains in the ICU in critical condition, she is intubated and on mechanical ventilation with pulmonary/critical care team on the case. Also cartilage informed the case closely Treatments and dexamethasone, liquids, zinc, vitamin C, antibiotics with Zithromax and ceftriaxone. No reemdesivir as per pulmonary team recommendation Today I was contacted by the social services specialist and stop that the patient and daughter works in [place] they want patient to be transferred upon the request to [facility] I discussed the case with who declined To accept the patient to be transferred to [facility] 08/02/2020 Patient is in the ICU for bilateral covid Pneumonia, she is intubated and on mechanical ventilation. Her heart rate atrial fibrillation was converted to sinus rhythm and currently her own in the low 50s. Blood pressure is just above 100. Patient does not need support by pressors. Leukocytosis is improving, BMP is unremarkable. Influenza virus is negative. Chest x-ray showed persistent bilateral mid to lower lung acute infiltrate and/or edema. No significant change from one day earlier Patient remains on dexamethasone, Eliquis and broad-spectrum antibiotics. Patient in the ICU intubated, pulmonary/critical care team are planning CPAP tomorrow, PEEP dropped. Other than that, change from yesterday, her heart rate shown bradycardia although in sinus rhythm therefore Cardizem and beta blockers were stopped, patient kept on Eliquis for her A. fib and cardiology team signed off. Patient on Zithromax, ceftriaxone, dexamethasone no remdesivir . she is status convescalnet plasam as well 08/04/20 Patient is still on mechanical ventilation, pulmonary/critical care team trying breathing for the patient but with no success today Other than that She'll continue with same treatment of steroids, Eliquis, azithromycin and ceftriaxone. No Cardizem or beta blockers for bradycardia. However heart rate is improved today to 60-70. WBC trending down to 12 K 08/05/20 pt is extubated today by pulmonary team , after extubation she started having stroke like ,left arm weakness, lip and left eye droop , and possible leg weakness, CT of brain is negative for stroke and CTA of the brain is ordered and is pending , neurologist was consulted who ordered MRI of the brain tomorrow. pt is currently saturating on 5 L/m of oxygen Eliquis was held by consultants while she remains on dexamethasone, stress and Zithromax. Chest x-ray looks stable Patient is followed closely by pulmonary/critical care team 08/06/2020 Patient is status extubation currently on 6 L oxygen. Pulmonary team discontinue with vitamin C and zinc and this continue with Zithromax and ceftriaxone. Patient is kept on dexamethasone Her left side weakness improved, neurology on the case MRI of the brain did not show stroke. Anticoagulation resumed with heparin drip per cardiology team for now D-dimer is 2.9, WBC 13 K. Heart rate is 60-70 sinus rhythm. 08/07/2020 Patient is awake and alert, calm in the ICU. She is currently on the liter per minute oxygen via high flow cannula Patient weakness and facial droop has resolved. Neurology team signed off. Respiratory status is slightly worse. Pulmonary team R following the case closely and they discussed and further management plan with the patient and family, please refer to their note for more details. In the meantime she remains on dexamethasone, heparin drip and bronchodilator 08/11/2020 Patient remains in the ICU and some respiratory distress, she is tachypneic at 22-30 breath per minute, she needs 15 L of oxygen via nonrebreather. And she remains on the same treatment for her Covid pneumonia with dexamethasone, Eliquis and albuterol. Also she is on D5 normal saline at 75 mL/h for episodes of hypoglycemia yesterday. Also she is on oral vancomycin for C. diff colitis 08/12/2020 patient remains in the ICU with oropharyngeal tube getting feeding. She is alert and partially confused but she looks tired and weak. She's still with loose stool and she's been treated for C. diff colitis with oral vancomycin She still on high dose of oxygen at 2 L/m via nonrebreather and she is tachypneic 25-27 per minute Chest x-ray showed persistent bilateral infiltrates. Related to her covid pneumonia She remains on dexamethasone Review of systems CONSTITUTIONAL: No fever, no malaise, no fatigue. HEENT: No recent visual problems or hearing problems. Denied any sore throat. CARDIOVASCULAR: No orthopnea, PND, no palpitations, no syncope. PULMONARY: No shortness of breath, no cough, no hemoptysis. GASTROINTESTINAL: No diarrhea, no nausea, no vomiting, no abdominal pain. Normoactive bowel sounds. NEUROLOGICAL: No headaches, no weakness, no numbness. Active Medications Generic Name Dose Route Start Last Admin Trade Name Freq PRN Reason Stop Dose Admin Acetaminophen 650 mg 08/08/20 16:55 Acetaminophen Tab 325 Mg Tab PO Q4HR PRN Fever and/ or Pain Albuterol Sulfate 2 puff 07/30/20 08:00 08/11/20 09:09 Albuterol Hfa Inhaler INHALATION Not Given RT-QID RODRIGO Amlodipine Besylate 5 mg 08/09/20 21:00 08/10/20 20:27 Amlodipine 5 Mg Tab PO 5 mg HS RODRIGO Administration Apixaban 2.5 mg 08/09/20 21:00 08/11/20 09:14 Apixaban 2.5 Mg Tablet PO 2.5 mg BID RODRIGO Administration Aspirin 81 mg 08/09/20 09:00 08/11/20 09:14 Aspirin 81 Mg PO 81 mg DAILY RODRIGO Administration Atorvastatin Calcium 40 mg 08/08/20 21:00 08/10/20 20:28 Atorvastatin 40 Mg Tab PO 40 mg HS RODRIGO Administration Dexamethasone Sodium Phosphate 6 mg 11/26/20 16:15 08/11/20 09:14 Dexamethasone Sod Phosphate 10 Mg/Ml 1 Ml Vial IV 6 mg DAILY RODRIGO Administration Famotidine 20 mg 08/11/20 21:00 Famotidine 20 Mg Tab PO Q12HR RODRIGO Clevidipine 25 mg/ IV Solution 50 mls @ 2 mls/hr 08/05/20 15:45 08/10/20 13:08 IV Not Given .Q24H RODRIGO Protocol 1 MG/HR Dextrose/Sodium Chloride 1,000 mls @ 75 mls/hr 08/06/20 09:30 08/10/20 23:28 Dextrose 5%-Ns Iv Soln IV 50 mls/hr .[id number] RODRIGO Administration Levothyroxine Sodium 75 mcg 08/09/20 06:30 08/11/20 06:00 Levothyroxine 75 Mcg Tab PO 75 mcg DAILY@0630 RODRIGO Administration Metoprolol Tartrate 25 mg 08/11/20 09:00 08/11/20 09:14 Metoprolol Tartrate 25 Mg Tab PO 25 mg DAILY RODRIGO Administration Miscellaneous Information 1 each 08/06/20 07:41 Potassium Replacement Protocol 1 Each Misc MISCELLANE DAILY PRN Per Protocol Protocol Vancomycin HCl 250 mg 08/11/20 00:00 08/11/20 11:36 Vancomycin Oral Solution 250 Mg/5 Ml Bottle PO 250 mg Q6HR RODRIGO Administration Objective - Vital Signs Vital signs: Vital Signs Temp 98.6 F 08/12/20 04:00 Pulse 85 08/12/20 07:00 Resp 16 08/12/20 07:00 BP 131/49 08/12/20 07:00 Pulse Ox 99 08/12/20 07:00 Intake & Output 08/11/20 08/12/20 08/12/20 18:59 06:59 18:59 Intake Total 1095 1155 105 Output Total 615 780 100 Balance 480 375 5 Weight 65.5 kg Intake: IV 975 825 75 Dextrose 5%-0.9% NaCl 1, 975 825 75 000 ml @ 75 mls/hr IV . [id number] RODRIGO Rx#:[id number] Tube Feeding 120 330 30 Output: Urine 615 780 100 Other: Voiding Method Indwelling Catheter Indwelling Catheter # Bowel Movements 2 1 ABP, PAP, CO, CI - Last Documented Arterial Blood Pressure 143/61 - Exam -GENERAL: The patient is generally weak HEENT: Pupils are round and equally reacting to light. EOMI. No scleral icterus. No conjunctival pallor. Normocephalic, atraumatic. No pharyngeal erythema. No thyromegaly. CARDIOVASCULAR: S1 and S2 present. No murmurs, rubs, or gallops. PULMONARY: Chest is clear to auscultation, no wheezing or crackles. ABDOMEN: Soft, nontender, nondistended, normoactive bowel sounds. No palpable organomegaly. MUSCULOSKELETAL: No joint swelling or deformity. EXTREMITIES: No cyanosis, clubbing, or pedal edema. -NEUROLOGICAL: Left facial droop with left arm weakness. SKIN: No rashes. no petechiae. - Labs CBC & Chem 7: 08/12/20 03:34 08/12/20 03:34 Labs: Abnormal Lab Results - Last 24 Hours (Table) 08/11/20 08/11/20 08/11/20 Range/Units 04:27 09:20 14:23 WBC (3.8-10.6) k/uL RBC (3.80-5.40) m/uL Hgb (11.4-16.0) gm/dL Hct (34.0-46.0) % Neutrophils # (1.3-7.7) k/uL Lymphocytes # (1.0-4.8) k/uL D-Dimer (<0.60) mg/L FEU Chloride (98-107) mmol/L BUN (7-17) mg/dL Creatinine (0.52-1.04) mg/dL Glucose (74-99) mg/dL POC Glucose (mg/dL) 122 H 110 H (75-99) mg/dL Calcium (8.4-10.2) mg/dL Iron 25 L (50-170) ug/dL TIBC 221 L (228-460) ug/dL % Saturation 11.31 L (12.00-45.00) Ferritin 375.3 H (10.0-291.0) ng/mL AST (14-36) U/L ALT (4-34) U/L Alkaline Phosphatase (38-126) U/L Lactate Dehydrogenase (313-618) U/L Creatine Kinase (30-135) U/L C-Reactive Protein (<10.0) mg/L Total Protein (6.3-8.2) g/dL Albumin (3.5-5.0) g/dL 08/11/20 08/11/20 08/12/20 Range/Units 17:34 22:01 01:47 WBC (3.8-10.6) k/uL RBC (3.80-5.40) m/uL Hgb (11.4-16.0) gm/dL Hct (34.0-46.0) % Neutrophils # (1.3-7.7) k/uL Lymphocytes # (1.0-4.8) k/uL D-Dimer (<0.60) mg/L FEU Chloride (98-107) mmol/L BUN (7-17) mg/dL Creatinine (0.52-1.04) mg/dL Glucose (74-99) mg/dL POC Glucose (mg/dL) 118 H 71 L 120 H (75-99) mg/dL Calcium (8.4-10.2) mg/dL Iron (50-170) ug/dL TIBC (228-460) ug/dL % Saturation (12.00-45.00) Ferritin (10.0-291.0) ng/mL AST (14-36) U/L ALT (4-34) U/L Alkaline Phosphatase (38-126) U/L Lactate Dehydrogenase (313-618) U/L Creatine Kinase (30-135) U/L C-Reactive Protein (<10.0) mg/L Total Protein (6.3-8.2) g/dL Albumin (3.5-5.0) g/dL 08/12/20 08/12/20 08/12/20 Range/Units 03:34 03:34 03:34 WBC 16.8 H (3.8-10.6) k/uL RBC 2.79 L (3.80-5.40) m/uL Hgb 8.6 L D (11.4-16.0) gm/dL Hct 26.1 L (34.0-46.0) % Neutrophils # 15.3 H (1.3-7.7) k/uL Lymphocytes # 0.8 L (1.0-4.8) k/uL D-Dimer 5.86 H (<0.60) mg/L FEU Chloride 112 H (98-107) mmol/L BUN 26 H (7-17) mg/dL Creatinine 0.46 L (0.52-1.04) mg/dL Glucose 106 H (74-99) mg/dL POC Glucose (mg/dL) (75-99) mg/dL Calcium 7.5 L (8.4-10.2) mg/dL Iron (50-170) ug/dL TIBC (228-460) ug/dL % Saturation (12.00-45.00) Ferritin (10.0-291.0) ng/mL AST 62 H (14-36) U/L ALT 103 H (4-34) U/L Alkaline Phosphatase 266 H (38-126) U/L Lactate Dehydrogenase 1256 H (313-618) U/L Creatine Kinase 20 L (30-135) U/L C-Reactive Protein 84.1 H (<10.0) mg/L Total Protein 4.5 L (6.3-8.2) g/dL Albumin 2.1 L (3.5-5.0) g/dL 08/12/20 Range/Units 05:40 WBC (3.8-10.6) k/uL RBC (3.80-5.40) m/uL Hgb (11.4-16.0) gm/dL Hct (34.0-46.0) % Neutrophils # (1.3-7.7) k/uL Lymphocytes # (1.0-4.8) k/uL D-Dimer (<0.60) mg/L FEU Chloride (98-107) mmol/L BUN (7-17) mg/dL Creatinine (0.52-1.04) mg/dL Glucose (74-99) mg/dL POC Glucose (mg/dL) 102 H (75-99) mg/dL Calcium (8.4-10.2) mg/dL Iron (50-170) ug/dL TIBC (228-460) ug/dL % Saturation (12.00-45.00) Ferritin (10.0-291.0) ng/mL AST (14-36) U/L ALT (4-34) U/L Alkaline Phosphatase (38-126) U/L Lactate Dehydrogenase (313-618) U/L Creatine Kinase (30-135) U/L C-Reactive Protein (<10.0) mg/L Total Protein (6.3-8.2) g/dL Albumin (3.5-5.0) g/dL Assessment and Plan Assessment: -Bilateral Covid 19 pneumonia: Continue with dexamethasone, and anticoagulation. Pulmonary consult. She is status post extubation -Acute hypoxic respiratory failure secondary to above -TIA with left arm and left eye and lip droop . Completely resolved and neurology signed off -A. fib and RVR, patient rate is controlled. Currently on Eliquis, metoprolol is admitted by cardiology team -Increased inflammatory markers secondary to above and infection -Hypertension -Hypothyroidism DVT prophylaxis. Eliquis GI prophylaxis: Protonix Prognosis is guarded
[2020-08-12] MEDS: amLODIPine 5 MG TAB PO SCH (21:01)
[2020-08-12] MEDS: ATORVASTATIN 40 MG TAB PO SCH (21:01)
[2020-08-12 23:27] LABS: Glucose,Whole Blood 129 mg/dL (75-99)
[2020-08-13 06:12] LABS: Glucose,Whole Blood 131 mg/dL (75-99)
[2020-08-13] MEDS: VANCOMYCIN ORAL SOLUTION 250 MG/5 ML BOTTLE PO SCH ×3 (06:29→17:39)
[2020-08-13] MEDS: LEVOTHYROXINE 75 MCG TAB PO SCH (06:29)
[2020-08-13] MEDS: DEXAMETHASONE SOD PHOSPHATE 10 MG/ML 1 ML VIAL IV SCH (06:34)
[2020-08-13] MEDS: ALBUTEROL HFA INHALER INHALATION SCH ×4 (07:48→19:45)
--- NOTE | 2020-08-13 08:03 | P.PN ---
Subjective Progress Note Date: 08/13/20 5-year-old female patient post acute hypoxic respiratory failure requiring intubation mechanical ventilation secondary to community related pneumonitis/pneumonia. The patient required intubation mechanical ventilation 07/30/2020. The patient was extubated on 08/05/2022 high flow oxygen currently she is on 15 L of oxygen by nasal cannula. Chest x-ray still showing diffuse patchy bilateral pulmonary infiltrates. The patient during the course developed some altered mentation and generalized weakness more so on the left and the patient is currently being evaluated by neurology. The patient underwent a angiogram of the brain and it was essentially negative. There was age-related atrophy and chronic small vessel ischemic changes. The patient also developed a new onset atrial fibrillation with rapid ventricular response and she converted back into normal sinus rhythm. She has hypertension and hypothyroidism as comorbid conditions. The patient remains awake and is having some difficulty in swallowing. The patient's is being nourished with enteral feeding at the rate of 30 mL an hour via an NGT. The patient is on D5 normal saline maintenance fluids at 50 mL an hour.. She remains on IV heparin. She is off the clevidipine drip. The patient's LDH level has been dropping and is down to 1300. The CRP has been fluctuating and currently is at 179. The patient's remains on Decadron 6 mg IV every 24 hours. The patient's received convalescent plasma. She remains on Cleviprex drip for blood pressure control. on today's evaluation the patient remains confused. She was switched to 100% nonrebreather facemask. No chest x-ray was done today. Chest x-ray from yesterday showed dif fuse bilateral pulmonary infiltrates peripheral mainly in the right lower lobe and the left upper lobe area. There is some also in the lower lobes. The patient is a triple lumen catheter. NG tube is in place for enteral feeding and nutritional support. The patient is currently in the 100% nonrebreather facemask patient was switched from high flow oxygen. She is breathing comfortably. She is confused. Neurologic exam is nonfocal. on today's evaluation of 08/11/2020, the patient's 100% nonrebreather facemask. His chest x-ray still showing diffuse airspace disease bilaterally, peripher ally. the NG tube has been in a good location. The patient is receiving enteral feeding for nutritional support. . The patient is on TwoCal HN and the patient is tolerating diet without any major problems. No major change in her mentation for now and the patient continued to be lethargic.the patient had a few bouts of hypoglycemia yesterday, she was given D50 and currently she is on D5 0.9 at the rate of 75 mL an hour. The patient is currently in a normal sinus rhythm. The patient is taken metoprolol 25 mg on a daily basis and the patient is on long- term anticoagulation with Eliquis. The patient is also on Decadron 6 mg on a daily basis. No signs of any significant respiratory distress and she is resting comfortably in bed. Still quite hypoxic and 100% nonrebreather facemask. No major change in her condition since yesterday.tthe patient was also diagnosed having C. diff colitis as the patient was having diarrhea. She was started on oral vancomycin. No fever for now. The white cell count today is 22. oon 08/12/2020, the patient seems to be a bit more awake and alert compared to yesterday. She is 700% nonrebreather facemask. Her pulse ox is 99%. Nevertheless, she desaturates whenever she comes off the mask. Her chest x-ray still showing dense bilaterally consolidation perihilar more so in the right lower lobe and the left perihilar area. This is the chest x-ray from yesterday and the follow-up chest x-rays to be done today. Meanwhile, the patient is still receiving enteral feeding for nutritional support and she is taking TwoCal and she is at goal of 30 mL an hour. IV fluids form of D5 normal state rate of 75 mL an hour. Her blood work shows a white cell count of 16.8 which is improved compared to yesterday. D-dimer is down to 5.8 and the renal function is stable. In terms of her inflammatory markers, the LDH is down to 1256 and the CRP is down to 84. The patient also has a positive C. diff colitis. The patient is currently on oral vancomycin. She has no fecal management system and she has bowel movements that are few and there are improving. No fever for now. On today's evaluation of 08/13/2020, the patient is doing well. Note that we were able to wean her down to 10 L of oxygen by nasal cannula. She was able to sit up on the recliner. Later on, she desaturated again she had to be placed back on 100% nonrebreather facemask. This morning, I put her back on 10 L and she was able to tolerate it well. She is following commands. She is communicating. NG tube is in place. She did pass a swallow evaluation. Nevertheless she was not steady enough to eat as the patient was felt to be still quite weak. Enteral nutrition for another 24 hours. She is taking TwoCal at the rate of 70 mL an hour. She is also on a D5 normal saline at the rate of 25 mL an hour. The patient is still having significant amount of diarrhea. She has a fecal management system and this is attributed to C. diff colitis. She remains on oral vancomycin. No chest pain. Mental status is fluctuating. It seen yesterday she is alert and awake and she is following commands. I'm hoping to add also Seroquel to help her with her sleeping overnight. The white cell count is down to 16.8. Hemoglobin today 0.6. D-dimer is at 5.86. The electrodes are all within normal limits. BUN is at 26 with a creatinine of 0.4. LDH is 1256 from yesterday and LFTs are slightly elevated and the patient has mild transaminitis. The patient remains on oral vancomycin, IV Decadron, she is on metoprolol for rate control and she is also on long-term anticoagulation with Eliquis. Objective - Vital Signs Vital signs: Vital Signs Temp 97.9 F 08/13/20 04:00 Pulse 92 08/13/20 07:00 Resp 34 H 08/13/20 07:00 BP 138/64 08/13/20 07:00 Pulse Ox 100 08/13/20 07:00 Intake & Output 08/12/20 08/13/20 08/13/20 18:59 06:59 18:59 Intake Total 1380 1350 105 Output Total 1210 600 100 Balance 170 750 5 Weight 56 kg Intake: IV 900 900 75 Dextrose 5%-0.9% NaCl 1, 900 900 75 000 ml @ 75 mls/hr IV . [id number] [facility] Rx#:[id number] Tube Feeding 360 360 30 Other 120 90 Output: Urine 1210 600 100 Other: Voiding Method Indwelling Catheter Indwelling Catheter ABP, PAP, CO, CI - Last Documented Arterial Blood Pressure 143/61 - Exam GENERAL EXAM: Alert, extremely weak 75-year-old female patient,currently on 10 L of oxygen by nasal cannula., in no apparent distress.the patient also has an NG tube in place. HEAD: Normocephalic. EYES: Sluggish reaction of pupils, equal size. NOSE: Clear with pink turbinates. THROAT: No erythema or exudates. NECK: No masses, no JVD. CHEST: No chest wall deformity. LUNGS: Equal air entry with basilar crackles CVS: S1 and S2 normal with no audible murmur, regular rhythm. ABDOMEN: No hepatosplenomegaly, normal bowel sounds, no guarding or rigidity.the patient has a fecal management system and the patient has ongoing diarrhea. SPINE: No scoliosis or deformity SKIN: No rashes CENTRAL NERVOUS SYSTEM: Extremely weak, bilateral weakness, tone is normal in all 4 extremities.the patient is able to converse. She is less confused and with appropriate on today's evaluation.. She has global weakness in all 4 extremities. No neck stiffness. EXTREMITIES: There is no peripheral edema. No clubbing, no cyanosis. Peripheral pulses are intact. - Labs CBC & Chem 7: 08/12/20 03:34 08/12/20 03:34 Labs: Abnormal Lab Results - Last 24 Hours (Table) 08/12/20 08/12/20 08/12/20 Range/Units 10:25 17:42 23:25 POC Glucose (mg/dL) 144 H 174 H 129 H (75-99) mg/dL 08/13/20 Range/Units 06:11 POC Glucose (mg/dL) 131 H (75-99) mg/dL Assessment and Plan Plan: 1 Acute hypoxic respiratory failure secondary to CoVID 19 pneumonitis, required intubation and mechanical ventilation on 07/30/20. She was beyond the window to be qualified for Remdesivir. Did receive convalescent plasma. Extubated on 08/05/2020, currently She was switched to 100%NRB. Chest x-ray continues to show bilateral patchy infiltrates. oxygenation is improved and the patient is currently on 10 L of oxygen by nasal cannula. She seems to be less short of breath on today's evaluation. Follow-up inflammatory markers are still pending for now. 2 Altered mental status with extreme weakness more so on the left, being marlo luated by neurology. The CT angiogram was negative and the patient has some chronic ischemic changes. Neurologic exam is nonfocal point in time. The patient was having fluctuating mental status changes. Nevertheless, her mental status seems to be improving over the past 24-48 hours and the patient is felt to be much more appropriate at this point in time. 3 New onset atrial fibrillation with RVR, converted to sinus rhythm while in the emergency room. Remains in normal sinus rhythm. The patient is currently on Eliquis. Rate is controlled. The patient is also on Eliquis 4 History of hypertension. 5 History of hypothyroidism. 6 enteral feeding for nutritional support through an NG tube.past a swallow evaluation 7 diarrhea, C. diff colitis.the patient was started on oral vancomycin for positive C. diff colitis. Plan: continue monitor the mental status,, she continues to improve and we are going to monitor the mental status for now Keep NG tube feeding for nutritional support, I would suggest continuing the enteral feeding rather feeding orally. I think this is more secure and provides of the pelvis that she needs. I think she is overall weak conversation with the patient's on 08/07/2020 and the patient is a DO NOT RESUSCITATE/DO NOT INTUBATE CODE STATUS not to be reintubated but, subsequently, the nursing staff informed us that the does not recall that conversation They have also tried to have her transferred to [facility] and she was denied continueon oral vancomycin D5.9 at the rate of 75 mL an hour. She is also taking enteral feeding for nutritional support with TwoCalHN at a rate of 30 mL's an hour which is goal for her. oxygenation has improved and the patient has been weaned down to 10 L Neurology is on the case regarding the altered mentation.there is some improvement in the mental status and the patient will be monitored very closely. On today's evaluation the patient is much less confused She is on IV Decadron. We'll continue to follow and make further recommendations based on her clinical status. Her condition is very borderline. keep in ICU and will continue to follow.
[2020-08-13] MEDS: DEXTROSE 5%-0.9% NACL 1,000 ML IV SCH (08:55)
[2020-08-13] MEDS: APIXABAN 2.5 MG TABLET PO SCH ×2 (08:56→20:43)
[2020-08-13] MEDS: ASPIRIN 81 MG PO SCH (08:56)
[2020-08-13] MEDS: METOPROLOL TARTRATE 25 MG TAB PO SCH (08:56)
[2020-08-13] MEDS: FAMOTIDINE 20 MG TAB PO SCH ×2 (08:56→20:43)
--- NOTE | 2020-08-13 10:21 | XR ---
EXAMINATION TYPE: XR chest 1V DATE OF EXAM: 08/13/2020 COMPARISON: 08/12/2020 HISTORY: Cough TECHNIQUE: Single frontal view of the chest is obtained. FINDINGS: Multifocal bilateral airspace disease seen. Right-sided central line and NG tube noted. No pneumothorax. Tiny pleural effusions not excluded. Heart size stable. Atherosclerotic change aorta. IMPRESSION: Diffuse multifocal airspace disease correlate for pneumonia. Findings stable.
--- NOTE | 2020-08-13 12:06 | P.PN ---
Subjective This is a pleasant 75 years old female with past medical history of hypertension, hypothyroidism. Patient could not provide much information so it was taken From staff and records. She presents to [facility]'s with respiratory symptoms and dyspnea associated with some complaint but no chest pain. There she was treated for atrial fibrillation with RVR and she was found to have positive covid 19 test. Patient is afebrile, she is tachypneic with respiratory rate about 26-27, hypoxic with oxygen saturation of 99% on 15 L via nasal cannula. Blood pressure is 106/89. CBC from today is unremarkable. Troponin is elevated 0.17. High lactate dehydrogenase 1276 and C-reactive protein 256. And once is negative. Chest x- ray showing severe pulmonary edema could relate to RDS and is similar to a computed tomography scan earlier today 07/31/2020 Patient was admitted with Covid pneumonia and respiratory failure, her condition got deteriorated yesterday and she got intubated and now she is on mechanical ventilation was pulmonary/critical care team monitor and carefully. Also she had A. fib with RVR and converted to sinus rhythm, her Cardizem drip was stopped and her heparin drip was switched liquids. She continued to be on Zithromax and ceftriaxone and vitamins C and zinc 08/01/2020 Patient is admitted with Covid pneumonia and course is complicated by A. fib and RVR. Patient remains in the ICU in critical condition, she is intubated and on mechanical ventilation with pulmonary/critical care team on the case. Also cartilage informed the case closely Treatments and dexamethasone, liquids, zinc, vitamin C, antibiotics with Zithromax and ceftriaxone. 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 Her heart rate atrial fibrillation was converted to sinus rhythm and currently her own in the low 50s. Blood pressure is just above 100. Patient does not need support by pressors. Leukocytosis is improving, BMP is unremarkable. Influenza virus is negative. Chest x-ray showed persistent bilateral mid to lower lung acute infiltrate and/or edema. No significant change from one day earlier Patient remains on dexamethasone, Eliquis and broad-spectrum antibiotics. Patient in the ICU intubated, pulmonary/critical care team are planning CPAP tomorrow, PEEP dropped. Other than that, change from yesterday, her heart rate shown bradycardia although in sinus rhythm therefore Cardizem and beta blockers were stopped, patient kept on Eliquis for her A. fib and cardiology team signed off. Patient on Zithromax, ceftriaxone, dexamethasone no remdesivir . she is status convescalnet plasam as well 08/04/20 Patient is still on mechanical ventilation, pulmonary/critical care team trying breathing for the patient but with no success today Other than that She'll continue with same treatment of steroids, Eliquis, azithromycin and ceftriaxone. No Cardizem or beta blockers for bradycardia. However heart rate is improved today to 60-70. WBC trending down to 12 K 08/05/20 pt is extubated today by pulmonary team , after extubation she started having stroke like ,left arm weakness, lip and left eye droop , and possible leg weakness, CT of brain is negative for stroke and CTA of the brain is ordered and is pending , neurologist was consulted who ordered MRI of the brain tomorrow. pt is currently saturating on 5 L/m of oxygen Eliquis was held by consultants while she remains on dexamethasone, stress and Zithromax. Chest x-ray looks stable Patient is followed closely by pulmonary/critical care team 08/06/2020 Patient is status extubation currently on 6 L oxygen. Pulmonary team discontinue with vitamin C and zinc and this continue with Zithromax and ceftriaxone. Patient is kept on dexamethasone Her left side weakness improved, neurology on the case MRI of the brain did not show stroke. Anticoagulation resumed with heparin drip per cardiology team for now D-dimer is 2.9, WBC 13 K. Heart rate is 60-70 sinus rhythm. 08/07/2020 Patient is awake and alert, calm in the ICU. She is currently on the liter per minute oxygen via high flow cannula Patient weakness and facial droop has resolved. Neurology team signed off. Respiratory status is slightly worse. Pulmonary team R following the case closely and they discussed and further management plan with the patient and family, please refer to their note for more details. In the meantime she remains on dexamethasone, heparin drip and bronchodilator 08/11/2020 Patient remains in the ICU and some respiratory distress, she is tachypneic at 22-30 breath per minute, she needs 15 L of oxygen via nonrebreather. And she remains on the same treatment for her Covid pneumonia with dexamethasone, Eliquis and albuterol. Also she is on D5 normal saline at 75 mL/h for episodes of hypoglycemia yesterday. Also she is on oral vancomycin for C. diff colitis 08/12/2020 patient remains in the ICU with oropharyngeal tube getting feeding. She is alert and partially confused but she looks tired and weak. She's still with loose stool and she's been treated for C. diff colitis with oral vancomycin She still on high dose of oxygen at 2 L/m via nonrebreather and she is tachypneic 25-27 per minute Chest x-ray showed persistent bilateral infiltrates. Related to her covid pneumonia She remains on dexamethasone 08/13/2020 patient today remains in the ICU, she is doing okay, it seems like her oxygen requirements was meshed to be titrated down to 4 L/m this morning. She still confused and [place] of her tubes including a oxygen mask but today is she is more calm with less such problems. Hemodynamically she is stable She passed a swallow evaluation however she still on tube feeding but we will try to feed her today Still has runny diarrhea and on oral vancomycin Chest x-ray from today showing diffuse multifocal airspace disease correlated for pneumonia. Findings stable. She remains on dexamethasone 6 mg, Eliquis 2.5 mg, D5 normal saline at 75 mL/h. Oral vancomycin. And metoprolol 25 mg daily was added recently by hob machine operator Review of systems CONSTITUTIONAL: No fever, no malaise, no fatigue. HEENT: No recent visual problems or hearing problems. Denied any sore throat. CARDIOVASCULAR: No orthopnea, PND, no palpitations, no syncope. PULMONARY: No shortness of breath, no cough, no hemoptysis. GASTROINTESTINAL: No diarrhea, no nausea, no vomiting, no abdominal pain. Normoactive bowel sounds. NEUROLOGICAL: No headaches, no weakness, no numbness. Active Medications Generic Name Dose Route Start Last Admin Trade Name Freq PRN Reason Stop Dose Admin Acetaminophen 650 mg 08/08/20 16:55 08/13/20 02:59 Acetaminophen Tab 325 Mg Tab PO 650 mg Q4HR PRN Administration Fever and/ or Pain Albuterol Sulfate 2 puff 07/30/20 08:00 08/13/20 11:17 Albuterol Hfa Inhaler INHALATION 2 puff RT-QID RODRIGO Administration Amlodipine Besylate 5 mg 08/09/20 21:00 08/12/20 21:01 Amlodipine 5 Mg Tab PO 5 mg HS RODRIGO Administration Apixaban 2.5 mg 08/09/20 21:00 08/13/20 08:56 Apixaban 2.5 Mg Tablet PO 2.5 mg BID RODRIGO Administration Aspirin 81 mg 08/09/20 09:00 08/13/20 08:56 Aspirin 81 Mg PO 81 mg DAILY RODRIGO Administration Atorvastatin Calcium 40 mg 08/08/20 21:00 08/12/20 21:01 Atorvastatin 40 Mg Tab PO 40 mg HS RODRIGO Administration Dexamethasone Sodium Phosphate 6 mg 07/30/20 16:15 08/13/20 06:34 Dexamethasone Sod Phosphate 10 Mg/Ml 1 Ml Vial IV 6 mg DAILY RODRIGO Administration Famotidine 20 mg 08/11/20 21:00 08/13/20 08:56 Famotidine 20 Mg Tab PO 20 mg Q12HR RODRIGO Administration Clevidipine 25 mg/ IV Solution 50 mls @ 2 mls/hr 08/05/20 15:45 08/12/20 14:17 IV Not Given .Q24H RODRIGO Protocol 1 MG/HR Dextrose/Sodium Chloride 1,000 mls @ 75 mls/hr 08/06/20 09:30 08/13/20 08:55 Dextrose 5%-Ns Iv Soln IV 75 mls/hr .[id number] RODRIGO Administration Insulin Aspart 0 unit 08/13/20 12:00 Insulin Aspart (Novolog) 100 Unit/Ml Vial SQ Q6H [facility] Protocol Levothyroxine Sodium 75 mcg 08/09/20 06:30 08/13/20 06:29 Levothyroxine 75 Mcg Tab PO 75 mcg DAILY@0630 RODRIGO Administration Metoprolol Tartrate 25 mg 08/11/20 09:00 08/13/20 08:56 Metoprolol Tartrate 25 Mg Tab PO 25 mg DAILY RODRIGO Administration Miscellaneous Information 1 each 08/06/20 07:41 Potassium Replacement Protocol 1 Each Misc MISCELLANE DAILY PRN Per Protocol Protocol Vancomycin HCl 250 mg 08/11/20 00:00 08/13/20 11:40 Vancomycin Oral Solution 250 Mg/5 Ml Bottle PO 250 mg Q6HR RODRIGO Administration Objective - Vital Signs Vital signs: Vital Signs Temp 97.1 F L 08/13/20 08:00 Pulse 80 08/13/20 11:00 Resp 16 08/13/20 11:00 BP 123/51 08/13/20 11:00 Pulse Ox 98 08/13/20 11:00 Intake & Output 08/12/20 08/13/20 08/13/20 18:59 06:59 18:59 Intake Total 1380 1350 555 Output Total 1210 600 480 Balance 170 750 75 Weight 56 kg 56 kg Intake: IV 900 900 375 Dextrose 5%-0.9% NaCl 1, 900 900 375 000 ml @ 75 mls/hr IV . [id number] RODRIGO Rx#:[id number] Tube Feeding 360 360 120 Other 120 90 60 Output: Urine 1210 600 480 Other: Voiding Method Indwelling Catheter Indwelling Catheter Indwelling Catheter ABP, PAP, CO, CI - Last Documented Arterial Blood Pressure 143/61 - Exam -GENERAL: The patient is generally weak HEENT: Pupils are round and equally reacting to light. EOMI. No scleral icterus. No conjunctival pallor. Normocephalic, atraumatic. No pharyngeal erythema. No thyromegaly. CARDIOVASCULAR: S1 and S2 present. No murmurs, rubs, or gallops. PULMONARY: Chest is clear to auscultation, no wheezing or crackles. ABDOMEN: Soft, nontender, nondistended, normoactive bowel sounds. No palpable organomegaly. MUSCULOSKELETAL: No joint swelling or deformity. EXTREMITIES: No cyanosis, clubbing, or pedal edema. -NEUROLOGICAL: Left facial droop with left arm weakness. SKIN: No rashes. no petechiae. - Labs CBC & Chem 7: 08/12/20 03:34 08/12/20 03:34 Labs: Abnormal Lab Results - Last 24 Hours (Table) 08/12/20 08/12/20 08/13/20 Range/Units 17:42 23:25 06:11 POC Glucose (mg/dL) 174 H 129 H 131 H (75-99) mg/dL Assessment and Plan Assessment: -Bilateral Covid 19 pneumonia: Continue with dexamethasone, and anticoagulation. Pulmonary consult. She is status post extubation -Acute hypoxic respiratory failure secondary to above -TIA with left arm and left eye and lip droop . Completely resolved and neurology signed off -A. fib and RVR, patient rate is controlled. Currently on Eliquis, metoprolol is admitted by cardiology team -Increased inflammatory markers secondary to above and infection -Hypertension -Hypothyroidism DVT prophylaxis. Eliquis GI prophylaxis: Protonix Prognosis is guarded
[2020-08-13 12:12] LABS: Glucose,Whole Blood 166 mg/dL (75-99)
[2020-08-13] MEDS: INSULIN ASPART (NovoLOG) 100 UNIT/ML VIAL SQ SCH ×2 (12:18→17:53)
[2020-08-13] MEDS: CLEVIDIPINE BUTYRATE 25 MG in EMPTY BAG 1 BAG IV SCH (15:44)
[2020-08-13 17:46] LABS: Glucose,Whole Blood 162 mg/dL (75-99)
[2020-08-13] MEDS: amLODIPine 5 MG TAB PO SCH (20:43)
[2020-08-13] MEDS: ATORVASTATIN 40 MG TAB PO SCH (20:44)
[2020-08-13] MEDS ORDERED: QUEtiapine 100 MG TAB PO SCH (21:00)
[2020-08-14 00:11] LABS: Glucose,Whole Blood 76 mg/dL (75-99)
[2020-08-14] MEDS: VANCOMYCIN ORAL SOLUTION 250 MG/5 ML BOTTLE PO SCH ×4 (01:15→17:56)
[2020-08-14] MEDS: INSULIN ASPART (NovoLOG) 100 UNIT/ML VIAL SQ SCH ×5 (01:15→23:42)
[2020-08-14] MEDS: DEXTROSE 5%-0.9% NACL 1,000 ML IV SCH ×2 (01:15→13:17)
[2020-08-14 05:39] LABS: Basophils # (A) 0.1 k/uL (0-0.2); Basophils % (A) 1 %; Eosinophils # (A) 0.1 k/uL (0-0.7); Eosinophils % (A) 1 %; HCT 21.6 % (34.0-46.0); HGB 7.2 gm/dL (11.4-16.0); Hypochromasia Slight; Lymphocytes # (A) 1.1 k/uL (1.0-4.8); Lymphocytes % (A) 9 %; MCH 30.7 pg (25.0-35.0); MCHC 33.4 g/dL (31.0-37.0); MCV 92.1 fL (80.0-100.0); Mean Platelet Volume 8.1; Monocytes # (A) 0.5 k/uL (0-1.0); Monocytes % (A) 4 %; Neutrophils # (A) 9.7 k/uL (1.3-7.7); Neutrophils % (A) 84 %; Platelet Count 210 k/uL (150-450); RBC 2.35 m/uL (3.80-5.40); RDW 15.9 % (11.5-15.5); WBC 11.6 k/uL (3.8-10.6)
[2020-08-14 05:57] LABS: ALT 48 U/L (4-34); AST 28 U/L (14-36); African American GFR (CKD) >90 (>60 ml/min/1.73 sqM); Albumin 1.9 g/dL (3.5-5.0); Alkaline Phosphatase 162 U/L (38-126); Anion Gap 1 mmol/L; Blood Urea Nitrogen 31 mg/dL (7-17); C Reactive Protein 53.4 mg/L (<10.0); Calcium 7.4 mg/dL (8.4-10.2); Carbon Dioxide 28 mmol/L (22-30); Chloride 110 mmol/L (98-107); Creatine Kinase 29 U/L (30-135); D-Dimer 1.61 mg/L FEU (<0.60); Glucose 120 mg/dL (74-99); INR 0.9 (<1.2); LDH 871 U/L (313-618); Magnesium 2.2 mg/dL (1.6-2.3); Non-African American GFR(CKD) >90 (>60 ml/min/1.73 sqM); Potassium 4.1 mmol/L (3.5-5.1); Prothrombin Time 9.7 sec (9.0-12.0); Sodium 139 mmol/L (137-145); Total Bilirubin 0.2 mg/dL (0.2-1.3); Total Protein 4.1 g/dL (6.3-8.2)
[2020-08-14 06:16] LABS: Glucose,Whole Blood 102 mg/dL (75-99)
[2020-08-14] MEDS: LEVOTHYROXINE 75 MCG TAB PO SCH (06:30)
[2020-08-14] MEDS: ALBUTEROL HFA INHALER INHALATION SCH ×5 (08:04→19:47)
--- NOTE | 2020-08-14 08:57 | P.PN ---
Subjective Progress Note Date: 08/14/20 5-year-old female patient post acute hypoxic respiratory failure requiring intubation mechanical ventilation secondary to community related pneumonitis/pneumonia. The patient required intubation mechanical ventilation 07/30/2020. The patient was extubated on 08/05/2022 high flow oxygen currently she is on 15 L of oxygen by nasal cannula. Chest x-ray still showing diffuse patchy bilateral pulmonary infiltrates. The patient during the course developed some altered mentation and generalized weakness more so on the left and the patient is currently being evaluated by neurology. The patient underwent a angiogram of the brain and it was essentially negative. There was age-related atrophy and chronic small vessel ischemic changes. The patient also developed a new onset atrial fibrillation with rapid ventricular response and she converted back into normal sinus rhythm. She has hypertension and hypothyroidism as comorbid conditions. The patient remains awake and is having some difficulty in swallowing. The patient's is being nourished with enteral feeding at the rate of 30 mL an hour via an NGT. The patient is on D5 normal saline maintenance fluids at 50 mL an hour.. She remains on IV heparin. She is off the clevidipine drip. The patient's LDH level has been dropping and is down to 1300. The CRP has been fluctuating and currently is at 179. The patient's remains on Decadron 6 mg IV every 24 hours. The patient's received convalescent plasma. She remains on Cleviprex drip for blood pressure control. on today's evaluation the patient remains confused. She was switched to 100% nonrebreather facemask. No chest x-ray was done today. Chest x-ray from yesterday showed dif fuse bilateral pulmonary infiltrates peripheral mainly in the right lower lobe and the left upper lobe area. There is some also in the lower lobes. The patient is a triple lumen catheter. NG tube is in place for enteral feeding and nutritional support. The patient is currently in the 100% nonrebreather facemask patient was switched from high flow oxygen. She is breathing comfortably. She is confused. Neurologic exam is nonfocal. on today's evaluation of 08/11/2020, the patient's 100% nonrebreather facemask. His chest x-ray still showing diffuse airspace disease bilaterally, peripher ally. the NG tube has been in a good location. The patient is receiving enteral feeding for nutritional support. . The patient is on TwoCal HN and the patient is tolerating diet without any major problems. No major change in her mentation for now and the patient continued to be lethargic.the patient had a few bouts of hypoglycemia yesterday, she was given D50 and currently she is on D5 0.9 at the rate of 75 mL an hour. The patient is currently in a normal sinus rhythm. The patient is taken metoprolol 25 mg on a daily basis and the patient is on long- term anticoagulation with Eliquis. The patient is also on Decadron 6 mg on a daily basis. No signs of any significant respiratory distress and she is resting comfortably in bed. Still quite hypoxic and 100% nonrebreather facemask. No major change in her condition since yesterday.tthe patient was also diagnosed having C. diff colitis as the patient was having diarrhea. She was started on oral vancomycin. No fever for now. The white cell count today is 22. oon 08/12/2020, the patient seems to be a bit more awake and alert compared to yesterday. She is 700% nonrebreather facemask. Her pulse ox is 99%. Nevertheless, she desaturates whenever she comes off the mask. Her chest x-ray still showing dense bilaterally consolidation perihilar more so in the right lower lobe and the left perihilar area. This is the chest x-ray from yesterday and the follow-up chest x-rays to be done today. Meanwhile, the patient is still receiving enteral feeding for nutritional support and she is taking TwoCal and she is at goal of 30 mL an hour. IV fluids form of D5 normal state rate of 75 mL an hour. Her blood work shows a white cell count of 16.8 which is improved compared to yesterday. D-dimer is down to 5.8 and the renal function is stable. In terms of her inflammatory markers, the LDH is down to 1256 and the CRP is down to 84. The patient also has a positive C. diff colitis. The patient is currently on oral vancomycin. She has no fecal management system and she has bowel movements that are few and there are improving. No fever for now. On today's evaluation of 08/13/2020, the patient is doing well. Note that we were able to wean her down to 10 L of oxygen by nasal cannula. She was able to sit up on the recliner. Later on, she desaturated again she had to be placed back on 100% nonrebreather facemask. This morning, I put her back on 10 L and she was able to tolerate it well. She is following commands. She is communicating. NG tube is in place. She did pass a swallow evaluation. Nevertheless she was not steady enough to eat as the patient was felt to be still quite weak. Enteral nutrition for another 24 hours. She is taking TwoCal at the rate of 70 mL an hour. She is also on a D5 normal saline at the rate of 25 mL an hour. The patient is still having significant amount of diarrhea. She has a fecal management system and this is attributed to C. diff colitis. She remains on oral vancomycin. No chest pain. Mental status is fluctuating. It seen yesterday she is alert and awake and she is following commands. I'm hoping to add also Seroquel to help her with her sleeping overnight. The white cell count is down to 16.8. Hemoglobin today 0.6. D-dimer is at 5.86. The electrodes are all within normal limits. BUN is at 26 with a creatinine of 0.4. LDH is 1256 from yesterday and LFTs are slightly elevated and the patient has mild transaminitis. The patient remains on oral vancomycin, IV Decadron, she is on metoprolol for rate control and she is also on long-term anticoagulation with Eliquis. On today's evaluation of 08/14/2020, the patient is still having waxing and w aning mental status. She is not significantly agitated however. She has required restraints for now. She is not wanting to eat. She Is Trying to Follow Her NG Tube. Her Oxygenation Is Improved and the Patient Is Currently on 3 L of oxygen by nasal cannula. No major respiratory distress. Her white cell count 11.6 with a hemoglobin of 7.2. Her LDH is at 871 which is improved. She has some mild transaminitis is also improved compared to 2 days ago. As for her C. diff, the patient has a fecal management system. Output is still considerably high and the patient is still on oral vancomycin. She is afebrile for now. Objective - Vital Signs Vital signs: Vital Signs Temp 98.1 F 08/14/20 00:00 Pulse 85 08/14/20 07:00 Resp 18 08/14/20 07:00 BP 115/47 08/14/20 07:00 Pulse Ox 94 L 08/14/20 08:04 Intake & Output 08/13/20 08/14/20 08/14/20 18:59 06:59 18:59 Intake Total 1370 1350 105 Output Total 885 875 60 Balance 485 475 45 Weight 56 kg 55 kg Intake: IV 900 900 75 Dextrose 5%-0.9% NaCl 1, 900 900 75 000 ml @ 75 mls/hr IV . [id number] [facility] Rx#:[id number] Tube Feeding 330 360 30 Other 140 90 Output: Urine 885 875 60 Other: Voiding Method Indwelling Catheter Indwelling Catheter ABP, PAP, CO, CI - Last Documented Arterial Blood Pressure 143/61 - Exam GENERAL EXAM: Alert, extremely weak 75-year-old female patient,currently on 3 L of oxygen by nasal cannula., in no apparent distress.the patient also has an NG tube in place. HEAD: Normocephalic. EYES: Sluggish reaction of pupils, equal size. NOSE: Clear with pink turbinates. THROAT: No erythema or exudates. NECK: No masses, no JVD. CHEST: No chest wall deformity. LUNGS: Equal air entry with basilar crackles CVS: S1 and S2 normal with no audible murmur, regular rhythm. ABDOMEN: No hepatosplenomegaly, normal bowel sounds, no guarding or rigidity.the patient has a fecal management system and the patient has ongoing diarrhea. SPINE: No scoliosis or deformity SKIN: No rashes CENTRAL NERVOUS SYSTEM: Extremely weak, bilateral weakness, tone is normal in all 4 extremities.the patient is able to converse. She is less confused and with appropriate on today's evaluation.. She has global weakness in all 4 extremities. No neck stiffness. EXTREMITIES: There is no peripheral edema. No clubbing, no cyanosis. Peripheral pulses are intact. - Labs CBC & Chem 7: 08/14/20 05:03 08/14/20 05:03 Labs: Abnormal Lab Results - Last 24 Hours (Table) 08/13/20 08/13/20 08/14/20 Range/Units 12:11 17:44 05:03 WBC 11.6 H (3.8-10.6) k/uL RBC 2.35 L (3.80-5.40) m/uL Hgb 7.2 L (11.4-16.0) gm/dL Hct 21.6 L (34.0-46.0) % RDW 15.9 H (11.5-15.5) % Neutrophils # 9.7 H (1.3-7.7) k/uL D-Dimer (<0.60) mg/L FEU Chloride (98-107) mmol/L BUN (7-17) mg/dL Creatinine (0.52-1.04) mg/dL Glucose (74-99) mg/dL POC Glucose (mg/dL) 166 H 162 H (75-99) mg/dL Calcium (8.4-10.2) mg/dL ALT (4-34) U/L Alkaline Phosphatase (38-126) U/L Lactate Dehydrogenase (313-618) U/L Creatine Kinase (30-135) U/L C-Reactive Protein (<10.0) mg/L Total Protein (6.3-8.2) g/dL Albumin (3.5-5.0) g/dL 08/14/20 08/14/20 08/14/20 Range/Units 05:03 05:03 06:14 WBC (3.8-10.6) k/uL RBC (3.80-5.40) m/uL Hgb (11.4-16.0) gm/dL Hct (34.0-46.0) % RDW (11.5-15.5) % Neutrophils # (1.3-7.7) k/uL D-Dimer 1.61 H (<0.60) mg/L FEU Chloride 110 H (98-107) mmol/L BUN 31 H (7-17) mg/dL Creatinine 0.49 L (0.52-1.04) mg/dL Glucose 120 H (74-99) mg/dL POC Glucose (mg/dL) 102 H (75-99) mg/dL Calcium 7.4 L (8.4-10.2) mg/dL ALT 48 H (4-34) U/L Alkaline Phosphatase 162 H (38-126) U/L Lactate Dehydrogenase 871 H (313-618) U/L Creatine Kinase 29 L (30-135) U/L C-Reactive Protein 53.4 H (<10.0) mg/L Total Protein 4.1 L (6.3-8.2) g/dL Albumin 1.9 L (3.5-5.0) g/dL Assessment and Plan Plan: 1 Acute hypoxic respiratory failure secondary to CoVID 19 pneumonitis, required intubation and mechanical ventilation on 07/30/20. She was beyond the window to be qualified for Remdesivir. Did receive convalescent plasma. Extubated on 08/05/2020, currently she is on 3 L of oxygen by nasal cannula. Repeat chest x- ray was no 2 Altered mental status with extreme weakness more so on the left, being evaluated by neurology. The CT angiogram was negative and the patient has some chronic ischemic changes. Neurologic exam is nonfocal point in time. The patient was having fluctuating mental status changes. Nevertheless, her mental status seems to be improving over the past 24-48 hours and the patient is felt to be much more appropriate at this point in time. 3 New onset atrial fibrillation with RVR, converted to sinus rhythm while in the emergency room. Remains in normal sinus rhythm. The patient is currently on Eliquis. Rate is controlled. The patient is also on Eliquis 4 History of hypertension. 5 History of hypothyroidism. 6 enteral feeding for nutritional support through an NG tube.past a swallow evaluation 7 diarrhea, C. diff colitis.the patient was started on oral vancomycin for positive C. diff colitis. Plan: continue monitor the mental status,, she continues to improve and we are going to monitor the mental status for now. Nevertheless, the mental status is still waxing and waning. She is following some simple commands. She is not fully awake and alert on today's evaluation. Keep NG tube feeding for nutritional support review of the Seroquel dose to 50 mg at bedtime continueon oral vancomycin D5.9 at the rate of 75 mL an hour. She is also taking enteral feeding for nutritional support with TwoCalHN at a rate of 24 mL's an hour which is goal for her. oxygenation has improved and the patient has been weaned down to 10 L Neurology is on the case regarding the altered mentation.there is some improveme nt in the mental status and the patient will be monitored very closely. stop the Decadron as the patient has completed a 10 day course of Decadron, And this may be altering her mentation. We'll continue to follow and make further recommendations based on her clinical status. Her condition is still borderline. keep in ICU and will continue to follow.
[2020-08-14 09:41] LABS: Ferritin 159.8 ng/mL (10.0-291.0)
[2020-08-14] MEDS: FAMOTIDINE 20 MG TAB PO SCH ×3 (10:07→22:15)
[2020-08-14] MEDS: ASPIRIN 81 MG PO SCH (10:07)
[2020-08-14] MEDS: METOPROLOL TARTRATE 25 MG TAB PO SCH (10:07)
[2020-08-14] MEDS: APIXABAN 2.5 MG TABLET PO SCH ×2 (10:08→22:28)
[2020-08-14 12:55] LABS: Glucose,Whole Blood 62 mg/dL (75-99)
[2020-08-14 12:58] LABS: Glucose,Whole Blood 68 mg/dL (75-99)
[2020-08-14] MEDS ORDERED: DEXTROSE 50% SYRINGE 50 ML IVP STA (13:03)
[2020-08-14 13:30] LABS: Glucose,Whole Blood 225 mg/dL (75-99)
[2020-08-14 17:18] LABS: Glucose,Whole Blood 114 mg/dL (75-99)
[2020-08-14] MEDS: ASCORBIC ACID 500 MG TAB PO SCH (19:51)
[2020-08-14] MEDS: ZINC SULFATE 220 MG CAP PO SCH (19:51)
[2020-08-14] MEDS: CHOLECALCIFEROL 1,000 UNIT TAB PO SCH (19:51)
--- NOTE | 2020-08-14 22:12 | P.PN ---
Subjective This is a pleasant 75 years old female with past medical history of hypertension, hypothyroidism. Patient could not provide much information so it was taken From staff and records. She presents to [facility] with respiratory symptoms and dyspnea associated with some complaint but no chest pain. There she was treated for atrial fibrillation with RVR and she was found to have positive covid 19 test. Patient is afebrile, she is tachypneic with respiratory rate about 26-27, hypoxic with oxygen saturation of 99% on 15 L via nasal cannula. Blood pressure is 106/89. CBC from today is unremarkable. Troponin is elevated 0.17. High lactate dehydrogenase 1276 and C-reactive protein 256. And once is negative. Chest x- ray showing severe pulmonary edema could relate to RDS and is similar to a computed tomography scan earlier today 07/31/2020 Patient was admitted with Covid pneumonia and respiratory failure, her condition got deteriorated yesterday and she got intubated and now she is on mechanical ventilation was pulmonary/critical care team monitor and carefully. Also she had A. fib with RVR and converted to sinus rhythm, her Cardizem drip was stopped and her heparin drip was switched liquids. She continued to be on Zithromax and ceftriaxone and vitamins C and zinc 08/01/2020 Patient is admitted with Covid pneumonia and course is complicated by A. fib and RVR. Patient remains in the ICU in critical condition, she is intubated and on mechanical ventilation with pulmonary/critical care team on the case. Also cartilage informed the case closely Treatments and dexamethasone, liquids, zinc, vitamin C, antibiotics with Zithromax and ceftriaxone. No reemdesivir as per pulmonary team recommendation Today I was contacted by the 7th grade social studies teacher and stop that the patient and daughter works in [place] they want patient to be transferred upon the request to [facility] I discussed the case with who declined To accept the patient to be transferred to [facility] 08/02/2020 Patient is in the ICU for bilateral covid Pneumonia, she is intubated and on mechanical ventilation. Her heart rate atrial fibrillation was converted to sinus rhythm and currently her own in the low 50s. Blood pressure is just above 100. Patient does not need support by pressors. Leukocytosis is improving, BMP is unremarkable. Influenza virus is negative. Chest x-ray showed persistent bilateral mid to lower lung acute infiltrate and/or edema. No significant change from one day earlier Patient remains on dexamethasone, Eliquis and broad-spectrum antibiotics. Patient in the ICU intubated, pulmonary/critical care team are planning CPAP tomorrow, PEEP dropped. Other than that, change from yesterday, her heart rate shown bradycardia although in sinus rhythm therefore Cardizem and beta blockers were stopped, patient kept on Eliquis for her A. fib and cardiology team signed off. Patient on Zithromax, ceftriaxone, dexamethasone no remdesivir . she is status convescalnet plasam as well 08/04/20 Patient is still on mechanical ventilation, pulmonary/critical care team trying breathing for the patient but with no success today Other than that She'll continue with same treatment of steroids, Eliquis, azithromycin and ceftriaxone. No Cardizem or beta blockers for bradycardia. However heart rate is improved today to 60-70. WBC trending down to 12 K 08/05/20 pt is extubated today by pulmonary team , after extubation she started having stroke like ,left arm weakness, lip and left eye droop , and possible leg weakness, CT of brain is negative for stroke and CTA of the brain is ordered and is pending , neurologist was consulted who ordered MRI of the brain tomorrow. pt is currently saturating on 5 L/m of oxygen Eliquis was held by consultants while she remains on dexamethasone, stress and Zithromax. Chest x-ray looks stable Patient is followed closely by pulmonary/critical care team 08/06/2020 Patient is status extubation currently on 6 L oxygen. Pulmonary team discontinue with vitamin C and zinc and this continue with Zithromax and ceftriaxone. Patient is kept on dexamethasone Her left side weakness improved, neurology on the case MRI of the brain did not show stroke. Anticoagulation resumed with heparin drip per cardiology team for now D-dimer is 2.9, WBC 13 K. Heart rate is 60-70 sinus rhythm. 08/07/2020 Patient is awake and alert, calm in the ICU. She is currently on the liter per minute oxygen via high flow cannula Patient weakness and facial droop has resolved. Neurology team signed off. Respiratory status is slightly worse. Pulmonary team R following the case closely and they discussed and further management plan with the patient and family, please refer to their note for more details. In the meantime she remains on dexamethasone, heparin drip and bronchodilator 08/11/2020 Patient remains in the ICU and some respiratory distress, she is tachypneic at 22-30 breath per minute, she needs 15 L of oxygen via nonrebreather. And she remains on the same treatment for her Covid pneumonia with dexamethasone, Eliquis and albuterol. Also she is on D5 normal saline at 75 mL/h for episodes of hypoglycemia yesterday. Also she is on oral vancomycin for C. diff colitis 08/12/2020 patient remains in the ICU with oropharyngeal tube getting feeding. She is alert and partially confused but she looks tired and weak. She's still with loose stool and she's been treated for C. diff colitis with oral vancomycin She still on high dose of oxygen at 2 L/m via nonrebreather and she is tachypneic 25-27 per minute Chest x-ray showed persistent bilateral infiltrates. Related to her covid pneumonia She remains on dexamethasone 08/13/2020 patient today remains in the ICU, she is doing okay, it seems like her oxygen requirements was meshed to be titrated down to 4 L/m this morning. She still confused and Allen of her tubes including a oxygen mask but today is she is more calm with less such problems. Hemodynamically she is stable She passed a swallow evaluation however she still on tube feeding but we will try to feed her today Still has runny diarrhea and on oral vancomycin Chest x-ray from today showing diffuse multifocal airspace disease correlated for pneumonia. Findings stable. She remains on dexamethasone 6 mg, Eliquis 2.5 mg, D5 normal saline at 75 mL/h. Oral vancomycin. And metoprolol 25 mg daily was added recently by sampler tester 08/14/2020 Patient still somewhat confused with only mild partial improvement compared to yesterday Chest x-ray showing the same findings dexamethasone wants. Today, the 50s given because of low glucose, however patient is not on insulin or any diabetic medication Patient remains on Eliquis 2.5 mg, oral vancomycin and D5 normal saline at 75 mL/h, also she is on metoprolol 25 mg of Seroquel 50 mg as needed acute WBC and inflammatory markers are trending down, hemoglobin dropped from 10 down to 7.2 over 2 days she is saturating 92% on 3 L oxygen via nasal cannula at rest of vitals looks stable monitor hemoglobin closely Review of systems CONSTITUTIONAL: No fever, no malaise, no fatigue. HEENT: No recent visual problems or hearing problems. Denied any sore throat. CARDIOVASCULAR: No orthopnea, PND, no palpitations, no syncope. PULMONARY: No shortness of breath, no cough, no hemoptysis. GASTROINTESTINAL: No diarrhea, no nausea, no vomiting, no abdominal pain. Normo active bowel sounds. NEUROLOGICAL: No headaches, no weakness, no numbness. Active Medications Generic Name Dose Route Start Last Admin Trade Name Freq PRN Reason Stop Dose Admin Acetaminophen 650 mg 08/08/20 16:55 08/13/20 02:59 Acetaminophen Tab 325 Mg Tab PO 650 mg Q4HR PRN Administration Fever and/ or Pain Albuterol Sulfate 2 puff 07/30/20 08:00 08/14/20 19:47 Albuterol Hfa Inhaler INHALATION Not Given RT-QID RODRIGO Amlodipine Besylate 5 mg 08/09/20 21:00 08/13/20 20:43 Amlodipine 5 Mg Tab PO 5 mg HS RODRIGO Administration Apixaban 2.5 mg 08/09/20 21:00 08/14/20 10:08 Apixaban 2.5 Mg Tablet PO 2.5 mg BID RODRIGO Administration Aspirin 81 mg 08/09/20 09:00 08/14/20 10:07 Aspirin 81 Mg PO 81 mg DAILY RODRIGO Administration Atorvastatin Calcium 40 mg 08/08/20 21:00 08/13/20 20:44 Atorvastatin 40 Mg Tab PO 40 mg HS RODRIGO Administration Famotidine 20 mg 08/11/20 21:00 08/14/20 10:07 Famotidine 20 Mg Tab PO 20 mg Q12HR RODRIGO Administration Dextrose/Sodium Chloride 1,000 mls @ 75 mls/hr 08/06/20 09:30 08/14/20 13:17 Dextrose 5%-Ns Iv Soln IV Not Given .[id number] [facility] Insulin Aspart 0 unit 08/13/20 12:00 08/14/20 17:44 Insulin Aspart (Novolog) 100 Unit/Ml Vial SQ Not Given Q6H [facility] Protocol Levothyroxine Sodium 75 mcg 08/09/20 06:30 08/14/20 06:30 Levothyroxine 75 Mcg Tab PO 75 mcg DAILY@0630 RODRIGO Administration Metoprolol Tartrate 25 mg 08/11/20 09:00 08/14/20 10:07 Metoprolol Tartrate 25 Mg Tab PO 25 mg DAILY RODRIGO Administration Miscellaneous Information 1 each 08/06/20 07:41 Potassium Replacement Protocol 1 Each Misc MISCELLANE DAILY PRN Per Protocol Protocol Quetiapine Fumarate 50 mg 08/14/20 21:00 Quetiapine 50 Mg Tab PO HS RODRIGO Vancomycin HCl 250 mg 08/11/20 00:00 08/14/20 17:56 Vancomycin Oral Solution 250 Mg/5 Ml Bottle PO 250 mg Q6HR RODRIGO Administration Objective - Vital Signs Vital signs: Vital Signs Temp 98.9 F 08/14/20 14:00 Pulse 74 08/14/20 19:53 Resp 18 08/14/20 14:00 BP 112/62 08/14/20 14:00 Pulse Ox 92 L 08/14/20 14:00 Intake & Output 08/14/20 08/14/20 08/15/20 06:59 18:59 06:59 Intake Total 1350 1620 Output Total 875 560 Balance 475 1060 Weight 55 kg Intake: IV 900 1200 Dextrose 5%-0.9% NaCl 1, 900 1200 000 ml @ 75 mls/hr IV . [id number] RODRIGO Rx#:[id number] Oral 0 Tube Feeding 360 420 Other 90 Output: Urine 875 560 Other: Voiding Method Indwelling Catheter Indwelling Catheter Indwelling Catheter ABP, PAP, CO, CI - Last Documented Arterial Blood Pressure 143/61 - Exam -GENERAL: The patient is generally weak HEENT: Pupils are round and equally reacting to light. EOMI. No scleral icterus. No conjunctival pallor. Normocephalic, atraumatic. No pharyngeal erythema. No thyromegaly. CARDIOVASCULAR: S1 and S2 present. No murmurs, rubs, or gallops. PULMONARY: Chest is clear to auscultation, no wheezing or crackles. ABDOMEN: Soft, nontender, nondistended, normoactive bowel sounds. No palpable organomegaly. MUSCULOSKELETAL: No joint swelling or deformity. EXTREMITIES: No cyanosis, clubbing, or pedal edema. -NEUROLOGICAL: Left facial droop with left arm weakness. SKIN: No rashes. no petechiae. - Labs CBC & Chem 7: 08/14/20 05:03 08/14/20 05:03 Labs: Abnormal Lab Results - Last 24 Hours (Table) 12/11/20 12/11/20 12/11/20 Range/Units 05:03 05:03 05:03 WBC 11.6 H (3.8-10.6) k/uL RBC 2.35 L (3.80-5.40) m/uL Hgb 7.2 L (11.4-16.0) gm/dL Hct 21.6 L (34.0-46.0) % RDW 15.9 H (11.5-15.5) % Neutrophils # 9.7 H (1.3-7.7) k/uL D-Dimer 1.61 H (<0.60) mg/L FEU Chloride 110 H (98-107) mmol/L BUN 31 H (7-17) mg/dL Creatinine 0.49 L (0.52-1.04) mg/dL Glucose 120 H (74-99) mg/dL POC Glucose (mg/dL) (75-99) mg/dL Calcium 7.4 L (8.4-10.2) mg/dL ALT 48 H (4-34) U/L Alkaline Phosphatase 162 H (38-126) U/L Lactate Dehydrogenase 871 H (313-618) U/L Creatine Kinase 29 L (30-135) U/L C-Reactive Protein 53.4 H (<10.0) mg/L Total Protein 4.1 L (6.3-8.2) g/dL Albumin 1.9 L (3.5-5.0) g/dL 08/14/20 08/14/20 08/14/20 Range/Units 06:14 12:54 12:57 WBC (3.8-10.6) k/uL RBC (3.80-5.40) m/uL Hgb (11.4-16.0) gm/dL Hct (34.0-46.0) % RDW (11.5-15.5) % Neutrophils # (1.3-7.7) k/uL D-Dimer (<0.60) mg/L FEU Chloride (98-107) mmol/L BUN (7-17) mg/dL Creatinine (0.52-1.04) mg/dL Glucose (74-99) mg/dL POC Glucose (mg/dL) 102 H 62 L 68 L (75-99) mg/dL Calcium (8.4-10.2) mg/dL ALT (4-34) U/L Alkaline Phosphatase (38-126) U/L Lactate Dehydrogenase (313-618) U/L Creatine Kinase (30-135) U/L C-Reactive Protein (<10.0) mg/L Total Protein (6.3-8.2) g/dL Albumin (3.5-5.0) g/dL 08/14/20 08/14/20 Range/Units 13:29 17:17 WBC (3.8-10.6) k/uL RBC (3.80-5.40) m/uL Hgb (11.4-16.0) gm/dL Hct (34.0-46.0) % RDW (11.5-15.5) % Neutrophils # (1.3-7.7) k/uL D-Dimer (<0.60) mg/L FEU Chloride (98-107) mmol/L BUN (7-17) mg/dL Creatinine (0.52-1.04) mg/dL Glucose (74-99) mg/dL POC Glucose (mg/dL) 225 H 114 H (75-99) mg/dL Calcium (8.4-10.2) mg/dL ALT (4-34) U/L Alkaline Phosphatase (38-126) U/L Lactate Dehydrogenase (313-618) U/L Creatine Kinase (30-135) U/L C-Reactive Protein (<10.0) mg/L Total Protein (6.3-8.2) g/dL Albumin (3.5-5.0) g/dL Assessment and Plan Assessment: -Bilateral Covid 19 pneumonia: disContinue with dexamethasone, and continue with anticoagulation. Pulmonary consult. She is status post extubation, improving -Acute hypoxic respiratory failure secondary to above -TIA with left arm and left eye and lip droop . Completely resolved and neurology signed off -Metabolic encephalopathy secondary to abnormal -A. fib and RVR, patient rate is controlled. Currently on Eliquis, metoprolol is admitted by cardiology team -Increased inflammatory markers secondary to above and infection, improving -Anemia, monitor hemoglobin. We'll do anemia workup -Hypertension -Hypothyroidism DVT prophylaxis. Eliquis GI prophylaxis: Protonix Prognosis is guarded
[2020-08-14] MEDS: amLODIPine 5 MG TAB PO SCH (22:15)
[2020-08-14] MEDS: ATORVASTATIN 40 MG TAB PO SCH (22:15)
[2020-08-14] MEDS: QUEtiapine 50 MG TAB PO SCH (22:15)
[2020-08-14 22:30] LABS: Glucose,Whole Blood 94 mg/dL (75-99)
[2020-08-14 23:40] LABS: Glucose,Whole Blood 59 mg/dL (75-99)
[2020-08-15 00:16] LABS: Glucose,Whole Blood 66 mg/dL (75-99)
[2020-08-15] MEDS: VANCOMYCIN ORAL SOLUTION 250 MG/5 ML BOTTLE PO SCH ×4 (00:41→17:20)
[2020-08-15 00:49] LABS: Glucose,Whole Blood 87 mg/dL (75-99)
[2020-08-15 02:50] LABS: Glucose,Whole Blood 73 mg/dL (75-99)
[2020-08-15] MEDS: DEXTROSE 5%-0.9% NACL 1,000 ML IV SCH ×2 (05:46→13:20)
[2020-08-15 06:05] LABS: Glucose,Whole Blood 55 mg/dL (75-99)
[2020-08-15] MEDS: INSULIN ASPART (NovoLOG) 100 UNIT/ML VIAL SQ SCH ×3 (06:05→17:20)
[2020-08-15] MEDS: LEVOTHYROXINE 75 MCG TAB PO SCH (06:05)
[2020-08-15] MEDS ORDERED: DEXTROSE 50% SYRINGE 50 ML IVP ONE (06:07)
[2020-08-15 06:35] LABS: Glucose,Whole Blood 153 mg/dL (75-99)
[2020-08-15 06:54] LABS: Anisocytosis Slight; Basophils % (A) 0 %; Eosinophils # (A) 0.4 k/uL (0-0.7); Eosinophils % (A) 3 %; Hypochromasia Moderate; Lymphocytes # (A) 1.7 k/uL (1.0-4.8); Lymphocytes % (A) 14 %; MCH 29.6 pg (25.0-35.0); MCHC 31.6 g/dL (31.0-37.0); MCV 93.5 fL (80.0-100.0); Mean Platelet Volume 7.8; Monocytes # (A) 0.2 k/uL (0-1.0); Monocytes % (A) 2 %; Neutrophils # (A) 9.4 k/uL (1.3-7.7); Neutrophils % (A) 80 %; Platelet Count 207 k/uL (150-450); RBC 2.14 m/uL (3.80-5.40); RDW 16.7 % (11.5-15.5); WBC 11.8 k/uL (3.8-10.6)
[2020-08-15 06:57] LABS: HGB 6.3 gm/dL (11.4-16.0)
[2020-08-15] MEDS: ALBUTEROL HFA INHALER INHALATION SCH ×4 (09:09→20:22)
[2020-08-15] MEDS: METOPROLOL TARTRATE 25 MG TAB PO SCH (09:11)
[2020-08-15] MEDS: PANTOPRAZOLE 40 MG/10 ML VIAL IVP SCH ×2 (09:13→19:56)
--- NOTE | 2020-08-15 10:16 | XR ---
EXAMINATION TYPE: XR chest 1V portable DATE OF EXAM: 08/15/2020 COMPARISON: 08/13/2020 INDICATION: Covid pneumonitis TECHNIQUE: Single frontal view of the chest is obtained. FINDINGS: The heart size is normal. The pulmonary vasculature is normal. Arch infiltrates or bilaterally. Findings are worsening over the interval. Right central venous catheter is present with the tip in the right atrium. Nasogastric tube transvers es the thorax with tip in the right upper quadrant of the abdomen. IMPRESSION: 1. Worsening bilateral patchy lung infiltrates. 2. Lines and catheters discussed above.
[2020-08-15 10:52] LABS: Glucose,Whole Blood 116 mg/dL (75-99)
[2020-08-15 13:00] LABS: Folate, Serum 3.4 ng/mL
[2020-08-15 13:12] LABS: % Iron Saturation 5.24 (12.00-45.00)
--- NOTE | 2020-08-15 13:36 | P.PN ---
Subjective Progress Note Date: 08/15/20 5-year-old female patient post acute hypoxic respiratory failure requiring intubation mechanical ventilation secondary to community related pneumonitis/pneumonia. The patient required intubation mechanical ventilation 07/30/2020. The patient was extubated on 08/05/2022 high flow oxygen currently she is on 15 L of oxygen by nasal cannula. Chest x-ray still showing diffuse patchy bilateral pulmonary infiltrates. The patient during the course developed some altered mentation and generalized weakness more so on the left and the patient is currently being evaluated by neurology. The patient underwent a angiogram of the brain and it was essentially negative. There was age-related atrophy and chronic small vessel ischemic changes. The patient also developed a new onset atrial fibrillation with rapid ventricular response and she converted back into normal sinus rhythm. She has hypertension and hypothyroidism as comorbid conditions. The patient remains awake and is having some difficulty in swallowing. The patient's is being nourished with enteral feeding at the rate of 30 mL an hour via an NGT. The patient is on D5 normal saline maintenance fluids at 50 mL an hour.. She remains on IV heparin. She is off the clevidipine drip. The patient's LDH level has been dropping and is down to 1300. The CRP has been fluctuating and currently is at 179. The patient's remains on Decadron 6 mg IV every 24 hours. The patient's received convalescent plasma. She remains on Cleviprex drip for blood pressure control. on today's evaluation the patient remains confused. She was switched to 100% nonrebreather facemask. No chest x-ray was done today. Chest x-ray from yesterday showed dif fuse bilateral pulmonary infiltrates peripheral mainly in the right lower lobe and the left upper lobe area. There is some also in the lower lobes. The patient is a triple lumen catheter. NG tube is in place for enteral feeding and nutritional support. The patient is currently in the 100% nonrebreather facemask patient was switched from high flow oxygen. She is breathing comfortably. She is confused. Neurologic exam is nonfocal. on today's evaluation of 08/11/2020, the patient's 100% nonrebreather facemask. His chest x-ray still showing diffuse airspace disease bilaterally, peripher ally. the NG tube has been in a good location. The patient is receiving enteral feeding for nutritional support. . The patient is on TwoCal HN and the patient is tolerating diet without any major problems. No major change in her mentation for now and the patient continued to be lethargic.the patient had a few bouts of hypoglycemia yesterday, she was given D50 and currently she is on D5 0.9 at the rate of 75 mL an hour. The patient is currently in a normal sinus rhythm. The patient is taken metoprolol 25 mg on a daily basis and the patient is on long- term anticoagulation with Eliquis. The patient is also on Decadron 6 mg on a daily basis. No signs of any significant respiratory distress and she is resting comfortably in bed. Still quite hypoxic and 100% nonrebreather facemask. No major change in her condition since yesterday.tthe patient was also diagnosed having C. diff colitis as the patient was having diarrhea. She was started on oral vancomycin. No fever for now. The white cell count today is 22. oon 08/12/2020, the patient seems to be a bit more awake and alert compared to yesterday. She is 700% nonrebreather facemask. Her pulse ox is 99%. Nevertheless, she desaturates whenever she comes off the mask. Her chest x-ray still showing dense bilaterally consolidation perihilar more so in the right lower lobe and the left perihilar area. This is the chest x-ray from yesterday and the follow-up chest x-rays to be done today. Meanwhile, the patient is still receiving enteral feeding for nutritional support and she is taking TwoCal and she is at goal of 30 mL an hour. IV fluids form of D5 normal state rate of 75 mL an hour. Her blood work shows a white cell count of 16.8 which is improved compared to yesterday. D-dimer is down to 5.8 and the renal function is stable. In terms of her inflammatory markers, the LDH is down to 1256 and the CRP is down to 84. The patient also has a positive C. diff colitis. The patient is currently on oral vancomycin. She has no fecal management system and she has bowel movements that are few and there are improving. No fever for now. On today's evaluation of 08/13/2020, the patient is doing well. Note that we were able to wean her down to 10 L of oxygen by nasal cannula. She was able to sit up on the recliner. Later on, she desaturated again she had to be placed back on 100% nonrebreather facemask. This morning, I put her back on 10 L and she was able to tolerate it well. She is following commands. She is communicating. NG tube is in place. She did pass a swallow evaluation. Nevertheless she was not steady enough to eat as the patient was felt to be still quite weak. Enteral nutrition for another 24 hours. She is taking TwoCal at the rate of 70 mL an hour. She is also on a D5 normal saline at the rate of 25 mL an hour. The patient is still having significant amount of diarrhea. She has a fecal management system and this is attributed to C. diff colitis. She remains on oral vancomycin. No chest pain. Mental status is fluctuating. It seen yesterday she is alert and awake and she is following commands. I'm hoping to add also Seroquel to help her with her sleeping overnight. The white cell count is down to 16.8. Hemoglobin today 0.6. D-dimer is at 5.86. The electrodes are all within normal limits. BUN is at 26 with a creatinine of 0.4. LDH is 1256 from yesterday and LFTs are slightly elevated and the patient has mild transaminitis. The patient remains on oral vancomycin, IV Decadron, she is on metoprolol for rate control and she is also on long-term anticoagulation with Eliquis. On today's evaluation of 08/14/2020, the patient is still having waxing and w aning mental status. She is not significantly agitated however. She has required restraints for now. She is not wanting to eat. She Is Trying to Follow Her NG Tube. Her Oxygenation Is Improved and the Patient Is Currently on 3 L of oxygen by nasal cannula. No major respiratory distress. Her white cell count 11.6 with a hemoglobin of 7.2. Her LDH is at 871 which is improved. She has some mild transaminitis is also improved compared to 2 days ago. As for her C. diff, the patient has a fecal management system. Output is still considerably high and the patient is still on oral vancomycin. She is afebrile for now. On 08/15/2020, the patient was also the intensive care unit and she is currently the medical. Noted the patient was progressively improving and for that reason a transjugular out of the intensive care unit. Currently she is laying comfortably in bed. NG tube is in place for enteral feeding and nutritional support. . She is also being treated for C. diff colitis. The patient on oral vancomycin. She has a Crockett catheter in place. The patient is currently on 8 L of oxygen by nasal cannula. She is resting comfortably in bed. She is afebrile.She had a hemoglobin of 6.3 on today's evaluation and the patient is receiving a unit of packed RBC. Her serum iron is 11 angiography is a component of iron deficiency. Objective - Vital Signs Vital signs: Vital Signs Temp 97.5 F L 08/15/20 12:56 Pulse 90 08/15/20 13:06 Resp 20 08/15/20 13:06 BP 103/58 08/15/20 13:06 Pulse Ox 90 L 08/15/20 13:06 Intake & Output 08/14/20 08/15/20 08/15/20 18:59 06:59 18:59 Intake Total 1620 1620 0 Output Total 560 900 Balance 1060 720 0 Intake: IV 1200 Dextrose 5%-0.9% NaCl 1, 1200 000 ml @ 75 mls/hr IV . [id number] RODRIGO Rx#:[id number] Intake, IV Titration 900 Amount Dextrose 5%-0.9% NaCl 1, 900 000 ml @ 75 mls/hr IV . [id number] RODRIGO Rx#:[id number] Oral 0 0 Tube Feeding 420 720 Blood Product 0 Rc As-1 Unit 0 [id number] Output: Urine 560 900 Other: Voiding Method Indwelling Catheter Indwelling Catheter Indwelling Catheter ABP, PAP, CO, CI - Last Documented Arterial Blood Pressure 143/61 - Exam GENERAL EXAM: Alert, extremely weak 75-year-old female patient,currently on 8 L of oxygen by nasal cannula., in no apparent distress.the patient also has an NG tube in place. HEAD: Normocephalic. EYES: Sluggish reaction of pupils, equal size. NOSE: Clear with pink turbinates. THROAT: No erythema or exudates. NECK: No masses, no JVD. CHEST: No chest wall deformity. LUNGS: Equal air entry with basilar crackles CVS: S1 and S2 normal with no audible murmur, regular rhythm. ABDOMEN: No hepatosplenomegaly, normal bowel sounds, no guarding or rigidity.the patient has a fecal management system and the patient has ongoing diarrhea. SPINE: No scoliosis or deformity SKIN: No rashes CENTRAL NERVOUS SYSTEM: Extremely weak, bilateral weakness, tone is normal in all 4 extremities.the patient is able to converse. She is less confused and with appropriate on today's evaluation.. She has global weakness in all 4 extremities. No neck stiffness. EXTREMITIES: There is no peripheral edema. No clubbing, no cyanosis. Peripheral pulses are intact. - Labs CBC & Chem 7: 08/15/20 06:19 08/14/20 05:03 Labs: Abnormal Lab Results - Last 24 Hours (Table) 08/14/20 08/14/20 08/14/20 Range/Units 13:29 17:17 23:38 WBC (3.8-10.6) k/uL RBC (3.80-5.40) m/uL Hgb (11.4-16.0) gm/dL Hct (34.0-46.0) % RDW (11.5-15.5) % Neutrophils # (1.3-7.7) k/uL POC Glucose (mg/dL) 225 H 114 H 59 L (75-99) mg/dL Iron (50-170) ug/dL TIBC (228-460) ug/dL % Saturation (12.00-45.00) Crossmatch 08/15/20 08/15/20 08/15/20 Range/Units 00:14 02:48 06:04 WBC (3.8-10.6) k/uL RBC (3.80-5.40) m/uL Hgb (11.4-16.0) gm/dL Hct (34.0-46.0) % RDW (11.5-15.5) % Neutrophils # (1.3-7.7) k/uL POC Glucose (mg/dL) 66 L 73 L 55 L (75-99) mg/dL Iron (50-170) ug/dL TIBC (228-460) ug/dL % Saturation (12.00-45.00) Crossmatch 08/15/20 08/15/20 08/15/20 Range/Units 06:19 06:19 06:34 WBC 11.8 H (3.8-10.6) k/uL RBC 2.14 L (3.80-5.40) m/uL Hgb 6.3 L* (11.4-16.0) gm/dL Hct 20.0 L (34.0-46.0) % RDW 16.7 H (11.5-15.5) % Neutrophils # 9.4 H (1.3-7.7) k/uL POC Glucose (mg/dL) 153 H (75-99) mg/dL Iron 11 L (50-170) ug/dL TIBC 210 L (228-460) ug/dL % Saturation 5.24 L (12.00-45.00) Crossmatch 08/15/20 08/15/20 Range/Units 07:26 10:50 WBC (3.8-10.6) k/uL RBC (3.80-5.40) m/uL Hgb (11.4-16.0) gm/dL Hct (34.0-46.0) % RDW (11.5-15.5) % Neutrophils # (1.3-7.7) k/uL POC Glucose (mg/dL) 116 H (75-99) mg/dL Iron (50-170) ug/dL TIBC (228-460) ug/dL % Saturation (12.00-45.00) Crossmatch See Detail Assessment and Plan Plan: 1 Acute hypoxic respiratory failure secondary to CoVID 19 pneumonitis, required intubation and mechanical ventilation on 07/30/20. She was beyond the window to be qualified for Remdesivir. Did receive convalescent plasma. Extubated on 08/05/2020, currently she is on 8 L of oxygen by nasal cannula. 2 Altered mental status with extreme weakness more so on the left, being evaluated by neurology. The CT angiogram was negative and the patient has some chronic ischemic changes. Neurologic exam is nonfocal point in time. The patient was having fluctuating mental status changes. Nevertheless, her mental status seems to be improving over the past 24-48 hours and the patient is felt to be much more appropriate at this point in time. 3 New onset atrial fibrillation with RVR, converted to sinus rhythm while in the emergency room. Remains in normal sinus rhythm. The patient is currently on Eliquis. Rate is controlled. 4 History of hypertension. 5 History of hypothyroidism. 6 enteral feeding for nutritional support through an NG tube.past a swallow evaluation 7 diarrhea, C. diff colitis.the patient was started on oral vancomycin for positive C. diff colitis. 8 anemia with subacute drop in hemoglobin with a gram drop in hemoglobin and daily basis. The patient is currently receiving units of packed RBC. No evidence of any GI bleed. The patient has a fecal management system regarding her C. diff colitis. Plan: continue monitor the mental status,, she is still fluctuating in terms of her mentation. Keep NG tube feeding for nutritional support review of the Seroquel dose to 50 mg at bedtime continue oral vancomycin D5.9 at the rate of 75 mL an hour. enteral feeding for nutritional support with TwoCalHN at a rate of 30 mL's an hour which is goal for her. oxygenation has improved and the patient has been weaned down to 8L Transfused with a unit of packed RBC. Is a component of iron deficiency. Watch for any signs of GI bleed, keep the patient off anticoagulation for now that is no need for Eliquis. Keep Crockett catheter in place Keep fecal management system in place keep in ICU and will continue to follow.
--- NOTE | 2020-08-15 13:55 | P.PN ---
Subjective Progress Note Date: 08/15/20 This is a pleasant 75 years old female with past medical history of hypertension, hypothyroidism. Patient could not provide much information so it was taken From staff and records. She presents to [facility] with respiratory symptoms and dyspnea associated with some complaint but no chest pain. There she was treated for atrial fibrillation with RVR and she was found to have positive covid 19 test. Patient is afebrile, she is tachypneic with respiratory rate about 26-27, hypoxic with oxygen saturation of 99% on 15 L via nasal cannula. Blood pressure is 106/89. CBC from today is unremarkable. Troponin is elevated 0.17. High lactate dehydrogenase 1276 and C-reactive protein 256. And once is negative. Chest x- ray showing severe pulmonary edema could relate to RDS and is similar to a computed tomography scan earlier today 07/31/2020 Patient was admitted with Covid pneumonia and respiratory failure, her condition got deteriorated yesterday and she got intubated and now she is on mechanical ventilation was pulmonary/critical care team monitor and carefully. Also she had A. fib with RVR and converted to sinus rhythm, her Cardizem drip was stopped and her heparin drip was switched liquids. She continued to be on Zithromax and ceftriaxone and vitamins C and zinc 08/01/2020 Patient is admitted with Covid pneumonia and course is complicated by A. fib and RVR. Patient remains in the ICU in critical condition, she is intubated and on mechanical ventilation with pulmonary/critical care team on the case. Also cartilage informed the case closely Treatments and dexamethasone, liquids, zinc, vitamin C, antibiotics with Zithromax and ceftriaxone. No reemdesivir as per pulmonary team recommendation Today I was contacted by the social media marketing specialist and stop that the patient and ignacia blandon works in [place] they want patient to be transferred upon the request to [facility] I discussed the case with who declined To accept the patient to be transferred to [facility] 08/02/2020 Patient is in the ICU for bilateral covid Pneumonia, she is intubated and on mechanical ventilation. Her heart rate atrial fibrillation was converted to sinus rhythm and currently her own in the low 50s. Blood pressure is just above 100. Patient does not need support by pressors. Leukocytosis is improving, BMP is unremarkable. Influenza virus is negative. Chest x-ray showed persistent bilateral mid to lower lung acute infiltrate and/or edema. No significant change from one day earlier Patient remains on dexamethasone, Eliquis and broad-spectrum antibiotics. Patient in the ICU intubated, pulmonary/critical care team are planning CPAP tomorrow, PEEP dropped. Other than that, change from yesterday, her heart rate shown bradycardia although in sinus rhythm therefore Cardizem and beta blockers were stopped, patient kept on Eliquis for her A. fib and cardiology team signed off. Patient on Zithromax, ceftriaxone, dexamethasone no remdesivir . she is status convescalnet plasam as well 08/04/20 Patient is still on mechanical ventilation, pulmonary/critical care team trying breathing for the patient but with no success today Other than that She'll continue with same treatment of steroids, Eliquis, azithromycin and ceftriaxone. No Cardizem or beta blockers for bradycardia. However heart rate is improved today to 60-70. WBC trending down to 12 K 08/05/20 pt is extubated today by pulmonary team , after extubation she started having stroke like ,left arm weakness, lip and left eye droop , and possible leg weakness, CT of brain is negative for stroke and CTA of the brain is ordered and is pending , neurologist was consulted who ordered MRI of the brain tomorrow. pt is currently saturating on 5 L/m of oxygen Eliquis was held by consultants while she remains on dexamethasone, stress and Zithromax. Chest x-ray looks stable Patient is followed closely by pulmonary/critical care team 08/06/2020 Patient is status extubation currently on 6 L oxygen. Pulmonary team discontinue with vitamin C and zinc and this continue with Zithromax and ceftriaxone. Patient is kept on dexamethasone Her left side weakness improved, neurology on the case MRI of the brain did not show stroke. Anticoagulation resumed with heparin drip per cardiology team for now D-dimer is 2.9, WBC 13 K. Heart rate is 60-70 sinus rhythm. 08/07/2020 Patient is awake and alert, calm in the ICU. She is currently on the liter per minute oxygen via high flow cannula Patient weakness and facial droop has resolved. Neurology team signed off. Respiratory status is slightly worse. Pulmonary team R following the case closely and they discussed and further management plan with the patient and family, please refer to their note for more details. In the meantime she remains on dexamethasone, heparin drip and bronchodilator 08/11/2020 Patient remains in the ICU and some respiratory distress, she is tachypneic at 22-30 breath per minute, she needs 15 L of oxygen via nonrebreather. And she remains on the same treatment for her Covid pneumonia with dexamethasone, Eliquis and albuterol. Also she is on D5 normal saline at 75 mL/h for episodes of hypoglycemia yesterday. Also she is on oral vancomycin for C. diff colitis 08/12/2020 patient remains in the ICU with oropharyngeal tube getting feeding. She is alert and partially confused but she looks tired and weak. She's still with loose stool and she's been treated for C. diff colitis with oral vancomycin She still on high dose of oxygen at 2 L/m via nonrebreather and she is tachypneic 25-27 per minute Chest x-ray showed persistent bilateral infiltrates. Related to her covid pneumonia She remains on dexamethasone 08/13/2020 patient today remains in the ICU, she is doing okay, it seems like her oxygen requirements was meshed to be titrated down to 4 L/m this morning. She still confused and [place] of her tubes including a oxygen mask but today is she is more calm with less such problems. Hemodynamically she is stable She passed a swallow evaluation however she still on tube feeding but we will try to feed her today Still has runny diarrhea and on oral vancomycin Chest x-ray from today showing diffuse multifocal airspace disease correlated for pneumonia. Findings stable. She remains on dexamethasone 6 mg, Eliquis 2.5 mg, D5 normal saline at 75 mL/h. Oral vancomycin. And metoprolol 25 mg daily was added recently by hand trimmer 08/14/2020 Patient still somewhat confused with only mild partial improvement compared to yesterday Chest x-ray showing the same findings dexamethasone wants. Today, the 50s given because of low glucose, however patient is not on insulin or any diabetic medication Patient remains on Eliquis 2.5 mg, oral vancomycin and D5 normal saline at 75 mL/h, also she is on metoprolol 25 mg of Seroquel 50 mg as needed acute WBC and inflammatory markers are trending down, hemoglobin dropped from 10 down to 7.2 over 2 days she is saturating 92% on 3 L oxygen via nasal cannula at rest of vitals looks stable monitor hemoglobin closely 08/15/2020 [facility] and continues to be closely monitored. Hemoglobin was found to be 0.3 this morning and currently receiving a unit of PRBCs. We'll continue to monitor closely and transfuse as needed. Blood sugars have been on the lower side and will continue with Accu-Cheks before meals at bedtime along with sliding scale. Patient is maintained on D5 normal saline and will continue at this time. Patient is also currently receiving nutrition via tube feedings. Patient is currently on a Ventimask at 93% and will continue to monitor closely. Pulmonary is following closely. Patient continues to be somewhat confused and attempts to pull oxygen off and tube feedings out. Patient currently on oral antibiotics in the form of vancomycin for C. diff and will continue at this time. Patient has been taken off anticoagulation of eliquis and will continue to monitor for any signs of bleeding. Review of systems CONSTITUTIONAL: No fever, no malaise, no fatigue. HEENT: No recent visual problems or hearing problems. Denied any sore throat. CARDIOVASCULAR: No orthopnea, PND, no palpitations, no syncope. PULMONARY: No shortness of breath, no cough, no hemoptysis. GASTROINTESTINAL: No diarrhea, no nausea, no vomiting, no abdominal pain. Normoactive bowel sounds. NEUROLOGICAL: No headaches, no weakness, no numbness. Objective - Vital Signs Vital signs: Vital Signs Temp 98 F 08/15/20 11:38 Pulse 82 08/15/20 11:38 Resp 20 08/15/20 11:38 BP 117/70 08/15/20 11:38 Pulse Ox 99 08/15/20 11:38 Intake & Output 08/14/20 08/15/20 08/15/20 18:59 06:59 18:59 Intake Total 1620 1620 Output Total 560 900 Balance 1060 720 Intake: IV 1200 Dextrose 5%-0.9% NaCl 1, 1200 000 ml @ 75 mls/hr IV . [id number] [facility] Rx#:[id number] Intake, IV Titration 900 Amount Dextrose 5%-0.9% NaCl 1, 900 000 ml @ 75 mls/hr IV . [id number] [facility] Rx#:[id number] Oral 0 0 Tube Feeding 420 720 Output: Urine 560 900 Other: Voiding Method Indwelling Catheter Indwelling Catheter Indwelling Catheter ABP, PAP, CO, CI - Last Documented Arterial Blood Pressure 143/61 - Exam GENERAL: The patient is generally weak, and continues to be somewhat confused HEENT: Pupils are round and equally reacting to light. EOMI. No scleral icterus. No conjunctival pallor. Normocephalic, atraumatic. No pharyngeal erythema. No thyromegaly. CARDIOVASCULAR: S1 and S2 present. No murmurs, rubs, or gallops. PULMONARY: Chest is clear to auscultation, no wheezing or crackles. ABDOMEN: Soft, nontender, nondistended, normoactive bowel sounds. No palpable organomegaly. MUSCULOSKELETAL: No joint swelling or deformity. EXTREMITIES: No cyanosis, clubbing, or pedal edema. -NEUROLOGICAL: Left facial droop with left arm weakness. SKIN: No rashes. no petechiae. - Labs CBC & Chem 7: 08/15/20 06:19 08/14/20 05:03 Labs: Abnormal Lab Results - Last 24 Hours (Table) 08/14/20 08/14/20 08/14/20 Range/Units 12:54 12:57 13:29 WBC (3.8-10.6) k/uL RBC (3.80-5.40) m/uL Hgb (11.4-16.0) gm/dL Hct (34.0-46.0) % RDW (11.5-15.5) % Neutrophils # (1.3-7.7) k/uL POC Glucose (mg/dL) 62 L 68 L 225 H (75-99) mg/dL Crossmatch 08/14/20 08/14/20 08/15/20 Range/Units 17:17 23:38 00:14 WBC (3.8-10.6) k/uL RBC (3.80-5.40) m/uL Hgb (11.4-16.0) gm/dL Hct (34.0-46.0) % RDW (11.5-15.5) % Neutrophils # (1.3-7.7) k/uL POC Glucose (mg/dL) 114 H 59 L 66 L (75-99) mg/dL Crossmatch 08/15/20 08/15/20 08/15/20 Range/Units 02:48 06:04 06:19 WBC 11.8 H (3.8-10.6) k/uL RBC 2.14 L (3.80-5.40) m/uL Hgb 6.3 L* (11.4-16.0) gm/dL Hct 20.0 L (34.0-46.0) % RDW 16.7 H (11.5-15.5) % Neutrophils # 9.4 H (1.3-7.7) k/uL POC Glucose (mg/dL) 73 L 55 L (75-99) mg/dL Crossmatch 08/15/20 08/15/20 08/15/20 Range/Units 06:34 07:26 10:50 WBC (3.8-10.6) k/uL RBC (3.80-5.40) m/uL Hgb (11.4-16.0) gm/dL Hct (34.0-46.0) % RDW (11.5-15.5) % Neutrophils # (1.3-7.7) k/uL POC Glucose (mg/dL) 153 H 116 H (75-99) mg/dL Crossmatch See Detail Assessment and Plan Assessment: -Bilateral Covid 19 pneumonia: continue with Ventimask Pulmonary following. She is status post extubation, improving -Acute hypoxic respiratory failure secondary to above -TIA with left arm and left eye and lip droop . Completely resolved and neurology signed off -Metabolic encephalopathy secondary to above -A. fib and RVR, patient rate is controlled. With metoprolol -Increased inflammatory markers secondary to above and infection, improving -Anemia, monitor hemoglobin. We'll do anemia workup, current hemoglobin is 6.3 and receiving 1 unit of PRBC -Hypertension -Hypothyroidism -DVT prophylaxis -GI prophylaxis: Protonix Prognosis is guarded
[2020-08-15 17:15] LABS: Glucose,Whole Blood 65 mg/dL (75-99)
[2020-08-15 17:47] LABS: Glucose,Whole Blood 119 mg/dL (75-99)
[2020-08-15] MEDS: amLODIPine 5 MG TAB PO SCH (19:56)
[2020-08-15] MEDS: QUEtiapine 50 MG TAB PO SCH (19:56)
[2020-08-15] MEDS: ATORVASTATIN 40 MG TAB PO SCH (19:56)
--- NOTE | 2020-08-15 21:05 | P.CONS ---
History of Present Illness - Reason for Consult Consult date: 08/15/20 Anemia Requesting physician: [place] E Sheet - Chief Complaint Shortness of breath - History of Present Illness 75-year-old female with multiple medical comorbidities including hypertension and hypothyroidism who initially presented to hospital due to complaints of shortness of breath. Patient has had a complicated hospital course and has been diagnosed with covid 19 infection requiring intubation for which she has subsequently been extubated and has also been treated for atrial fibrillation currently rate controlled. The patient was noted to have positive Clostridium difficile infection and currently has a fecal management system in place. Gastroenterology service was consulted to see the patient due to a fall in the patient's hemoglobin from admission down to 6.3 today from 7.2 yesterday. Currently the patient is receiving feedings through a nasogastric tube. Bowel movements have been dark but non-melanotic with no GI bleeding reported. Stool testing was positive for occult blood. Anticoagulation which was started for atrial fibrillation is currently being held. Review of Systems REVIEW OF SYSTEMS: CONSTITUTIONAL: Denies any fevers, chills, weight change. CARDIOVASCULAR: Denies any chest pain, palpitations high or low blood pressures RESPIRATORY: Shortness of breath and cough.. GENITOURINARY: No dysuria or hematuria. Crockett catheter in place. MUSCULOSKELETAL: No weakness reported. SKIN: Denies any new rashes or lesions, jaundice or pallor. PSYCHIATRIC: Denies any depression or anxiety. NEUROLOGY: Denies headache, denies any new focal deficits. EARS/NOSE/THROAT: No recent hearing change, congestion, nasal discharge or sore throat. EYES: No pain in eyes, discharge or change in vision. GASTROINTESTINAL: As per HPI. Past Medical History Past Medical History: Hypertension, Thyroid Disorder History of Any Multi-Drug Resistant Organisms: None Reported Additional Past Surgical History / Comment(s): colon resection Smoking Status: Never smoker Past Alcohol Use History: None Reported Past Drug Use History: None Reported Additional History: Family History: No significant family history reported. Medications and Allergies Home Medications Medication Instructions Recorded Confirmed Type Levothyroxine Sodium [Synthroid] 75 mcg PO DAILY 07/29/20 07/29/20 History amLODIPine [Norvasc] 5 mg PO DAILY 07/29/20 07/29/20 History Allergies Allergy/AdvReac Type Severity Reaction Status Date / Time No Known Allergies Allergy Verified 07/29/20 19:50 Physical Exam Vitals: Vital Signs Temp Pulse Pulse Pulse Resp BP BP 08/15/20 13:36 93 20 109/66 08/15/20 13:06 90 20 103/58 08/15/20 12:56 97.5 F L 91 22 105/62 08/15/20 11:38 98 F 82 20 117/70 08/15/20 05:00 98.6 F 97 28 H 101/60 08/15/20 00:32 08/14/20 23:00 98.5 F 113 H 28 H 121/70 08/14/20 19:53 74 Pulse Ox 08/15/20 13:36 93 L 08/15/20 13:06 90 L 08/15/20 12:56 93 L 08/15/20 11:38 99 08/15/20 05:00 97 08/15/20 00:32 97 08/14/20 23:00 93 L 08/14/20 19:53 Intake and Output 08/14/20 08/15/20 08/15/20 22:59 06:59 14:59 Intake Total 1620 1260 0 Output Total 900 Balance 1620 360 0 Intake: IV 900 Dextrose 5%-0.9% NaCl 1, 900 000 ml @ 75 mls/hr IV . [id number] [facility] Rx#:[id number] Intake, IV Titration 900 Amount Dextrose 5%-0.9% NaCl 1, 900 000 ml @ 75 mls/hr IV . [id number] [facility] Rx#:[id number] Oral 0 Tube Feeding 720 360 Blood Product 0 Rc As-1 Unit 0 [id number] Output: Urine 900 Other: Voiding Method Indwelling Catheter Indwelling Catheter On physical examination, patient appears comfortable in no apparent distress. HEAD: Normocephalic, atraumatic. EYES: No scleral icterus. No conjunctival injection. MOUTH: No lesions, tongue midline. NECK: Trachea midline, no gross abnormalities. CHEST: Decreased air entry bilaterally. HEART: S1S2 appreciated. ABDOMEN: Soft, nontender to palpation. Bowel sounds are positive. No organomegaly. No guarding or rigidity. EXTREMITIES: No pedal edema. SKIN: No rashes, no jaundice. NEUROLOGIC: Alert and oriented to person. No focal deficits. Results CBC & Chem 7: 08/15/20 06:19 12/11/20 05:03 Labs: Abnormal Lab Results - Last 24 Hours (Table) 08/14/20 08/14/20 08/15/20 Range/Units 17:17 23:38 00:14 WBC (3.8-10.6) k/uL RBC (3.80-5.40) m/uL Hgb (11.4-16.0) gm/dL Hct (34.0-46.0) % RDW (11.5-15.5) % Neutrophils # (1.3-7.7) k/uL POC Glucose (mg/dL) 114 H 59 L 66 L (75-99) mg/dL Iron (50-170) ug/dL TIBC (228-460) ug/dL % Saturation (12.00-45.00) Crossmatch 08/15/20 08/15/20 08/15/20 Range/Units 02:48 06:04 06:19 WBC 11.8 H (3.8-10.6) k/uL RBC 2.14 L (3.80-5.40) m/uL Hgb 6.3 L* (11.4-16.0) gm/dL Hct 20.0 L (34.0-46.0) % RDW 16.7 H (11.5-15.5) % Neutrophils # 9.4 H (1.3-7.7) k/uL POC Glucose (mg/dL) 73 L 55 L (75-99) mg/dL Iron (50-170) ug/dL TIBC (228-460) ug/dL % Saturation (12.00-45.00) Crossmatch 08/15/20 08/15/20 08/15/20 Range/Units 06:19 06:34 07:26 WBC (3.8-10.6) k/uL RBC (3.80-5.40) m/uL Hgb (11.4-16.0) gm/dL Hct (34.0-46.0) % RDW (11.5-15.5) % Neutrophils # (1.3-7.7) k/uL POC Glucose (mg/dL) 153 H (75-99) mg/dL Iron 11 L (50-170) ug/dL TIBC 210 L (228-460) ug/dL % Saturation 5.24 L (12.00-45.00) Crossmatch See Detail 08/15/20 Range/Units 10:50 WBC (3.8-10.6) k/uL RBC (3.80-5.40) m/uL Hgb (11.4-16.0) gm/dL Hct (34.0-46.0) % RDW (11.5-15.5) % Neutrophils # (1.3-7.7) k/uL POC Glucose (mg/dL) 116 H (75-99) mg/dL Iron (50-170) ug/dL TIBC (228-460) ug/dL % Saturation (12.00-45.00) Crossmatch Chest x-ray: report reviewed Assessment and Plan (1) Iron deficiency anemia Narrative/Plan: 75-year-old female with multiple medical comorbidities and hospital course significant for treatment for Covid 19 infection, Clostridium difficile colitis and atrial fibrillation. Patient was noted to have a fall in her hemoglobin during her hospitalization. No reports of any signs or symptoms of GI bleeding. She is tolerating her NG tube feeds. Iron studies were suggestive of an iron deficiency anemia. Currently she is receiving PPI therapy and has a fecal management system in place. Current Visit: Yes Status: Acute Code(s): D50.9 - IRON DEFICIENCY ANEMIA, UNSPECIFIED SNOMED Code(s): 83607262 (2) Positive occult stool blood test Current Visit: Yes Status: Acute Code(s): R19.5 - OTHER FECAL ABNORMALITIES SNOMED Code(s): 77544009 (3) Clostridium difficile diarrhea Current Visit: Yes Status: Acute Code(s): A04.72 - ENTEROCOLITIS D/T CLOSTRIDIUM DIFFICILE, NOT SPCF RECUR SNOMED Code(s): 2073129791381 (4) COVID-19 Current Visit: Yes Status: Acute Code(s): U07.1 - COVID-19 SNOMED Code(s): 937093868 Plan: Supportive care Okay to continue tube feeds for now Continue to monitor hemoglobin and hematocrit and transfuse as needed, patient is currently receiving 1 unit of packed red blood cells Continue twice daily Protonix therapy Continue to hold anticoagulation therapy Continue oral vancomycin for treatment of Clostridium difficile Continue other medical management per primary team and consulting services If patient's hemoglobin does not stabilize and there is concern for GI bleed issue may require endoscopic evaluation with EGD, however patient would be high risk given multiple complex medical comorbidities and recent intubation and would need clearance for the procedure by the cardiology and pulmonology services Thank you for allowing us to participate in the care of the patient we will continue to follow
[2020-08-16] MEDS: INSULIN ASPART (NovoLOG) 100 UNIT/ML VIAL SQ SCH ×4 (00:08→17:04)
[2020-08-16] MEDS: VANCOMYCIN ORAL SOLUTION 250 MG/5 ML BOTTLE PO SCH ×4 (00:09→17:05)
[2020-08-16 00:17] LABS: Glucose,Whole Blood 113 mg/dL (75-99)
[2020-08-16 00:17] LABS: Glucose,Whole Blood 118 mg/dL (75-99)
[2020-08-16] MEDS: LEVOTHYROXINE 75 MCG TAB PO SCH (06:09)
[2020-08-16 06:17] LABS: Glucose,Whole Blood 94 mg/dL (75-99)
[2020-08-16] MEDS: DEXTROSE 5%-0.9% NACL 1,000 ML IV SCH ×2 (06:18→20:28)
[2020-08-16 06:59] LABS: Anisocytosis Slight; Basophils # (A) 0.1 k/uL (0-0.2); Basophils % (A) 0 %; Eosinophils # (A) 0.4 k/uL (0-0.7); Eosinophils % (A) 3 %; Hypochromasia Slight; Lymphocytes # (A) 1.3 k/uL (1.0-4.8); Lymphocytes % (A) 9 %; MCH 29.2 pg (25.0-35.0); MCHC 32.6 g/dL (31.0-37.0); MCV 89.7 fL (80.0-100.0); Mean Platelet Volume 7.4; Monocytes # (A) 0.4 k/uL (0-1.0); Monocytes % (A) 3 %; Neutrophils # (A) 11.8 k/uL (1.3-7.7); Neutrophils % (A) 84 %; Platelet Count 195 k/uL (150-450); Poikilocytosis Slight; RBC 3.12 m/uL (3.80-5.40); RDW 16.2 % (11.5-15.5); WBC 14.1 k/uL (3.8-10.6)
[2020-08-16 07:06] LABS: HGB 9.1 gm/dL (11.4-16.0)
[2020-08-16 07:11] LABS: D-Dimer 1.89 mg/L FEU (<0.60); INR 0.9 (<1.2); Prothrombin Time 9.9 sec (9.0-12.0)
[2020-08-16] MEDS ORDERED: QUEtiapine 50 MG TAB PO STA (08:21)
[2020-08-16] MEDS: ALBUTEROL HFA INHALER INHALATION SCH ×5 (08:24→20:14)
[2020-08-16] MEDS: PANTOPRAZOLE 40 MG/10 ML VIAL IVP SCH ×2 (10:08→20:26)
[2020-08-16] MEDS: METOPROLOL TARTRATE 25 MG TAB PO SCH (10:08)
[2020-08-16 10:22] LABS: Albumin 2.4 g/dL (3.80-4.90); Albumin/Globulin Ratio 1.5 (1.60-3.17); Anion Gap 6.1 mmol/L (4.00-12.00); C Reactive Protein 9.2 mg/dL (0.0-0.8); Calcium 7.2 mg/dL (8.7-10.3); Carbon Dioxide 25.9 mmol/L (21.6-31.8); Globulin 1.6 g/dL (1.6-3.3); Magnesium 1.8 mg/dL (1.5-2.4); Potassium 3.7 mmol/L (3.5-5.5); Total Bilirubin 0.4 mg/dL (0.3-1.2)
[2020-08-16 11:40] LABS: Glucose,Whole Blood 144 mg/dL (75-99)
--- NOTE | 2020-08-16 13:05 | P.PN ---
Subjective Progress Note Date: 08/16/20 5-year-old female patient post acute hypoxic respiratory failure requiring intubation mechanical ventilation secondary to community related pneumonitis/pneumonia. The patient required intubation mechanical ventilation 07/30/2020. The patient was extubated on 08/05/2022 high flow oxygen currently she is on 15 L of oxygen by nasal cannula. Chest x-ray still showing diffuse patchy bilateral pulmonary infiltrates. The patient during the course developed some altered mentation and generalized weakness more so on the left and the patient is currently being evaluated by neurology. The patient underwent a angiogram of the brain and it was essentially negative. There was age-related atrophy and chronic small vessel ischemic changes. The patient also developed a new onset atrial fibrillation with rapid ventricular response and she converted back into normal sinus rhythm. She has hypertension and hypothyroidism as comorbid conditions. The patient remains awake and is having some difficulty in swallowing. The patient's is being nourished with enteral feeding at the rate of 30 mL an hour via an NGT. The patient is on D5 normal saline maintenance fluids at 50 mL an hour.. She remains on IV heparin. She is off the clevidipine drip. The patient's LDH level has been dropping and is down to 1300. The CRP has been fluctuating and currently is at 179. The patient's remains on Decadron 6 mg IV every 24 hours. The patient's received convalescent plasma. She remains on Cleviprex drip for blood pressure control. on today's evaluation the patient remains confused. She was switched to 100% nonrebreather facemask. No chest x-ray was done today. Chest x-ray from yesterday showed dif fuse bilateral pulmonary infiltrates peripheral mainly in the right lower lobe and the left upper lobe area. There is some also in the lower lobes. The patient is a triple lumen catheter. NG tube is in place for enteral feeding and nutritional support. The patient is currently in the 100% nonrebreather facemask patient was switched from high flow oxygen. She is breathing comfortably. She is confused. Neurologic exam is nonfocal. on today's evaluation of 08/11/2020, the patient's 100% nonrebreather facemask. His chest x-ray still showing diffuse airspace disease bilaterally, peripher ally. the NG tube has been in a good location. The patient is receiving enteral feeding for nutritional support. . The patient is on TwoCal HN and the patient is tolerating diet without any major problems. No major change in her mentation for now and the patient continued to be lethargic.the patient had a few bouts of hypoglycemia yesterday, she was given D50 and currently she is on D5 0.9 at the rate of 75 mL an hour. The patient is currently in a normal sinus rhythm. The patient is taken metoprolol 25 mg on a daily basis and the patient is on long- term anticoagulation with Eliquis. The patient is also on Decadron 6 mg on a daily basis. No signs of any significant respiratory distress and she is resting comfortably in bed. Still quite hypoxic and 100% nonrebreather facemask. No major change in her condition since yesterday.tthe patient was also diagnosed having C. diff colitis as the patient was having diarrhea. She was started on oral vancomycin. No fever for now. The white cell count today is 22. oon 08/12/2020, the patient seems to be a bit more awake and alert compared to yesterday. She is 700% nonrebreather facemask. Her pulse ox is 99%. Nevertheless, she desaturates whenever she comes off the mask. Her chest x-ray still showing dense bilaterally consolidation perihilar more so in the right lower lobe and the left perihilar area. This is the chest x-ray from yesterday and the follow-up chest x-rays to be done today. Meanwhile, the patient is still receiving enteral feeding for nutritional support and she is taking TwoCal and she is at goal of 30 mL an hour. IV fluids form of D5 normal state rate of 75 mL an hour. Her blood work shows a white cell count of 16.8 which is improved compared to yesterday. D-dimer is down to 5.8 and the renal function is stable. In terms of her inflammatory markers, the LDH is down to 1256 and the CRP is down to 84. The patient also has a positive C. diff colitis. The patient is currently on oral vancomycin. She has no fecal management system and she has bowel movements that are few and there are improving. No fever for now. On today's evaluation of 08/13/2020, the patient is doing well. Note that we were able to wean her down to 10 L of oxygen by nasal cannula. She was able to sit up on the recliner. Later on, she desaturated again she had to be placed back on 100% nonrebreather facemask. This morning, I put her back on 10 L and she was able to tolerate it well. She is following commands. She is communicating. NG tube is in place. She did pass a swallow evaluation. Nevertheless she was not steady enough to eat as the patient was felt to be still quite weak. Enteral nutrition for another 24 hours. She is taking TwoCal at the rate of 70 mL an hour. She is also on a D5 normal saline at the rate of 25 mL an hour. The patient is still having significant amount of diarrhea. She has a fecal management system and this is attributed to C. diff colitis. She remains on oral vancomycin. No chest pain. Mental status is fluctuating. It seen yesterday she is alert and awake and she is following commands. I'm hoping to add also Seroquel to help her with her sleeping overnight. The white cell count is down to 16.8. Hemoglobin today 0.6. D-dimer is at 5.86. The electrodes are all within normal limits. BUN is at 26 with a creatinine of 0.4. LDH is 1256 from yesterday and LFTs are slightly elevated and the patient has mild transaminitis. The patient remains on oral vancomycin, IV Decadron, she is on metoprolol for rate control and she is also on long-term anticoagulation with Eliquis. On today's evaluation of 08/14/2020, the patient is still having waxing and w aning mental status. She is not significantly agitated however. She has required restraints for now. She is not wanting to eat. She Is Trying to Follow Her NG Tube. Her Oxygenation Is Improved and the Patient Is Currently on 3 L of oxygen by nasal cannula. No major respiratory distress. Her white cell count 11.6 with a hemoglobin of 7.2. Her LDH is at 871 which is improved. She has some mild transaminitis is also improved compared to 2 days ago. As for her C. diff, the patient has a fecal management system. Output is still considerably high and the patient is still on oral vancomycin. She is afebrile for now. On 08/15/2020, the patient was also the intensive care unit and she is currently the medical. Noted the patient was progressively improving and for that reason a transfer out of the intensive care unit. Currently she is laying comfortably in bed. NG tube is in place for enteral feeding and nutritional support. . She is also being treated for C. diff colitis. The patient on oral vancomycin. She has a Crockett catheter in place. The patient is currently on 8 L of oxygen by nasal cannula. She is resting comfortably in bed. She is afebrile.She had a hemoglobin of 6.3 on today's evaluation and the patient is receiving a unit of packed RBC. Her serum iron is 11 angiography is a component of iron deficiency. 08/16/2020, the patient remains on a medical floor. She was transferred out of the intensive care unit. There was a concern of a GI bleed as the patient was gradually dropping her hemoglobin and a GI consultation has been requested. Noted the patient also has a C. diff colitis and she is on vancomycin orally and she still has an NG tube through which she is receiving enteral feeding insufficiency.. No fever. No chills. Hemoglobin was down to 6.3 and the patient received packed RBC transfusion. Follow-up blood work from today shows a hemoglobin level of 9.1. Her white cell count is at 14.1. Rest of the blood work shows a coagulation profile is essentially within normal limits. The d- dimer is still elevated at 1.9. The patient's fibrinogen level is at 499. The inflammatory markers show an LDH of 383, CRP is at 9.2. Both of these levels have been declining. In terms of her oxygenation, the patient is currently on 8 L of oxygen by nasal cannula. She is currently at 8 L with a pulse ox of 93%. GI evaluated this patient and t he patient was seen in consultation. No immediate need for EGD. The patient will be considered for EGD. Any further drop in hemoglobin. The patient was taken off anticoagulation Objective - Vital Signs Vital signs: Vital Signs Temp 98.6 F 08/16/20 11:00 Pulse 88 08/16/20 11:00 Resp 18 08/16/20 11:00 BP 97/54 08/16/20 11:00 Pulse Ox 93 L 08/16/20 11:00 Intake & Output 08/15/20 08/16/20 08/16/20 18:59 06:59 18:59 Intake Total 1210 Output Total 800 Balance 1210 -800 Intake: IV 900 Dextrose 5%-0.9% NaCl 1, 900 000 ml @ 75 mls/hr IV . [id number] [facility] Rx#:[id number] Blood Product 310 Rc As-1 Unit 310 [id number] Output: Urine 800 Other: Voiding Method Indwelling Catheter Indwelling Catheter Indwelling Catheter ABP, PAP, CO, CI - Last Documented Arterial Blood Pressure 143/61 - Exam GENERAL EXAM: Alert, extremely weak 75-year-old female patient,currently on 8 L of oxygen by nasal cannula., in no apparent distress.the patient also has an NG tube in place. HEAD: Normocephalic. EYES: Sluggish reaction of pupils, equal size. NOSE: Clear with pink turbinates. THROAT: No erythema or exudates. NECK: No masses, no JVD. CHEST: No chest wall deformity. LUNGS: Equal air entry with basilar crackles CVS: S1 and S2 normal with no audible murmur, regular rhythm. ABDOMEN: No hepatosplenomegaly, normal bowel sounds, no guarding or rigidity.the patient has a fecal management system and the patient has ongoing diarrhea. SPINE: No scoliosis or deformity SKIN: No rashes CENTRAL NERVOUS SYSTEM: Extremely weak, bilateral weakness, tone is normal in all 4 extremities.the patient is able to converse. She is less confused and with appropriate on today's evaluation.. She has global weakness in all 4 extremities. No neck stiffness. EXTREMITIES: There is no peripheral edema. No clubbing, no cyanosis. Peripheral pulses are intact. - Labs CBC & Chem 7: 08/16/20 06:33 08/16/20 06:33 Labs: Abnormal Lab Results - Last 24 Hours (Table) 08/15/20 08/15/20 08/15/20 Range/Units 06:19 07:26 17:13 WBC (3.8-10.6) k/uL RBC (3.80-5.40) m/uL Hgb (11.4-16.0) gm/dL Hct (34.0-46.0) % RDW (11.5-15.5) % Neutrophils # (1.3-7.7) k/uL D-Dimer (<0.60) mg/L FEU Creatinine (0.6-1.5) mg/dL BUN/Creatinine Ratio (12.00-20.00) Ratio POC Glucose (mg/dL) 65 L (75-99) mg/dL Calcium (8.7-10.3) mg/dL Iron 11 L (50-170) ug/dL TIBC 210 L (228-460) ug/dL % Saturation 5.24 L (12.00-45.00) AST (13-35) U/L ALT (8-44) U/L Alkaline Phosphatase (41-126) U/L Lactate Dehydrogenase (120-246) U/L C-Reactive Protein (0.0-0.8) mg/dL Total Protein (6.2-8.2) g/dL Albumin (3.80-4.90) g/dL Albumin/Globulin Ratio (1.60-3.17) g/dL Crossmatch See Detail 08/15/20 08/16/20 08/16/20 Range/Units 17:46 00:01 00:05 WBC (3.8-10.6) k/uL RBC (3.80-5.40) m/uL Hgb (11.4-16.0) gm/dL Hct (34.0-46.0) % RDW (11.5-15.5) % Neutrophils # (1.3-7.7) k/uL D-Dimer (<0.60) mg/L FEU Creatinine (0.6-1.5) mg/dL BUN/Creatinine Ratio (12.00-20.00) Ratio POC Glucose (mg/dL) 119 H 118 H 113 H (75-99) mg/dL Calcium (8.7-10.3) mg/dL Iron (50-170) ug/dL TIBC (228-460) ug/dL % Saturation (12.00-45.00) AST (13-35) U/L ALT (8-44) U/L Alkaline Phosphatase (41-126) U/L Lactate Dehydrogenase (120-246) U/L C-Reactive Protein (0.0-0.8) mg/dL Total Protein (6.2-8.2) g/dL Albumin (3.80-4.90) g/dL Albumin/Globulin Ratio (1.60-3.17) g/dL Crossmatch 08/16/20 08/16/20 08/16/20 Range/Units 06:33 06:33 06:33 WBC 14.1 H (3.8-10.6) k/uL RBC 3.12 L (3.80-5.40) m/uL Hgb 9.1 L D (11.4-16.0) gm/dL Hct 28.0 L (34.0-46.0) % RDW 16.2 H (11.5-15.5) % Neutrophils # 11.8 H (1.3-7.7) k/uL D-Dimer 1.89 H (<0.60) mg/L FEU Creatinine 0.5 L (0.6-1.5) mg/dL BUN/Creatinine Ratio 34.00 H (12.00-20.00) Ratio POC Glucose (mg/dL) (75-99) mg/dL Calcium 7.2 L (8.7-10.3) mg/dL Iron (50-170) ug/dL TIBC (228-460) ug/dL % Saturation (12.00-45.00) AST 102 H (13-35) U/L ALT 123 H (8-44) U/L Alkaline Phosphatase 311 H (41-126) U/L Lactate Dehydrogenase 383 H (120-246) U/L C-Reactive Protein 9.2 H (0.0-0.8) mg/dL Total Protein 4.0 L (6.2-8.2) g/dL Albumin 2.40 L (3.80-4.90) g/dL Albumin/Globulin Ratio 1.50 L (1.60-3.17) g/dL Crossmatch 08/16/20 Range/Units 11:39 WBC (3.8-10.6) k/uL RBC (3.80-5.40) m/uL Hgb (11.4-16.0) gm/dL Hct (34.0-46.0) % RDW (11.5-15.5) % Neutrophils # (1.3-7.7) k/uL D-Dimer (<0.60) mg/L FEU Creatinine (0.6-1.5) mg/dL BUN/Creatinine Ratio (12.00-20.00) Ratio POC Glucose (mg/dL) 144 H (75-99) mg/dL Calcium (8.7-10.3) mg/dL Iron (50-170) ug/dL TIBC (228-460) ug/dL % Saturation (12.00-45.00) AST (13-35) U/L ALT (8-44) U/L Alkaline Phosphatase (41-126) U/L Lactate Dehydrogenase (120-246) U/L C-Reactive Protein (0.0-0.8) mg/dL Total Protein (6.2-8.2) g/dL Albumin (3.80-4.90) g/dL Albumin/Globulin Ratio (1.60-3.17) g/dL Crossmatch Assessment and Plan Plan: 1 Acute hypoxic respiratory failure secondary to CoVID 19 pneumonitis, required intubation and mechanical ventilation on 07/30/20. She was beyond the window to be qualified for Remdesivir. Did receive convalescent plasma. Extubated on 08/05/2020, currently she is on 8 L of oxygen by nasal cannula. 2 Altered mental status with extreme weakness more so on the left, being evaluated by neurology. The CT angiogram was negative and the patient has some chronic ischemic changes. Neurologic exam is nonfocal point in time. The patient was having fluctuating mental status changes. Nevertheless, her mental status seems to be improving slowly and the patient is currently out of the intensive care unit on the medical floor 3 New onset atrial fibrillation with RVR, converted to sinus rhythm 4 History of hypertension. 5 History of hypothyroidism. 6 enteral feeding for nutritional support through an NG tube as the patient was having difficulties with swallowing 7 C. diff colitis and the patient's was started on oral vancomycin for positive C. diff colitis. 8 anemia with subacute drop in hemoglobin with a gram drop in hemoglobin and daily basis. The patient is currently receiving units of packed RBC. No evidence of any GI bleed. The patient has a fecal management system regarding her C. diff colitis. Plan: keep the patient off anticoagulation for now Sequential compression devices to lower extremities continue monitor the mental status,, she is still fluctuating in terms of her mentation.overall, her mental status is improving. She continues to have some fluctuation the patient has been placed in restraints. Keep NG tube feeding for nutritional support Seroquel dose to 50 mg at bedtime continue oral vancomycin D5.9 at the rate of 75 mL an hour. enteral feeding for nutritional support with TwoCalHN at a rate of 30 mL's an hour which is goal for her. oxygenation has improved and the patient has been weaned down to 8L Has been transfused and the patient has undergone a GI consultation. The patient has been taken off anticoagulation and there is no immediate EGD for now Keep Crockett catheter in place Keep fecal management system in place
--- NOTE | 2020-08-16 13:32 | P.PN ---
<Teagan Norwood - Last Filed: 08/16/20 13:24> Subjective Progress Note Date: 08/16/20 This is a pleasant 75 years old female with past medical history of hypertension, hypothyroidism. Patient could not provide much information so it was taken From staff and records. She presents to [facility]'s with respiratory symptoms and dyspnea associated with some complaint but no chest pain. There she was treated for atrial fibrillation with RVR and she was found to have positive covid 19 test. Patient is afebrile, she is tachypneic with respiratory rate about 26-27, hypoxic with oxygen saturation of 99% on 15 L via nasal cannula. Blood pressure is 106/89. CBC from today is unremarkable. Troponin is elevated 0.17. High lactate dehydrogenase 1276 and C-reactive protein 256. And once is negative. Chest x-ray showing severe pulmonary edema could relate to RDS and is similar to a computed tomography scan earlier today 07/31/2020 Patient was admitted with Covid pneumonia and respiratory failure, her condition got deteriorated yesterday and she got intubated and now she is on mechanical ventilation was pulmonary/critical care team monitor and carefully. Also she had A. fib with RVR and converted to sinus rhythm, her Cardizem drip was stopped and her heparin drip was switched liquids. She continued to be on Zithromax and ceftriaxone and vitamins C and zinc 08/01/2020 Patient is admitted with Covid pneumonia and course is complicated by A. fib and RVR. Patient remains in the ICU in critical condition, she is intubated and on mechanical ventilation with pulmonary/critical care team on the case. Also cartilage informed the case closely Treatments and dexamethasone, liquids, zinc, vitamin C, antibiotics with Zithromax and ceftriaxone. No reemdesivir as per pulmonary team recommendation Today I was contacted by the social work assistant and stop that the patient and daughter works in [place] they want patient to be transferred upon the request to [facility] I discussed the case with who declined To accept the patient to be transferred to [facility] 08/02/2020 Patient is in the ICU for bilateral covid Pneumonia, she is intubated and on mechanical ventilation. Her heart rate atrial fibrillation was converted to sinus rhythm and currently her own in the low 50s. Blood pressure is just above 100. Patient does not need support by pressors. Leukocytosis is improving, BMP is unremarkable. Influenza virus is negative. Chest x-ray showed persistent bilateral mid to lower lung acute infiltrate and/or edema. No significant change from one day earlier Patient remains on dexamethasone, Eliquis and broad-spectrum antibiotics. Patient in the ICU intubated, pulmonary/critical care team are planning CPAP tomorrow, PEEP dropped. Other than that, change from yesterday, her heart rate shown bradycardia although in sinus rhythm therefore Cardizem and beta blockers were stopped, patient kept on Eliquis for her A. fib and cardiology team signed off. Patient on Zithromax, ceftriaxone, dexamethasone no remdesivir . she is status convescalnet plasam as well 08/04/20 Patient is still on mechanical ventilation, pulmonary/critical care team trying breathing for the patient but with no success today Other than that She'll continue with same treatment of steroids, Eliquis, azithromycin and ceftriaxone. No Cardizem or beta blockers for bradycardia. However heart rate is improved today to 60-70. WBC trending down to 12 K 08/05/20 pt is extubated today by pulmonary team , after extubation she started having stroke like ,left arm weakness, lip and left eye droop , and possible leg weakness, CT of brain is negative for stroke and CTA of the brain is ordered and is pending , neurologist was consulted who ordered MRI of the brain tomorrow. pt is currently saturating on 5 L/m of oxygen Eliquis was held by consultants while she remains on dexamethasone, stress and Zithromax. Chest x-ray looks stable Patient is followed closely by pulmonary/critical care team 08/06/2020 Patient is status extubation currently on 6 L oxygen. Pulmonary team discontinue with vitamin C and zinc and this continue with Zithromax and ceftriaxone. Patient is kept on dexamethasone Her left side weakness improved, neurology on the case MRI of the brain did not show stroke. Anticoagulation resumed with heparin drip per cardiology team for now D-dimer is 2.9, WBC 13 K. Heart rate is 60-70 sinus rhythm. 08/07/2020 Patient is awake and alert, calm in the ICU. She is currently on the liter per minute oxygen via high flow cannula Patient weakness and facial droop has resolved. Neurology team signed off. Respiratory status is slightly worse. Pulmonary team R following the case closely and they discussed and further management plan with the patient and family, please refer to their note for more details. In the meantime she remains on dexamethasone, heparin drip and bronchodilator 08/11/2020 Patient remains in the ICU and some respiratory distress, she is tachypneic at 22-30 breath per minute, she needs 15 L of oxygen via nonrebreather. And she remains on the same treatment for her Covid pneumonia with dexamethasone, Eliquis and albuterol. Also she is on D5 normal saline at 75 mL/h for episodes of hypoglycemia yesterday. Also she is on oral vancomycin for C. diff colitis 08/12/2020 patient remains in the ICU with oropharyngeal tube getting feeding. She is alert and partially confused but she looks tired and weak. She's still with loose stool and she's been treated for C. diff colitis with oral vancomycin She still on high dose of oxygen at 2 L/m via nonrebreather and she is tachypneic 25-27 per minute Chest x-ray showed persistent bilateral infiltrates. Related to her covid pneumonia She remains on dexamethasone 08/13/2020 patient today remains in the ICU, she is doing okay, it seems like her oxygen requirements was meshed to be titrated down to 4 L/m this morning. She still confused and Nakia of her tubes including a oxygen mask but today is she is more calm with less such problems. Hemodynamically she is stable She passed a swallow evaluation however she still on tube feeding but we will try to feed her today Still has runny diarrhea and on oral vancomycin Chest x-ray from today showing diffuse multifocal airspace disease correlated for pneumonia. Findings stable. She remains on dexamethasone 6 mg, Eliquis 2.5 mg, D5 normal saline at 75 mL/h. Oral vancomycin. And metoprolol 25 mg daily was added recently by managed care analyst 08/14/2020 Patient still somewhat confused with only mild partial improvement compared to yesterday Chest x-ray showing the same findings dexamethasone wants. Today, the 50s given because of low glucose, however patient is not on insulin or any diabetic medication Patient remains on Eliquis 2.5 mg, oral vancomycin and D5 normal saline at 75 mL/h, also she is on metoprolol 25 mg of Seroquel 50 mg as needed acute WBC and inflammatory markers are trending down, hemoglobin dropped from 10 down to 7.2 over 2 days she is saturating 92% on 3 L oxygen via nasal cannula at rest of vitals looks stable monitor hemoglobin closely 08/15/2020 [facility] and continues to be closely monitored. Hemoglobin was found to be 6.3 this morning and currently receiving a unit of PRBCs. We'll continue to monitor closely and transfuse as needed. Blood sugars have been on the lower side and will continue with Accu-Cheks before meals at bedtime along with sliding scale. Patient is maintained on D5 normal saline and will continue at this time. Patient is also currently receiving nutrition via tube feedings. Patient is currently on a Ventimask at 93% and will continue to monitor closely. Pulmonary is following closely. Patient continues to be somewhat confused and attempts to pull oxygen off and tube feedings out. Patient currently on oral antibiotics in the form of vancomycin for C. diff and will continue at this time. Patient has been taken off anticoagulation of eliquis and will continue to monitor for any signs of bleeding. 08/16/2020 Patient is seen and evaluated and follow-up and continues to be lethargic although arousable. Patient continues to be confused at times and will pull at NG tubing and nasal cannula. Patient is off the Ventimask and now on 8 L high flow nasal cannula and is currently 93-97%. Fecal management system along with Crockett catheter continues at this time. Patient is receiving medications and nutrition through NG tube. Patient continues on oral vancomycin for C. diff c olitis and will continue. Patient received 1 unit of PRBCs yesterday for a hemoglobin of 6.3 and today's hemoglobin is stable at 9.1. Will repeat a.m. labs to monitor closely. D-dimer is 1.89 today. Review of systems CONSTITUTIONAL: No fever, no malaise, continued fatigue. HEENT: No recent visual problems or hearing problems. Denied any sore throat. CARDIOVASCULAR: No orthopnea, PND, no palpitations, no syncope. PULMONARY: continued shortness of breath, no cough, no hemoptysis. GASTROINTESTINAL: Positive diarrhea, no nausea, no vomiting, no abdominal pain. Normoactive bowel sounds. NEUROLOGICAL: No headaches, no weakness, no numbness. Objective - Vital Signs Vital signs: Vital Signs Temp 98.6 F 08/16/20 11:00 Pulse 88 08/16/20 11:00 Resp 18 08/16/20 11:00 BP 97/54 12/13/20 11:00 Pulse Ox 93 L 08/16/20 11:00 Intake & Output 08/15/20 08/16/20 08/16/20 18:59 06:59 18:59 Intake Total 1210 Output Total 800 Balance 1210 -800 Intake: IV 900 Dextrose 5%-0.9% NaCl 1, 900 000 ml @ 75 mls/hr IV . [id number] [facility] Rx#:[id number] Blood Product 310 Rc As-1 Unit 310 [id number] Output: Urine 800 Other: Voiding Method Indwelling Catheter Indwelling Catheter Indwelling Catheter ABP, PAP, CO, CI - Last Documented Arterial Blood Pressure 143/61 - Exam GENERAL: The patient is generally weak, and continues to be somewhat confused HEENT: Pupils are round and equally reacting to light. EOMI. No scleral icterus. No conjunctival pallor. Normocephalic, atraumatic. No pharyngeal erythema. No thyromegaly. CARDIOVASCULAR: S1 and S2 present. No murmurs, rubs, or gallops. PULMONARY: Chest is clear to auscultation, no wheezing or crackles. ABDOMEN: Soft, nontender, nondistended, normoactive bowel sounds. No palpable organomegaly. MUSCULOSKELETAL: No joint swelling or deformity. EXTREMITIES: No cyanosis, clubbing, or pedal edema. NEUROLOGICAL: Left facial droop with left arm weakness. SKIN: No rashes. no petechiae. - Labs CBC & Chem 7: 08/16/20 06:33 08/16/20 06:33 Labs: Abnormal Lab Results - Last 24 Hours (Table) 08/15/20 08/15/20 08/15/20 Range/Units 07:26 17:13 17:46 WBC (3.8-10.6) k/uL RBC (3.80-5.40) m/uL Hgb (11.4-16.0) gm/dL Hct (34.0-46.0) % RDW (11.5-15.5) % Neutrophils # (1.3-7.7) k/uL D-Dimer (<0.60) mg/L FEU Creatinine (0.6-1.5) mg/dL BUN/Creatinine Ratio (12.00-20.00) Ratio POC Glucose (mg/dL) 65 L 119 H (75-99) mg/dL Calcium (8.7-10.3) mg/dL AST (13-35) U/L ALT (8-44) U/L Alkaline Phosphatase (41-126) U/L Lactate Dehydrogenase (120-246) U/L C-Reactive Protein (0.0-0.8) mg/dL Total Protein (6.2-8.2) g/dL Albumin (3.80-4.90) g/dL Albumin/Globulin Ratio (1.60-3.17) g/dL Crossmatch See Detail 08/16/20 08/16/20 08/16/20 Range/Units 00:01 00:05 06:33 WBC 14.1 H (3.8-10.6) k/uL RBC 3.12 L (3.80-5.40) m/uL Hgb 9.1 L D (11.4-16.0) gm/dL Hct 28.0 L (34.0-46.0) % RDW 16.2 H (11.5-15.5) % Neutrophils # 11.8 H (1.3-7.7) k/uL D-Dimer (<0.60) mg/L FEU Creatinine (0.6-1.5) mg/dL BUN/Creatinine Ratio (12.00-20.00) Ratio POC Glucose (mg/dL) 118 H 113 H (75-99) mg/dL Calcium (8.7-10.3) mg/dL AST (13-35) U/L ALT (8-44) U/L Alkaline Phosphatase (41-126) U/L Lactate Dehydrogenase (120-246) U/L C-Reactive Protein (0.0-0.8) mg/dL Total Protein (6.2-8.2) g/dL Albumin (3.80-4.90) g/dL Albumin/Globulin Ratio (1.60-3.17) g/dL Crossmatch 08/16/20 08/16/20 08/16/20 Range/Units 06:33 06:33 11:39 WBC (3.8-10.6) k/uL RBC (3.80-5.40) m/uL Hgb (11.4-16.0) gm/dL Hct (34.0-46.0) % RDW (11.5-15.5) % Neutrophils # (1.3-7.7) k/uL D-Dimer 1.89 H (<0.60) mg/L FEU Creatinine 0.5 L (0.6-1.5) mg/dL BUN/Creatinine Ratio 34.00 H (12.00-20.00) Ratio POC Glucose (mg/dL) 144 H (75-99) mg/dL Calcium 7.2 L (8.7-10.3) mg/dL AST 102 H (13-35) U/L ALT 123 H (8-44) U/L Alkaline Phosphatase 311 H (41-126) U/L Lactate Dehydrogenase 383 H (120-246) U/L C-Reactive Protein 9.2 H (0.0-0.8) mg/dL Total Protein 4.0 L (6.2-8.2) g/dL Albumin 2.40 L (3.80-4.90) g/dL Albumin/Globulin Ratio 1.50 L (1.60-3.17) g/dL Crossmatch Assessment and Plan Assessment: -Bilateral Covid 19 pneumonia: continue with weaning FiO2 as tolerated, c urrently on 8 L high flow via nasal cannula. Pulmonary following. She is status post extubation, improving -Acute hypoxic respiratory failure secondary to above -TIA with left arm and left eye and lip droop . Completely resolved and neurology signed off -Metabolic encephalopathy secondary to above -A. fib and RVR, patient rate is controlled. With metoprolol -Increased inflammatory markers secondary to above and infection, improving -Anemia, monitor hemoglobin. We'll do anemia workup, patient received 1 unit of PRBCs yesterday and hemoglobin today is 9.1 -Hypertension -Hypothyroidism -DVT prophylaxis -GI prophylaxis: Protonix Plan: Continue current medications and management. Multiple medical consultations following. Hemoglobin was 9.1 status post 1 unit of PRBC yesterday. Continue fecal management system along with indwelling Crockett catheter. Patient is maintained on oral antibiotics of vancomycin for C. diff and will continue at this time. Discussed with nursing staff about continuing to wean FiO2 as tolerated. Patient currently maintained on 8 L high flow via nasal cannula. Prognosis is guarded. Further recommendations to follow based on the clinical course of the patient. <Sheet,Dayton E - Last Filed: 08/17/20 03:01> Objective - Vital Signs Vital signs: Vital Signs Temp 98.0 F 08/16/20 23:00 Pulse 98 08/16/20 23:00 Resp 20 08/16/20 23:00 BP 97/59 08/16/20 23:00 Pulse Ox 93 L 08/16/20 23:00 Intake & Output 08/16/20 08/16/20 08/17/20 06:59 18:59 06:59 Intake Total 12 0 Output Total 800 1400 Balance -800 12 -1400 Intake: IV 12 Dextrose 5%-0.9% NaCl 1, 12 000 ml @ 75 mls/hr IV . [id number] Rx#:[id number] Oral 0 Output: Urine 800 1400 Other: Voiding Method Indwelling Catheter Indwelling Catheter Indwelling Catheter ABP, PAP, CO, CI - Last Documented Arterial Blood Pressure 143/61 - Labs CBC & Chem 7: 08/16/20 06:33 08/16/20 06:33 Labs: Abnormal Lab Results - Last 24 Hours (Table) 08/16/20 08/16/20 08/16/20 Range/Units 06:33 06:33 06:33 WBC 14.1 H (3.8-10.6) k/uL RBC 3.12 L (3.80-5.40) m/uL Hgb 9.1 L D (11.4-16.0) gm/dL Hct 28.0 L (34.0-46.0) % RDW 16.2 H (11.5-15.5) % Neutrophils # 11.8 H (1.3-7.7) k/uL D-Dimer 1.89 H (<0.60) mg/L FEU Creatinine 0.5 L (0.6-1.5) mg/dL BUN/Creatinine Ratio 34.00 H (12.00-20.00) Ratio POC Glucose (mg/dL) (75-99) mg/dL Calcium 7.2 L (8.7-10.3) mg/dL AST 102 H (13-35) U/L ALT 123 H (8-44) U/L Alkaline Phosphatase 311 H (41-126) U/L Lactate Dehydrogenase 383 H (120-246) U/L C-Reactive Protein 9.2 H (0.0-0.8) mg/dL Total Protein 4.0 L (6.2-8.2) g/dL Albumin 2.40 L (3.80-4.90) g/dL Albumin/Globulin Ratio 1.50 L (1.60-3.17) g/dL 08/16/20 08/16/20 Range/Units 11:39 16:54 WBC (3.8-10.6) k/uL RBC (3.80-5.40) m/uL Hgb (11.4-16.0) gm/dL Hct (34.0-46.0) % RDW (11.5-15.5) % Neutrophils # (1.3-7.7) k/uL D-Dimer (<0.60) mg/L FEU Creatinine (0.6-1.5) mg/dL BUN/Creatinine Ratio (12.00-20.00) Ratio POC Glucose (mg/dL) 144 H 131 H (75-99) mg/dL Calcium (8.7-10.3) mg/dL AST (13-35) U/L ALT (8-44) U/L Alkaline Phosphatase (41-126) U/L Lactate Dehydrogenase (120-246) U/L C-Reactive Protein (0.0-0.8) mg/dL Total Protein (6.2-8.2) g/dL Albumin (3.80-4.90) g/dL Albumin/Globulin Ratio (1.60-3.17) g/dL Assessment and Plan Assessment: I have discussed the plan and I have reviewed the notes with IRCA Candelaria and I agree with it except was mentioned below Patient is seen and examined by me at bedside 08/16/2020 -Patient with AMS, improving gradually but fluctuates. She follows commands. Unknown neurologist evaluated the patient and signed off. Could be due to metabolic encephalopathy secondary to C. diff infection and due to hypoxia. Keep monitoring and correct metabolic abnormalities... Also patient is nothing by mouth and with NG tube to which she takes medication B12 level is low normal at 400, because she is off Eliquis currently we take the chance to gove IM Injection of cyanobalamine -Acute hypoxic respiratory failure, currently oxygen saturating 90s on 8 L oxygen via nasal cannula. Chest x-ray showed bilateral infiltrates which is sl ightly worse. repeat chest x-ray in the morning. Check procalcitonin and proBNP -Anemia at 6.3 status post blood transfusion improved to 9.1. Eliquis and aspirin on hold. GI team no intervention for now. Keep monitoring hemoglobin. Hemoglobin is stable we will discuss with GI team to restart Eliquis (history of A. fib with altered mental status), however her hemoglobin dropped that might co nsider EGD. Check d-dimer as well. it Is very difficult situation which makes her prognosis more guarded -C. diff colitis, continue with oral vancomycin. Infectious disease team on the case -
[2020-08-16 16:56] LABS: Glucose,Whole Blood 131 mg/dL (75-99)
[2020-08-16] MEDS: ATORVASTATIN 40 MG TAB PO SCH (20:26)
[2020-08-16] MEDS: QUEtiapine 50 MG TAB PO SCH (20:26)
[2020-08-16] MEDS: amLODIPine 5 MG TAB PO SCH (20:28)
--- NOTE | 2020-08-16 20:40 | P.PN ---
Subjective Progress Note Date: 08/16/20 Principal diagnosis: Iron deficiency anemia, Covid 19 infection Patient seen lying in bed she continues to be lethargic. Fecal management system in place with no signs or symptoms of bleeding reported by nursing staff. Objective - Vital Signs Vital signs: Vital Signs Temp 97.4 F L 08/16/20 04:38 Pulse 89 08/16/20 04:38 Resp 16 08/16/20 04:38 BP 109/69 08/16/20 04:38 Pulse Ox 97 08/16/20 04:38 Intake & Output 08/15/20 08/16/20 08/16/20 18:59 06:59 18:59 Intake Total 1210 Output Total 800 Balance 1210 -800 Intake: IV 900 Dextrose 5%-0.9% NaCl 1, 900 000 ml @ 75 mls/hr IV . [id number] [facility] Rx#:[id number] Blood Product 310 Rc As-1 Unit 310 [id number] Output: Urine 800 Other: Voiding Method Indwelling Catheter Indwelling Catheter Indwelling Catheter ABP, PAP, CO, CI - Last Documented Arterial Blood Pressure 143/61 - Exam On physical examination, patient appears comfortable in no apparent distress. HEAD: Normocephalic, atraumatic. EYES: No scleral icterus. No conjunctival injection. MOUTH: No lesions, tongue midline. NECK: Trachea midline, no gross abnormalities. ABDOMEN: Soft, nontender to palpation. Bowel sounds are positive. No organomegaly. No guarding or rigidity. EXTREMITIES: No pedal edema. SKIN: No rashes, no jaundice. NEUROLOGIC: Alert but not oriented. - Labs CBC & Chem 7: 08/16/20 06:33 08/16/20 06:33 Labs: Abnormal Lab Results - Last 24 Hours (Table) 08/15/20 08/15/20 08/15/20 Range/Units 06:19 07:26 17:13 WBC (3.8-10.6) k/uL RBC (3.80-5.40) m/uL Hgb (11.4-16.0) gm/dL Hct (34.0-46.0) % RDW (11.5-15.5) % Neutrophils # (1.3-7.7) k/uL D-Dimer (<0.60) mg/L FEU Creatinine (0.6-1.5) mg/dL BUN/Creatinine Ratio (12.00-20.00) Ratio POC Glucose (mg/dL) 65 L (75-99) mg/dL Calcium (8.7-10.3) mg/dL Iron 11 L (50-170) ug/dL TIBC 210 L (228-460) ug/dL % Saturation 5.24 L (12.00-45.00) AST (13-35) U/L ALT (8-44) U/L Alkaline Phosphatase (41-126) U/L Lactate Dehydrogenase (120-246) U/L C-Reactive Protein (0.0-0.8) mg/dL Total Protein (6.2-8.2) g/dL Albumin (3.80-4.90) g/dL Albumin/Globulin Ratio (1.60-3.17) g/dL Crossmatch See Detail 08/15/20 08/16/20 08/16/20 Range/Units 17:46 00:01 00:05 WBC (3.8-10.6) k/uL RBC (3.80-5.40) m/uL Hgb (11.4-16.0) gm/dL Hct (34.0-46.0) % RDW (11.5-15.5) % Neutrophils # (1.3-7.7) k/uL D-Dimer (<0.60) mg/L FEU Creatinine (0.6-1.5) mg/dL BUN/Creatinine Ratio (12.00-20.00) Ratio POC Glucose (mg/dL) 119 H 118 H 113 H (75-99) mg/dL Calcium (8.7-10.3) mg/dL Iron (50-170) ug/dL TIBC (228-460) ug/dL % Saturation (12.00-45.00) AST (13-35) U/L ALT (8-44) U/L Alkaline Phosphatase (41-126) U/L Lactate Dehydrogenase (120-246) U/L C-Reactive Protein (0.0-0.8) mg/dL Total Protein (6.2-8.2) g/dL Albumin (3.80-4.90) g/dL Albumin/Globulin Ratio (1.60-3.17) g/dL Crossmatch 08/16/20 08/16/20 08/16/20 Range/Units 06:33 06:33 06:33 WBC 14.1 H (3.8-10.6) k/uL RBC 3.12 L (3.80-5.40) m/uL Hgb 9.1 L D (11.4-16.0) gm/dL Hct 28.0 L (34.0-46.0) % RDW 16.2 H (11.5-15.5) % Neutrophils # 11.8 H (1.3-7.7) k/uL D-Dimer 1.89 H (<0.60) mg/L FEU Creatinine 0.5 L (0.6-1.5) mg/dL BUN/Creatinine Ratio 34.00 H (12.00-20.00) Ratio POC Glucose (mg/dL) (75-99) mg/dL Calcium 7.2 L (8.7-10.3) mg/dL Iron (50-170) ug/dL TIBC (228-460) ug/dL % Saturation (12.00-45.00) AST 102 H (13-35) U/L ALT 123 H (8-44) U/L Alkaline Phosphatase 311 H (41-126) U/L Lactate Dehydrogenase 383 H (120-246) U/L C-Reactive Protein 9.2 H (0.0-0.8) mg/dL Total Protein 4.0 L (6.2-8.2) g/dL Albumin 2.40 L (3.80-4.90) g/dL Albumin/Globulin Ratio 1.50 L (1.60-3.17) g/dL Crossmatch Assessment and Plan (1) Iron deficiency anemia Narrative/Plan: 75-year-old female with multiple medical comorbidities and hospital course significant for treatment for Covid 19 infection, Clostridium difficile colitis and atrial fibrillation. Patient was noted to have a fall in her hemoglobin during her hospitalization. No reports of any signs or symptoms of GI bleeding. She is tolerating her NG tube feeds. Iron studies were suggestive of an iron deficiency anemia. Currently she is receiving PPI therapy and has a fecal ma nagement system in place. Hemoglobin improved as 9.1 from 6.3 after transfusion of 1 unit of packed red blood cells. No signs or symptoms of GI bleeding reported. Current Visit: Yes Status: Acute Code(s): D50.9 - IRON DEFICIENCY ANEMIA, UNSPECIFIED SNOMED Code(s): 81387541 (2) Positive occult stool blood test Current Visit: Yes Status: Acute Code(s): R19.5 - OTHER FECAL ABNORMALITIES SNOMED Code(s): 17760044 (3) Clostridium difficile diarrhea Current Visit: Yes Status: Acute Code(s): A04.72 - ENTEROCOLITIS D/T CLOSTRIDIUM DIFFICILE, NOT SPCF RECUR SNOMED Code(s): 1085272392486 (4) COVID-19 Current Visit: Yes Status: Acute Code(s): U07.1 - COVID-19 SNOMED Code(s): 136879375 Plan: Supportive care Okay to continue tube feeds for now Continue to monitor hemoglobin and hematocrit and transfuse as needed, hemoglobin improved as 9.1 from 6.3 after 1 unit of packed red blood cells Continue twice daily Protonix therapy Continue to hold anticoagulation therapy Continue oral vancomycin for treatment of Clostridium difficile, can consider the addition of Questran if diarrhea persists Continue other medical management per primary team and consulting services If patient's hemoglobin does not stabilize and there is concern for GI bleed issue may require endoscopic evaluation with EGD, however patient would be high risk given multiple complex medical comorbidities and recent intubation and would need clearance for the procedure by the cardiology and pulmonology services Thank you for allowing us to participate in the care of the patient we will continue to follow
[2020-08-16] MEDS ORDERED: QUEtiapine 25 MG TAB PO SCH (21:00)
[2020-08-17 00:12] LABS: Glucose,Whole Blood 86 mg/dL (75-99)
[2020-08-17] MEDS: INSULIN ASPART (NovoLOG) 100 UNIT/ML VIAL SQ SCH ×4 (00:15→18:07)
[2020-08-17] MEDS: VANCOMYCIN ORAL SOLUTION 250 MG/5 ML BOTTLE PO SCH ×4 (00:15→17:14)
[2020-08-17 05:56] LABS: Glucose,Whole Blood 102 mg/dL (75-99)
[2020-08-17 05:56] LABS: Anisocytosis Slight; Basophils % (A) 0 %; Eosinophils # (A) 0.3 k/uL (0-0.7); Eosinophils % (A) 3 %; HCT 25.1 % (34.0-46.0); HGB 8.3 gm/dL (11.4-16.0); Hypochromasia Slight; Lymphocytes # (A) 1.2 k/uL (1.0-4.8); Lymphocytes % (A) 12 %; MCH 29.9 pg (25.0-35.0); MCHC 33.2 g/dL (31.0-37.0); MCV 89.9 fL (80.0-100.0); Mean Platelet Volume 7.6; Monocytes # (A) 0.4 k/uL (0-1.0); Monocytes % (A) 4 %; Neutrophils # (A) 7.9 k/uL (1.3-7.7); Neutrophils % (A) 79 %; Platelet Count 181 k/uL (150-450); Poikilocytosis Slight; RBC 2.79 m/uL (3.80-5.40); RDW 16.1 % (11.5-15.5); WBC 9.9 k/uL (3.8-10.6)
[2020-08-17] MEDS: LEVOTHYROXINE 75 MCG TAB PO SCH (06:05)
[2020-08-17] MEDS: ALBUTEROL HFA INHALER INHALATION SCH ×4 (08:02→20:04)
--- NOTE | 2020-08-17 09:31 | XR ---
EXAMINATION TYPE: XR chest 1V DATE OF EXAM: 08/17/2020 COMPARISON: 08/15/2020 HISTORY: Cough TECHNIQUE: Single frontal view of the chest is obtained. FINDINGS: Diffuse multifocal consolidation bilaterally. Central line and NG tube stable. No pneumoth orax. Heart size normal. Arthropathy of the shoulders. No pneumothorax. IMPRESSION: Bilateral multifocal airspace disease correlate for pneumonia.
[2020-08-17] MEDS: DEXTROSE 5%-0.9% NACL 1,000 ML IV SCH (10:41)
[2020-08-17] MEDS: PANTOPRAZOLE 40 MG/10 ML VIAL IVP SCH ×2 (10:50→21:47)
[2020-08-17] MEDS: CYANOCOBALAMIN 1,000 MCG/ML 1 ML VIAL IM SCH (10:50)
[2020-08-17] MEDS: METOPROLOL TARTRATE 25 MG TAB PO SCH (10:51)
[2020-08-17 11:52] LABS: Glucose,Whole Blood 126 mg/dL (75-99)
--- NOTE | 2020-08-17 12:57 | P.PN ---
Subjective Progress Note Date: 08/17/20 Principal diagnosis: Iron deficiency anemia, Covid-19 infection This is a 75-year-old female with multiple medical comorbidities and significant hospital course for treatment of coated 19 infection, Clostridium difficile colitis and atrial fibrillation. She had a fall in her hemoglobin during her hospitalization down to 6.8, she was transfused with 1 unit of packed red blood cells which brought her hemoglobin up to 9.1. Today's hemoglobin is 8.3 she has had no signs of GI bleed. She has a FMS with liquid brown stool, minimal amount in tube, none in bag. No reports of any abdominal pain, nausea, or vomiting. Objective - Vital Signs Vital signs: Vital Signs Temp 98.6 F 08/17/20 11:15 Pulse 59 L 08/17/20 11:15 Resp 20 08/17/20 11:15 BP 101/53 08/17/20 11:15 Pulse Ox 90 L 08/17/20 11:15 Intake & Output 08/16/20 08/17/20 08/17/20 18:59 06:59 18:59 Intake Total 12 100 Output Total 1600 Balance 12 -1500 Weight 54 kg Intake: IV 12 Dextrose 5%-0.9% NaCl 1, 12 000 ml @ 75 mls/hr IV . [id number] [facility] Rx#:[id number] Oral 100 Output: Urine 1600 Other: Voiding Method Indwelling Catheter Indwelling Catheter ABP, PAP, CO, CI - Last Documented Arterial Blood Pressure 143/61 - Exam General appearance: The patient is alert, oriented, in no acute distress. HET: Head is normocephalic and atraumatic. Conjunctiva pink. Sclera anicteric. Neck: Supple without lymphadenopathy. Abdomen: Soft, nontender, nondistended with bowel sounds. No guarding or rigidity. Extremities: Normal skin color and turgor. No pedal edema Neurological: No focal deficits. Alert and oriented 3. - Labs CBC & Chem 7: 08/17/20 05:13 08/16/20 06:33 Labs: Abnormal Lab Results - Last 24 Hours (Table) 08/16/20 08/17/20 08/17/20 Range/Units 16:54 05:13 05:13 RBC 2.79 L (3.80-5.40) m/uL Hgb 8.3 L (11.4-16.0) gm/dL Hct 25.1 L (34.0-46.0) % RDW 16.1 H (11.5-15.5) % Neutrophils # 7.9 H (1.3-7.7) k/uL D-Dimer (<0.60) mg/L FEU POC Glucose (mg/dL) 131 H (75-99) mg/dL Procalcitonin 0.11 H (0.02-0.09) ng/mL 08/17/20 08/17/20 08/17/20 Range/Units 05:13 05:50 11:50 RBC (3.80-5.40) m/uL Hgb (11.4-16.0) gm/dL Hct (34.0-46.0) % RDW (11.5-15.5) % Neutrophils # (1.3-7.7) k/uL D-Dimer 1.70 H (<0.60) mg/L FEU POC Glucose (mg/dL) 102 H 126 H (75-99) mg/dL Procalcitonin (0.02-0.09) ng/mL Assessment and Plan (1) Iron deficiency anemia Narrative/Plan: 75-year-old female with multiple medical comorbidities and hospital course significant for treatment for Covid 19 infection, Clostridium difficile colitis and atrial fibrillation. Patient was noted to have a fall in her hemoglobin during her hospitalization. No reports of any signs or symptoms of GI bleeding. She is tolerating her NG tube feeds. Iron studies were suggestive of an iron deficiency anemia. Currently she is receiving PPI therapy and has a fecal man agement system in place. Hemoglobin improved as 9.1 from 6.3 after transfusion of 1 unit of packed red blood cells. No signs or symptoms of GI bleeding reported. Current Visit: Yes Status: Acute Code(s): D50.9 - IRON DEFICIENCY ANEMIA, UNSPECIFIED SNOMED Code(s): 21227932 (2) COVID-19 Current Visit: Yes Status: Acute Code(s): U07.1 - COVID-19 SNOMED Code(s): 865699012 (3) Positive occult stool blood test Current Visit: Yes Status: Acute Code(s): R19.5 - OTHER FECAL ABNORMALITIES SNOMED Code(s): 59853747 (4) Clostridium difficile diarrhea Current Visit: Yes Status: Acute Code(s): A04.72 - ENTEROCOLITIS D/T CLOSTRIDIUM DIFFICILE, NOT SPCF RECUR SNOMED Code(s): 6269110135694 Plan: Supportive care Okay to continue tube feeds for now Continue to monitor hemoglobin and hematocrit and transfuse as needed, hemoglobin improved as 9.1 from 6.3 after 1 unit of packed red blood cells Continue twice daily Protonix therapy Continue to hold anticoagulation therapy Continue oral vancomycin for treatment of Clostridium difficile, can consider the addition of Questran if diarrhea persists Continue other medical management per primary team and consulting services If patient's hemoglobin does not stabilize and there is concern for GI bleed issue may require endoscopic evaluation with EGD, however patient would be high risk given multiple complex medical comorbidities and recent intubation and would need clearance for the procedure by the cardiology and pulmonology services Thank you for allowing us to participate in the care of the patient we will continue to follow Dr. Willy Pena I agree with the dictator's note, documented as a scribe by Maryan Leach.
--- NOTE | 2020-08-17 15:56 | PN ---
PROGRESS NOTE PULMONARY/CRITICAL CARE PROGRESS NOTE: DATE OF SERVICE: 08/17/2020 This is a patient who was admitted way back on July 29, 2020. She was a patient who required intubation and mechanical ventilation secondary to community-acquired pneumonia. The patient was intubated on July 30 and successfully extubated on August 05. After being extubated I had a long conversation with the patient's about no re-intubation. He agreed. The patient has a history of acute hypoxemic respiratory failure secondary to COVID-19 pneumonia/pneumonitis. Currently the patient is on D50.9 at 75 mL/hour, 8-liter high-flow oxygen, with an NG tube in place. TwoCal HN is running at 30 mL/hour through the NG tube. The patient is very lethargic. In addition, she has mental status changes, atrial fibrillation with RVR, essential hypertension, hypothyroidism, general medical debility, C difficile colitis and chronic anemia. The patient is essentially nonverbal or poorly verbal. Cannot get much history from her. PHYSICAL EXAMINATION: VITAL SIGNS: Current vital signs reviewed. Temperature is 98.6, heart rate 59, respiratory rate 20, blood pressure 101/53, mean 69. Saturations are barely 90% on 8- liter high flow. GENERAL APPEARANCE: Again, the patient is quite lethargic. Eyes are half open. She does not respond well. She seems very lethargic and sleepy. She does not appear to be in any acute respiratory distress, though. HEENT: Examination is grossly unremarkable. High-flow nasal oxygen noted. NECK: Supple. Full range of motion. No adenopathy or thyromegaly. Neck veins are flat. CARDIOVASCULAR: Examination reveals regular rhythm and rate. Heart rate 90 beats per minute. S1, S2 normal. No S3, S4 or murmur. Heart sounds are distant. LUNGS: Lungs reveal diffuse coarse rhonchi. There are some crackles at the bases. No wheezes. Breath sounds equal. ABDOMEN: Soft. Bowel sounds are noted. EXTREMITIES: Intact. Mild edema. SKIN: Without rash. NEUROLOGIC: Neurologic examination is difficult to assess. She is very lethargic. She responds very poorly. CURRENT LABORATORY DATA/IMAGING: Reviewed. White count 9.9, hemoglobin 8.3, hematocrit 25.1, platelet count 181,000. D- dimer 1.70. Procalcitonin is 0.11. N-terminal proBNP 391. Microbiology is currently negative. Chest x-ray shows bilateral airspace disease, more dense on the right than on the left side. CURRENT MEDICATIONS: Reviewed. The patient is on Tylenol, albuterol inhaler, amlodipine, Lipitor, vitamin B12, D5 0.9 at 75 mL/hour, iron replacement, insulin, levothyroxine, metoprolol, Protonix, potassium replacement, Seroquel and oral vancomycin. ASSESSMENT: 1. Acute hypoxemic respiratory failure secondary to COVID-19 pneumonitis, with intubation on July 30 and successful extubation on August 2. She never received Remdesivir because she is beyond the window. 2. Mental status changes and profound weakness, likely secondary to her prolonged stay in the ICU as well as COVID-19 effects on the central nervous system. 3. New-onset atrial fibrillation with rapid ventricular response, converted into sinus rhythm. 4. History of essential hypertension. 5. History of hypothyroidism. 6. NG tube in place for enteral nutrition, as the patient has significant dysphagia and aspiration. 7. Clostridium difficile colitis. 8. Anemia. PLAN: Currently the patient seems to be doing about the same. She does not appear to be improving all that much, but not getting much worse. She is still on quite a bit of oxygen at 8 L high flow. She is very lethargic and sleepy. Chest x-ray still shows patchy bilateral infiltrates, right greater than left. She remains on IV fluids and an NG tube with TwoCal HN at 30 mL/hour. Prognosis is poor. Will continue to follow. Apparently the patient has been changed back to FULL CODE. I was not aware that. MMODL / IJN: [id number] /
--- NOTE | 2020-08-17 16:02 | P.PN ---
Subjective Progress Note Date: 08/17/20 This is a pleasant 75 years old female with past medical history of hypertension, hypothyroidism. Patient could not provide much information so it was taken From staff and records. She presents to [facility]'s with respiratory symptoms and dyspnea associated with some complaint but no chest pain. There she was treated for atrial fibrillation with RVR and she was found to have positive covid 19 test. Patient is afebrile, she is tachypneic with respiratory rate about 26-27, hypoxic with oxygen saturation of 99% on 15 L via nasal cannula. Blood pressure is 106/89. CBC from today is unremarkable. Troponin is elevated 0.17. High lactate dehydrogenase 1276 and C-reactive protein 256. And once is negative. Chest x- ray showing severe pulmonary edema could relate to RDS and is similar to a computed tomography scan earlier today 07/31/2020 Patient was admitted with Covid pneumonia and respiratory failure, her condition got deteriorated yesterday and she got intubated and now she is on mechanical ventilation was pulmonary/critical care team monitor and carefully. Also she had A. fib with RVR and converted to sinus rhythm, her Cardizem drip was stopped and her heparin drip was switched liquids. She continued to be on Zithromax and ceftriaxone and vitamins C and zinc 08/01/2020 Patient is admitted with Covid pneumonia and course is complicated by A. fib and RVR. Patient remains in the ICU in critical condition, she is intubated and on mechanical ventilation with pulmonary/critical care team on the case. Also cartilage informed the case closely Treatments and dexamethasone, liquids, zinc, vitamin C, antibiotics with Zithromax and ceftriaxone. No reemdesivir as per pulmonary team recommendation Today I was contacted by the social media campaign manager and stop that the patient and ignacia blandon works in [place] they want patient to be transferred upon the request to [facility] I discussed the case with who declined To accept the patient to be transferred to [facility] 08/02/2020 Patient is in the ICU for bilateral covid Pneumonia, she is intubated and on mechanical ventilation. Her heart rate atrial fibrillation was converted to sinus rhythm and currently her own in the low 50s. Blood pressure is just above 100. Patient does not need support by pressors. Leukocytosis is improving, BMP is unremarkable. Influenza virus is negative. Chest x-ray showed persistent bilateral mid to lower lung acute infiltrate and/or edema. No significant change from one day earlier Patient remains on dexamethasone, Eliquis and broad-spectrum antibiotics. Patient in the ICU intubated, pulmonary/critical care team are planning CPAP tomorrow, PEEP dropped. Other than that, change from yesterday, her heart rate shown bradycardia although in sinus rhythm therefore Cardizem and beta blockers were stopped, patient kept on Eliquis for her A. fib and cardiology team signed off. Patient on Zithromax, ceftriaxone, dexamethasone no remdesivir . she is status convescalnet plasam as well 08/04/20 Patient is still on mechanical ventilation, pulmonary/critical care team trying breathing for the patient but with no success today Other than that She'll continue with same treatment of steroids, Eliquis, azithromycin and ceftriaxone. No Cardizem or beta blockers for bradycardia. However heart rate is improved today to 60-70. WBC trending down to 12 K 08/05/20 pt is extubated today by pulmonary team , after extubation she started having stroke like ,left arm weakness, lip and left eye droop , and possible leg weakness, CT of brain is negative for stroke and CTA of the brain is ordered and is pending , neurologist was consulted who ordered MRI of the brain tomorrow. pt is currently saturating on 5 L/m of oxygen Eliquis was held by consultants while she remains on dexamethasone, stress and Zithromax. Chest x-ray looks stable Patient is followed closely by pulmonary/critical care team 08/06/2020 Patient is status extubation currently on 6 L oxygen. Pulmonary team discontinue with vitamin C and zinc and this continue with Zithromax and ceftriaxone. Patient is kept on dexamethasone Her left side weakness improved, neurology on the case MRI of the brain did not show stroke. Anticoagulation resumed with heparin drip per cardiology team for now D-dimer is 2.9, WBC 13 K. Heart rate is 60-70 sinus rhythm. 08/07/2020 Patient is awake and alert, calm in the ICU. She is currently on the liter per minute oxygen via high flow cannula Patient weakness and facial droop has resolved. Neurology team signed off. Respiratory status is slightly worse. Pulmonary team R following the case closely and they discussed and further management plan with the patient and family, please refer to their note for more details. In the meantime she remains on dexamethasone, heparin drip and bronchodilator 08/11/2020 Patient remains in the ICU and some respiratory distress, she is tachypneic at 22-30 breath per minute, she needs 15 L of oxygen via nonrebreather. And she remains on the same treatment for her Covid pneumonia with dexamethasone, Eliquis and albuterol. Also she is on D5 normal saline at 75 mL/h for episodes of hypoglycemia yesterday. Also she is on oral vancomycin for C. diff colitis 08/12/2020 patient remains in the ICU with oropharyngeal tube getting feeding. She is alert and partially confused but she looks tired and weak. She's still with loose stool and she's been treated for C. diff colitis with oral vancomycin She still on high dose of oxygen at 2 L/m via nonrebreather and she is tachypneic 25-27 per minute Chest x-ray showed persistent bilateral infiltrates. Related to her covid pneumonia She remains on dexamethasone 08/13/2020 patient today remains in the ICU, she is doing okay, it seems like her oxygen requirements was meshed to be titrated down to 4 L/m this morning. She still confused and [place] of her tubes including a oxygen mask but today is she is more calm with less such problems. Hemodynamically she is stable She passed a swallow evaluation however she still on tube feeding but we will try to feed her today Still has runny diarrhea and on oral vancomycin Chest x-ray from today showing diffuse multifocal airspace disease correlated for pneumonia. Findings stable. She remains on dexamethasone 6 mg, Eliquis 2.5 mg, D5 normal saline at 75 mL/h. Oral vancomycin. And metoprolol 25 mg daily was added recently by briquette molder 08/14/2020 Patient still somewhat confused with only mild partial improvement compared to yesterday Chest x-ray showing the same findings dexamethasone wants. Today, the 50s given because of low glucose, however patient is not on insulin or any diabetic medication Patient remains on Eliquis 2.5 mg, oral vancomycin and D5 normal saline at 75 mL/h, also she is on metoprolol 25 mg of Seroquel 50 mg as needed acute WBC and inflammatory markers are trending down, hemoglobin dropped from 10 down to 7.2 over 2 days she is saturating 92% on 3 L oxygen via nasal cannula at rest of vitals looks stable monitor hemoglobin closely 08/15/2020 [facility] and continues to be closely monitored. Hemoglobin was found to be 6.3 this morning and currently receiving a unit of PRBCs. We'll continue to monitor closely and transfuse as needed. Blood sugars have been on the lower side and will continue with Accu-Cheks before meals at bedtime along with sliding scale. Patient is maintained on D5 normal saline and will continue at this time. Patient is also currently receiving nutrition via tube feedings. Patient is currently on a Ventimask at 93% and will continue to monitor closely. Pulmonary is following closely. Patient continues to be somewhat confused and attempts to pull oxygen off and tube feedings out. Patient currently on oral antibiotics in the form of vancomycin for C. diff and will continue at this time. Patient has been taken off anticoagulation of eliquis and will continue to monitor for any signs of bleeding. 08/16/2020 Patient is seen and evaluated and follow-up and continues to be lethargic although arousable. Patient continues to be confused at times and will pull at NG tubing and nasal cannula. Patient is off the Ventimask and now on 8 L high flow nasal cannula and is currently 93-97%. Fecal management system along with Crockett catheter continues at this time. Patient is receiving medications and nutrition through NG tube. Patient continues on oral vancomycin for C. diff colitis and will continue. Patient received 1 unit of PRBCs yesterday for a hemoglobin of 6.3 and today's hemoglobin is stable at 9.1. Will repeat a.m. labs to monitor closely. D-dimer is 1.89 today. 08/17/2020 Patient is seen and evaluated and follow-up and is currently sleeping although easily arousable. Patient appears much more alert today and responding more p roperly to questions and commands. Patient states that her breathing has not gotten worse but doesn't feel much better either. Patient remains on 8 L high flow nasal cannula. Patient's hemoglobin today is stable at 8.3 with no active bleeding noting. D-dimer trending down slowly at 1.7. Pro-calcitonin is 0.11. Patient remains on antibiotics via NG tube for C. diff along with fecal management system and will continue at this time. PT/OT following the patient along with multiple medical consultations. PT to reevaluate the patient once more stable and not as lethargic. Review of systems CONSTITUTIONAL: No fever, no malaise, continued fatigue. HEENT: No recent visual problems or hearing problems. Denied any sore throat. CARDIOVASCULAR: No orthopnea, PND, no palpitations, no syncope. PULMONARY: continued shortness of breath, no cough, no hemoptysis. GASTROINTESTINAL: Positive diarrhea, no nausea, no vomiting, no abdominal pain. Normoactive bowel sounds. NEUROLOGICAL: No headaches, reports weakness, no numbness. Objective - Vital Signs Vital signs: Vital Signs Temp 99.3 F 08/17/20 05:00 Pulse 94 08/17/20 05:00 Resp 20 08/17/20 05:00 BP 113/66 08/17/20 05:00 Pulse Ox 90 L 08/17/20 05:00 Intake & Output 08/16/20 08/17/20 08/17/20 18:59 06:59 18:59 Intake Total 12 100 Output Total 1600 Balance 12 -1500 Weight 54 kg Intake: IV 12 Dextrose 5%-0.9% NaCl 1, 12 000 ml @ 75 mls/hr IV . [id number] COUNT INCLUDES THE [facility] Rx#:[id number] Oral 100 Output: Urine 1600 Other: Voiding Method Indwelling Catheter Indwelling Catheter ABP, PAP, CO, CI - Last Documented Arterial Blood Pressure 143/61 - Exam GENERAL: The patient is generally weak, and continues to be somewhat confused although more alert and responding to commands and questions more appropriately today. HEENT: Pupils are round and equally reacting to light. EOMI. No scleral icterus. No conjunctival pallor. Normocephalic, atraumatic. No pharyngeal erythema. No thyromegaly. CARDIOVASCULAR: S1 and S2 present. No murmurs, rubs, or gallops. PULMONARY: Chest is clear to auscultation, no wheezing or crackles. ABDOMEN: Soft, nontender, nondistended, normoactive bowel sounds. No palpable organomegaly. MUSCULOSKELETAL: No joint swelling or deformity. EXTREMITIES: No cyanosis, clubbing, or pedal edema. NEUROLOGICAL: Left facial droop with left arm weakness. SKIN: No rashes. no petechiae. - Labs CBC & Chem 7: 08/17/20 05:13 08/16/20 06:33 Labs: Abnormal Lab Results - Last 24 Hours (Table) 08/16/20 08/16/20 08/17/20 Range/Units 11:39 16:54 05:13 RBC 2.79 L (3.80-5.40) m/uL Hgb 8.3 L (11.4-16.0) gm/dL Hct 25.1 L (34.0-46.0) % RDW 16.1 H (11.5-15.5) % Neutrophils # 7.9 H (1.3-7.7) k/uL D-Dimer (<0.60) mg/L FEU POC Glucose (mg/dL) 144 H 131 H (75-99) mg/dL Procalcitonin (0.02-0.09) ng/mL 08/17/20 08/17/20 08/17/20 Range/Units 05:13 05:13 05:50 RBC (3.80-5.40) m/uL Hgb (11.4-16.0) gm/dL Hct (34.0-46.0) % RDW (11.5-15.5) % Neutrophils # (1.3-7.7) k/uL D-Dimer 1.70 H (<0.60) mg/L FEU POC Glucose (mg/dL) 102 H (75-99) mg/dL Procalcitonin 0.11 H (0.02-0.09) ng/mL Assessment and Plan Assessment: -Bilateral Covid 19 pneumonia: continue with weaning FiO2 as tolerated, currently on 8 L high flow via nasal cannula. Pulmonary following. She is status post extubation, improving -Acute hypoxic respiratory failure secondary to above -TIA with left arm and left eye and lip droop . Completely resolved and neurology signed off -Metabolic encephalopathy secondary to above -A. fib and RVR, patient rate is controlled. With metoprolol -Increased inflammatory markers secondary to above and infection, improving -Anemia, monitor hemoglobin. We'll do anemia workup, patient received 1 unit of PRBCs yesterday and hemoglobin today is 9.1 -Hypertension -Hypothyroidism -DVT prophylaxis -GI prophylaxis: Protonix -Full code Plan: -Patient with AMS, improving gradually but fluctuates. She follows commands. neurologist evaluated the patient and signed off. Could be due to metabolic encephalopathy secondary to C. diff infection and due to hypoxia. Keep monitoring and correct metabolic abnormalities... Also patient is nothing by mouth and with NG tube to which she takes medication B12 level is low normal at 400, because she is off Eliquis currently we take the chance to gove IM Injection of cyanobalamine -Acute hypoxic respiratory failure, currently oxygen saturating 90s on 8 L oxygen via nasal cannula. Chest x-ray showed bilateral multifocal airspace disease. Pro-calcitonin is 0.11, d-dimer trending down at 1.7 -Anemia at 6.3 status post blood transfusion improved to 9.1. Currently 8.3 today with no active bleeding noted. Eliquis and aspirin on hold. GI team no intervention for now. Keep monitoring hemoglobin. Hemoglobin is stable we will discuss with GI team to restart Eliquis (history of A. fib with altered mental status), however if hemoglobin continues to drop, then GI might consider EGD. -C. diff colitis, continue with oral vancomycin. Infectious disease team on the case -Due to multiple complex medical issues, prognosis is guarded
[2020-08-17] MEDS: FERROUS SULFATE ORAL ELIXIR 300 MG/5 ML CUP PO SCH (16:54)
[2020-08-17 17:51] LABS: Glucose,Whole Blood 99 mg/dL (75-99)
[2020-08-17] MEDS: ATORVASTATIN 40 MG TAB PO SCH (21:46)
[2020-08-17] MEDS: QUEtiapine 50 MG TAB PO SCH (21:46)
[2020-08-17] MEDS: amLODIPine 5 MG TAB PO SCH (21:47)
[2020-08-18 00:18] LABS: Glucose,Whole Blood 156 mg/dL (75-99)
[2020-08-18] MEDS: VANCOMYCIN ORAL SOLUTION 250 MG/5 ML BOTTLE PO SCH (00:32)
[2020-08-18] MEDS: INSULIN ASPART (NovoLOG) 100 UNIT/ML VIAL SQ SCH ×5 (00:32→20:49)
[2020-08-18 06:11] LABS: Glucose,Whole Blood 196 mg/dL (75-99)
[2020-08-18] MEDS: LEVOTHYROXINE 75 MCG TAB PO SCH (06:19)
[2020-08-18 06:40] LABS: HCT 25.6 % (34.0-46.0); HGB 8.4 gm/dL (11.4-16.0); Hypochromasia Slight; MCH 29.7 pg (25.0-35.0); MCHC 32.8 g/dL (31.0-37.0); MCV 90.6 fL (80.0-100.0); Mean Platelet Volume 7.3; Platelet Count 207 k/uL (150-450); Poikilocytosis Slight; RBC 2.83 m/uL (3.80-5.40); RDW 15.9 % (11.5-15.5); WBC 7.9 k/uL (3.8-10.6)
[2020-08-18 07:23] LABS: Eosinophils # (M) 0.63 k/uL (0-0.7); Monocytes # (M) 0.16 k/uL (0-1.0); Neutrophils # (M) 5.21 k/uL (1.3-7.7); Neutrophils % (M) 66 %; Nucleated Red Blood Cells 0 /100 WBC (0-0); Total Cells Counted 100
[2020-08-18 07:24] LABS: Anisocytosis (M) Present; Polychromasia Present
[2020-08-18 07:41] LABS: Glucose,Whole Blood 127 mg/dL (75-99)
[2020-08-18] MEDS: ALBUTEROL HFA INHALER INHALATION SCH ×4 (08:52→20:00)
[2020-08-18] MEDS: DEXTROSE 5%-0.9% NACL 1,000 ML IV SCH ×3 (09:18→18:29)
[2020-08-18] MEDS: FERROUS SULFATE ORAL ELIXIR 300 MG/5 ML CUP PO SCH ×2 (09:19→18:29)
[2020-08-18] MEDS: METOPROLOL TARTRATE 25 MG TAB PO SCH (09:19)
[2020-08-18] MEDS: PANTOPRAZOLE 40 MG/10 ML VIAL IVP SCH ×2 (09:20→20:44)
[2020-08-18] MEDS: CYANOCOBALAMIN 1,000 MCG/ML 1 ML VIAL IM SCH (09:20)
[2020-08-18 12:28] LABS: Glucose,Whole Blood 126 mg/dL (75-99)
[2020-08-18 13:25] LABS: Anion Gap 5.8 mmol/L (4.00-12.00); Carbon Dioxide 22.2 mmol/L (21.6-31.8); Potassium 3.7 mmol/L (3.5-5.5)
--- NOTE | 2020-08-18 14:53 | PN ---
PROGRESS NOTE PULMONARY/CRITICAL CARE PROGRESS NOTE: DATE OF SERVICE: August 18, 2021. INTERVAL HISTORY: This is a patient who was admitted way back on July 29. She was a patient who required intubation, mechanical ventilation secondary to community-acquired pneumonia. She was intubated between July 30 and August 05. After she was extubated, I had a long conversation with the patient's . He decided on no re-intubation. Currently, the patient has a history of acute hypoxemic respiratory failure secondary to COVID-19 pneumonia/pneumonitis, and is currently on D5 0.9 IV at 75 mL an hour, 5 L nasal cannula, and 2 Sean HN tube feeds at 30 mL an hour. She has an NG tube in place. She is somewhat lethargic, although bit more awake today. She does have a history of atrial fibrillation, hypertension, hypothyroidism, general medical debility, C difficile colitis, and chronic anemia. PHYSICAL EXAMINATION: VITAL SIGNS: Current vital signs include: Temperature 98.3, heart rate 83, respiratory rate 18, blood pressure 106/67, mean 80, 5 L saturation 94%. GENERAL: She appears in no acute distress. HEENT: Examination is grossly unremarkable. NECK: Supple. Full range of motion. No adenopathy. Neck veins are flat. CARDIOVASCULAR: Examination reveals regular rhythm and rate. Heart sounds are distant. Heart rate 83 beats per minute. LUNGS: Reveal some diffuse coarse rhonchi. She does not take deep breaths. No wheezes or crackles. ABDOMEN: Soft. EXTREMITIES are intact. Minimal edema. SKIN: Without rash. NEUROLOGIC: Examination is brief but nonfocal. She does move all 4 extremities. She is a bit more awake and alert today than yesterday. LABORATORY DATA: White count 7.9, hemoglobin 8.4, hematocrit 25.6, platelet count 207,000. Sodium 139, potassium 3.7 chloride 111, CO2 22, anion gap is 6. BUN and creatinine were 16 and 0.5 respectively. Microbiology is currently negative. Chest x-ray from August 17 showed bilateral multifocal airspace disease. CURRENT MEDICATIONS: Reviewed. The patient is on Tylenol, albuterol inhaler, Norvasc, Lipitor, vitamin B12, her IV as I mentioned previously, iron tablets, insulin, levothyroxine, metoprolol, Protonix, potassium replacement, and Seroquel. ASSESSMENT: 1. Acute hypoxemic respiratory failure secondary to COVID-19 pneumonitis with intubation on July 30 and successful extubation on August 05. The patient never received Remdesivir because she was beyond the window. 2. Mental status changes and profound weakness, likely secondary to her prolonged stay in the ICU as well as Covid 19 affect on the central nervous system. 3. New onset atrial fibrillation with rapid ventricular response, currently in sinus rhythm. 4. History of essential hypertension. 5. History of hypothyroidism. 6. Status post NG tube placement for enteral nutrition. 7. History of dysphagia and chronic aspiration. 8. C difficile colitis. 9. Chronic anemia. PLAN: The patient actually seems a bit more awake today. She is still on 5 L nasal cannula. She is getting tube feeds with 2-Sean HN at 30 mL an hour. She is getting D5 of 0.9 at 75 mL an hour. Overall prognosis remains guarded. We will continue to follow. No additional recommendations are made. MMODL / IJN: [id number] /
--- NOTE | 2020-08-18 15:26 | P.PN ---
Subjective Progress Note Date: 08/18/20 Principal diagnosis: Iron deficiency anemia, Covid-19 infection This is a 75-year-old female with multiple medical comorbidities and significant hospital course for treatment of coated 19 infection, Clostridium difficile colitis and atrial fibrillation. She had a fall in her hemoglobin during her hospitalization down to 6.8, she was transfused with 1 unit of packed red blood cells which brought her hemoglobin up to 9.1. Today's hemoglobin is 8.4 she has had no signs of GI bleed. She has a FMS with liquid brown stool, minimal amount in tube, none in bag. No reports of any abdominal pain, nausea, or vomiting. She has NG tube with tube feeding, Speech has evaluated and can have dysphagia level 2 pureed diet. Plan is for discharge to ECF in next one to two days. Nursing is reporting patient is pulling at her NG tube and FMS. Objective - Vital Signs Vital signs: Vital Signs Temp 98.3 F 08/18/20 11:00 Pulse 83 08/18/20 11:00 Resp 18 08/18/20 11:00 BP 106/67 08/18/20 11:00 Pulse Ox 94 L 08/18/20 11:00 Intake & Output 08/17/20 08/18/20 08/18/20 18:59 06:59 18:59 Intake Total 900 Output Total 600 1000 Balance 300 -1000 Weight 58 kg 58 kg Intake: IV 900 Dextrose 5%-0.9% NaCl 1, 900 000 ml @ 75 mls/hr IV . [id number] [facility] Rx#:[id number] Oral 0 Output: Urine 600 1000 Other: Voiding Method Indwelling Catheter Indwelling Catheter Indwelling Catheter ABP, PAP, CO, CI - Last Documented Arterial Blood Pressure 143/61 - Exam General appearance: The patient is alert, oriented, in no acute distress. HET: Head is normocephalic and atraumatic. Conjunctiva pink. Sclera anicteric. Neck: Supple without lymphadenopathy. Abdomen: Soft, nontender, nondistended with bowel sounds. No guarding or rigidity. Extremities: Normal skin color and turgor. No pedal edema Neurological: No focal deficits. Alert and oriented 3. - Labs CBC & Chem 7: 08/18/20 06:15 08/18/20 06:15 Labs: Abnormal Lab Results - Last 24 Hours (Table) 1208/18/20 08/18/20 Range/Units 00:16 06:08 06:15 RBC 2.83 L (3.80-5.40) m/uL Hgb 8.4 L (11.4-16.0) gm/dL Hct 25.6 L (34.0-46.0) % RDW 15.9 H (11.5-15.5) % Chloride (96-109) mmol/L Creatinine (0.6-1.5) mg/dL BUN/Creatinine Ratio (12.00-20.00) Ratio Glucose (70-110) mg/dL POC Glucose (mg/dL) 156 H 196 H (75-99) mg/dL Calcium (8.7-10.3) mg/dL 08/18/20 08/18/20 08/18/20 Range/Units 06:15 07:40 12:24 RBC (3.80-5.40) m/uL Hgb (11.4-16.0) gm/dL Hct (34.0-46.0) % RDW (11.5-15.5) % Chloride 111 H (96-109) mmol/L Creatinine 0.5 L (0.6-1.5) mg/dL BUN/Creatinine Ratio 32.00 H (12.00-20.00) Ratio Glucose 118 H (70-110) mg/dL POC Glucose (mg/dL) 127 H 126 H (75-99) mg/dL Calcium 7.0 L (8.7-10.3) mg/dL Assessment and Plan (1) Iron deficiency anemia Narrative/Plan: 75-year-old female with multiple medical comorbidities and hospital course significant for treatment for Covid 19 infection, Clostridium difficile colitis and atrial fibrillation. Patient was noted to have a fall in her hemoglobin during her hospitalization. No reports of any signs or symptoms of GI bleeding. She is tolerating her NG tube feeds. Iron studies were suggestive of an iron deficiency anemia. She is getting oral iron replacement. Currently she is receiving PPI therapy and has a fecal management system in place. Hemoglobin improved as 9.1 from 6.3 after transfusion of 1 unit of packed red blood cells. No signs or symptoms of GI bleeding reported. Current Visit: Yes Status: Acute Code(s): D50.9 - IRON DEFICIENCY ANEMIA, UNSPECIFIED SNOMED Code(s): 33129797 (2) COVID-19 Current Visit: Yes Status: Acute Code(s): U07.1 - COVID-19 SNOMED Code(s): 165098915 (3) Positive occult stool blood test Current Visit: Yes Status: Acute Code(s): R19.5 - OTHER FECAL ABNORMALITIES SNOMED Code(s): 44202722 (4) Clostridium difficile diarrhea Current Visit: Yes Status: Acute Code(s): A04.72 - ENTEROCOLITIS D/T CLOSTRIDIUM DIFFICILE, NOT SPCF RECUR SNOMED Code(s): 6348362811096 Plan: Supportive care Consider holding tube feeds and allow patient to have pured diet as ordered Continue to monitor hemoglobin and hematocrit and transfuse as needed, hemoglobin improved as 9.1 from 6.3 after 1 unit of packed red blood cells Continue twice daily Protonix therapy May resume anticoagulation Patient was treated with vancomycin for Clostridium difficile, Questran ordered for diarrhea Continue other medical management per primary team and consulting services Thank you for allowing us to participate in the care of the patient we will continue to follow Dr. Willy Pena I agree with the dictator's note, documented as a scribe by Maryan Leach.
--- NOTE | 2020-08-18 15:39 | P.PN ---
Subjective Progress Note Date: 08/18/20 This is a pleasant 75 years old female with past medical history of hypertension, hypothyroidism. Patient could not provide much information so it was taken From staff and records. She presents to [facility] with respiratory symptoms and dyspnea associated with some complaint but no chest pain. There she was treated for atrial fibrillation with RVR and she was found to have positive covid 19 test. Patient is afebrile, she is tachypneic with respiratory rate about 26-27, hypoxic with oxygen saturation of 99% on 15 L via nasal cannula. Blood pressure is 106/89. CBC from today is unremarkable. Troponin is elevated 0.17. High lactate dehydrogenase 1276 and C-reactive protein 256. And once is negative. Chest x- ray showing severe pulmonary edema could relate to RDS and is similar to a computed tomography scan earlier today 07/31/2020 Patient was admitted with Covid pneumonia and respiratory failure, her condition got deteriorated yesterday and she got intubated and now she is on mechanical ventilation was pulmonary/critical care team monitor and carefully. Also she had A. fib with RVR and converted to sinus rhythm, her Cardizem drip was stopped and her heparin drip was switched liquids. She continued to be on Zithromax and ceftriaxone and vitamins C and zinc 08/01/2020 Patient is admitted with Covid pneumonia and course is complicated by A. fib and RVR. Patient remains in the ICU in critical condition, she is intubated and on mechanical ventilation with pulmonary/critical care team on the case. Also cartilage informed the case closely Treatments and dexamethasone, liquids, zinc, vitamin C, antibiotics with Zithromax and ceftriaxone. No reemdesivir as per pulmonary team recommendation Today I was contacted by the workers compensation legal secretary and stop that the patient and ignacia blandon works in [place] they want patient to be transferred upon the request to [facility] I discussed the case with who declined To accept the patient to be transferred to [facility] 08/02/2020 Patient is in the ICU for bilateral covid Pneumonia, she is intubated and on mechanical ventilation. Her heart rate atrial fibrillation was converted to sinus rhythm and currently her own in the low 50s. Blood pressure is just above 100. Patient does not need support by pressors. Leukocytosis is improving, BMP is unremarkable. Influenza virus is negative. Chest x-ray showed persistent bilateral mid to lower lung acute infiltrate and/or edema. No significant change from one day earlier Patient remains on dexamethasone, Eliquis and broad-spectrum antibiotics. Patient in the ICU intubated, pulmonary/critical care team are planning CPAP tomorrow, PEEP dropped. Other than that, change from yesterday, her heart rate shown bradycardia although in sinus rhythm therefore Cardizem and beta blockers were stopped, patient kept on Eliquis for her A. fib and cardiology team signed off. Patient on Zithromax, ceftriaxone, dexamethasone no remdesivir . she is status convescalnet plasam as well 08/04/20 Patient is still on mechanical ventilation, pulmonary/critical care team trying breathing for the patient but with no success today Other than that She'll continue with same treatment of steroids, Eliquis, azithromycin and ceftriaxone. No Cardizem or beta blockers for bradycardia. However heart rate is improved today to 60-70. WBC trending down to 12 K 08/05/20 pt is extubated today by pulmonary team , after extubation she started having stroke like ,left arm weakness, lip and left eye droop , and possible leg weakness, CT of brain is negative for stroke and CTA of the brain is ordered and is pending , neurologist was consulted who ordered MRI of the brain tomorrow. pt is currently saturating on 5 L/m of oxygen Eliquis was held by consultants while she remains on dexamethasone, stress and Zithromax. Chest x-ray looks stable Patient is followed closely by pulmonary/critical care team 08/06/2020 Patient is status extubation currently on 6 L oxygen. Pulmonary team discontinue with vitamin C and zinc and this continue with Zithromax and ceftriaxone. Patient is kept on dexamethasone Her left side weakness improved, neurology on the case MRI of the brain did not show stroke. Anticoagulation resumed with heparin drip per cardiology team for now D-dimer is 2.9, WBC 13 K. Heart rate is 60-70 sinus rhythm. 08/07/2020 Patient is awake and alert, calm in the ICU. She is currently on the liter per minute oxygen via high flow cannula Patient weakness and facial droop has resolved. Neurology team signed off. Respiratory status is slightly worse. Pulmonary team R following the case closely and they discussed and further management plan with the patient and family, please refer to their note for more details. In the meantime she remains on dexamethasone, heparin drip and bronchodilator 08/11/2020 Patient remains in the ICU and some respiratory distress, she is tachypneic at 22-30 breath per minute, she needs 15 L of oxygen via nonrebreather. And she remains on the same treatment for her Covid pneumonia with dexamethasone, Eliquis and albuterol. Also she is on D5 normal saline at 75 mL/h for episodes of hypoglycemia yesterday. Also she is on oral vancomycin for C. diff colitis 08/12/2020 patient remains in the ICU with oropharyngeal tube getting feeding. She is alert and partially confused but she looks tired and weak. She's still with loose stool and she's been treated for C. diff colitis with oral vancomycin She still on high dose of oxygen at 2 L/m via nonrebreather and she is tachypneic 25-27 per minute Chest x-ray showed persistent bilateral infiltrates. Related to her covid pneumonia She remains on dexamethasone 08/13/2020 patient today remains in the ICU, she is doing okay, it seems like her oxygen requirements was meshed to be titrated down to 4 L/m this morning. She still confused and [place] of her tubes including a oxygen mask but today is she is more calm with less such problems. Hemodynamically she is stable She passed a swallow evaluation however she still on tube feeding but we will try to feed her today Still has runny diarrhea and on oral vancomycin Chest x-ray from today showing diffuse multifocal airspace disease correlated for pneumonia. Findings stable. She remains on dexamethasone 6 mg, Eliquis 2.5 mg, D5 normal saline at 75 mL/h. Oral vancomycin. And metoprolol 25 mg daily was added recently by iron worker apprentice 08/14/2020 Patient still somewhat confused with only mild partial improvement compared to yesterday Chest x-ray showing the same findings dexamethasone wants. Today, the 50s given because of low glucose, however patient is not on insulin or any diabetic medication Patient remains on Eliquis 2.5 mg, oral vancomycin and D5 normal saline at 75 mL/h, also she is on metoprolol 25 mg of Seroquel 50 mg as needed acute WBC and inflammatory markers are trending down, hemoglobin dropped from 10 down to 7.2 over 2 days she is saturating 92% on 3 L oxygen via nasal cannula at rest of vitals looks stable monitor hemoglobin closely 08/15/2020 [facility] and continues to be closely monitored. Hemoglobin was found to be 6.3 this morning and currently receiving a unit of PRBCs. We'll continue to monitor closely and transfuse as needed. Blood sugars have been on the lower side and will continue with Accu-Cheks before meals at bedtime along with sliding scale. Patient is maintained on D5 normal saline and will continue at this time. Patient is also currently receiving nutrition via tube feedings. Patient is currently on a Ventimask at 93% and will continue to monitor closely. Pulmonary is following closely. Patient continues to be somewhat confused and attempts to pull oxygen off and tube feedings out. Patient currently on oral antibiotics in the form of vancomycin for C. diff and will continue at this time. Patient has been taken off anticoagulation of eliquis and will continue to monitor for any signs of bleeding. 08/16/2020 Patient is seen and evaluated and follow-up and continues to be lethargic although arousable. Patient continues to be confused at times and will pull at NG tubing and nasal cannula. Patient is off the Ventimask and now on 8 L high flow nasal cannula and is currently 93-97%. Fecal management system along with Crockett catheter continues at this time. Patient is receiving medications and nutrition through NG tube. Patient continues on oral vancomycin for C. diff colitis and will continue. Patient received 1 unit of PRBCs yesterday for a hemoglobin of 6.3 and today's hemoglobin is stable at 9.1. Will repeat a.m. labs to monitor closely. D-dimer is 1.89 today. 08/17/2020 Patient is seen and evaluated and follow-up and is currently sleeping although easily arousable. Patient appears much more alert today and responding more p roperly to questions and commands. Patient states that her breathing has not gotten worse but doesn't feel much better either. Patient remains on 8 L high flow nasal cannula. Patient's hemoglobin today is stable at 8.3 with no active bleeding noting. D-dimer trending down slowly at 1.7. Pro-calcitonin is 0.11. Patient remains on antibiotics via NG tube for C. diff along with fecal management system and will continue at this time. PT/OT following the patient along with multiple medical consultations. PT to reevaluate the patient once more stable and not as lethargic. 08/18/2020 Patient is seen in follow-up for awake and alert and responding appropriately. Per nursing staff patient removed her NG and fecal management system and was replaced. Patient was seen and evaluated recently by speech therapy recommending dysphagia level I pured diet with nectar thickened liquids and patient has been tolerating oral medications per nursing staff. We'll discontinue NG tube and monitor closely. Oxygen saturations improving slowly and is currently maintained on 5 L via nasal cannula and is 94%. Case management and social work following and working on possible placement at an ECF for continued PT/OT therapy. Multiple medical consultations continue to follow. Hemoglobin is stable at 8.4 with no active bleeding noted. Will discuss with GI about resuming anticoagulation. Review of systems CONSTITUTIONAL: No fever, no malaise, continued fatigue. HEENT: No recent visual problems or hearing problems. Denied any sore throat. CARDIOVASCULAR: No orthopnea, PND, no palpitations, no syncope. PULMONARY: continued shortness of breath with improvement, no cough, no hemoptysis. GASTROINTESTINAL: Positive diarrhea with improvement, no nausea, no vomiting, no abdominal pain. Normoactive bowel sounds. NEUROLOGICAL: No headaches, reports weakness, no numbness. Objective - Vital Signs Vital signs: Vital Signs Temp 97.9 F 08/18/20 05:00 Pulse 92 08/18/20 05:00 Resp 20 08/18/20 05:00 BP 110/65 08/18/20 05:00 Pulse Ox 100 08/18/20 05:00 Intake & Output 08/17/20 08/18/20 08/18/20 18:59 06:59 18:59 Intake Total 900 Output Total 600 1000 Balance 300 -1000 Weight 58 kg Intake: IV 900 Dextrose 5%-0.9% NaCl 1, 900 000 ml @ 75 mls/hr IV . [id number] [facility] Rx#:[id number] Oral 0 Output: Urine 600 1000 Other: Voiding Method Indwelling Catheter Indwelling Catheter ABP, PAP, CO, CI - Last Documented Arterial Blood Pressure 143/61 - Exam GENERAL: The patient is generally weak, and continues to be somewhat confused although more alert and responding to commands and questions more appropriately today. HEENT: Pupils are round and equally reacting to light. EOMI. No scleral icterus. No conjunctival pallor. Normocephalic, atraumatic. No pharyngeal erythema. No thyromegaly. CARDIOVASCULAR: S1 and S2 present. No murmurs, rubs, or gallops. PULMONARY: Chest is clear to auscultation, no wheezing or crackles. ABDOMEN: Soft, nontender, nondistended, normoactive bowel sounds. No palpable organomegaly. MUSCULOSKELETAL: No joint swelling or deformity. EXTREMITIES: No cyanosis, clubbing, or pedal edema. NEUROLOGICAL: Left facial droop with left arm weakness. SKIN: No rashes. no petechiae. - Labs CBC & Chem 7: 08/18/20 06:15 08/18/20 06:15 Labs: Abnormal Lab Results - Last 24 Hours (Table) 08/17/20 08/17/20 08/18/20 Range/Units 05:13 11:50 00:16 RBC (3.80-5.40) m/uL Hgb (11.4-16.0) gm/dL Hct (34.0-46.0) % RDW (11.5-15.5) % POC Glucose (mg/dL) 126 H 156 H (75-99) mg/dL Procalcitonin 0.11 H (0.02-0.09) ng/mL 08/18/20 08/18/20 08/18/20 Range/Units 06:08 06:15 07:40 RBC 2.83 L (3.80-5.40) m/uL Hgb 8.4 L (11.4-16.0) gm/dL Hct 25.6 L (34.0-46.0) % RDW 15.9 H (11.5-15.5) % POC Glucose (mg/dL) 196 H 127 H (75-99) mg/dL Procalcitonin (0.02-0.09) ng/mL Assessment and Plan Assessment: -Bilateral Covid 19 pneumonia: continue with weaning FiO2 as tolerated, currently on 5 L NC via nasal cannula. Pulmonary following. She is status post extubation, improving -Acute hypoxic respiratory failure secondary to above -TIA with left arm and left eye and lip droop . Completely resolved and neurology signed off -Metabolic encephalopathy secondary to above -A. fib and RVR, patient rate is controlled. With metoprolol -Increased inflammatory markers secondary to above and infection, improving -Anemia, monitor hemoglobin, no active bleeding noted, hemoglobin is 8.4 -Hypertension -Hypothyroidism -DVT prophylaxis -GI prophylaxis: Protonix -Full code Plan: -Patient with AMS, improving gradually but fluctuates. She follows commands. neurologist evaluated the patient and signed off. Could be due to metabolic encephalopathy secondary to C. diff infection and due to hypoxia. Keep monitoring and correct metabolic abnormalities. Will discontinue NG tube and resume diet of dysphagia 1 pured with thickened liquids and monitor closely as patient continues to remove NG tube herself. Patient has been tolerating taking oral medications per nursing staff Diarrhea has lessened in severity and will remove fecal management system as patient continues to pull this out as well. -Acute hypoxic respiratory failure, currently oxygen saturating 94% on 5 L oxygen via nasal cannula. Scuffs with nursing staff about weaning FiO2 as tolerated. -Anemia at 6.3 status post blood transfusion improved to 9.1. Currently 8.4 today with no active bleeding noted. Eliquis and aspirin on hold. GI team no intervention for now. Keep monitoring hemoglobin. Hemoglobin is stable we will discuss with GI team to restart Eliquis (history of A. fib with altered mental status), however if hemoglobin continues to drop, then GI might consider EGD. -C. diff colitis, continue with oral vancomycin. Infectious disease team on the case -Due to multiple complex medical issues, prognosis is guarded -case management and social work following and working on placement at [facility] for continued PT/OT therapy once stabilized.
[2020-08-18 18:09] LABS: Glucose,Whole Blood 120 mg/dL (75-99)
[2020-08-18] MEDS: CHOLESTYRAMINE (WITH SUGAR) 4 GM PACKET PO SCH (18:29)
[2020-08-18 20:26] LABS: Glucose,Whole Blood 93 mg/dL (75-99)
[2020-08-18] MEDS: ATORVASTATIN 40 MG TAB PO SCH (20:45)
[2020-08-18] MEDS: APIXABAN 2.5 MG TABLET PO SCH (20:45)
[2020-08-18] MEDS: QUEtiapine 50 MG TAB PO SCH (20:45)
[2020-08-18] MEDS: amLODIPine 5 MG TAB PO SCH (20:49)
[2020-08-19] MEDS: LEVOTHYROXINE 75 MCG TAB PO SCH (05:48)
[2020-08-19 07:11] LABS: Glucose,Whole Blood 91 mg/dL (75-99)
[2020-08-19] MEDS: FERROUS SULFATE ORAL ELIXIR 300 MG/5 ML CUP PO SCH ×2 (07:54→17:43)
[2020-08-19] MEDS: PANTOPRAZOLE 40 MG/10 ML VIAL IVP SCH ×2 (07:54→20:50)
[2020-08-19] MEDS: METOPROLOL TARTRATE 25 MG TAB PO SCH (07:54)
[2020-08-19] MEDS: APIXABAN 2.5 MG TABLET PO SCH (07:54)
[2020-08-19] MEDS: INSULIN ASPART (NovoLOG) 100 UNIT/ML VIAL SQ SCH ×4 (07:54→20:51)
[2020-08-19] MEDS: CHOLESTYRAMINE (WITH SUGAR) 4 GM PACKET PO SCH ×2 (07:55→17:44)
[2020-08-19] MEDS: CYANOCOBALAMIN 1,000 MCG/ML 1 ML VIAL IM SCH (07:55)
[2020-08-19] MEDS: ALBUTEROL HFA INHALER INHALATION SCH ×4 (09:21→19:25)
[2020-08-19 10:11] LABS: Basophils % (A) 0 %; Eosinophils # (A) 0.5 k/uL (0-0.7); Eosinophils % (A) 6 %; HCT 23.8 % (34.0-46.0); HGB 7.6 gm/dL (11.4-16.0); Hypochromasia Moderate; Lymphocytes # (A) 1.6 k/uL (1.0-4.8); Lymphocytes % (A) 18 %; MCH 28.5 pg (25.0-35.0); MCV 89.1 fL (80.0-100.0); Mean Platelet Volume 7.7; Monocytes # (A) 0.4 k/uL (0-1.0); Monocytes % (A) 5 %; Neutrophils # (A) 5.8 k/uL (1.3-7.7); Neutrophils % (A) 69 %; Platelet Count 245 k/uL (150-450); Poikilocytosis Slight; RBC 2.67 m/uL (3.80-5.40); WBC 8.4 k/uL (3.8-10.6)
[2020-08-19 12:12] LABS: Glucose,Whole Blood 83 mg/dL (75-99)
--- NOTE | 2020-08-19 13:21 | P.PN ---
Subjective Progress Note Date: 08/19/20 Principal diagnosis: Iron deficiency anemia, Covid-19 infection This is a 75-year-old female with multiple medical comorbidities and significant hospital course for treatment of coated 19 infection, Clostridium difficile colitis and atrial fibrillation. She had a fall in her hemoglobin during her hospitalization down to 6.8, she was transfused with 1 unit of packed red blood cells which brought her hemoglobin up to 9.1. She was restarted on her Eliquis, her Hg dropped to 7.6. Was reported that she had a black tarry stool. The patient denies any nausea, vomiting, or abdominal pain. Eliquis is back on hold. Her NG tube was removed and tube feedings stopped. She states she tolerated her diet this morning and ate a little bit. The fecal management system has been removed as well. Objective - Vital Signs Vital signs: Vital Signs Temp 98.2 F 08/19/20 08:00 Pulse 99 08/19/20 08:00 Resp 18 08/19/20 08:00 BP 114/83 08/19/20 08:00 Pulse Ox 92 L 08/19/20 10:15 Intake & Output 08/18/20 08/19/20 08/19/20 18:59 06:59 18:59 Intake Total 600 Output Total 750 Balance -750 600 Weight 58 kg 54.5 kg Intake: IV 600 Dextrose 5%-0.9% NaCl 1, 600 000 ml @ 75 mls/hr IV . [id number] [facility] Rx#:[id number] Output: Urine 750 Other: Voiding Method Indwelling Catheter Diaper Diaper Incontinent Incontinent # Voids 2 # Bowel Movements 2 2 ABP, PAP, CO, CI - Last Documented Arterial Blood Pressure 143/61 - Exam General appearance: The patient is alert, oriented, in no acute distress. HET: Head is normocephalic and atraumatic. Conjunctiva pink. Sclera anicteric. Neck: Supple without lymphadenopathy. Abdomen: Soft, nontender, nondistended with bowel sounds. No guarding or rigidity. Extremities: Normal skin color and turgor. No pedal edema Neurological: No focal deficits. Alert and oriented 3. - Labs CBC & Chem 7: 08/19/20 09:45 08/18/20 06:15 Labs: Abnormal Lab Results - Last 24 Hours (Table) 12/08/18/20 08/19/20 Range/Units 06:15 18:04 09:45 RBC 2.67 L (3.80-5.40) m/uL Hgb 7.6 L (11.4-16.0) gm/dL Hct 23.8 L (34.0-46.0) % RDW 16.0 H (11.5-15.5) % Chloride 111 H (96-109) mmol/L Creatinine 0.5 L (0.6-1.5) mg/dL BUN/Creatinine Ratio 32.00 H (12.00-20.00) Ratio Glucose 118 H (70-110) mg/dL POC Glucose (mg/dL) 120 H (75-99) mg/dL Calcium 7.0 L (8.7-10.3) mg/dL Assessment and Plan (1) Iron deficiency anemia Narrative/Plan: 75-year-old female with multiple medical comorbidities and hospital course significant for treatment for Covid 19 infection, Clostridium difficile colitis and atrial fibrillation. Patient was noted to have a fall in her hemoglobin during her hospitalization. No reports of any signs or symptoms of GI bleeding. She is tolerating her NG tube feeds. Iron studies were suggestive of an iron deficiency anemia. She is getting oral iron replacement. Currently she is receiving PPI therapy. Hemoglobin improved as 9.1 from 6.3 after transfusion of 1 unit of packed red blood cells. Today's hemoglobin 7.6, with reports of black tarry stools. Will make nothing by mouth after midnight and consider EGD tomorrow. Current Visit: Yes Status: Acute Code(s): D50.9 - IRON DEFICIENCY ANEMIA, UNSPECIFIED SNOMED Code(s): 24256710 (2) COVID-19 Current Visit: Yes Status: Acute Code(s): U07.1 - COVID-19 SNOMED Code(s): 371970677 (3) Positive occult stool blood test Current Visit: Yes Status: Acute Code(s): R19.5 - OTHER FECAL ABNORMALITIES SNOMED Code(s): 21722052 (4) Clostridium difficile diarrhea Current Visit: Yes Status: Acute Code(s): A04.72 - ENTEROCOLITIS D/T CLOSTRIDIUM DIFFICILE, NOT SPCF RECUR SNOMED Code(s): 4495672006205 Plan: Supportive care Diet as tolerated Continue to monitor hemoglobin and hematocrit and transfuse as needed Continue twice daily Protonix therapy Hold Eliquis Possible EGD for Monday if patient continues to have symptoms of GI bleed and continued drop in hemoglobin Patient was treated with vancomycin for Clostridium difficile, Questran ordered for diarrhea Continue other medical management per primary team and consulting services Thank you for allowing us to participate in the care of the patient we will continue to follow Dr. Willy Pena I agree with the dictator's note, documented as a scribe by Maryan Leach.
--- NOTE | 2020-08-19 14:00 | PN ---
PROGRESS NOTE PULMONARY/CRITICAL CARE PROGRESS NOTE: DATE OF SERVICE: 08/19/2020 This is a 75-year-old female who was admitted way back on July 29, 2020. She is a patient who required intubation and mechanical ventilation secondary to community- acquired pneumonia. The patient was intubated between July 30 and August 05, 2020. Post extubation, I had a long discussion with the patient's who decided the patient should not be reintubated should it come to that. Currently, the patient has a history of acute hypoxemic respiratory failure. In addition, did test positive for COVID-19 pneumonia/pneumonitis. Currently, she is on D5 0.9 at 75 mL an hour, high- frequency nasal cannula at 10 L/minute. Yesterday, she was on TwoCal HN at 30 mL an hour, but is not currently running. The patient appears to be much more awake and alert today and states that her breathing is a bit worse today than it was yesterday. Yesterday, she was on 5 L nasal cannula. Currently, she is clinically unchanged. She does have a history of atrial fibrillation, hypertension, hypothyroidism, general medical debility, C difficile colitis, and chronic anemia. Current vital signs are reviewed, temperature is 98.2, heart rate is 99, respiratory rate 18, blood pressure 114/83 mean 93 and saturations on the 10 L is 88%-92%. She appears mildly tachypneic and dyspneic. No conversational dyspnea. No use of accessory muscles. HEENT: Examination is grossly unremarkable. Nasal cannula noted. NECK: Supple, full range of motion. No adenopathy. Neck veins are flat. CARDIOVASCULAR: Examination reveals regular rhythm and rate. Heart rate about 100 beats per minute. She is in sinus rhythm. Heart sounds are distant. LUNGS: Reveal diffuse coarse rhonchi bilaterally. No wheezes or crackles. Breath sounds equal. ABDOMEN: Soft, bowel sounds are not noted. EXTREMITIES: Intact. No cyanosis, clubbing, or significant edema. SKIN: Without rash. NEUROLOGIC: Examination is nonfocal. LABS: Reviewed. White count 8.4, hemoglobin 7.6, hematocrit 23.8, platelet count 245,000. Microbiology is currently negative. No recent chest x-ray to report. The last chest x-ray done on August 17 shows diffuse bilateral infiltrates. CURRENT MEDICATIONS: Reviewed. The patient is on Tylenol, albuterol inhaler, amlodipine, Eliquis, Lipitor, Questran, vitamin B12, IV of D5 0.9 at 75, ferrous sulfate, insulin, levothyroxine, metoprolol, Protonix, Seroquel, and potassium replacement. ASSESSMENT: 1. COVID-19 pneumonitis, with acute hypoxemic respiratory failure, with intubation on July 30 and successful extubation on August 05, 2020. 2. Mental status changes and profound weakness, likely secondary to her prolonged stay in the ICU, as well as COVID-19 defect on the central nervous system. 3. New onset atrial fibrillation with rapid ventricular response, currently in sinus rhythm. 4. History of essential hypertension. 5. History of hypothyroidism. 6. Status post NG tube placement for enteral nutrition. 7. History of dysphagia and chronic aspiration. 8. Clostridium difficile colitis. 9. Chronic anemia. 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 PLAN: Currently, the patient is doing a bit worse from the oxygenation standpoint. The patient is not to be reintubated, although apparently the code status had has now been changed. Prior, the patient was a DNR. No additional recommendations are made. Prognosis is guarded. Oxygen requirements have gone up in the last 24 hours. Will continue to follow closely. Prognosis is poor. MMODL / IJN: [id number] /
--- NOTE | 2020-08-19 14:14 | P.PN ---
Subjective Progress Note Date: 08/19/20 This is a pleasant 75 years old female with past medical history of hypertension, hypothyroidism. Patient could not provide much information so it was taken From staff and records. She presents to [facility] with respiratory symptoms and dyspnea associated with some complaint but no chest pain. There she was treated for atrial fibrillation with RVR and she was found to have positive covid 19 test. Patient is afebrile, she is tachypneic with respiratory rate about 26-27, hypoxic with oxygen saturation of 99% on 15 L via nasal cannula. Blood pressure is 106/89. CBC from today is unremarkable. Troponin is elevated 0.17. High lactate dehydrogenase 1276 and C-reactive protein 256. And once is negative. Chest x- ray showing severe pulmonary edema could relate to RDS and is similar to a computed tomography scan earlier today 07/31/2020 Patient was admitted with Covid pneumonia and respiratory failure, her condition got deteriorated yesterday and she got intubated and now she is on mechanical ventilation was pulmonary/critical care team monitor and carefully. Also she had A. fib with RVR and converted to sinus rhythm, her Cardizem drip was stopped and her heparin drip was switched liquids. She continued to be on Zithromax and ceftriaxone and vitamins C and zinc 08/01/2020 Patient is admitted with Covid pneumonia and course is complicated by A. fib and RVR. Patient remains in the ICU in critical condition, she is intubated and on mechanical ventilation with pulmonary/critical care team on the case. Also cartilage informed the case closely Treatments and dexamethasone, liquids, zinc, vitamin C, antibiotics with Zithromax and ceftriaxone. No reemdesivir as per pulmonary team recommendation Today I was contacted by the social services specialist and stop that the patient and ignacia blandon works in [place] they want patient to be transferred upon the request to [facility] I discussed the case with who declined To accept the patient to be transferred to [facility] 08/02/2020 Patient is in the ICU for bilateral covid Pneumonia, she is intubated and on mechanical ventilation. Her heart rate atrial fibrillation was converted to sinus rhythm and currently her own in the low 50s. Blood pressure is just above 100. Patient does not need support by pressors. Leukocytosis is improving, BMP is unremarkable. Influenza virus is negative. Chest x-ray showed persistent bilateral mid to lower lung acute infiltrate and/or edema. No significant change from one day earlier Patient remains on dexamethasone, Eliquis and broad-spectrum antibiotics. Patient in the ICU intubated, pulmonary/critical care team are planning CPAP tomorrow, PEEP dropped. Other than that, change from yesterday, her heart rate shown bradycardia although in sinus rhythm therefore Cardizem and beta blockers were stopped, patient kept on Eliquis for her A. fib and cardiology team signed off. Patient on Zithromax, ceftriaxone, dexamethasone no remdesivir . she is status convescalnet plasam as well 08/04/20 Patient is still on mechanical ventilation, pulmonary/critical care team trying breathing for the patient but with no success today Other than that She'll continue with same treatment of steroids, Eliquis, azithromycin and ceftriaxone. No Cardizem or beta blockers for bradycardia. However heart rate is improved today to 60-70. WBC trending down to 12 K 08/05/20 pt is extubated today by pulmonary team , after extubation she started having stroke like ,left arm weakness, lip and left eye droop , and possible leg weakness, CT of brain is negative for stroke and CTA of the brain is ordered and is pending , neurologist was consulted who ordered MRI of the brain tomorrow. pt is currently saturating on 5 L/m of oxygen Eliquis was held by consultants while she remains on dexamethasone, stress and Zithromax. Chest x-ray looks stable Patient is followed closely by pulmonary/critical care team 08/06/2020 Patient is status extubation currently on 6 L oxygen. Pulmonary team discontinue with vitamin C and zinc and this continue with Zithromax and ceftriaxone. Patient is kept on dexamethasone Her left side weakness improved, neurology on the case MRI of the brain did not show stroke. Anticoagulation resumed with heparin drip per cardiology team for now D-dimer is 2.9, WBC 13 K. Heart rate is 60-70 sinus rhythm. 08/07/2020 Patient is awake and alert, calm in the ICU. She is currently on the liter per minute oxygen via high flow cannula Patient weakness and facial droop has resolved. Neurology team signed off. Respiratory status is slightly worse. Pulmonary team R following the case closely and they discussed and further management plan with the patient and family, please refer to their note for more details. In the meantime she remains on dexamethasone, heparin drip and bronchodilator 08/11/2020 Patient remains in the ICU and some respiratory distress, she is tachypneic at 22-30 breath per minute, she needs 15 L of oxygen via nonrebreather. And she remains on the same treatment for her Covid pneumonia with dexamethasone, Eliquis and albuterol. Also she is on D5 normal saline at 75 mL/h for episodes of hypoglycemia yesterday. Also she is on oral vancomycin for C. diff colitis 08/12/2020 patient remains in the ICU with oropharyngeal tube getting feeding. She is alert and partially confused but she looks tired and weak. She's still with loose stool and she's been treated for C. diff colitis with oral vancomycin She still on high dose of oxygen at 2 L/m via nonrebreather and she is tachypneic 25-27 per minute Chest x-ray showed persistent bilateral infiltrates. Related to her covid pneumonia She remains on dexamethasone 08/13/2020 patient today remains in the ICU, she is doing okay, it seems like her oxygen requirements was meshed to be titrated down to 4 L/m this morning. She still confused and [place] of her tubes including a oxygen mask but today is she is more calm with less such problems. Hemodynamically she is stable She passed a swallow evaluation however she still on tube feeding but we will try to feed her today Still has runny diarrhea and on oral vancomycin Chest x-ray from today showing diffuse multifocal airspace disease correlated for pneumonia. Findings stable. She remains on dexamethasone 6 mg, Eliquis 2.5 mg, D5 normal saline at 75 mL/h. Oral vancomycin. And metoprolol 25 mg daily was added recently by family development specialist 08/14/2020 Patient still somewhat confused with only mild partial improvement compared to yesterday Chest x-ray showing the same findings dexamethasone wants. Today, the 50s given because of low glucose, however patient is not on insulin or any diabetic medication Patient remains on Eliquis 2.5 mg, oral vancomycin and D5 normal saline at 75 mL/h, also she is on metoprolol 25 mg of Seroquel 50 mg as needed acute WBC and inflammatory markers are trending down, hemoglobin dropped from 10 down to 7.2 over 2 days she is saturating 92% on 3 L oxygen via nasal cannula at rest of vitals looks stable monitor hemoglobin closely 08/15/2020 [facility] and continues to be closely monitored. Hemoglobin was found to be 6.3 this morning and currently receiving a unit of PRBCs. We'll continue to monitor closely and transfuse as needed. Blood sugars have been on the lower side and will continue with Accu-Cheks before meals at bedtime along with sliding scale. Patient is maintained on D5 normal saline and will continue at this time. Patient is also currently receiving nutrition via tube feedings. Patient is currently on a Ventimask at 93% and will continue to monitor closely. Pulmonary is following closely. Patient continues to be somewhat confused and attempts to pull oxygen off and tube feedings out. Patient currently on oral antibiotics in the form of vancomycin for C. diff and will continue at this time. Patient has been taken off anticoagulation of eliquis and will continue to monitor for any signs of bleeding. 08/16/2020 Patient is seen and evaluated and follow-up and continues to be lethargic although arousable. Patient continues to be confused at times and will pull at NG tubing and nasal cannula. Patient is off the Ventimask and now on 8 L high flow nasal cannula and is currently 93-97%. Fecal management system along with Crockett catheter continues at this time. Patient is receiving medications and nutrition through NG tube. Patient continues on oral vancomycin for C. diff colitis and will continue. Patient received 1 unit of PRBCs yesterday for a hemoglobin of 6.3 and today's hemoglobin is stable at 9.1. Will repeat a.m. labs to monitor closely. D-dimer is 1.89 today. 08/17/2020 Patient is seen and evaluated and follow-up and is currently sleeping although easily arousable. Patient appears much more alert today and responding more p roperly to questions and commands. Patient states that her breathing has not gotten worse but doesn't feel much better either. Patient remains on 8 L high flow nasal cannula. Patient's hemoglobin today is stable at 8.3 with no active bleeding noting. D-dimer trending down slowly at 1.7. Pro-calcitonin is 0.11. Patient remains on antibiotics via NG tube for C. diff along with fecal management system and will continue at this time. PT/OT following the patient along with multiple medical consultations. PT to reevaluate the patient once more stable and not as lethargic. 08/18/2020 Patient is seen in follow-up for awake and alert and responding appropriately. Per nursing staff patient removed her NG and fecal management system and was replaced. Patient was seen and evaluated recently by speech therapy recommending dysphagia level I pured diet with nectar thickened liquids and patient has been tolerating oral medications per nursing staff. We'll discontinue NG tube and monitor closely. Oxygen saturations improving slowly and is currently maintained on 5 L via nasal cannula and is 94%. Case management and social work following and working on possible placement at an ECF for continued PT/OT therapy. Multiple medical consultations continue to follow. Hemoglobin is stable at 8.4 with no active bleeding noted. Will discuss with GI about resuming anticoagulation. 08/19/2020 Patient was restarted on Eliquis although staff reported black tarry stools and drop in hemoglobin. Hemoglobin today is currently 7.6 and will hold anticoagulants again. Patient did have Crockett catheter, fecal management system, and NG tube removed. Patient is maintained on dysphagia level I diet pured and tolerating although continues to have little to no appetite and eats very small amounts. Patient's oxygen saturations were found to be in the 80s and patient was placed back on high flow nasal cannula and is currently 92% on 10 L high flow via nasal cannula. Nursing staff attempting to wean FiO2 as tolerated. Patient continues to be quite weak and will need to be reevaluated by PT/OT and most likely will require ECF for continued PT/OT therapy for strength and mobility. Patient is awake although fatigues easily. Patient responding appropriately to questions and commands although has periods of confusion. GI is following and will further discuss possible endoscopic evaluation to assess for GI bleeding. Review of systems CONSTITUTIONAL: No fever, no malaise, continued fatigue. HEENT: No recent visual problems or hearing problems. Denied any sore throat. CARDIOVASCULAR: No orthopnea, PND, no palpitations, no syncope. PULMONARY: continued shortness of breath , no cough, no hemoptysis. GASTROINTESTINAL: Positive diarrhea with improvement, no nausea, no vomiting, no abdominal pain. Normoactive bowel sounds. NEUROLOGICAL: No headaches, reports weakness, no numbness. Objective - Vital Signs Vital signs: Vital Signs Temp 98.3 F 08/19/20 05:00 Pulse 98 08/19/20 05:00 Resp 18 08/18/20 21:29 BP 112/68 08/19/20 05:00 Pulse Ox 98 08/19/20 05:00 Intake & Output 08/18/20 08/19/20 08/19/20 18:59 06:59 18:59 Intake Total 600 Output Total 750 Balance -750 600 Weight 58 kg 54.5 kg Intake: IV 600 Dextrose 5%-0.9% NaCl 1, 600 000 ml @ 75 mls/hr IV . [id number] Rx#:[id number] Output: Urine 750 Other: Voiding Method Indwelling Catheter Diaper Incontinent # Voids 2 # Bowel Movements 2 2 ABP, PAP, CO, CI - Last Documented Arterial Blood Pressure 143/61 - Exam GENERAL: The patient is generally weak, and continues to be somewhat confused although more alert and responding to commands and questions more appropriately today. HEENT: Pupils are round and equally reacting to light. EOMI. No scleral icterus. No conjunctival pallor. Normocephalic, atraumatic. No pharyngeal erythema. No thyromegaly. CARDIOVASCULAR: S1 and S2 present. No murmurs, rubs, or gallops. PULMONARY: Chest is clear to auscultation, no wheezing or crackles. ABDOMEN: Soft, nontender, nondistended, normoactive bowel sounds. No palpable organomegaly. MUSCULOSKELETAL: No joint swelling or deformity. EXTREMITIES: No cyanosis, clubbing, or pedal edema. NEUROLOGICAL: Left facial droop with left arm weakness. SKIN: No rashes. no petechiae. - Labs CBC & Chem 7: 08/19/20 09:45 08/18/20 06:15 Labs: Abnormal Lab Results - Last 24 Hours (Table) 08/18/20 08/18/20 08/18/20 Range/Units 06:15 12:24 18:04 Chloride 111 H (96-109) mmol/L Creatinine 0.5 L (0.6-1.5) mg/dL BUN/Creatinine Ratio 32.00 H (12.00-20.00) Ratio Glucose 118 H (70-110) mg/dL POC Glucose (mg/dL) 126 H 120 H (75-99) mg/dL Calcium 7.0 L (8.7-10.3) mg/dL Assessment and Plan Assessment: -Bilateral Covid 19 pneumonia: continue with weaning FiO2 as tolerated, currently back on 8 L NC high Flow via nasal cannula as oxygen saturations dropped into the 80s. Pulmonary following. She is status post extubation, improving -Acute hypoxic respiratory failure secondary to above -TIA with left arm and left eye and lip droop . Completely resolved and neurology signed off -Metabolic encephalopathy secondary to above -A. fib and RVR, patient rate is controlled. With metoprolol -Increased inflammatory markers secondary to above and infection, improving -Anemia, monitor hemoglobin, GI following with the possibility of endoscopic intervention if hemoglobin continues to drop, hemoglobin is 7.6 today and per nursing staff black tarry stools noted -Hypertension -Hypothyroidism -DVT prophylaxis, Eliquis was resumed yesterday although will hold again as hemoglobin dropped and black tarry stools noticed -GI prophylaxis: Protonix -Full code Plan: Continue with current medications and medical management. Multiple medical consultations including GI, cardiology, and pulmonary following. She was on 5 L of oxygen via nasal cannula although oxygen saturations continue to deteriorate and patient was placed on 15 L high flow nasal cannula. Patient is presently on 10 L high flow and tolerating. Discussed with nursing staff about weaning FiO2 as tolerated. PT/OT to reevaluate the patient. Fecal management tubing, Crockett catheter, and NG tube were discontinued yesterday as patient continued to pull them out and patient is urinating and stooling and is incontinent. Patient is maintained on dysphagia 1 pured diet and tolerating although has continued poor oral intake. Per nursing staff patient was noted to have black tarry stools and Eliquis will be discontinued again. Hemoglobin also dropped to 7.6. GI is following and will discuss the possibility of endoscopic intervention to assess for possible bleeding. Case management and social work also following as patient continues to be quite weak and will require ECF once stabilized and discharged. Due to multiple complex medical issues, prognosis is guarded. Further recommendations to follow.
[2020-08-19] MEDS: DEXTROSE 5%-0.9% NACL 1,000 ML IV SCH (14:51)
[2020-08-19 17:05] LABS: Glucose,Whole Blood 195 mg/dL (75-99)
[2020-08-19 20:45] LABS: Glucose,Whole Blood 60 mg/dL (75-99)
[2020-08-19] MEDS: QUEtiapine 50 MG TAB PO SCH (20:50)
[2020-08-19] MEDS: ATORVASTATIN 40 MG TAB PO SCH (20:50)
[2020-08-19] MEDS: amLODIPine 5 MG TAB PO SCH (20:50)
[2020-08-19 21:30] LABS: Glucose,Whole Blood 86 mg/dL (75-99)
[2020-08-20 02:02] LABS: Glucose,Whole Blood 82 mg/dL (75-99)
[2020-08-20] MEDS: DEXTROSE 5%-0.9% NACL 1,000 ML IV SCH ×2 (05:17→17:36)
[2020-08-20] MEDS: LEVOTHYROXINE 75 MCG TAB PO SCH (05:25)
[2020-08-20 06:44] LABS: Basophils % (A) 0 %; Eosinophils # (A) 0.5 k/uL (0-0.7); Eosinophils % (A) 6 %; HCT 23.8 % (34.0-46.0); HGB 7.7 gm/dL (11.4-16.0); Hypochromasia Slight; Lymphocytes # (A) 1.1 k/uL (1.0-4.8); Lymphocytes % (A) 13 %; MCH 28.7 pg (25.0-35.0); MCHC 32.2 g/dL (31.0-37.0); MCV 89.3 fL (80.0-100.0); Mean Platelet Volume 7.5; Monocytes # (A) 0.5 k/uL (0-1.0); Monocytes % (A) 6 %; Neutrophils % (A) 73 %; Platelet Count 263 k/uL (150-450); Poikilocytosis Slight; RBC 2.67 m/uL (3.80-5.40); RDW 15.5 % (11.5-15.5); WBC 8.2 k/uL (3.8-10.6)
[2020-08-20 07:26] LABS: Glucose,Whole Blood 59 mg/dL (75-99)
[2020-08-20] MEDS: INSULIN ASPART (NovoLOG) 100 UNIT/ML VIAL SQ SCH ×4 (07:33→20:14)
[2020-08-20 07:45] LABS: Glucose,Whole Blood 98 mg/dL (75-99)
[2020-08-20] MEDS: ALBUTEROL HFA INHALER INHALATION SCH ×4 (08:07→19:19)
[2020-08-20] MEDS: CHOLESTYRAMINE (WITH SUGAR) 4 GM PACKET PO SCH ×2 (09:47→17:36)
[2020-08-20] MEDS: METOPROLOL TARTRATE 25 MG TAB PO SCH (09:47)
[2020-08-20] MEDS: FERROUS SULFATE ORAL ELIXIR 300 MG/5 ML CUP PO SCH ×2 (09:47→17:36)
[2020-08-20] MEDS: PANTOPRAZOLE 40 MG/10 ML VIAL IVP SCH ×2 (09:47→20:27)
[2020-08-20] MEDS: CYANOCOBALAMIN 1,000 MCG/ML 1 ML VIAL IM SCH (09:47)
[2020-08-20 11:32] LABS: Anion Gap 6.3 mmol/L (4.00-12.00); Calcium 7.3 mg/dL (8.7-10.3); Carbon Dioxide 25.7 mmol/L (21.6-31.8); Potassium 3.2 mmol/L (3.5-5.5)
[2020-08-20 12:09] LABS: Glucose,Whole Blood 97 mg/dL (75-99)
[2020-08-20] MEDS ORDERED: POTASSIUM CHLORIDE ER 20 MEQ TAB.ER PO STA (12:19)
--- NOTE | 2020-08-20 12:28 | P.PN ---
Subjective Progress Note Date: 08/20/20 This is a pleasant 75 years old female with past medical history of hypertension, hypothyroidism. Patient could not provide much information so it was taken From staff and records. She presents to [facility] with respiratory symptoms and dyspnea associated with some complaint but no chest pain. There she was treated for atrial fibrillation with RVR and she was found to have positive covid 19 test. Patient is afebrile, she is tachypneic with respiratory rate about 26-27, hypoxic with oxygen saturation of 99% on 15 L via nasal cannula. Blood pressure is 106/89. CBC from today is unremarkable. Troponin is elevated 0.17. High lactate dehydrogenase 1276 and C-reactive protein 256. And once is negative. Chest x- ray showing severe pulmonary edema could relate to RDS and is similar to a computed tomography scan earlier today 07/31/2020 Patient was admitted with Covid pneumonia and respiratory failure, her condition got deteriorated yesterday and she got intubated and now she is on mechanical ventilation was pulmonary/critical care team monitor and carefully. Also she had A. fib with RVR and converted to sinus rhythm, her Cardizem drip was stopped and her heparin drip was switched liquids. She continued to be on Zithromax and ceftriaxone and vitamins C and zinc 08/01/2020 Patient is admitted with Covid pneumonia and course is complicated by A. fib and RVR. Patient remains in the ICU in critical condition, she is intubated and on mechanical ventilation with pulmonary/critical care team on the case. Also cartilage informed the case closely Treatments and dexamethasone, liquids, zinc, vitamin C, antibiotics with Zithromax and ceftriaxone. No reemdesivir as per pulmonary team recommendation Today I was contacted by the secondary social studies teacher and stop that the patient and ignacia blandon works in [place] they want patient to be transferred upon the request to [facility] I discussed the case with who declined To accept the patient to be transferred to [facility] 08/02/2020 Patient is in the ICU for bilateral covid Pneumonia, she is intubated and on mechanical ventilation. Her heart rate atrial fibrillation was converted to sinus rhythm and currently her own in the low 50s. Blood pressure is just above 100. Patient does not need support by pressors. Leukocytosis is improving, BMP is unremarkable. Influenza virus is negative. Chest x-ray showed persistent bilateral mid to lower lung acute infiltrate and/or edema. No significant change from one day earlier Patient remains on dexamethasone, Eliquis and broad-spectrum antibiotics. Patient in the ICU intubated, pulmonary/critical care team are planning CPAP tomorrow, PEEP dropped. Other than that, change from yesterday, her heart rate shown bradycardia although in sinus rhythm therefore Cardizem and beta blockers were stopped, patient kept on Eliquis for her A. fib and cardiology team signed off. Patient on Zithromax, ceftriaxone, dexamethasone no remdesivir . she is status convescalnet plasam as well 08/04/20 Patient is still on mechanical ventilation, pulmonary/critical care team trying breathing for the patient but with no success today Other than that She'll continue with same treatment of steroids, Eliquis, azithromycin and ceftriaxone. No Cardizem or beta blockers for bradycardia. However heart rate is improved today to 60-70. WBC trending down to 12 K 08/05/20 pt is extubated today by pulmonary team , after extubation she started having stroke like ,left arm weakness, lip and left eye droop , and possible leg weakness, CT of brain is negative for stroke and CTA of the brain is ordered and is pending , neurologist was consulted who ordered MRI of the brain tomorrow. pt is currently saturating on 5 L/m of oxygen Eliquis was held by consultants while she remains on dexamethasone, stress and Zithromax. Chest x-ray looks stable Patient is followed closely by pulmonary/critical care team 08/06/2020 Patient is status extubation currently on 6 L oxygen. Pulmonary team discontinue with vitamin C and zinc and this continue with Zithromax and ceftriaxone. Patient is kept on dexamethasone Her left side weakness improved, neurology on the case MRI of the brain did not show stroke. Anticoagulation resumed with heparin drip per cardiology team for now D-dimer is 2.9, WBC 13 K. Heart rate is 60-70 sinus rhythm. 08/07/2020 Patient is awake and alert, calm in the ICU. She is currently on the liter per minute oxygen via high flow cannula Patient weakness and facial droop has resolved. Neurology team signed off. Respiratory status is slightly worse. Pulmonary team R following the case closely and they discussed and further management plan with the patient and family, please refer to their note for more details. In the meantime she remains on dexamethasone, heparin drip and bronchodilator 08/11/2020 Patient remains in the ICU and some respiratory distress, she is tachypneic at 22-30 breath per minute, she needs 15 L of oxygen via nonrebreather. And she remains on the same treatment for her Covid pneumonia with dexamethasone, Eliquis and albuterol. Also she is on D5 normal saline at 75 mL/h for episodes of hypoglycemia yesterday. Also she is on oral vancomycin for C. diff colitis 08/12/2020 patient remains in the ICU with oropharyngeal tube getting feeding. She is alert and partially confused but she looks tired and weak. She's still with loose stool and she's been treated for C. diff colitis with oral vancomycin She still on high dose of oxygen at 2 L/m via nonrebreather and she is tachypneic 25-27 per minute Chest x-ray showed persistent bilateral infiltrates. Related to her covid pneumonia She remains on dexamethasone 08/13/2020 patient today remains in the ICU, she is doing okay, it seems like her oxygen requirements was meshed to be titrated down to 4 L/m this morning. She still confused and [place] of her tubes including a oxygen mask but today is she is more calm with less such problems. Hemodynamically she is stable She passed a swallow evaluation however she still on tube feeding but we will try to feed her today Still has runny diarrhea and on oral vancomycin Chest x-ray from today showing diffuse multifocal airspace disease correlated for pneumonia. Findings stable. She remains on dexamethasone 6 mg, Eliquis 2.5 mg, D5 normal saline at 75 mL/h. Oral vancomycin. And metoprolol 25 mg daily was added recently by hob grinder 08/14/2020 Patient still somewhat confused with only mild partial improvement compared to yesterday Chest x-ray showing the same findings dexamethasone wants. Today, the 50s given because of low glucose, however patient is not on insulin or any diabetic medication Patient remains on Eliquis 2.5 mg, oral vancomycin and D5 normal saline at 75 mL/h, also she is on metoprolol 25 mg of Seroquel 50 mg as needed acute WBC and inflammatory markers are trending down, hemoglobin dropped from 10 down to 7.2 over 2 days she is saturating 92% on 3 L oxygen via nasal cannula at rest of vitals looks stable monitor hemoglobin closely 08/15/2020 [facility] and continues to be closely monitored. Hemoglobin was found to be 6.3 this morning and currently receiving a unit of PRBCs. We'll continue to monitor closely and transfuse as needed. Blood sugars have been on the lower side and will continue with Accu-Cheks before meals at bedtime along with sliding scale. Patient is maintained on D5 normal saline and will continue at this time. Patient is also currently receiving nutrition via tube feedings. Patient is currently on a Ventimask at 93% and will continue to monitor closely. Pulmonary is following closely. Patient continues to be somewhat confused and attempts to pull oxygen off and tube feedings out. Patient currently on oral antibiotics in the form of vancomycin for C. diff and will continue at this time. Patient has been taken off anticoagulation of eliquis and will continue to monitor for any signs of bleeding. 08/16/2020 Patient is seen and evaluated and follow-up and continues to be lethargic although arousable. Patient continues to be confused at times and will pull at NG tubing and nasal cannula. Patient is off the Ventimask and now on 8 L high flow nasal cannula and is currently 93-97%. Fecal management system along with Crockett catheter continues at this time. Patient is receiving medications and nutrition through NG tube. Patient continues on oral vancomycin for C. diff colitis and will continue. Patient received 1 unit of PRBCs yesterday for a hemoglobin of 6.3 and today's hemoglobin is stable at 9.1. Will repeat a.m. labs to monitor closely. D-dimer is 1.89 today. 08/17/2020 Patient is seen and evaluated and follow-up and is currently sleeping although easily arousable. Patient appears much more alert today and responding more p roperly to questions and commands. Patient states that her breathing has not gotten worse but doesn't feel much better either. Patient remains on 8 L high flow nasal cannula. Patient's hemoglobin today is stable at 8.3 with no active bleeding noting. D-dimer trending down slowly at 1.7. Pro-calcitonin is 0.11. Patient remains on antibiotics via NG tube for C. diff along with fecal management system and will continue at this time. PT/OT following the patient along with multiple medical consultations. PT to reevaluate the patient once more stable and not as lethargic. 08/18/2020 Patient is seen in follow-up for awake and alert and responding appropriately. Per nursing staff patient removed her NG and fecal management system and was replaced. Patient was seen and evaluated recently by speech therapy recommending dysphagia level I pured diet with nectar thickened liquids and patient has been tolerating oral medications per nursing staff. We'll discontinue NG tube and monitor closely. Oxygen saturations improving slowly and is currently maintained on 5 L via nasal cannula and is 94%. Case management and social work following and working on possible placement at an ECF for continued PT/OT therapy. Multiple medical consultations continue to follow. Hemoglobin is stable at 8.4 with no active bleeding noted. Will discuss with GI about resuming anticoagulation. 08/19/2020 Patient was restarted on Eliquis although staff reported black tarry stools and drop in hemoglobin. Hemoglobin today is currently 7.6 and will hold anticoagulants again. Patient did have Crockett catheter, fecal management system, and NG tube removed. Patient is maintained on dysphagia level I diet pured and tolerating although continues to have little to no appetite and eats very small amounts. Patient's oxygen saturations were found to be in the 80s and patient was placed back on high flow nasal cannula and is currently 92% on 10 L high flow via nasal cannula. Nursing staff attempting to wean FiO2 as tolerated. Patient continues to be quite weak and will need to be reevaluated by PT/OT and most likely will require ECF for continued PT/OT therapy for strength and mobility. Patient is awake although fatigues easily. Patient responding appropriately to questions and commands although has periods of confusion. GI is following and will further discuss possible endoscopic evaluation to assess for GI bleeding. 08/20/2020 Patient seen in follow-up this morning continues to be lethargic although easily arousable. Patient currently working with physical therapy to get up and sit in the chair. GI following and planning for possible EGD tomorrow. Hemoglobin is currently stable at 7.7. Potassium was found to be slightly low at 3.2 and being replaced. Patient continues to have poor oral intake although does eat with assistance and encouragement. Patient is currently on 8 L of high flow nasal cannula at 96% and discussed with nursing staff about weaning slowly as tolerated. Will continue to hold anticoagulant and monitor vital signs and labs closely. Had a lengthy discussion with Andrew yesterday about treatment plan and further plans moving forward and made him aware of possible EGD. Review of systems CONSTITUTIONAL: No fever, no malaise, continued fatigue. HEENT: No recent visual problems or hearing problems. Denied any sore throat. CARDIOVASCULAR: No orthopnea, PND, no palpitations, no syncope. PULMONARY: continued shortness of breath although states improved today, no cough, no hemoptysis. GASTROINTESTINAL: Positive diarrhea with improvement, no nausea, no vomiting, no abdominal pain. Normoactive bowel sounds. NEUROLOGICAL: No headaches, reports weakness, no numbness. Objective - Vital Signs Vital signs: Vital Signs Temp 99.1 F 08/20/20 05:00 Pulse 90 08/20/20 05:00 Resp 18 08/19/20 23:00 BP 115/54 08/20/20 05:00 Pulse Ox 96 08/20/20 05:00 Intake & Output 08/19/20 08/20/20 08/20/20 18:59 06:59 18:59 Intake Total 600 Balance 600 Weight 47.5 kg Intake: IV 600 Dextrose 5%-0.9% NaCl 1, 600 000 ml @ 75 mls/hr IV . [id number] [facility] Rx#:[id number] Other: Voiding Method Diaper Diaper Incontinent Incontinent # Voids 2 ABP, PAP, CO, CI - Last Documented Arterial Blood Pressure 143/61 - Exam GENERAL: The patient is generally weak, and continues to be somewhat confused although more alert and responding to commands and questions more appropriately each day. HEENT: Pupils are round and equally reacting to light. EOMI. No scleral icterus. No conjunctival pallor. Normocephalic, atraumatic. No pharyngeal erythema. No thyromegaly. CARDIOVASCULAR: S1 and S2 present. No murmurs, rubs, or gallops. PULMONARY: Chest is clear to auscultation, no wheezing or crackles. ABDOMEN: Soft, nontender, nondistended, normoactive bowel sounds. No palpable organomegaly. MUSCULOSKELETAL: No joint swelling or deformity. EXTREMITIES: No cyanosis, clubbing, or pedal edema. NEUROLOGICAL: No focal deficits noted. Diffusely weak SKIN: No rashes. no petechiae. - Labs CBC & Chem 7: 08/20/20 05:47 08/20/20 05:47 Labs: Abnormal Lab Results - Last 24 Hours (Table) 08/19/20 08/19/20 08/20/20 Range/Units 16:52 20:44 05:47 RBC 2.67 L (3.80-5.40) m/uL Hgb 7.7 L (11.4-16.0) gm/dL Hct 23.8 L (34.0-46.0) % POC Glucose (mg/dL) 195 H 60 L (75-99) mg/dL 08/20/20 Range/Units 07:24 RBC (3.80-5.40) m/uL Hgb (11.4-16.0) gm/dL Hct (34.0-46.0) % POC Glucose (mg/dL) 59 L (75-99) mg/dL Assessment and Plan Assessment: -Bilateral Covid 19 pneumonia: continue with weaning FiO2 as tolerated, currently on 8 L NC high Flow via nasal cannula and oxygen saturation is 96%. Discussed with nursing staff about weaning FiO2 as tolerated. Pulmonary following. She is status post extubation, improving -Acute hypoxic respiratory failure secondary to above -TIA with left arm and left eye and lip droop . Completely resolved and neurology signed off -Metabolic encephalopathy secondary to above -A. fib and RVR, patient rate is controlled. With metoprolol -Increased inflammatory markers secondary to above and infection, improving -Anemia, monitor hemoglobin, GI following with transfer EGD tomorrow. Hemoglobin today is 7.7 -Hypertension -Hypothyroidism -DVT prophylaxis, Eliquis continues to be on hold -GI prophylaxis: Protonix -Full code Plan: Continue with current medications and medical management. Multiple medical consultations including GI, cardiology, and pulmonary following. Discussed with nursing staff about weaning FiO2 as tolerated. Currently on 8 L high flow and is 96% to continue weaning. PT/OT following an assisted the patient to the chair. Will await PT report. Patient is maintained on dysphagia 1 pured diet and tolerating although has continued poor oral intake. Patient needs encouragement and assistance with meals. Due to her recent drop in hemoglobin again and reported black tarry stools will continue to hold anticoagulants and GI is following and planning for EGD in the morning. Case management and social work also following as patient continues to be quite weak and will require ECF once stabilized and discharged. Due to multiple complex medical issues, prognosis is guarded. Further recommendations to follow.
--- NOTE | 2020-08-20 14:17 | P.PN ---
Subjective Progress Note Date: 08/20/20 Principal diagnosis: Iron deficiency anemia, Covid-19 infection This is a 75-year-old female with multiple medical comorbidities and significant hospital course for treatment of coated 19 infection, Clostridium difficile colitis and atrial fibrillation. She had a fall in her hemoglobin during her hospitalization down to 6.8, she was transfused with 1 unit of packed red blood cells which brought her hemoglobin up to 9.1. She was restarted on her Eliquis, her Hg dropped to 7.6. Her Eliquis has been put on hold. Patient has had no further black stools or melena. She denies any abdominal pain, nausea, or vomiting. She states she is feeling better. She is eating today. Her hemoglobin remains stable at 7.7 today. Objective - Vital Signs Vital signs: Vital Signs Temp 98 F 08/20/20 11:00 Pulse 91 08/20/20 11:00 Resp 18 08/20/20 11:00 BP 118/62 08/20/20 11:00 Pulse Ox 96 08/20/20 05:00 Intake & Output 08/19/20 08/20/20 08/20/20 18:59 06:59 18:59 Intake Total 600 Balance 600 Weight 47.5 kg Intake: IV 600 Dextrose 5%-0.9% NaCl 1, 600 000 ml @ 75 mls/hr IV . [id number] [facility] Rx#:[id number] Other: Voiding Method Diaper Diaper Diaper Incontinent Incontinent Incontinent # Voids 2 ABP, PAP, CO, CI - Last Documented Arterial Blood Pressure 143/61 - Exam General appearance: The patient is alert, oriented, in no acute distress. HET: Head is normocephalic and atraumatic. Conjunctiva pink. Sclera anicteric. Neck: Supple without lymphadenopathy. Abdomen: Soft, nontender, nondistended with bowel sounds. No guarding or rigidity. Extremities: Normal skin color and turgor. No pedal edema Neurological: No focal deficits. Alert and oriented 3. - Labs CBC & Chem 7: 08/20/20 05:47 08/20/20 05:47 Labs: Abnormal Lab Results - Last 24 Hours (Table) 08/19/20 08/19/20 08/20/20 Range/Units 16:52 20:44 05:47 RBC 2.67 L (3.80-5.40) m/uL Hgb 7.7 L (11.4-16.0) gm/dL Hct 23.8 L (34.0-46.0) % Potassium (3.5-5.5) mmol/L BUN (9.0-27.0) mg/dL Creatinine (0.6-1.5) mg/dL POC Glucose (mg/dL) 195 H 60 L (75-99) mg/dL Calcium (8.7-10.3) mg/dL 08/20/20 08/20/20 Range/Units 05:47 07:24 RBC (3.80-5.40) m/uL Hgb (11.4-16.0) gm/dL Hct (34.0-46.0) % Potassium 3.2 L (3.5-5.5) mmol/L BUN 7.0 L (9.0-27.0) mg/dL Creatinine 0.5 L (0.6-1.5) mg/dL POC Glucose (mg/dL) 59 L (75-99) mg/dL Calcium 7.3 L (8.7-10.3) mg/dL Assessment and Plan (1) Iron deficiency anemia Narrative/Plan: 75-year-old female with multiple medical comorbidities and hospital course significant for treatment for Covid 19 infection, Clostridium difficile colitis and atrial fibrillation. Patient was noted to have a fall in her hemoglobin during her hospitalization. No reports of any signs or symptoms of GI bleeding. She is tolerating her NG tube feeds. Iron studies were suggestive of an iron deficiency anemia. She is getting oral iron replacement. Currently she is receiving PPI therapy. Today's hemoglobin 7.7, with no reports of black tarry stools or melena. Eliquis is on hold. Will continue to monitor for GI bleed.. Current Visit: Yes Status: Acute Code(s): D50.9 - IRON DEFICIENCY ANEMIA, UNSPECIFIED SNOMED Code(s): 99796499 (2) COVID-19 Current Visit: Yes Status: Acute Code(s): U07.1 - COVID-19 SNOMED Code(s): 145024881 (3) Positive occult stool blood test Current Visit: Yes Status: Acute Code(s): R19.5 - OTHER FECAL ABNORMALITIES SNOMED Code(s): 66045336 (4) Clostridium difficile diarrhea Current Visit: Yes Status: Acute Code(s): A04.72 - ENTEROCOLITIS D/T CLOSTRIDIUM DIFFICILE, NOT SPCF RECUR SNOMED Code(s): 8323323399009 Plan: Supportive care Diet as tolerated Continue to monitor hemoglobin and hematocrit and transfuse as needed Continue twice daily Protonix therapy May Resume Anticoagulation Patient was treated with vancomycin for Clostridium difficile, Questran ordered for diarrhea Continue other medical management per primary team and consulting services No plans for endoscopy unless further signs of GI bleed with drop in hemoglobin Thank you for allowing us to participate in the care of the patient we will continue to follow Dr. Willy Pena I agree with the dictator's note, documented as a scribe by Maryan Leach.
--- NOTE | 2020-08-20 15:09 | P.PN ---
Subjective Progress Note Date: 08/20/20 Principal diagnosis: Acute hypoxic respiratory failure secondary to CoVID 19 pneumonitis The patient is seen today 08/20/2020 in follow-up on the regular medical floor. She is currently sitting up in a chair at the bedside. Having lunch. Awake and alert in no acute distress. She is on 6 L high flow nasal cannula. O2 saturation in the 90s. White count 8.2. Hemoglobin 7.7. Sodium 137. Potassium 3.2. Creatinine 0.5. Objective - Vital Signs Vital signs: Vital Signs Temp 98 F 08/20/20 11:00 Pulse 91 08/20/20 11:00 Resp 18 08/20/20 11:00 BP 118/62 08/20/20 11:00 Pulse Ox 96 08/20/20 05:00 Intake & Output 08/19/20 08/20/20 08/20/20 18:59 06:59 18:59 Intake Total 600 Balance 600 Weight 47.5 kg Intake: IV 600 Dextrose 5%-0.9% NaCl 1, 600 000 ml @ 75 mls/hr IV . [id number] [facility] Rx#:[id number] Other: Voiding Method Diaper Diaper Diaper Incontinent Incontinent Incontinent # Voids 2 ABP, PAP, CO, CI - Last Documented Arterial Blood Pressure 143/61 - Exam GENERAL EXAM: Alert, pleasant, weak 75-year-old female patient, on 6 L high flow nasal cannula, in no apparent distress. HEAD: Normocephalic. EYES: Sluggish reaction of pupils, equal size. NOSE: Clear with pink turbinates. THROAT: No erythema or exudates. NECK: No masses, no JVD. CHEST: No chest wall deformity. LUNGS: Equal air entry with basilar crackles CVS: S1 and S2 normal with no audible murmur, regular rhythm. ABDOMEN: No hepatosplenomegaly, normal bowel sounds, no guarding or rigidity. SPINE: No scoliosis or deformity SKIN: No rashes CENTRAL NERVOUS SYSTEM: Extremely weak, bilateral weakness, tone is normal in all 4 extremities. EXTREMITIES: There is no peripheral edema. No clubbing, no cyanosis. Peripheral pulses are intact. - Labs CBC & Chem 7: 08/20/20 05:47 08/20/20 05:47 Labs: Abnormal Lab Results - Last 24 Hours (Table) 08/19/20 08/19/2020 Range/Units 16:52 20:44 05:47 RBC 2.67 L (3.80-5.40) m/uL Hgb 7.7 L (11.4-16.0) gm/dL Hct 23.8 L (34.0-46.0) % Potassium (3.5-5.5) mmol/L BUN (9.0-27.0) mg/dL Creatinine (0.6-1.5) mg/dL POC Glucose (mg/dL) 195 H 60 L (75-99) mg/dL Calcium (8.7-10.3) mg/dL 08/20/20 08/20/20 Range/Units 05:47 07:24 RBC (3.80-5.40) m/uL Hgb (11.4-16.0) gm/dL Hct (34.0-46.0) % Potassium 3.2 L (3.5-5.5) mmol/L BUN 7.0 L (9.0-27.0) mg/dL Creatinine 0.5 L (0.6-1.5) mg/dL POC Glucose (mg/dL) 59 L (75-99) mg/dL Calcium 7.3 L (8.7-10.3) mg/dL Assessment and Plan Assessment: Acute hypoxic respiratory failure secondary to CoVID 19 pneumonitis, required intubation and mechanical ventilation on 07/30/20. She was beyond the window to be qualified for Remdesivir. Did receive convalescent plasma. Extubated on 08/05/2020, currently on 6 L nasal cannula. Altered mental status with extreme weakness more so on the left, being evaluated by neurology. Improved. Up in a chair at the bedside. New onset atrial fibrillation with RVR, converted to sinus rhythm while in the emergency room. Remains in normal sinus rhythm. Iron deficiency anemia with transient drop in hemoglobin, status post 1 unit of packed red blood cells this admission, current hemoglobin 7.7 History of hypertension. History of hypothyroidism. Lifelong nonsmoker. Plan: The patient was seen and evaluated by Dr. Mobley Continue to titrate down the FiO2 as tolerated The plan is for transfer to [facility] on the [facility], the cosigning physician, performed a history & physical examination of the patient. Lungs sounds with crackles in the bilateral posterior bases. Maintaining good O2 saturations in the 90s on 6 L/m per nasal cannula I discussed the assessment and plan of care with my nurse practitioner, Jesenia Varma. I attest to the above note as dictated by her.
[2020-08-20 16:47] LABS: Glucose,Whole Blood 85 mg/dL (75-99)
[2020-08-20 20:06] LABS: Glucose,Whole Blood 93 mg/dL (75-99)
[2020-08-20] MEDS: ATORVASTATIN 40 MG TAB PO SCH (20:34)
[2020-08-20] MEDS: QUEtiapine 50 MG TAB PO SCH (20:34)
[2020-08-20] MEDS: amLODIPine 5 MG TAB PO SCH (20:34)
[2020-08-21] MEDS: DEXTROSE 5%-0.9% NACL 1,000 ML IV SCH ×2 (05:32→21:47)
[2020-08-21] MEDS: LEVOTHYROXINE 75 MCG TAB PO SCH (05:32)
[2020-08-21 07:05] LABS: Glucose,Whole Blood 96 mg/dL (75-99)
[2020-08-21] MEDS: INSULIN ASPART (NovoLOG) 100 UNIT/ML VIAL SQ SCH ×4 (07:42→20:53)
[2020-08-21] MEDS: FERROUS SULFATE ORAL ELIXIR 300 MG/5 ML CUP PO SCH ×2 (08:25→17:31)
[2020-08-21] MEDS: METOPROLOL TARTRATE 25 MG TAB PO SCH (08:26)
[2020-08-21] MEDS: CYANOCOBALAMIN 1,000 MCG/ML 1 ML VIAL IM SCH (08:26)
[2020-08-21] MEDS: PANTOPRAZOLE 40 MG/10 ML VIAL IVP SCH ×2 (08:26→21:46)
[2020-08-21] MEDS: ALBUTEROL HFA INHALER INHALATION SCH ×4 (08:56→19:46)
[2020-08-21] MEDS: CHOLESTYRAMINE (WITH SUGAR) 4 GM PACKET PO SCH ×2 (09:13→17:30)
[2020-08-21] MEDS: APIXABAN 2.5 MG TABLET PO SCH ×2 (09:13→21:46)
[2020-08-21 09:16] LABS: HCT 23.1 % (34.0-46.0); HGB 7.6 gm/dL (11.4-16.0); Hypochromasia Slight; MCH 28.9 pg (25.0-35.0); MCHC 33.1 g/dL (31.0-37.0); MCV 87.3 fL (80.0-100.0); Mean Platelet Volume 7.1; Platelet Count 308 k/uL (150-450); Poikilocytosis Slight; RBC 2.65 m/uL (3.80-5.40); RDW 15.9 % (11.5-15.5); WBC 8.1 k/uL (3.8-10.6)
[2020-08-21 09:24] LABS: African American GFR (CKD) >90 (>60 ml/min/1.73 sqM); Anion Gap 2 mmol/L; Blood Urea Nitrogen 4 mg/dL (7-17); Calcium 7.1 mg/dL (8.4-10.2); Carbon Dioxide 26 mmol/L (22-30); Chloride 108 mmol/L (98-107); Glucose 88 mg/dL (74-99); Non-African American GFR(CKD) 87 (>60 ml/min/1.73 sqM); Potassium 3.3 mmol/L (3.5-5.1); Sodium 136 mmol/L (137-145)
[2020-08-21] MEDS ORDERED: POTASSIUM CHLORIDE ER 20 MEQ TAB.ER PO STA (10:36)
[2020-08-21 12:03] LABS: Glucose,Whole Blood 68 mg/dL (75-99)
[2020-08-21 12:34] LABS: Glucose,Whole Blood 115 mg/dL (75-99)
[2020-08-21 13:07] VITALS: BMI 19.8
--- NOTE | 2020-08-21 13:22 | P.PN ---
Subjective Progress Note Date: 08/21/20 Principal diagnosis: Iron deficiency anemia, Covid-19 infection This is a 75-year-old female with multiple medical comorbidities and significant hospital course for treatment of coated 19 infection, Clostridium difficile colitis and atrial fibrillation. She had a fall in her hemoglobin during her hospitalization down to 6.8, she was transfused with 1 unit of packed red blood cells which brought her hemoglobin up to 9.1. There is been no more reported black stools. Patient denies any nausea, vomiting, or abdominal pain. Her Eliquis is being restarted. Her hemoglobin this morning is 7.6. No other signs of GI bleed. Objective - Vital Signs Vital signs: Vital Signs Temp 97.4 F L 08/21/20 12:50 Pulse 78 08/21/20 12:50 Resp 22 08/21/20 12:50 BP 107/50 08/21/20 12:50 Pulse Ox 88 L 08/21/20 12:50 Intake & Output 08/20/20 08/21/20 08/21/20 18:59 06:59 18:59 Intake Total 1350 1020 Output Total 400 Balance 950 1020 Weight 47.5 kg Intake: IV 600 900 Dextrose 5%-0.9% NaCl 1, 600 900 000 ml @ 75 mls/hr IV . [id number] [facility] Rx#:[id number] Intake, IV Titration 750 Amount Dextrose 5%-0.9% NaCl 1, 750 000 ml @ 75 mls/hr IV . [id number] [facility] Rx#:[id number] Oral 120 Output: Urine 400 Other: Voiding Method Diaper Diaper Diaper Incontinent Incontinent Incontinent # Voids 2 1 # Bowel Movements 1 ABP, PAP, CO, CI - Last Documented Arterial Blood Pressure 143/61 - Exam General appearance: The patient is alert, oriented, in no acute distress. HET: Head is normocephalic and atraumatic. Conjunctiva pink. Sclera anicteric. Neck: Supple without lymphadenopathy. Abdomen: Soft, nontender, nondistended with bowel sounds. No guarding or rigidity. Extremities: Normal skin color and turgor. No pedal edema Neurological: No focal deficits. Alert and oriented 3. - Labs CBC & Chem 7: 08/21/20 08:52 08/21/20 08:52 Labs: Abnormal Lab Results - Last 24 Hours (Table) 12/18/20 12/18/20 12/18/20 Range/Units 08:52 08:52 12:01 RBC 2.65 L (3.80-5.40) m/uL Hgb 7.6 L (11.4-16.0) gm/dL Hct 23.1 L (34.0-46.0) % RDW 15.9 H (11.5-15.5) % Sodium 136 L (137-145) mmol/L Potassium 3.3 L (3.5-5.1) mmol/L Chloride 108 H (98-107) mmol/L BUN 4 L (7-17) mg/dL POC Glucose (mg/dL) 68 L (75-99) mg/dL Calcium 7.1 L (8.4-10.2) mg/dL 08/21/20 Range/Units 12:28 RBC (3.80-5.40) m/uL Hgb (11.4-16.0) gm/dL Hct (34.0-46.0) % RDW (11.5-15.5) % Sodium (137-145) mmol/L Potassium (3.5-5.1) mmol/L Chloride (98-107) mmol/L BUN (7-17) mg/dL POC Glucose (mg/dL) 115 H (75-99) mg/dL Calcium (8.4-10.2) mg/dL Assessment and Plan (1) Iron deficiency anemia Narrative/Plan: 75-year-old female with multiple medical comorbidities and hospital course significant for treatment for Covid 19 infection, Clostridium difficile colitis and atrial fibrillation. Patient was noted to have a fall in her hemoglobin during her hospitalization. No reports of any signs or symptoms of GI bleeding. She is tolerating her NG tube feeds. Iron studies were suggestive of an iron deficiency anemia. She is getting oral iron replacement. Currently she is receiving PPI therapy. Today's hemoglobin 7.6, with no reports of black tarry stools or melena. Eliquis restarted. We'll continue to monitor. At this time no plans for any endoscopic evaluation. Current Visit: Yes Status: Acute Code(s): D50.9 - IRON DEFICIENCY ANEMIA, UNSPECIFIED SNOMED Code(s): 93050279 (2) COVID-19 Current Visit: Yes Status: Acute Code(s): U07.1 - COVID-19 SNOMED Code(s): 796729826 (3) Positive occult stool blood test Current Visit: Yes Status: Acute Code(s): R19.5 - OTHER FECAL ABNORMALITIES SNOMED Code(s): 97852096 (4) Clostridium difficile diarrhea Current Visit: Yes Status: Acute Code(s): A04.72 - ENTEROCOLITIS D/T CLOSTRIDIUM DIFFICILE, NOT SPCF RECUR SNOMED Code(s): 5969165365636 Plan: Supportive care Diet as tolerated Continue to monitor hemoglobin and hematocrit and transfuse as needed Continue twice daily Protonix therapy May Resume Anticoagulation Patient was treated with vancomycin for Clostridium difficile, Questran ordered for diarrhea Continue other medical management per primary team and consulting services No plans for endoscopy unless further signs of GI bleed with drop in hemoglobin Thank you for allowing us to participate in the care of the patient we will continue to follow Dr. Castorena I agree with the dictator's note, documented as a scribe by Maryan Leach.
--- NOTE | 2020-08-21 14:03 | P.PN ---
Subjective Progress Note Date: 08/21/20 Principal diagnosis: Acute hypoxic respiratory failure secondary to CoVID 19 pneumonitis The patient is seen today 08/20/2020 in follow-up on the regular medical floor. She is currently sitting up in a chair at the bedside. Having lunch. Awake and alert in no acute distress. She is on 6 L high flow nasal cannula. O2 saturation in the 90s. White count 8.2. Hemoglobin 7.7. Sodium 137. Potassium 3.2. Creatinine 0.5. The patient is seen today 08/21/2020 in follow-up on the regular medical floor. She is awake and alert in no acute distress. Sitting up in a chair at the bedside. Denies any worsening shortness of breath, cough or congestion. Still requiring 6 L high flow nasal cannula to maintain O2 saturation the high 80s low 90s. She is status post 1 unit of packed red blood cell transfusion. Current hemoglobin 7.6. White count 8.1. Sodium 136. Potassium 3.3. Creatinine 0.63. She remains on bronchodilators, anticoagulated with Eliquis. Objective - Vital Signs Vital signs: Vital Signs Temp 97.4 F L 08/21/20 12:50 Pulse 78 08/21/20 12:50 Resp 22 08/21/20 12:50 BP 107/50 08/21/20 12:50 Pulse Ox 88 L 08/21/20 12:50 Intake & Output 08/20/20 08/21/20 08/21/20 18:59 06:59 18:59 Intake Total 1350 1020 Output Total 400 Balance 950 1020 Weight 47.5 kg Intake: IV 600 900 Dextrose 5%-0.9% NaCl 1, 600 900 000 ml @ 75 mls/hr IV . [id number] [facility] Rx#:[id number] Intake, IV Titration 750 Amount Dextrose 5%-0.9% NaCl 1, 750 000 ml @ 75 mls/hr IV . [id number] [facility] Rx#:[id number] Oral 120 Output: Urine 400 Other: Voiding Method Diaper Diaper Diaper Incontinent Incontinent Incontinent # Voids 2 1 # Bowel Movements 1 ABP, PAP, CO, CI - Last Documented Arterial Blood Pressure 143/61 - Exam GENERAL EXAM: Alert, pleasant, weak 75-year-old female patient, on 6 L high flow nasal cannula, in no apparent distress. HEAD: Normocephalic. EYES: Sluggish reaction of pupils, equal size. NOSE: Clear with pink turbinates. THROAT: No erythema or exudates. NECK: No masses, no JVD. CHEST: No chest wall deformity. LUNGS: Equal air entry with basilar crackles CVS: S1 and S2 normal with no audible murmur, regular rhythm. ABDOMEN: No hepatosplenomegaly, normal bowel sounds, no guarding or rigidity. SPINE: No scoliosis or deformity SKIN: No rashes CENTRAL NERVOUS SYSTEM: Extremely weak, bilateral weakness, tone is normal in all 4 extremities. EXTREMITIES: There is no peripheral edema. No clubbing, no cyanosis. Peripheral pulses are intact. - Labs CBC & Chem 7: 08/21/20 08:52 08/21/20 08:52 Labs: Abnormal Lab Results - Last 24 Hours (Table) 08/21/20 08/21/20 08/21/20 Range/Units 08:52 08:52 12:01 RBC 2.65 L (3.80-5.40) m/uL Hgb 7.6 L (11.4-16.0) gm/dL Hct 23.1 L (34.0-46.0) % RDW 15.9 H (11.5-15.5) % Sodium 136 L (137-145) mmol/L Potassium 3.3 L (3.5-5.1) mmol/L Chloride 108 H (98-107) mmol/L BUN 4 L (7-17) mg/dL POC Glucose (mg/dL) 68 L (75-99) mg/dL Calcium 7.1 L (8.4-10.2) mg/dL 08/21/20 Range/Units 12:28 RBC (3.80-5.40) m/uL Hgb (11.4-16.0) gm/dL Hct (34.0-46.0) % RDW (11.5-15.5) % Sodium (137-145) mmol/L Potassium (3.5-5.1) mmol/L Chloride (98-107) mmol/L BUN (7-17) mg/dL POC Glucose (mg/dL) 115 H (75-99) mg/dL Calcium (8.4-10.2) mg/dL Assessment and Plan Assessment: 1 Acute hypoxic respiratory failure secondary to CoVID 19 pneumonitis, required intubation and mechanical ventilation on 07/30/20. She was beyond the window to be qualified for Remdesivir. Did receive convalescent plasma. Extubated on 08/05/2020, currently on 6 L nasal cannula. 2 Altered mental status with extreme weakness more so on the left, being evaluated by neurology. Improved. Up in a chair at the bedside. 3 New onset atrial fibrillation with RVR, converted to sinus rhythm while in the emergency room. Remains in normal sinus rhythm. 4 Iron deficiency anemia with transient drop in hemoglobin, status post 1 unit of packed red blood cells this admission, current hemoglobin 7.6 5 History of hypertension. 6 History of hypothyroidism. 7 Lifelong nonsmoker. Plan: The patient was seen and evaluated by Dr. Mobley Continue to titrate down the FiO2 as tolerated Increase her activity as tolerated Continue to work with the incentive spirometer The plan is for transfer to [facility] on the [place] tomorrow I, the cosigning physician, performed a history & physical examination of the patient. Lungs sounds with crackles in the bilateral posterior bases. Ma intaining good O2 saturations in the 90s on 6 L/m per nasal cannula I discussed the assessment and plan of care with my nurse practitioner, Jesenia Varma. I attest to the above note as dictated by her.
--- NOTE | 2020-08-21 14:26 | P.PN ---
Subjective Progress Note Date: 08/21/20 This is a pleasant 75 years old female with past medical history of hypertension, hypothyroidism. Patient could not provide much information so it was taken From staff and records. She presents to [facility] with respiratory symptoms and dyspnea associated with some complaint but no chest pain. There she was treated for atrial fibrillation with RVR and she was found to have positive covid 19 test. Patient is afebrile, she is tachypneic with respiratory rate about 26-27, hypoxic with oxygen saturation of 99% on 15 L via nasal cannula. Blood pressure is 106/89. CBC from today is unremarkable. Troponin is elevated 0.17. High lactate dehydrogenase 1276 and C-reactive protein 256. And once is negative. Chest x- ray showing severe pulmonary edema could relate to RDS and is similar to a computed tomography scan earlier today 07/31/2020 Patient was admitted with Covid pneumonia and respiratory failure, her condition got deteriorated yesterday and she got intubated and now she is on mechanical ventilation was pulmonary/critical care team monitor and carefully. Also she had A. fib with RVR and converted to sinus rhythm, her Cardizem drip was stopped and her heparin drip was switched liquids. She continued to be on Zithromax and ceftriaxone and vitamins C and zinc 08/01/2020 Patient is admitted with Covid pneumonia and course is complicated by A. fib and RVR. Patient remains in the ICU in critical condition, she is intubated and on mechanical ventilation with pulmonary/critical care team on the case. Also cartilage informed the case closely Treatments and dexamethasone, liquids, zinc, vitamin C, antibiotics with Zithromax and ceftriaxone. No reemdesivir as per pulmonary team recommendation Today I was contacted by the professor of social work and stop that the patient and ignacia blandon works in [place] they want patient to be transferred upon the request to [facility] I discussed the case with who declined To accept the patient to be transferred to [facility] 08/02/2020 Patient is in the ICU for bilateral covid Pneumonia, she is intubated and on mechanical ventilation. Her heart rate atrial fibrillation was converted to sinus rhythm and currently her own in the low 50s. Blood pressure is just above 100. Patient does not need support by pressors. Leukocytosis is improving, BMP is unremarkable. Influenza virus is negative. Chest x-ray showed persistent bilateral mid to lower lung acute infiltrate and/or edema. No significant change from one day earlier Patient remains on dexamethasone, Eliquis and broad-spectrum antibiotics. Patient in the ICU intubated, pulmonary/critical care team are planning CPAP tomorrow, PEEP dropped. Other than that, change from yesterday, her heart rate shown bradycardia although in sinus rhythm therefore Cardizem and beta blockers were stopped, patient kept on Eliquis for her A. fib and cardiology team signed off. Patient on Zithromax, ceftriaxone, dexamethasone no remdesivir . she is status convescalnet plasam as well 08/04/20 Patient is still on mechanical ventilation, pulmonary/critical care team trying breathing for the patient but with no success today Other than that She'll continue with same treatment of steroids, Eliquis, azithromycin and ceftriaxone. No Cardizem or beta blockers for bradycardia. However heart rate is improved today to 60-70. WBC trending down to 12 K 08/05/20 pt is extubated today by pulmonary team , after extubation she started having stroke like ,left arm weakness, lip and left eye droop , and possible leg weakness, CT of brain is negative for stroke and CTA of the brain is ordered and is pending , neurologist was consulted who ordered MRI of the brain tomorrow. pt is currently saturating on 5 L/m of oxygen Eliquis was held by consultants while she remains on dexamethasone, stress and Zithromax. Chest x-ray looks stable Patient is followed closely by pulmonary/critical care team 08/06/2020 Patient is status extubation currently on 6 L oxygen. Pulmonary team discontinue with vitamin C and zinc and this continue with Zithromax and ceftriaxone. Patient is kept on dexamethasone Her left side weakness improved, neurology on the case MRI of the brain did not show stroke. Anticoagulation resumed with heparin drip per cardiology team for now D-dimer is 2.9, WBC 13 K. Heart rate is 60-70 sinus rhythm. 08/07/2020 Patient is awake and alert, calm in the ICU. She is currently on the liter per minute oxygen via high flow cannula Patient weakness and facial droop has resolved. Neurology team signed off. Respiratory status is slightly worse. Pulmonary team R following the case closely and they discussed and further management plan with the patient and family, please refer to their note for more details. In the meantime she remains on dexamethasone, heparin drip and bronchodilator 08/11/2020 Patient remains in the ICU and some respiratory distress, she is tachypneic at 22-30 breath per minute, she needs 15 L of oxygen via nonrebreather. And she remains on the same treatment for her Covid pneumonia with dexamethasone, Eliquis and albuterol. Also she is on D5 normal saline at 75 mL/h for episodes of hypoglycemia yesterday. Also she is on oral vancomycin for C. diff colitis 08/12/2020 patient remains in the ICU with oropharyngeal tube getting feeding. She is alert and partially confused but she looks tired and weak. She's still with loose stool and she's been treated for C. diff colitis with oral vancomycin She still on high dose of oxygen at 2 L/m via nonrebreather and she is tachypneic 25-27 per minute Chest x-ray showed persistent bilateral infiltrates. Related to her covid pneumonia She remains on dexamethasone 08/13/2020 patient today remains in the ICU, she is doing okay, it seems like her oxygen requirements was meshed to be titrated down to 4 L/m this morning. She still confused and [place] of her tubes including a oxygen mask but today is she is more calm with less such problems. Hemodynamically she is stable She passed a swallow evaluation however she still on tube feeding but we will try to feed her today Still has runny diarrhea and on oral vancomycin Chest x-ray from today showing diffuse multifocal airspace disease correlated for pneumonia. Findings stable. She remains on dexamethasone 6 mg, Eliquis 2.5 mg, D5 normal saline at 75 mL/h. Oral vancomycin. And metoprolol 25 mg daily was added recently by advertising analyst 08/14/2020 Patient still somewhat confused with only mild partial improvement compared to yesterday Chest x-ray showing the same findings dexamethasone wants. Today, the 50s given because of low glucose, however patient is not on insulin or any diabetic medication Patient remains on Eliquis 2.5 mg, oral vancomycin and D5 normal saline at 75 mL/h, also she is on metoprolol 25 mg of Seroquel 50 mg as needed acute WBC and inflammatory markers are trending down, hemoglobin dropped from 10 down to 7.2 over 2 days she is saturating 92% on 3 L oxygen via nasal cannula at rest of vitals looks stable monitor hemoglobin closely 08/15/2020 [facility] and continues to be closely monitored. Hemoglobin was found to be 6.3 this morning and currently receiving a unit of PRBCs. We'll continue to monitor closely and transfuse as needed. Blood sugars have been on the lower side and will continue with Accu-Cheks before meals at bedtime along with sliding scale. Patient is maintained on D5 normal saline and will continue at this time. Patient is also currently receiving nutrition via tube feedings. Patient is currently on a Ventimask at 93% and will continue to monitor closely. Pulmonary is following closely. Patient continues to be somewhat confused and attempts to pull oxygen off and tube feedings out. Patient currently on oral antibiotics in the form of vancomycin for C. diff and will continue at this time. Patient has been taken off anticoagulation of eliquis and will continue to monitor for any signs of bleeding. 08/16/2020 Patient is seen and evaluated and follow-up and continues to be lethargic although arousable. Patient continues to be confused at times and will pull at NG tubing and nasal cannula. Patient is off the Ventimask and now on 8 L high flow nasal cannula and is currently 93-97%. Fecal management system along with Crockett catheter continues at this time. Patient is receiving medications and nutrition through NG tube. Patient continues on oral vancomycin for C. diff colitis and will continue. Patient received 1 unit of PRBCs yesterday for a hemoglobin of 6.3 and today's hemoglobin is stable at 9.1. Will repeat a.m. labs to monitor closely. D-dimer is 1.89 today. 08/17/2020 Patient is seen and evaluated and follow-up and is currently sleeping although easily arousable. Patient appears much more alert today and responding more p roperly to questions and commands. Patient states that her breathing has not gotten worse but doesn't feel much better either. Patient remains on 8 L high flow nasal cannula. Patient's hemoglobin today is stable at 8.3 with no active bleeding noting. D-dimer trending down slowly at 1.7. Pro-calcitonin is 0.11. Patient remains on antibiotics via NG tube for C. diff along with fecal management system and will continue at this time. PT/OT following the patient along with multiple medical consultations. PT to reevaluate the patient once more stable and not as lethargic. 08/18/2020 Patient is seen in follow-up for awake and alert and responding appropriately. Per nursing staff patient removed her NG and fecal management system and was replaced. Patient was seen and evaluated recently by speech therapy recommending dysphagia level I pured diet with nectar thickened liquids and patient has been tolerating oral medications per nursing staff. We'll discontinue NG tube and monitor closely. Oxygen saturations improving slowly and is currently maintained on 5 L via nasal cannula and is 94%. Case management and social work following and working on possible placement at an ECF for continued PT/OT therapy. Multiple medical consultations continue to follow. Hemoglobin is stable at 8.4 with no active bleeding noted. Will discuss with GI about resuming anticoagulation. 08/19/2020 Patient was restarted on Eliquis although staff reported black tarry stools and drop in hemoglobin. Hemoglobin today is currently 7.6 and will hold anticoagulants again. Patient did have Crockett catheter, fecal management system, and NG tube removed. Patient is maintained on dysphagia level I diet pured and tolerating although continues to have little to no appetite and eats very small amounts. Patient's oxygen saturations were found to be in the 80s and patient was placed back on high flow nasal cannula and is currently 92% on 10 L high flow via nasal cannula. Nursing staff attempting to wean FiO2 as tolerated. Patient continues to be quite weak and will need to be reevaluated by PT/OT and most likely will require ECF for continued PT/OT therapy for strength and mobility. Patient is awake although fatigues easily. Patient responding appropriately to questions and commands although has periods of confusion. GI is following and will further discuss possible endoscopic evaluation to assess for GI bleeding. 08/20/2020 Patient seen in follow-up this morning continues to be lethargic although easily arousable. Patient currently working with physical therapy to get up and sit in the chair. GI following and planning for possible EGD tomorrow. Hemoglobin is currently stable at 7.7. Potassium was found to be slightly low at 3.2 and being replaced. Patient continues to have poor oral intake although does eat with assistance and encouragement. Patient is currently on 8 L of high flow nasal cannula at 96% and discussed with nursing staff about weaning slowly as tolerated. Will continue to hold anticoagulant and monitor vital signs and labs closely. Had a lengthy discussion with Andrew yesterday about treatment plan and further plans moving forward and made him aware of possible EGD. 08/21/2020 Patient is seen in follow-up currently sitting up in the chair on 6 L high flow via nasal cannula and discussed with nursing staff about weaning FiO2 to 5 L and maintaining oxygen saturation of 89-90%. Patient has been working with physical therapy and continues to be weak and will be going to ECF if we can have the patient tolerate 5 L of oxygen via nasal cannula. Hemoglobin is stable at 7.6 with no active bleeding noted. GI has no plans for endoscopic intervention and Eliquis has been resumed. Pulmonary also following. [facility] can accommodate the patient with the bed tomorrow if adequate oxygenation and is contained on 5 L. Potassium was 3.3 today and replaced. Will repeat a.m. labs. Review of systems CONSTITUTIONAL: No fever, no malaise, continued fatigue. HEENT: No recent visual problems or hearing problems. Denied any sore throat. CARDIOVASCULAR: No orthopnea, PND, no palpitations, no syncope. PULMONARY: continued shortness of breath although states improved today, no cough, no hemoptysis. GASTROINTESTINAL: Positive diarrhea with improvement, no nausea, no vomiting, no abdominal pain. Normoactive bowel sounds. NEUROLOGICAL: No headaches, reports weakness, no numbness. Objective - Vital Signs Vital signs: Vital Signs Temp 98.5 F 08/21/20 05:00 Pulse 93 08/21/20 05:00 Resp 16 08/21/20 05:00 BP 92/55 08/21/20 05:00 Pulse Ox 93 L 08/21/20 05:00 Intake & Output 08/20/20 08/21/20 08/21/20 18:59 06:59 18:59 Intake Total 1350 1020 Output Total 400 Balance 950 1020 Intake: IV 600 900 Dextrose 5%-0.9% NaCl 1, 600 900 000 ml @ 75 mls/hr IV . [id number] [facility] Rx#:[id number] Intake, IV Titration 750 Amount Dextrose 5%-0.9% NaCl 1, 750 000 ml @ 75 mls/hr IV . [id number] [facility] Rx#:[id number] Oral 120 Output: Urine 400 Other: Voiding Method Diaper Diaper Diaper Incontinent Incontinent Incontinent # Voids 2 # Bowel Movements 1 ABP, PAP, CO, CI - Last Documented Arterial Blood Pressure 143/61 - Exam GENERAL: The patient is generally weak, and continues to be somewhat confused although more alert and responding to commands and questions more appropriately each day. Early sitting up in the chair. HEENT: Pupils are round and equally reacting to light. EOMI. No scleral icterus. No conjunctival pallor. Normocephalic, atraumatic. No pharyngeal erythema. No thyromegaly. CARDIOVASCULAR: S1 and S2 present. No murmurs, rubs, or gallops. PULMONARY: Diminished breath sounds at the bases with some mild scattered crackles noted ABDOMEN: Soft, nontender, nondistended, normoactive bowel sounds. No palpable organomegaly. MUSCULOSKELETAL: No joint swelling or deformity. EXTREMITIES: No cyanosis, clubbing, or pedal edema. NEUROLOGICAL: No focal deficits noted. Diffusely weak SKIN: No rashes. no petechiae. - Labs CBC & Chem 7: 08/21/20 08:52 08/21/20 08:52 Labs: Abnormal Lab Results - Last 24 Hours (Table) 08/20/20 Range/Units 05:47 Potassium 3.2 L (3.5-5.5) mmol/L BUN 7.0 L (9.0-27.0) mg/dL Creatinine 0.5 L (0.6-1.5) mg/dL Calcium 7.3 L (8.7-10.3) mg/dL Assessment and Plan Assessment: -Bilateral Covid 19 pneumonia: continue with weaning FiO2 as tolerated, currently on 6 L NC high Flow via nasal cannula and oxygen saturation is 96%. Discussed with nursing staff about weaning FiO2 as tolerated down to 5 L via nasal cannula and maintaining 89-90%. Patient has a bed available at [facility] for continued PT/OT therapy if oxygenation is maintained at 5 L via nasal cannula. Pulmonary following. She is status post extubation, improving -Acute hypoxic respiratory failure secondary to above -TIA with left arm and left eye and lip droop . Completely resolved and neurology signed off -Metabolic encephalopathy secondary to above -A. fib and RVR, patient rate is controlled. With metoprolol -Increased inflammatory markers secondary to above and infection, improving -Anemia, monitor hemoglobin. Hemoglobin today is 7.6 -Hypertension -Hypothyroidism -DVT prophylaxis, Eliquis resumed -GI prophylaxis: Protonix -Full code Plan: Continue with current medications and medical management. Multiple medical consultations including GI, cardiology, and pulmonary following. Discussed with nursing staff about weaning FiO2 as tolerated. Currently on 6 L high flow and is 96% to continue weaning. PT/OT following an assisted the patient to the chair. There is a bed available at [facility] on the [address] if patient is able to maintain 89-90% oxygenation on 5 L via nasal cannula. Patient is maintained on dysphagia 1 pured diet and tolerating although has continued poor oral intake. Patient needs encouragement and assistance with meals. Anticoagulant has been resumed and hemoglobin is stable at 7.6. GI plans no surgical or endoscopic interventions at this time. Case management and social work also following as patient continues to be quite weak and will require ECF once stabilized and discharged. Due to multiple complex medical issues, prognosis is guarded. Further recommendations to follow. Possible discharge to [facility] as they have a bed available tomorrow if patient remains on 5 L of oxygen via nasal cannula.
[2020-08-21 17:08] LABS: Glucose,Whole Blood 117 mg/dL (75-99)
[2020-08-21 20:20] LABS: Glucose,Whole Blood 80 mg/dL (75-99)
[2020-08-21] MEDS: QUEtiapine 50 MG TAB PO SCH (21:46)
[2020-08-21] MEDS: amLODIPine 5 MG TAB PO SCH (21:46)
[2020-08-21] MEDS: ATORVASTATIN 40 MG TAB PO SCH (21:46)
[2020-08-22 02:11] LABS: Glucose,Whole Blood 73 mg/dL (75-99)
[2020-08-22] MEDS: LEVOTHYROXINE 75 MCG TAB PO SCH (05:47)
[2020-08-22 07:12] LABS: Glucose,Whole Blood 78 mg/dL (75-99)
[2020-08-22] MEDS: ALBUTEROL HFA INHALER INHALATION SCH ×4 (08:33→20:21)
[2020-08-22] MEDS: INSULIN ASPART (NovoLOG) 100 UNIT/ML VIAL SQ SCH ×4 (08:47→21:17)
[2020-08-22] MEDS: CYANOCOBALAMIN 1,000 MCG/ML 1 ML VIAL IM SCH (08:47)
[2020-08-22] MEDS: APIXABAN 2.5 MG TABLET PO SCH ×2 (08:47→21:43)
[2020-08-22] MEDS: FERROUS SULFATE ORAL ELIXIR 300 MG/5 ML CUP PO SCH ×2 (08:47→17:41)
[2020-08-22] MEDS: PANTOPRAZOLE 40 MG/10 ML VIAL IVP SCH (08:47)
[2020-08-22] MEDS: METOPROLOL TARTRATE 25 MG TAB PO SCH (08:47)
[2020-08-22] MEDS: DEXTROSE 5%-0.9% NACL 1,000 ML IV SCH ×2 (09:55→17:40)
--- NOTE | 2020-08-22 11:29 | P.PN ---
Subjective Progress Note Date: 08/22/20 Principal diagnosis: Iron deficiency anemia, Covid 19 infection Patient seen lying in bed tolerating diet. No reports of abdominal pain or signs or symptoms of GI bleeding. Objective - Vital Signs Vital signs: Vital Signs Temp 99.0 F 08/22/20 04:48 Pulse 88 08/22/20 04:48 Resp 18 08/22/20 04:48 BP 99/58 08/22/20 04:48 Pulse Ox 95 08/22/20 08:33 Intake & Output 08/21/20 08/22/20 08/22/20 18:59 06:59 18:59 Intake Total 750 Balance 750 Weight 47.5 kg 50 kg Intake: IV 750 Dextrose 5%-0.9% NaCl 1, 750 000 ml @ 75 mls/hr IV . [id number] [facility] Rx#:[id number] Other: Voiding Method Diaper Diaper Incontinent Incontinent # Voids 1 2 # Bowel Movements 1 ABP, PAP, CO, CI - Last Documented Arterial Blood Pressure 143/61 - Exam On physical examination, patient appears comfortable in no apparent distress. HEAD: Normocephalic, atraumatic. EYES: No scleral icterus. No conjunctival injection. MOUTH: No lesions, tongue midline. NECK: Trachea midline, no gross abnormalities. ABDOMEN: Soft, nontender to palpation. Bowel sounds are positive. No organomegaly. No guarding or rigidity. EXTREMITIES: No pedal edema. SKIN: No rashes, no jaundice. NEUROLOGIC: Alert but not oriented. - Labs CBC & Chem 7: 08/21/20 08:52 08/21/20 08:52 Labs: Abnormal Lab Results - Last 24 Hours (Table) 08/21/20 08/21/20 08/21/20 Range/Units 12:01 12:28 17:05 POC Glucose (mg/dL) 68 L 115 H 117 H (75-99) mg/dL 08/22/20 Range/Units 01:59 POC Glucose (mg/dL) 73 L (75-99) mg/dL Assessment and Plan (1) Iron deficiency anemia Narrative/Plan: 75-year-old female with multiple medical comorbidities and hospital course significant for treatment for Covid 19 infection, Clostridium difficile colitis and atrial fibrillation. Patient was noted to have a fall in her hemoglobin during her hospitalization. No reports of any signs or symptoms of GI bleeding. She is tolerating her NG tube feeds. Iron studies were suggestive of an iron deficiency anemia. Currently she is receiving PPI therapy and has a fecal management system in place. Hemoglobin is stable at 7.6 from 7.7 yesterday. Current Visit: Yes Status: Acute Code(s): D50.9 - IRON DEFICIENCY ANEMIA, UNSPECIFIED SNOMED Code(s): 65440133 (2) Positive occult stool blood test Current Visit: Yes Status: Acute Code(s): R19.5 - OTHER FECAL ABNORMALITIES SNOMED Code(s): 79388827 (3) Clostridium difficile diarrhea Current Visit: Yes Status: Acute Code(s): A04.72 - ENTEROCOLITIS D/T CLOSTRIDIUM DIFFICILE, NOT SPCF RECUR SNOMED Code(s): 8236573941041 (4) COVID-19 Current Visit: Yes Status: Acute Code(s): U07.1 - COVID-19 SNOMED Code(s): 949943205 Plan: Supportive care Diet as tolerated Continue to monitor hemoglobin and hematocrit and transfuse as needed Continue twice daily Protonix therapy Okay to resume anticoagulation therapy Continue oral vancomycin for treatment of Clostridium difficile, and Questran Continue other medical management per primary team and consulting services No plans for endoscopic evaluation unless further fall in hemoglobin or signs or symptoms of GI bleeding develop Thank you for allowing us to participate in the care of the patient we will continue to follow
[2020-08-22] MEDS: CHOLESTYRAMINE (WITH SUGAR) 4 GM PACKET PO SCH ×2 (11:43→18:13)
[2020-08-22 12:00] LABS: Glucose,Whole Blood 105 mg/dL (75-99)
--- NOTE | 2020-08-22 13:01 | P.PN ---
Subjective Progress Note Date: 08/22/20 Principal diagnosis: Acute hypoxic respiratory failure secondary to CoVID 19 pneumonitis The patient is seen today 08/20/2020 in follow-up on the regular medical floor. She is currently sitting up in a chair at the bedside. Having lunch. Awake and alert in no acute distress. She is on 6 L high flow nasal cannula. O2 saturation in the 90s. White count 8.2. Hemoglobin 7.7. Sodium 137. Potassium 3.2. Creatinine 0.5. The patient is seen today 08/21/2020 in follow-up on the regular medical floor. She is awake and alert in no acute distress. Sitting up in a chair at the bedside. Denies any worsening shortness of breath, cough or congestion. Still requiring 6 L high flow nasal cannula to maintain O2 saturation the high 80s low 90s. She is status post 1 unit of packed red blood cell transfusion. Current hemoglobin 7.6. White count 8.1. Sodium 136. Potassium 3.3. Creatinine 0.63. She remains on bronchodilators, anticoagulated with Eliquis. Patient is seen today 08/22/2020 in follow-up on the regular medical floor. She is currently resting comfortably in bed. Awake and alert in no acute distress. Maintaining O2 saturations in the 90s on 4 L/m per nasal cannula. No worsening shortness of breath, cough or congestion. Blood glucose 105. Anticoagulated with Eliquis. Objective - Vital Signs Vital signs: Vital Signs Temp 98.2 F 08/22/20 11:00 Pulse 109 H 08/22/20 11:00 Resp 18 08/22/20 11:00 BP 102/57 08/22/20 11:00 Pulse Ox 91 L 08/22/20 11:00 Intake & Output 08/21/20 08/22/20 08/22/20 18:59 06:59 18:59 Intake Total 750 Balance 750 Weight 47.5 kg 50 kg Intake: IV 750 Dextrose 5%-0.9% NaCl 1, 750 000 ml @ 75 mls/hr IV . [id number] [facility] Rx#:[id number] Other: Voiding Method Diaper Diaper Diaper Incontinent Incontinent Incontinent # Voids 1 2 # Bowel Movements 1 ABP, PAP, CO, CI - Last Documented Arterial Blood Pressure 143/61 - Exam GENERAL EXAM: Alert, pleasant, weak 75-year-old female patient, on 4 L nasal cannula, in no apparent distress. HEAD: Normocephalic. EYES: Sluggish reaction of pupils, equal size. NOSE: Clear with pink turbinates. THROAT: No erythema or exudates. NECK: No masses, no JVD. CHEST: No chest wall deformity. LUNGS: Equal air entry with basilar crackles CVS: S1 and S2 normal with no audible murmur, regular rhythm. ABDOMEN: No hepatosplenomegaly, normal bowel sounds, no guarding or rigidity. SPINE: No scoliosis or deformity SKIN: No rashes CENTRAL NERVOUS SYSTEM: Extremely weak, bilateral weakness, tone is normal in all 4 extremities. EXTREMITIES: There is no peripheral edema. No clubbing, no cyanosis. Peripheral pulses are intact. - Labs CBC & Chem 7: 08/21/20 08:52 08/21/20 08:52 Labs: Abnormal Lab Results - Last 24 Hours (Table) 08/21/20 08/22/20 08/22/20 Range/Units 17:05 01:59 11:59 POC Glucose (mg/dL) 117 H 73 L 105 H (75-99) mg/dL Assessment and Plan Assessment: 1 Acute hypoxic respiratory failure secondary to CoVID 19 pneumonitis, required intubation and mechanical ventilation on 07/30/20. She was beyond the window to be qualified for Remdesivir. Did receive convalescent plasma. Extubated on 08/05/2020, currently on 4 L nasal cannula. 2 Altered mental status with extreme weakness more so on the left, being evaluated by neurology. Improved. Up in a chair at the bedside. 3 New onset atrial fibrillation with RVR, converted to sinus rhythm while in the emergency room. Remains in normal sinus rhythm. 4 Iron deficiency anemia with transient drop in hemoglobin, status post 1 unit of packed red blood cells this admission, current hemoglobin 7.6 5 History of hypertension. 6 History of hypothyroidism. 7 Lifelong nonsmoker. Plan: The patient was seen and evaluated by Dr. Mobley Continue to titrate down the FiO2 as tolerated Increase her activity as tolerated Continue to work with the incentive spirometer The plan is for transfer to [facility] on the [place] We will see the patient on an as-needed basis I, the cosigning physician, performed a history & physical examination of the patient. Lungs sounds with crackles in the bilateral posterior bases. Maintaining good O2 saturations in the 90s on 4 L/m per nasal cannula I discussed the assessment and plan of care with my nurse practitioner, Jesenia Varma. I attest to the above note as dictated by her.
[2020-08-22 13:38] LABS: African American GFR (CKD) 102.6 (60.0-200.0); BUN/Creat Ratio 8.33 Ratio (12.00-20.00); Calcium 7.4 mg/dL (8.7-10.3); Non-African American GFR(CKD) 88.5 (60.0-200.0); Potassium 3.5 mmol/L (3.5-5.5)
--- NOTE | 2020-08-22 15:55 | P.PN ---
Subjective 75 years old female with past medical history of hypertension, hypothyroidism. Patient could not provide much information so it was taken From staff and records. She presents to [facility]'s with respiratory symptoms and dyspnea associated with some complaint but no chest pain. There she was treated for atrial fibrillation with RVR and she was found to have positive covid 19 test. Patient is afebrile, she is tachypneic with respiratory rate about 26-27, hypoxic with oxygen saturation of 99% on 15 L via nasal cannula. Blood pressure is 106/89. CBC from today is unremarkable. Troponin is elevated 0.17. High lactate dehydrogenase 1276 and C-reactive protein 256. And once is negative. Chest x- ray showing severe pulmonary edema could relate to RDS and is similar to a computed tomography scan earlier today 07/31/2020 Patient was admitted with Covid pneumonia and respiratory failure, her condition got deteriorated yesterday and she got intubated and now she is on mechanical ventilation was pulmonary/critical care team monitor and carefully. Also she had A. fib with RVR and converted to sinus rhythm, her Cardizem drip was stopped and her heparin drip was switched liquids. She continued to be on Zithromax and ceftriaxone and vitamins C and zinc 08/01/2020 Patient is admitted with Covid pneumonia and course is complicated by A. fib and RVR. Patient remains in the ICU in critical condition, she is intubated and on mechanical ventilation with pulmonary/critical care team on the case. Also cartilage informed the case closely Treatments and dexamethasone, liquids, zinc, vitamin C, antibiotics with Zithromax and ceftriaxone. No reemdesivir as per pulmonary team recommendation Today I was contacted by the certified social workers in health care and stop that the patient and daughter works in [place] they want patient to be transferred upon the request to [facility] I discussed the case with who declined To accept the patient to be transferred to [facility] 08/02/2020 Patient is in the ICU for bilateral covid Pneumonia, she is intubated and on mechanical ventilation. Her heart rate atrial fibrillation was converted to sinus rhythm and currently her own in the low 50s. Blood pressure is just above 100. Patient does not need support by pressors. Leukocytosis is improving, BMP is unremarkable. Influenza virus is negative. Chest x-ray showed persistent bilateral mid to lower lung acute infiltrate and/or edema. No significant change from one day earlier Patient remains on dexamethasone, Eliquis and broad-spectrum antibiotics. Patient in the ICU intubated, pulmonary/critical care team are planning CPAP tomorrow, PEEP dropped. Other than that, change from yesterday, her heart rate shown bradycardia although in sinus rhythm therefore Cardizem and beta blockers were stopped, bree conner kept on Eliquis for her A. fib and cardiology team signed off. Patient on Zithromax, ceftriaxone, dexamethasone no remdesivir . she is status convescalnet plasam as well 08/04/20 Patient is still on mechanical ventilation, pulmonary/critical care team trying breathing for the patient but with no success today Other than that She'll continue with same treatment of steroids, Eliquis, azithromycin and ceftriaxone. No Cardizem or beta blockers for bradycardia. However heart rate is improved today to 60-70. WBC trending down to 12 K 08/05/20 pt is extubated today by pulmonary team , after extubation she started having stroke like ,left arm weakness, lip and left eye droop , and possible leg weakness, CT of brain is negative for stroke and CTA of the brain is ordered and is pending , neurologist was consulted who ordered MRI of the brain tomorrow. pt is currently saturating on 5 L/m of oxygen Eliquis was held by consultants while she remains on dexamethasone, stress and Zithromax. Chest x-ray looks stable Patient is followed closely by pulmonary/critical care team 08/06/2020 Patient is status extubation currently on 6 L oxygen. Pulmonary team discontinue with vitamin C and zinc and this continue with Zithromax and ceftriaxone. Patient is kept on dexamethasone Her left side weakness improved, neurology on the case MRI of the brain did not show stroke. Anticoagulation resumed with heparin drip per cardiology team for now D-dimer is 2.9, WBC 13 K. Heart rate is 60-70 sinus rhythm. 08/07/2020 Patient is awake and alert, calm in the ICU. She is currently on the liter per minute oxygen via high flow cannula Patient weakness and facial droop has resolved. Neurology team signed off. Respiratory status is slightly worse. Pulmonary team R following the case close ly and they discussed and further management plan with the patient and family, please refer to their note for more details. In the meantime she remains on dexamethasone, heparin drip and bronchodilator 08/11/2020 Patient remains in the ICU and some respiratory distress, she is tachypneic at 22-30 breath per minute, she needs 15 L of oxygen via nonrebreather. And she remains on the same treatment for her Covid pneumonia with dexamethasone, Eliquis and albuterol. Also she is on D5 normal saline at 75 mL/h for episodes of hypoglycemia yesterday. Also she is on oral vancomycin for C. diff colitis 08/12/2020 patient remains in the ICU with oropharyngeal tube getting feeding. She is alert and partially confused but she looks tired and weak. She's still with loose stool and she's been treated for C. diff colitis with oral vancomycin She still on high dose of oxygen at 2 L/m via nonrebreather and she is tachypneic 25-27 per minute Chest x-ray showed persistent bilateral infiltrates. Related to her covid pneumonia She remains on dexamethasone 08/13/2020 patient today remains in the ICU, she is doing okay, it seems like her oxygen requirements was meshed to be titrated down to 4 L/m this morning. She still confused and Nakia of her tubes including a oxygen mask but today is she is more calm with less such problems. Hemodynamically she is stable She passed a swallow evaluation however she still on tube feeding but we will try to feed her today Still has runny diarrhea and on oral vancomycin Chest x-ray from today showing diffuse multifocal airspace disease correlated for pneumonia. Findings stable. She remains on dexamethasone 6 mg, Eliquis 2.5 mg, D5 normal saline at 75 mL/h. Oral vancomycin. And metoprolol 25 mg daily was added recently by environmental protection economist 08/14/2020 Patient still somewhat confused with only mild partial improvement compared to yesterday Chest x-ray showing the same findings dexamethasone wants. Today, the 50s given because of low glucose, however patient is not on insulin or any diabetic medication Patient remains on Eliquis 2.5 mg, oral vancomycin and D5 normal saline at 75 mL/h, also she is on metoprolol 25 mg of Seroquel 50 mg as needed acute WBC and inflammatory markers are trending down, hemoglobin dropped from 10 down to 7.2 over 2 days she is saturating 92% on 3 L oxygen via nasal cannula at rest of vitals looks stable monitor hemoglobin closely 08/15/2020 [facility] and continues to be closely monitored. Hemoglobin was found to be 6.3 this morning and currently receiving a unit of PRBCs. We'll continue to monitor closely and transfuse as needed. Blood sugars have been on the lower side and will continue with Accu-Cheks before meals at bedtime along with sliding scale. Patient is maintained on D5 normal saline and will continue at this time. Patient is also currently receiving nutrition via tube feedings. Patient is currently on a Ventimask at 93% and will continue to monitor closely. Pulmonary is following closely. Patient continues to be somewhat confused and attempts to pull oxygen off and tube feedings out. Patient currently on oral antibiotics in the form of vancomycin for C. diff and will continue at this time. Patient has been taken off anticoagulation of eliquis and will continue to monitor for any signs of bleeding. 08/16/2020 Patient is seen and evaluated and follow-up and continues to be lethargic although arousable. Patient continues to be confused at times and will pull at NG tubing and nasal cannula. Patient is off the Ventimask and now on 8 L high flow nasal cannula and is currently 93-97%. Fecal management system along with Crockett catheter continues at this time. Patient is receiving medications and nutrition through NG tube. Patient continues on oral vancomycin for C. diff colitis and will continue. Patient received 1 unit of PRBCs yesterday for a hemoglobin of 6.3 and today's hemoglobin is stable at 9.1. Will repeat a.m. labs to monitor closely. D-dimer is 1.89 today. 08/17/2020 Patient is seen and evaluated and follow-up and is currently sleeping although easily arousable. Patient appears much more alert today and responding more properly to questions and commands. Patient states that her breathing has not gotten worse but doesn't feel much better either. Patient remains on 8 L high flow nasal cannula. Patient's hemoglobin today is stable at 8.3 with no active bleeding noting. D-dimer trending down slowly at 1.7. Pro-calcitonin is 0.11. Patient remains on antibiotics via NG tube for C. diff along with fecal management system and will continue at this time. PT/OT following the patient along with multiple medical consultations. PT to reevaluate the patient once more stable and not as lethargic. 08/18/2020 Patient is seen in follow-up for awake and alert and responding appropriately. Per nursing staff patient removed her NG and fecal management system and was replaced. Patient was seen and evaluated recently by speech therapy recommending dysphagia level I pured diet with nectar thickened liquids and patient has been tolerating oral medications per nursing staff. We'll discontinue NG tube and monitor closely. Oxygen saturations improving slowly and is currently maintained on 5 L via nasal cannula and is 94%. Case management and social work following and working on possible placement at an ECF for continued PT/OT therapy. Multiple medical consultations continue to follow. Hemoglobin is stable at 8.4 with no active bleeding noted. Will discuss with GI about resuming anticoagulation. 08/19/2020 Patient was restarted on Eliquis although staff reported black tarry stools and drop in hemoglobin. Hemoglobin today is currently 7.6 and will hold anticoag ulants again. Patient did have Crockett catheter, fecal management system, and NG tube removed. Patient is maintained on dysphagia level I diet pured and tolerating although continues to have little to no appetite and eats very small amounts. Patient's oxygen saturations were found to be in the 80s and patient was placed back on high flow nasal cannula and is currently 92% on 10 L high flow via nasal cannula. Nursing staff attempting to wean FiO2 as tolerated. Patient continues to be quite weak and will need to be reevaluated by PT/OT and most likely will require ECF for continued PT/OT therapy for strength and mobility. Patient is awake although fatigues easily. Patient responding appr opriately to questions and commands although has periods of confusion. GI is following and will further discuss possible endoscopic evaluation to assess for GI bleeding. 08/20/2020 Patient seen in follow-up this morning continues to be lethargic although easily arousable. Patient currently working with physical therapy to get up and sit in the chair. GI following and planning for possible EGD tomorrow. Hemoglobin is currently stable at 7.7. Potassium was found to be slightly low at 3.2 and being replaced. Patient continues to have poor oral intake although does eat with assistance and encouragement. Patient is currently on 8 L of high flow nasal cannula at 96% and discussed with nursing staff about weaning slowly as tolerated. Will continue to hold anticoagulant and monitor vital signs and labs closely. Had a lengthy discussion with Andrew yesterday about treatment plan and further plans moving forward and made him aware of possible EGD. 08/21/2020 Patient is seen in follow-up currently sitting up in the chair on 6 L high flow via nasal cannula and discussed with nursing staff about weaning FiO2 to 5 L and maintaining oxygen saturation of 89-90%. Patient has been working with physical therapy and continues to be weak and will be going to ECF if we can have the patient tolerate 5 L of oxygen via nasal cannula. Hemoglobin is stable at 7.6 with no active bleeding noted. GI has no plans for endoscopic intervention and Eliquis has been resumed. Pulmonary also following. [facility] can accommodate the patient with the bed tomorrow if adequate oxygenation and is contained on 5 L. Potassium was 3.3 today and replaced. Will repeat a.m. labs. 08/22/2020 Patient is around 3-4 L of oxygen wanted to discharge the patient but the patient was not accepted by the rehabilitation place and they will be able to accept the patient on Monday. Constitutional: Denied any fatigue denied any fever. Cardio vascular: denied any chest pain, palpitations Gastrointestinal denied any nausea vomiting Pulmonary: Denied any shortness of breath cough Neurologic denied any new focal deficits All inpatient medications were reviewed and appropriate changes in these medicat ions as dictated in the interval history and assessment and plan. Objective - Vital Signs Vital signs: Vital Signs Temp 98.2 F 08/22/20 11:00 Pulse 109 H 08/22/20 11:00 Resp 18 08/22/20 11:00 BP 102/57 08/22/20 11:00 Pulse Ox 91 L 08/22/20 11:00 Intake & Output 08/21/20 08/22/20 08/22/20 18:59 06:59 18:59 Intake Total 750 Balance 750 Weight 47.5 kg 50 kg Intake: IV 750 Dextrose 5%-0.9% NaCl 1, 750 000 ml @ 75 mls/hr IV . [id number] [facility] Rx#:[id number] Other: Voiding Method Diaper Diaper Diaper Incontinent Incontinent Incontinent # Voids 1 2 # Bowel Movements 1 ABP, PAP, CO, CI - Last Documented Arterial Blood Pressure 143/61 - Exam PHYSICAL EXAMINATION: GENERAL: The patient is alert and oriented x3, not in any acute distress. thin built elderly female HEENT: Pupils are round and equally reacting to light. EOMI. No scleral icterus. No conjunctival pallor. Normocephalic, atraumatic. No pharyngeal erythema. No thyromegaly. CARDIOVASCULAR: S1 and S2 present. No murmurs, rubs, or gallops. PULMONARY: mild bibasilar crackles ABDOMEN: Soft, nontender, nondistended, normoactive bowel sounds. No palpable organomegaly. MUSCULOSKELETAL: No joint swelling or deformity. EXTREMITIES: No cyanosis, clubbing, or pedal edema. NEUROLOGICAL: Gross neurological examination did not reveal any focal deficits. SKIN: No rashes. - Labs CBC & Chem 7: 08/21/20 08:52 08/22/20 06:59 Labs: Abnormal Lab Results - Last 24 Hours (Table) 08/21/20 08/22/20 08/22/20 Range/Units 17:05 01:59 06:59 BUN 5.0 L (9.0-27.0) mg/dL BUN/Creatinine Ratio 8.33 L (12.00-20.00) Ratio POC Glucose (mg/dL) 117 H 73 L (75-99) mg/dL Calcium 7.4 L (8.7-10.3) mg/dL 08/22/20 Range/Units 11:59 BUN (9.0-27.0) mg/dL BUN/Creatinine Ratio (12.00-20.00) Ratio POC Glucose (mg/dL) 105 H (75-99) mg/dL Calcium (8.7-10.3) mg/dL Assessment and Plan Plan: -Bilateral Covid 19 pneumonia: continue with weaning FiO2 as tolerated, currently on 3 L NC high Flow via nasal cannula and oxygen saturation is 96%. . Pulmonary following. She is status post extubation, improving3 possibility of discharge on Monday to subacute rehabitation -Acute hypoxic respiratory failure secondary to above -TIA with left arm and left eye and lip droop . Completely resolved and neurology signed off -Metabolic encephalopathy secondary to above -A. fib and RVR, patient rate is controlled. With metoprolol -anemia patient has the acute blood loss anemia and also chronic anemia from an emia of chronic disease as well as iron deficiency presently hemoglobin remained stable. Patient was resumed on Eliquis -Hypertension -Hypothyroidism -DVT prophylaxis, Eliquis resumed -GI prophylaxis: Protonix -Full code
[2020-08-22 18:01] LABS: Glucose,Whole Blood 99 mg/dL (75-99)
[2020-08-22 20:21] LABS: Glucose,Whole Blood 117 mg/dL (75-99)
[2020-08-22] MEDS: PANTOPRAZOLE SODIUM 40 MG GRANULE PKT PO SCH (21:43)
[2020-08-22] MEDS: amLODIPine 5 MG TAB PO SCH (21:43)
[2020-08-22] MEDS: ATORVASTATIN 40 MG TAB PO SCH (21:43)
[2020-08-22] MEDS: QUEtiapine 50 MG TAB PO SCH (21:43)
[2020-08-23] MEDS: LEVOTHYROXINE 75 MCG TAB PO SCH (05:26)
[2020-08-23 07:17] LABS: Glucose,Whole Blood 88 mg/dL (75-99)
[2020-08-23] MEDS: ALBUTEROL HFA INHALER INHALATION SCH ×4 (08:02→20:17)
[2020-08-23] MEDS: INSULIN ASPART (NovoLOG) 100 UNIT/ML VIAL SQ SCH ×4 (09:55→21:50)
[2020-08-23] MEDS: PANTOPRAZOLE SODIUM 40 MG GRANULE PKT PO SCH ×2 (10:04→22:07)
[2020-08-23] MEDS: APIXABAN 2.5 MG TABLET PO SCH ×2 (10:04→22:07)
[2020-08-23] MEDS: FERROUS SULFATE ORAL ELIXIR 300 MG/5 ML CUP PO SCH ×2 (10:05→18:24)
[2020-08-23] MEDS: METOPROLOL TARTRATE 25 MG TAB PO SCH (10:05)
[2020-08-23] MEDS: CHOLESTYRAMINE (WITH SUGAR) 4 GM PACKET PO SCH ×2 (10:05→18:24)
[2020-08-23] MEDS: CYANOCOBALAMIN 1,000 MCG/ML 1 ML VIAL IM SCH (10:05)
[2020-08-23 11:18] LABS: Glucose,Whole Blood 167 mg/dL (75-99)
--- NOTE | 2020-08-23 12:07 | P.PN ---
Subjective 75 years old female with past medical history of hypertension, hypothyroidism. Patient could not provide much information so it was taken From staff and records. She presents to [facility] with respiratory symptoms and dyspnea associated with some complaint but no chest pain. There she was treated for atrial fibrillation with RVR and she was found to have positive covid 19 test. Patient is afebrile, she is tachypneic with respiratory rate about 26-27, hypoxic with oxygen saturation of 99% on 15 L via nasal cannula. Blood pressure is 106/89. CBC from today is unremarkable. Troponin is elevated 0.17. High lactate dehydrogenase 1276 and C-reactive protein 256. And once is negative. Chest x- ray showing severe pulmonary edema could relate to RDS and is similar to a computed tomography scan earlier today 07/31/2020 Patient was admitted with Covid pneumonia and respiratory failure, her condition got deteriorated yesterday and she got intubated and now she is on mechanical ventilation was pulmonary/critical care team monitor and carefully. Also she had A. fib with RVR and converted to sinus rhythm, her Cardizem drip was stopped and her heparin drip was switched liquids. She continued to be on Zithromax and ceftriaxone and vitamins C and zinc 08/01/2020 Patient is admitted with Covid pneumonia and course is complicated by A. fib and RVR. Patient remains in the ICU in critical condition, she is intubated and on mechanical ventilation with pulmonary/critical care team on the case. Also cartilage informed the case closely Treatments and dexamethasone, liquids, zinc, vitamin C, antibiotics with Zithromax and ceftriaxone. No reemdesivir as per pulmonary team recommendation Today I was contacted by the rn social services and stop that the patient and daughter works in [place] they want patient to be transferred upon the request to [facility] I discussed the case with who declined To accept the patient to be transferred to [facility] 08/02/2020 Patient is in the ICU for bilateral covid Pneumonia, she is intubated and on mechanical ventilation. Her heart rate atrial fibrillation was converted to sinus rhythm and currently her own in the low 50s. Blood pressure is just above 100. Patient does not need support by pressors. Leukocytosis is improving, BMP is unremarkable. Influenza virus is negative. Chest x-ray showed persistent bilateral mid to lower lung acute infiltrate and/or edema. No significant change from one day earlier Patient remains on dexamethasone, Eliquis and broad-spectrum antibiotics. Patient in the ICU intubated, pulmonary/critical care team are planning CPAP tomorrow, PEEP dropped. Other than that, change from yesterday, her heart rate shown bradycardia although in sinus rhythm therefore Cardizem and beta blockers were stopped, bree conner kept on Eliquis for her A. fib and cardiology team signed off. Patient on Zithromax, ceftriaxone, dexamethasone no remdesivir . she is status convescalnet plasam as well 08/04/20 Patient is still on mechanical ventilation, pulmonary/critical care team trying breathing for the patient but with no success today Other than that She'll continue with same treatment of steroids, Eliquis, azithromycin and ceftriaxone. No Cardizem or beta blockers for bradycardia. However heart rate is improved today to 60-70. WBC trending down to 12 K 08/05/20 pt is extubated today by pulmonary team , after extubation she started having stroke like ,left arm weakness, lip and left eye droop , and possible leg weakness, CT of brain is negative for stroke and CTA of the brain is ordered and is pending , neurologist was consulted who ordered MRI of the brain tomorrow. pt is currently saturating on 5 L/m of oxygen Eliquis was held by consultants while she remains on dexamethasone, stress and Zithromax. Chest x-ray looks stable Patient is followed closely by pulmonary/critical care team 08/06/2020 Patient is status extubation currently on 6 L oxygen. Pulmonary team discontinue with vitamin C and zinc and this continue with Zithromax and ceftriaxone. Patient is kept on dexamethasone Her left side weakness improved, neurology on the case MRI of the brain did not show stroke. Anticoagulation resumed with heparin drip per cardiology team for now D-dimer is 2.9, WBC 13 K. Heart rate is 60-70 sinus rhythm. 08/07/2020 Patient is awake and alert, calm in the ICU. She is currently on the liter per minute oxygen via high flow cannula Patient weakness and facial droop has resolved. Neurology team signed off. Respiratory status is slightly worse. Pulmonary team R following the case close ly and they discussed and further management plan with the patient and family, please refer to their note for more details. In the meantime she remains on dexamethasone, heparin drip and bronchodilator 08/11/2020 Patient remains in the ICU and some respiratory distress, she is tachypneic at 22-30 breath per minute, she needs 15 L of oxygen via nonrebreather. And she remains on the same treatment for her Covid pneumonia with dexamethasone, Eliquis and albuterol. Also she is on D5 normal saline at 75 mL/h for episodes of hypoglycemia yesterday. Also she is on oral vancomycin for C. diff colitis 08/12/2020 patient remains in the ICU with oropharyngeal tube getting feeding. She is alert and partially confused but she looks tired and weak. She's still with loose stool and she's been treated for C. diff colitis with oral vancomycin She still on high dose of oxygen at 2 L/m via nonrebreather and she is tachypneic 25-27 per minute Chest x-ray showed persistent bilateral infiltrates. Related to her covid pneumonia She remains on dexamethasone 08/13/2020 patient today remains in the ICU, she is doing okay, it seems like her oxygen requirements was meshed to be titrated down to 4 L/m this morning. She still confused and Nakia of her tubes including a oxygen mask but today is she is more calm with less such problems. Hemodynamically she is stable She passed a swallow evaluation however she still on tube feeding but we will try to feed her today Still has runny diarrhea and on oral vancomycin Chest x-ray from today showing diffuse multifocal airspace disease correlated for pneumonia. Findings stable. She remains on dexamethasone 6 mg, Eliquis 2.5 mg, D5 normal saline at 75 mL/h. Oral vancomycin. And metoprolol 25 mg daily was added recently by buffet waiter/waitress 08/14/2020 Patient still somewhat confused with only mild partial improvement compared to yesterday Chest x-ray showing the same findings dexamethasone wants. Today, the 50s given because of low glucose, however patient is not on insulin or any diabetic medication Patient remains on Eliquis 2.5 mg, oral vancomycin and D5 normal saline at 75 mL/h, also she is on metoprolol 25 mg of Seroquel 50 mg as needed acute WBC and inflammatory markers are trending down, hemoglobin dropped from 10 down to 7.2 over 2 days she is saturating 92% on 3 L oxygen via nasal cannula at rest of vitals looks stable monitor hemoglobin closely 08/15/2020 [facility] and continues to be closely monitored. Hemoglobin was found to be 6.3 this morning and currently receiving a unit of PRBCs. We'll continue to monitor closely and transfuse as needed. Blood sugars have been on the lower side and will continue with Accu-Cheks before meals at bedtime along with sliding scale. Patient is maintained on D5 normal saline and will continue at this time. Patient is also currently receiving nutrition via tube feedings. Patient is currently on a Ventimask at 93% and will continue to monitor closely. Pulmonary is following closely. Patient continues to be somewhat confused and attempts to pull oxygen off and tube feedings out. Patient currently on oral antibiotics in the form of vancomycin for C. diff and will continue at this time. Patient has been taken off anticoagulation of eliquis and will continue to monitor for any signs of bleeding. 08/16/2020 Patient is seen and evaluated and follow-up and continues to be lethargic although arousable. Patient continues to be confused at times and will pull at NG tubing and nasal cannula. Patient is off the Ventimask and now on 8 L high flow nasal cannula and is currently 93-97%. Fecal management system along with Crockett catheter continues at this time. Patient is receiving medications and nutrition through NG tube. Patient continues on oral vancomycin for C. diff colitis and will continue. Patient received 1 unit of PRBCs yesterday for a hemoglobin of 6.3 and today's hemoglobin is stable at 9.1. Will repeat a.m. labs to monitor closely. D-dimer is 1.89 today. 08/17/2020 Patient is seen and evaluated and follow-up and is currently sleeping although easily arousable. Patient appears much more alert today and responding more properly to questions and commands. Patient states that her breathing has not gotten worse but doesn't feel much better either. Patient remains on 8 L high flow nasal cannula. Patient's hemoglobin today is stable at 8.3 with no active bleeding noting. D-dimer trending down slowly at 1.7. Pro-calcitonin is 0.11. Patient remains on antibiotics via NG tube for C. diff along with fecal management system and will continue at this time. PT/OT following the patient along with multiple medical consultations. PT to reevaluate the patient once more stable and not as lethargic. 08/18/2020 Patient is seen in follow-up for awake and alert and responding appropriately. Per nursing staff patient removed her NG and fecal management system and was replaced. Patient was seen and evaluated recently by speech therapy recommending dysphagia level I pured diet with nectar thickened liquids and patient has been tolerating oral medications per nursing staff. We'll discontinue NG tube and monitor closely. Oxygen saturations improving slowly and is currently maintained on 5 L via nasal cannula and is 94%. Case management and social work following and working on possible placement at an ECF for continued PT/OT therapy. Multiple medical consultations continue to follow. Hemoglobin is stable at 8.4 with no active bleeding noted. Will discuss with GI about resuming anticoagulation. 08/19/2020 Patient was restarted on Eliquis although staff reported black tarry stools and drop in hemoglobin. Hemoglobin today is currently 7.6 and will hold anticoag ulants again. Patient did have Crockett catheter, fecal management system, and NG tube removed. Patient is maintained on dysphagia level I diet pured and tolerating although continues to have little to no appetite and eats very small amounts. Patient's oxygen saturations were found to be in the 80s and patient was placed back on high flow nasal cannula and is currently 92% on 10 L high flow via nasal cannula. Nursing staff attempting to wean FiO2 as tolerated. Patient continues to be quite weak and will need to be reevaluated by PT/OT and most likely will require ECF for continued PT/OT therapy for strength and mobility. Patient is awake although fatigues easily. Patient responding appr opriately to questions and commands although has periods of confusion. GI is following and will further discuss possible endoscopic evaluation to assess for GI bleeding. 08/20/2020 Patient seen in follow-up this morning continues to be lethargic although easily arousable. Patient currently working with physical therapy to get up and sit in the chair. GI following and planning for possible EGD tomorrow. Hemoglobin is currently stable at 7.7. Potassium was found to be slightly low at 3.2 and being replaced. Patient continues to have poor oral intake although does eat with assistance and encouragement. Patient is currently on 8 L of high flow nasal cannula at 96% and discussed with nursing staff about weaning slowly as tolerated. Will continue to hold anticoagulant and monitor vital signs and labs closely. Had a lengthy discussion with Andrew yesterday about treatment plan and further plans moving forward and made him aware of possible EGD. 08/21/2020 Patient is seen in follow-up currently sitting up in the chair on 6 L high flow via nasal cannula and discussed with nursing staff about weaning FiO2 to 5 L and maintaining oxygen saturation of 89-90%. Patient has been working with physical therapy and continues to be weak and will be going to ECF if we can have the patient tolerate 5 L of oxygen via nasal cannula. Hemoglobin is stable at 7.6 with no active bleeding noted. GI has no plans for endoscopic intervention and Eliquis has been resumed. Pulmonary also following. [facility] can accommodate the patient with the bed tomorrow if adequate oxygenation and is contained on 5 L. Potassium was 3.3 today and replaced. Will repeat a.m. labs. 08/22/2020 Patient is around 3-4 L of oxygen wanted to discharge the patient but the patient was not accepted by the rehabilitation place and they will be able to accept the patient on Monday. 08/23/2020 Patient is still on 4 L of onset and saturating at 90% will continue to monitor possibility of discharge to subacute rehabilitation tomorrow Constitutional: Denied any fatigue denied any fever. Cardio vascular: denied any chest pain, palpitations Gastrointestinal denied any nausea vomiting Pulmonary: Denied any shortness of breath cough Neurologic denied any new focal deficits All inpatient medications were reviewed and appropriate changes in these medications as dictated in the interval history and assessment and plan. Objective - Vital Signs Vital signs: Vital Signs Temp 99.7 F H 08/23/20 11:00 Pulse 73 08/23/20 11:00 Resp 17 08/23/20 11:00 BP 98/59 08/23/20 11:00 Pulse Ox 90 L 08/23/20 11:00 Intake & Output 08/22/20 08/23/20 08/23/20 18:59 06:59 18:59 Weight 56.5 kg Other: Voiding Method Diaper Diaper Diaper Incontinent Incontinent Incontinent # Voids 2 3 # Bowel Movements 1 ABP, PAP, CO, CI - Last Documented Arterial Blood Pressure 143/61 - Exam PHYSICAL EXAMINATION: GENERAL: The patient is alert and oriented x3, not in any acute distress. thin built elderly female HEENT: Pupils are round and equally reacting to light. EOMI. No scleral icterus. No conjunctival pallor. Normocephalic, atraumatic. No pharyngeal erythema. No thyromegaly. CARDIOVASCULAR: S1 and S2 present. No murmurs, rubs, or gallops. PULMONARY: mild bibasilar crackles ABDOMEN: Soft, nontender, nondistended, normoactive bowel sounds. No palpable organomegaly. MUSCULOSKELETAL: No joint swelling or deformity. EXTREMITIES: No cyanosis, clubbing, or pedal edema. NEUROLOGICAL: Gross neurological examination did not reveal any focal deficits. SKIN: No rashes. - Labs CBC & Chem 7: 08/21/20 08:52 08/22/20 06:59 Labs: Abnormal Lab Results - Last 24 Hours (Table) 08/22/20 08/22/20 08/23/20 Range/Units 06:59 20:20 11:17 BUN 5.0 L (9.0-27.0) mg/dL BUN/Creatinine Ratio 8.33 L (12.00-20.00) Ratio POC Glucose (mg/dL) 117 H 167 H (75-99) mg/dL Calcium 7.4 L (8.7-10.3) mg/dL Assessment and Plan Plan: -Bilateral Covid 19 pneumonia: continue with weaning FiO2 as tolerated, currently on 4 L NC . Pulmonary following. She is status post extubation, improving3 possibility of discharge on Monday to subacute rehabitation -Acute hypoxic respiratory failure secondary to above -TIA with left arm and left eye and lip droop . Completely resolved and neurology signed off -Metabolic encephalopathy secondary to above -A. fib and RVR, patient rate is controlled. With metoprolol -anemia patient has the acute blood loss anemia and also chronic anemia from anemia of chronic disease as well as iron deficiency presently hemoglobin remained stable. Patient was resumed on Eliquis -Hypertension -Hypothyroidism -DVT prophylaxis, Eliquis resumed -GI prophylaxis: Protonix -Full code
[2020-08-23] MEDS: DEXTROSE 5%-0.9% NACL 1,000 ML IV SCH (13:01)
--- NOTE | 2020-08-23 13:26 | P.PN ---
Subjective Progress Note Date: 08/23/20 Principal diagnosis: Iron deficiency anemia, Covid 19 infection Patient seen lying in bed tolerating diet. No reports of abdominal pain or signs or symptoms of GI bleeding. Objective - Vital Signs Vital signs: Vital Signs Temp 98.5 F 08/23/20 04:28 Pulse 60 08/23/20 04:28 Resp 18 08/23/20 04:28 BP 99/49 08/23/20 04:28 Pulse Ox 96 08/23/20 04:28 Intake & Output 08/22/20 08/23/20 08/23/20 18:59 06:59 18:59 Weight 56.5 kg Other: Voiding Method Diaper Diaper Incontinent Incontinent # Voids 2 3 # Bowel Movements 1 ABP, PAP, CO, CI - Last Documented Arterial Blood Pressure 143/61 - Exam On physical examination, patient appears comfortable in no apparent distress. HEAD: Normocephalic, atraumatic. EYES: No scleral icterus. No conjunctival injection. MOUTH: No lesions, tongue midline. NECK: Trachea midline, no gross abnormalities. ABDOMEN: Soft, nontender to palpation. Bowel sounds are positive. No organomegaly. No guarding or rigidity. EXTREMITIES: No pedal edema. SKIN: No rashes, no jaundice. NEUROLOGIC: Alert but not oriented. - Labs CBC & Chem 7: 08/21/20 08:52 08/22/20 06:59 Labs: Abnormal Lab Results - Last 24 Hours (Table) 08/22/20 08/22/20 08/22/20 Range/Units 06:59 11:59 20:20 BUN 5.0 L (9.0-27.0) mg/dL BUN/Creatinine Ratio 8.33 L (12.00-20.00) Ratio POC Glucose (mg/dL) 105 H 117 H (75-99) mg/dL Calcium 7.4 L (8.7-10.3) mg/dL Assessment and Plan (1) Iron deficiency anemia Narrative/Plan: 75-year-old female with multiple medical comorbidities and hospital course significant for treatment for Covid 19 infection, Clostridium difficile colitis and atrial fibrillation. Patient was noted to have a fall in her hemoglobin during her hospitalization. No reports of any signs or symptoms of GI bleeding. She is tolerating her NG tube feeds. Iron studies were suggestive of an iron deficiency anemia. Currently she is receiving PPI therapy and has a fecal management system in place. Hemoglobin remains stable today. Current Visit: Yes Status: Acute Code(s): D50.9 - IRON DEFICIENCY ANEMIA, UNSPECIFIED SNOMED Code(s): 92544048 (2) Positive occult stool blood test Current Visit: Yes Status: Acute Code(s): R19.5 - OTHER FECAL ABNORMALITIES SNOMED Code(s): 87059137 (3) Clostridium difficile diarrhea Current Visit: Yes Status: Acute Code(s): A04.72 - ENTEROCOLITIS D/T CLOSTRIDIUM DIFFICILE, NOT SPCF RECUR SNOMED Code(s): 6450529231599 (4) COVID-19 Current Visit: Yes Status: Acute Code(s): U07.1 - COVID-19 SNOMED Code(s): 582413731 Plan: Supportive care Diet as tolerated Continue to monitor hemoglobin and hematocrit and transfuse as needed Continue twice daily Protonix therapy Okay to resume anticoagulation therapy Continue oral vancomycin for treatment of Clostridium difficile, and Questran Continue other medical management per primary team and consulting services No plans for endoscopic evaluation unless further fall in hemoglobin or signs or symptoms of GI bleeding develop Thank you for allowing us to participate in the care of the patient we will continue to follow
[2020-08-23 16:41] VITALS: RESP 18
[2020-08-23 17:02] LABS: Glucose,Whole Blood 84 mg/dL (75-99)
[2020-08-23 21:13] LABS: Glucose,Whole Blood 101 mg/dL (75-99)
[2020-08-23] MEDS: ATORVASTATIN 40 MG TAB PO SCH (22:07)
[2020-08-23] MEDS: QUEtiapine 50 MG TAB PO SCH (22:07)
[2020-08-23] MEDS: amLODIPine 5 MG TAB PO SCH (22:08)
[2020-08-24] MEDS: DEXTROSE 5%-0.9% NACL 1,000 ML IV SCH (00:34)
[2020-08-24] MEDS: LEVOTHYROXINE 75 MCG TAB PO SCH (05:41)
[2020-08-24 07:09] LABS: Glucose,Whole Blood 81 mg/dL (75-99)
[2020-08-24] MEDS: PANTOPRAZOLE SODIUM 40 MG GRANULE PKT PO SCH (08:20)
[2020-08-24] MEDS: METOPROLOL TARTRATE 25 MG TAB PO SCH (08:20)
[2020-08-24] MEDS: FERROUS SULFATE ORAL ELIXIR 300 MG/5 ML CUP PO SCH (08:20)
[2020-08-24] MEDS: INSULIN ASPART (NovoLOG) 100 UNIT/ML VIAL SQ SCH ×2 (08:21→13:48)
[2020-08-24] MEDS: APIXABAN 2.5 MG TABLET PO SCH (08:21)
[2020-08-24] MEDS: CYANOCOBALAMIN 1,000 MCG/ML 1 ML VIAL IM SCH (08:21)
[2020-08-24] MEDS: ALBUTEROL HFA INHALER INHALATION SCH ×2 (09:04→12:07)
[2020-08-24 10:50] VITALS: BP 108/64; PULSE 94; TEMP 98.1
[2020-08-24 11:35] LABS: Glucose,Whole Blood 102 mg/dL (75-99)
[2020-08-24] MEDS: CHOLESTYRAMINE (WITH SUGAR) 4 GM PACKET PO SCH (11:39)
--- NOTE | 2020-08-24 12:34 | P.DS ---
Providers Date of admission: 07/29/20 20:22 Expected date of discharge: 08/24/20 Attending physician: Esther Harkins Consults: 07/29/20 20:22 Consult Physician Routine Consulting Provider: Mark Pena Consult Reason/Comments: Rapid A. fib, Covid 19 Do you want consulting provider notified?: Yes Consult Physician Stat Consulting Provider: Twin Mobley Consult Reason/Comments: Covid 19 pneumonia, hypoxemia, rapid atrial fibrillation Do you want consulting provider notified?: Already Contacted 08/05/20 16:49 Consult Physician Routine Consulting Provider: Giorgi Watson Consult Reason/Comments: New left facial droop and left arm weakness Do you want consulting provider notified?: Yes 08/15/20 07:16 Consult Physician Urgent Consulting Provider: aMyo Castorena Consult Reason/Comments: possible GI bleed Do you want consulting provider notified?: Yes Primary care physician: Alecia Glasgow Hospital Course: Final diagnosis -Bilateral Covid 19 pneumonia status post extubation -Acute hypoxic respiratory failure secondary to above -TIA with left arm and left eye and lip droop -Metabolic encephalopathy secondary to above -A. fib and RVR, patient rate is controlled -anemia patient has the acute blood loss anemia and also chronic anemia from anemia of chronic disease as well as iron deficiency -Hypertension -Hypothyroidism -DVT prophylaxis -GI prophylaxis -Full code without mechanical ventilation Discharge disposition Patient is being discharged in a stable condition with guarded prognosis to [facility] for continued PT/OT therapy. Patient will follow-up with Dr. Mart in the outpatient setting upon discharge. Total time taken is greater than 35 minutes. History of present illness This is a 75-year-old female who was recently admitted with shortness of breath, atrial fibrillation and rapid ventricular rate, and was found to be Covid 19 positive and was being closely monitored. Patient was seen and evaluated and closely monitor in the ICU for quite some time on a mechanical vent and was maintained on IV Cardizem. Patient was also on a heparin drip and transition to Eliquis and will continue with this 2.5 mg twice daily. Patient was also seen and evaluated by multiple medical consultations including GI for the possibility of a lower GI bleed and anticoagulant was on hold. Patient did receive 1 unit of PRBCs during hospitalization and hemoglobin has been stable and is currently 7.6. No active bleeding noted. GI plans for no endoscopic interventions at this time. Prescriptions will be provided for repeat labs in a few days to monitor hemoglobin. Patient's oral intake continues to be quite poor and needs encouragement on eating and needs aggressive PT/OT therapy for strength and mobility. Patient currently maintained on 5 L of oxygen via nasal cannula and needs constant encouragement on the use of incentive spirometer and increasing activity. Currently no reports of chest pain, shortness of breath, or palpitat ions. Patient is afebrile. No reports of nausea or vomiting and patient is tolerating diet. Patient will be going to [facility] on the [place] today. Discussed with Andrew about the treatment plan and the transfer today. Guarded prognosis. On exam vital signs are stable. Temp is 98.1F, pulse is 94, respirations are 18, blood pressure is 108/64, oxygen saturation is 90% on 4-5L nasal cannula. Cardio S1, S2 are muffled. Respiratory system shows diminished breath sounds at the bases with no wheezing or rhonchi noted. Abdomen is soft and nontender. Nervous system shows diffuse weakness. Please refer to medication reconciliation sheet for a list of medications. Patient Condition at Discharge: Stable Plan - Discharge Summary New Discharge Prescriptions: New Apixaban [Eliquis] 2.5 mg PO BID tablet Ferrous Sulfate Oral Elixir [Feosol Liquid] 300 mg PO BID-W/MEALS ml Atorvastatin [Lipitor] 40 mg PO HS tab Metoprolol Tartrate [Lopressor] 25 mg PO DAILY tab amLODIPine [Norvasc] 5 mg PO HS tab Cholestyramine (with Sugar) [Questran Packet] 4 gm PO BID@1000,1800 packet QUEtiapine [SEROquel] 50 mg PO HS tab Acetaminophen Tab [Tylenol] 650 mg PO Q4HR PRN tab PRN Reason: Fever And/ Or Pain Albuterol Inhaler [Ventolin Hfa Inhaler] 2 puff INHALATION RT-QID puff Continue Levothyroxine Sodium [Synthroid] 75 mcg PO DAILY Discontinued amLODIPine [Norvasc] 5 mg PO DAILY Discharge Medication List Levothyroxine Sodium [Synthroid] 75 mcg PO DAILY 07/29/20 [History] Acetaminophen Tab [Tylenol] 650 mg PO Q4HR PRN tab 08/21/20 [Rx] Albuterol Inhaler [Ventolin Hfa Inhaler] 2 puff INHALATION RT-QID puff 08/21/20 [Rx] Apixaban [Eliquis] 2.5 mg PO BID tablet 08/21/20 [Rx] Atorvastatin [Lipitor] 40 mg PO HS tab 08/21/20 [Rx] Cholestyramine (with Sugar) [Questran Packet] 4 gm PO BID@1000,1800 packet 08/21/20 [Rx] Ferrous Sulfate Oral Elixir [Feosol Liquid] 300 mg PO BID-W/MEALS ml 08/21/20 [Rx] Metoprolol Tartrate [Lopressor] 25 mg PO DAILY tab 08/21/20 [Rx] QUEtiapine [SEROquel] 50 mg PO HS tab 08/21/20 [Rx] amLODIPine [Norvasc] 5 mg PO HS tab 08/21/20 [Rx] Follow up Appointment(s)/Referral(s): Gaudencio Mart MD [REFERRING] - 1-2 days Activity/Diet/Wound Care/Special Instructions: [facility] as tolerated Continue dysphasia 1 pured diet with thickened liquids Encourage oral intake Follow-up with primary care provider upon discharge Discharge Disposition: TRANSFER TO SNF/ECF
--- NOTE | 2020-08-24 14:36 | P.PN ---
Subjective Progress Note Date: 08/24/20 (late entry, patient was seen at 1030) Principal diagnosis: Iron deficiency anemia, Covid-19 infection This is a 75-year-old female with multiple medical comorbidities and significant hospital course for treatment of coated 19 infection, Clostridium difficile colitis and atrial fibrillation. She had a fall in her hemoglobin during her hospitalization down to 6.8, she was transfused with 1 unit of packed red blood cells which brought her hemoglobin up to 9.1. Her Eliquis was restarted, then a drop in her hemoglobin again to 7.5. Subsequently her Eliquis was stopped again. She had no more reported black bowel movements, hematemesis, nausea, vomiting, or abdominal pain. Her Eliquis was restarted without any further reports of GI bleed. [facility] Objective - Vital Signs Vital signs: Vital Signs Temp 98.1 F 08/24/20 10:02 Pulse 94 08/24/20 10:02 Resp 18 08/24/20 10:02 BP 108/64 08/24/20 10:02 Pulse Ox 90 L 08/24/20 10:02 Intake & Output 08/23/20 08/24/20 08/24/20 18:59 06:59 18:59 Other: Voiding Method Diaper Bedpan Bedpan Incontinent Diaper Diaper Incontinent Incontinent # Voids 2 3 1 ABP, PAP, CO, CI - Last Documented Arterial Blood Pressure 143/61 - Exam General appearance: The patient is alert, oriented, in no acute distress. HET: Head is normocephalic and atraumatic. Conjunctiva pink. Sclera anicteric. Neck: Supple without lymphadenopathy. Abdomen: Soft, nontender, nondistended with bowel sounds. No guarding or rigidity. Extremities: Normal skin color and turgor. No pedal edema Neurological: No focal deficits. Alert and oriented 3. - Labs CBC & Chem 7: 08/21/20 08:52 08/22/20 06:59 Labs: Abnormal Lab Results - Last 24 Hours (Table) 08/23/20 08/24/20 Range/Units 21:12 11:14 POC Glucose (mg/dL) 101 H 102 H (75-99) mg/dL Assessment and Plan (1) Iron deficiency anemia Narrative/Plan: 75-year-old female with multiple medical comorbidities and hospital course significant for treatment for Covid 19 infection, Clostridium difficile colitis and atrial fibrillation. Patient was noted to have a fall in her hemoglobin during her hospitalization. No reports of any signs or symptoms of GI bleeding. Iron studies were suggestive of an iron deficiency anemia. She is getting oral iron replacement. Currently she is receiving PPI therapy. Has had no further signs of gastrointestinal bleed. Status: Acute Code(s): D50.9 - IRON DEFICIENCY ANEMIA, UNSPECIFIED SNOMED Code(s): 07919348 (2) COVID-19 Status: Acute Code(s): U07.1 - COVID-19 SNOMED Code(s): 613335727 (3) Positive occult stool blood test Status: Acute Code(s): R19.5 - OTHER FECAL ABNORMALITIES SNOMED Code(s): 64829356 (4) Clostridium difficile diarrhea Status: Acute Code(s): A04.72 - ENTEROCOLITIS D/T CLOSTRIDIUM DIFFICILE, NOT SPCF RECUR SNOMED Code(s): 0008046363037 Plan: Supportive care Diet as tolerated Continue twice daily Protonix therapy May Resume Anticoagulation Patient was treated with vancomycin for Clostridium difficile, Questran ordered for diarrhea Continue other medical management per primary team and consulting services No plans for endoscopy unless further signs of GI bleed with drop in hemoglobin Thank you for allowing us to participate in the care of the patient Dr Pena I agree with the dictator's note, documented as a scribe by Maryan Leach.
== END 2020-08-24 13:59 | DRG 207 ==
LOC: EC 18:34 → 2SICU 20:22 → 6NMEDSUR 08-14 11:44
PROVIDERS: ADMIT Hospitalist; ATTEND Hospitalist
PROC: 0BH17EZ Insertion of Endotracheal Airway into Trachea, Via Natural or Artificial Opening (ICD-10-PCS; principal; 2020-07-31)
PROC: 5A1955Z Respiratory Ventilation, Greater than 96 Consecutive Hours (ICD-10-PCS; principal; 2020-07-31)
PROC: 02HV33Z Insertion of Infusion Device into Superior Vena Cava, Percutaneous Approach (ICD-10-PCS; 2020-07-31)
PROC: XW033E5 Introduction of Remdesivir Anti-infective into Peripheral Vein, Percutaneous Approach, New Technology Group 5 (ICD-10-PCS; 2020-08-03)
PROC: 30233N1 Transfusion of Nonautologous Red Blood Cells into Peripheral Vein, Percutaneous Approach (ICD-10-PCS; 2020-08-03)
PROC: XW13325 Transfusion of Convalescent Plasma (Nonautologous) into Peripheral Vein, Percutaneous Approach, New Technology Group 5 (ICD-10-PCS; 2020-08-03)
DX: U07.1 COVID-19 (principal); J12.89 Other viral pneumonia; J96.01 Acute respiratory failure with hypoxia; G93.41 Metabolic encephalopathy; I48.19 Other persistent atrial fibrillation; E87.3 Alkalosis; A04.72 Enterocolitis due to Clostridium difficile, not specified as recurrent; G45.9 Transient cerebral ischemic attack, unspecified; D62 Acute posthemorrhagic anemia; G62.81 Critical illness polyneuropathy; Z66 Do not resuscitate; E03.9 Hypothyroidism, unspecified; E16.2 Hypoglycemia, unspecified; I10 Essential (primary) hypertension; I08.1 Rheumatic disorders of both mitral and tricuspid valves; I27.20 Pulmonary hypertension, unspecified; D50.9 Iron deficiency anemia, unspecified; D63.8 Anemia in other chronic diseases classified elsewhere; Z78.1 Physical restraint status; Z79.899 Other long term (current) drug therapy; Z79.890 Hormone replacement therapy; Z79.82 Long term (current) use of aspirin; Z79.01 Long term (current) use of anticoagulants; Z91.14 Patient's other noncompliance with medication regimen; Z90.49 Acquired absence of other specified parts of digestive tract
CPT/HCPCS: 36415; 36600; 70450; 70496; 70498; 70551; 71045; 80048; 80053; 80061; 82272; 82550; 82553; 82607; 82728; 82746; 82805; 83540; 83550; 83615; 83735; 83880; 84100; 84132; 84145; 84484; 85025; 85027; 85379; 85384; 85610; 85730; 86140; 86850; 86870; 86880; 86900; 86901; 86920; 87324; 87502; 93306; 94002; 94003; 94640; 94760; 99291